=== PATIENT | female | born 1975 | race Caucasian/White ===

== ENCOUNTER 2020-06-10 11:32 | Emergency (ER) | payer SELFPAY ==
[2020-06-10 11:39] VITALS: BP 145/93; PULSE 93; RESP 16; TEMP 36.8; O2SAT 98
[2020-06-10] MEDS: Acetaminophen 325 MG TABLET 650 MG PO (12:49)
[2020-06-10] MEDS: carBAMazepine 100 MG TAB.CHEW PO (12:49)
[2020-06-10] MEDS: Metoclopramide HCl 10 MG TABLET PO (12:49)
--- NOTE | 2020-06-10 13:43 | ED.HA ---
HPI - Headache General Chief Complaint: Headache Stated Complaint: ear pain Time Seen by Provider: 06/10/20 12:21 Source: patient Mode of arrival: ambulatory History of Present Illness HPI Narrative: 44-year-old female with past medical history of trigeminal neuralgia presenting to the ED complaining of trigeminal neuralgia flare since this morning. Reports pain to left side of face and left ear. Admits to taking 800mg of Motrin [employer] with improvement in symptoms. Admits symptoms typical of prior [place] attacks. Denies visual change/loss, lightheadedness/dizziness, nausea/vomiting. Reports this is a postop follow-up with neurology however due to pandemic has been unable to see MD elicited complaint: other ([place]) Related Data Previous Rx's Medication Instructions Recorded carbamazepine 100 mg PO BID 10 Days #10 tab 06/10/20 Allergies Allergy/AdvReac Type Severity Reaction Status Date / Time No Known Allergies Allergy Unverified 12/12/19 17:23 [No Known Allergies*] Review of Systems Review of Systems: Constitutional: No Fever, No Chills, No Fatigue, No Malaise ENT/Mouth: No Hearing loss, + Ear Pain, No Nasal Congestion, No sore throat, No Swallowing Difficulty Eyes: No Eye Pain, No Swelling, No Discharge, No Vision Changes Cardiovascular: No Chest Pain, No SOB Respiratory: No Cough Gastrointestinal: No Nausea, No Vomiting Skin: No rash Neuro: No Weakness, No Numbness, No Dizziness, +Headache Yes all other systems are reviewed and are negative [facility] Past Medical History Attestation statement: The following information was validated with the patient. Medical History (Updated 06/10/20 @ 13:48 by GEE Soto) Neuralgia Social History Social History Advance Directives: No Advance Directives Information Provided: No Physical Exam Vital Signs: Vital Signs: Last Vital Signs Temp 98.2 F 06/10/20 11:39 Pulse 93 06/10/20 11:39 Resp 16 06/10/20 11:39 BP 145/93 H 06/10/20 11:39 Pulse Ox 98 06/10/20 11:39 Body Mass Index 0.2 Const: General: cooperative, healthy appearing, comfortable, no acute distress, well developed, alert and awake Orientation/consciousness: patient oriented x3 Limitations: no limitations HENMT: Other: + tenderness to soft palpation of left side of face/behind ear Head: Yes normal to inspection, Yes normocephalic and Yes atraumatic Ears: hearing grossly normal bilaterally, external ears normal, TM's normal bilaterally, mastoids normal and no periauricular adenopathy General nose exam: Normal external nose present Face and sinus: Yes normal facial exam Mouth: Normal oral and palatal mucosa present Throat: Yes posterior oropharynx normal, Yes tonsils normal, Yes uvula midline and No peritonsillar mass Eyes: General: appearance normal, both eyes and all related structures Pupils: Equal, round and reactive pupils present EOM: EOMs intact bilaterally Neck: Neck: Yes normal visual inspection, Yes full ROM, Yes no lymphadenopathy, Yes no meningeal signs and Yes supple Resp: Effort & Inspection: normal respiratory effort Cardio: Rate: regular rate Skin: Rashes: no rashes Wounds: no wounds Neuro: General: patient oriented x3, gait normal, tone normal, moves all extremities, no meningeal signs and no focal motor deficits Cranial nerves: Yes Equal, round and reactive pupils present Gait exam (Neuro): Normal gait present Extrem: General: Yes normal to inspection Course Course Course Narrative: -patient reports symptomatic improvement after p.o. medications given in the ED. Would like to be discharged. Will discharge home with carbamazepine prescription and close Neurology follow-up. She verbalized understanding feel safe discharge home MDM - Headache MDM Narrative Medical decision making narrative: 44-year-old female with past medical history of trigeminal neuralgia presenting to the ED complaining of trigeminal neuralgia flare since this morning. On exam VSS, NAD/well-appearing, physical exam as above. History/exam consistent with trigeminal neuralgia. Low concern for meningitis/encephalitis or CBT/SAH Plan: Carbamazepine/symptomatic treatment, reassess Medical Records Attestation: I reviewed the patient's medical records. Discharge Plan Discharge Clinical Impression: Trigeminal neuralgia Patient Disposition: Home, Self-Care Instructions: Trigeminal Neuralgia (ED) Additional Instructions: Carbamazepine will help treat your trigeminal neuralgia pain, take as prescribed, twice daily It is important that you have close follow-up with neurology Adverse potential side effects of this medication include nausea, vomiting, diarrhea, rash, itching, drowsiness, dizziness, blurred/double vision, lethargy, and headache, these usually occur at higher doses of the medication, and you are being started at the lowest does, thus these side effects are unlikely to occur If he develops any atypical symptoms of her trigeminal neuralgia including visual change/loss, persistent/unremitting nausea/vomiting, worsening headache, weakness, numbness return to the ED Prescriptions: New carbamazepine 200 mg tablet 100 mg PO BID 10 Days Qty: 10 RF: 0 Referrals: Lynette Nichole MD [Physician] - 5 days Interventions: ED Discharge Assessment Last Done: 06/10/20 14:28 Discharge Date/Time: 06/10/20 14:58
== END 2020-06-10 14:58 | disposition home or self-care (01) ==
PROVIDERS: Emergency Provider Internal Medicine
DX: G50.0 Trigeminal neuralgia (principal); R51.9 Headache, unspecified; Z79.899 Other long term (current) drug therapy
CPT/HCPCS: 99283

== ENCOUNTER 2021-05-30 12:26 | Emergency (ER) | payer OTHER, SELFPAY ==
--- NOTE | ~2021-05-30 | CT_ITS ---
EXAMINATION: CT ABDOMEN AND PELVIS WITHOUT CONTRAST CLINICAL INFORMATION: Upper abdominal pain COMPARISON: None TECHNIQUE: Multidetector volumetric imaging was performed from the superior aspect of the liver through the pubic symphysis. Sagittal and coronal reformatted images were obtained on the technologist's workstation. This CT examination was performed using dose optimization techniques as appropriate, variously including the following: *Automated exposure control *Adjustment of mA and/or kV according to patient size (this includes techniques or standardized protocols for targeted exams where dose is matched to indication/reason for exam; i.e. extremities or head) *Use of iterative reconstruction technique DLP: 395 mGy-cm FINDINGS: LUNG BASES: The visualized lung bases are unremarkable. LIVER, GALLBLADDER, AND BILIARY TREE: The liver is normal in size, shape, and attenuation. No focal hepatic lesion or biliary ductal dilatation is present. The gallbladder is unremarkable with no evidence of radiopaque gallstones, gallbladder wall thickening, or obvious pericholecystic inflammatory changes. PANCREAS: Unremarkable. SPLEEN: Unremarkable. ADRENAL GLANDS: Chronic calcifications in right adrenal gland again noted. KIDNEYS AND URETERS: The kidneys are normal in size, shape, and attenuation. There is a nonobstructing 2 mm calculus in the left lower pole. No hydronephrosis, hydroureter, or other calculi seen. No renal masses. No perinephric stranding. BLADDER: Unremarkable. GASTROINTESTINAL TRACT: Extensive sigmoid diverticula are present, increased when compared to the prior study. There is narrowing of a approximately 10 cm portion of ascending colon with normal-appearing cecum and appendix. Terminal ileum appears mildly thickened, which in retrospect was also the case in 2008. The small and large bowel are otherwise unremarkable. ABDOMINAL WALL: No significant hernia is appreciated. LYMPH NODES: No retroperitoneal lymphadenopathy. VASCULAR: Unremarkable. PELVIC VISCERA: An anteverted uterus is present. An abnormal adnexal mass is not seen. No free intraperitoneal fluid OSSEOUS STRUCTURES: Unremarkable. CT/CT abdomen pelvis wo con IMPRESSION: There is an area of narrowing in the ascending colon just above this cecum. At the time of the 2008 study, some thickening of the terminal ileum may have been present which may also be present on the current study but this is difficult to appreciate because of lack of oral contrast media. Could this patient have inflammatory bowel disease? Colonoscopy could be performed for further evaluation of the ascending colon or alternatively CT colonography or barium enema . Incidental note made of chronic right adrenal gland calcifications, extensive sigmoid diverticular disease and nonobstructing left renal calculus. Fleischner guidelines were followed.
[2021-05-30 13:27] VITALS: BP 142/102; PULSE 80; RESP 18; TEMP 36.9; O2SAT 99; BMI 23.2
--- NOTE | 2021-05-30 16:40 | ED.ABDPAIN ---
HPI - Abdominal Pain General Chief Complaint: Abdominal Pain Stated Complaint: abd pain Time Seen by Provider: 05/30/21 16:40 Source: patient Mode of arrival: ambulatory Limitations: no limitations History of Present Illness HPI narrative: Patient has history of chronic constipation no other significant abdominal problems been constipated for last 2 weeks complaining of upper abdominal pain radiating to the back with slight nausea vomited twice not eating much feel full no fever no chills no urinary complaints. Seen at urgent care center today earlier x-ray showed dilated bowels. Related Data Previous Rx's Medication Instructions Recorded carbamazepine 200 mg tablet 100 mg PO BID 10 Days #10 tab 06/10/20 Allergies Allergy/AdvReac Type Severity Reaction Status Date / Time No Known Allergies Allergy Unverified 12/12/19 17:23 [No Known Allergies*] Review of Systems Review of Systems Yes all other systems are reviewed and are negative [facility] Past Medical History Medical History Neuralgia Social History Social History Advance Directives: No Advance Directives Information Provided: No Patient : No Physical Exam ED Vital Signs: Vital Signs - 24 hr 05/30/21 13:27 Temperature 98.5 F Pulse Rate 80 Respiratory Rate 18 Blood Pressure 142/102 H Pulse Oximetry 99 BMI result Body Mass Index 23.2 Appearance: Alert. Oriented X3. No acute distress. Eyes: No pallor or icterus ENT: Pharynx normal. Oral Mucosa moist Neck: Normal inspection. Neck supple. CVS: Normal heart rate and rhythm. Pulses normal. Respiratory: No respiratory distress. Equal air entry bilateral, no wheezing/rales/rhonchi Abdomen: Soft , tenderness in epigastric area no rebound tenderness or guarding Bowel sounds are present, no mass palpable, no CVA tenderness Skin: Skin warm and dry. Normal skin color. Normal skin turgor. Extremities: No lower extremity edema. No calf tenderness Neuro: Oriented X 3. MDM - Abdominal Pain MDM Narrative Medical decision making narrative: Patient with history of chronic constipation with upper abdominal pain usually she does not get pain with constipation usual for her to have constipation for so long. No history of gallstones the past. Patient does not have history of gastritis ulcers. No blood in the stool. Will do basic labs including lipase to check pancreatitis CT scan to rule out any gallstones pancreas inflammation Lab Data Result diagrams: 05/30/21 16:58 05/30/21 16:58 Labs: Lab Results 05/30/21 05/30/21 05/30/21 Range/Units 16:58 16:58 18:35 WBC 8.1 (4.8-10.8) X10*3/uL RBC 4.21 (4.20-5.50) X10*6/uL Hgb 13.7 (12.0-16.0) g/dl Hct 39.8 (37.0-47.0) % MCV 94.5 (80.0-98.0) fL MCH 32.5 (27.0-33.0) pg MCHC 34.4 (31.0-35.0) g/dl RDW 12.1 (11.0-16.0) % Plt Count 305 (160-400) X10*3/uL MPV 8.9 L (9.4-12.3) fL Immature Gran % (Auto) 0.4 (0.0-0.4) % Neut % (Auto) 59.4 (45-73) % Lymph % (Auto) 31.1 (20-40) % [place] % (Auto) 6.9 (2-11) % Eos % (Auto) 1.6 (0-4) % Baso % (Auto) 0.6 (0-2) % Lymph # (Auto) 2.5 (1.2-4.9) X10*3/uL [place] # (Auto) 0.6 (0.1-1.2) X10*3/uL Eos # (Auto) 0.1 (0.0-0.4) X10*3/uL Baso # (Auto) 0.1 (0.0-0.2) X10*3/uL Abs Immat Gran (auto) 0.03 (0.00-0.03) X10*3/uL Absolute Neuts (auto) 4.8 (2.0-8.3) x10*3/uL Absolute Nucleated RBC 0.000 (0.0-0.012) X10*3/uL Nucleated RBC % (auto) 0.0 (0.0-0.2) /100WBC Sodium 137 (135-145) mmol/L Potassium 4.3 (3.3-5.1) mmol/L Chloride 104 (96-108) mmol/L Carbon Dioxide 25 (22-29) mmol/L Anion Gap 12 (12-20) BUN 12 (9-16) mg/dL Creatinine 0.74 (0.5-1.4) mg/dL Estim Creat Clear Calc 78.5 Estimated GFR > 60 Random Glucose 96 (60-115) mg/dL Calcium 9.5 (8.4-10.2) mg/dL Total Bilirubin 0.3 (0.0-1.0) mg/dL AST 14 (5-31) U/L ALT 16 (0-31) U/L Alkaline Phosphatase 92 (39-117) U/L Total Protein 7.0 (6.5-8.0) g/dL Albumin 4.1 (3.5-5.0) g/dL Lipase 48 (8-78) U/L Urine Color YELLOW Urine Appearance CLEAR Urine pH 6.0 (5.0-8.0) Ur Specific [place] 1.020 (1.005-1.025) Urine Protein NEG (NEG-TRACE) MG/DL Urine Glucose (UA) NEG (NEG) MG/DL Urine Ketones 5 (NEG) MG/DL Urine Blood NEG (NEG) Urine Nitrite NEG (NEG) Ur Leukocyte Esterase NEG (NEG) Urine RBC 0-2 (0) /HPF Urine WBC 0 (0-4) /HPF Ur Squamous Epith Cells TRACE /LPF Urine Bacteria 1+ /LPF Urine Mucus TRACE /LPF Urine Test (NEGATIVE) 05/30/21 Range/Units 18:35 WBC (4.8-10.8) X10*3/uL RBC (4.20-5.50) X10*6/uL Hgb (12.0-16.0) g/dl Hct (37.0-47.0) % MCV (80.0-98.0) fL MCH (27.0-33.0) pg MCHC (31.0-35.0) g/dl RDW (11.0-16.0) % Plt Count (160-400) X10*3/uL MPV (9.4-12.3) fL Immature Gran % (Auto) (0.0-0.4) % Neut % (Auto) (45-73) % Lymph % (Auto) (20-40) % [place] % (Auto) (2-11) % Eos % (Auto) (0-4) % Baso % (Auto) (0-2) % Lymph # (Auto) (1.2-4.9) X10*3/uL [place] # (Auto) (0.1-1.2) X10*3/uL Eos # (Auto) (0.0-0.4) X10*3/uL Baso # (Auto) (0.0-0.2) X10*3/uL Abs Immat Gran (auto) (0.00-0.03) X10*3/uL Absolute Neuts (auto) (2.0-8.3) x10*3/uL Absolute Nucleated RBC (0.0-0.012) X10*3/uL Nucleated RBC % (auto) (0.0-0.2) /100WBC Sodium (135-145) mmol/L Potassium (3.3-5.1) mmol/L Chloride (96-108) mmol/L Carbon Dioxide (22-29) mmol/L Anion Gap (12-20) BUN (9-16) mg/dL Creatinine (0.5-1.4) mg/dL Estim Creat Clear Calc Estimated GFR Random Glucose (60-115) mg/dL Calcium (8.4-10.2) mg/dL Total Bilirubin (0.0-1.0) mg/dL AST (5-31) U/L ALT (0-31) U/L Alkaline Phosphatase (39-117) U/L Total Protein (6.5-8.0) g/dL Albumin (3.5-5.0) g/dL Lipase (8-78) U/L Urine Color Urine Appearance Urine pH (5.0-8.0) Ur Specific [place] (1.005-1.025) Urine Protein (NEG-TRACE) MG/DL Urine Glucose (UA) (NEG) MG/DL Urine Ketones (NEG) MG/DL Urine Blood (NEG) Urine Nitrite (NEG) Ur Leukocyte Esterase (NEG) Urine RBC (0) /HPF Urine WBC (0-4) /HPF Ur Squamous Epith Cells /LPF Urine Bacteria /LPF Urine Mucus /LPF Urine Test NEGATIVE (NEGATIVE) Discharge Plan Discharge Clinical Impression: Abdominal pain, Constipation Patient Disposition: Home, Self-Care Instructions: Constipation (DC), Abdominal Pain (ED) Additional Instructions: Drink plenty of fluids Stool softener as advised Take MiraLax 2 times a day as needed Follow-up with gastroenterology for colonoscopy Prescriptions: No Action carbamazepine 200 mg tablet 100 mg PO BID 10 Days Qty: 10 0RF Referrals: Dawn Malave MD [Physician] - 1 week
[2021-05-30 17:03] LABS: MANUAL DIFF FLAG NO
[2021-05-30] MEDS: Famotidine/PF 20 MG/2 ML VIAL IVPUSH (17:05)
[2021-05-30 17:06] LABS: Basophils Absolute Auto 0.1 X10*3/uL (0.0-0.2); Basophils Percent Auto 0.6 % (0-2); Eosinophils Absolute Auto 0.1 X10*3/uL (0.0-0.4); Eosinophils Percent Auto 1.6 % (0-4); Hematocrit 39.8 % (37.0-47.0); Hemoglobin 13.7 g/dl (12.0-16.0); Imm Gran Abs Auto 0.03 X10*3/uL (0.00-0.03); Imm Gran Pct Auto 0.4 % (0.0-0.4); Lymphocytes Absolute Auto 2.5 X10*3/uL (1.2-4.9); Lymphocytes Percent Auto 31.1 % (20-40); Mean Corpuscular HGB Conc 34.4 g/dl (31.0-35.0); Mean Corpuscular Hemoglobin 32.5 pg (27.0-33.0); Mean Corpuscular Volume 94.5 fL (80.0-98.0); Mean Platelet Volume 8.9 fL (9.4-12.3); Monocytes Absolute Auto 0.6 X10*3/uL (0.1-1.2); Monocytes Percent Auto 6.9 % (2-11); Neutrophils Absolute Auto 4.8 x10*3/uL (2.0-8.3); Neutrophils Percent Auto 59.4 % (45-73); Platelet Count 305 X10*3/uL (160-400); Red Blood Count 4.21 X10*6/uL (4.20-5.50); Red Cell Distribution Width 12.1 % (11.0-16.0); White Blood Count 8.1 X10*3/uL (4.8-10.8)
[2021-05-30] MEDS: 0.9 % Sodium Chloride 1,000 ML 999 ML IV (17:07)
[2021-05-30 17:32] LABS: Alanine Aminotransferase 16 U/L (0-31); Albumin Level 4.1 g/dL (3.5-5.0); Alkaline Phosphatase 92 U/L (39-117); Anion Gap 12 (12-20); Aspartate Amino Transferase 14 U/L (5-31); Bilirubin Total 0.3 mg/dL (0.0-1.0); Blood Urea Nitrogen 12 mg/dL (9-16); Calcium 9.5 mg/dL (8.4-10.2); Carbon Dioxide 25 mmol/L (22-29); Chloride 104 mmol/L (96-108); Creatinine Clr Calc Pharmacy 78.5; Estimated Glomerular Filt Rate > 60; Glucose Random 96 mg/dL (60-115); Lipase 48 U/L (8-78); Potassium 4.3 mmol/L (3.3-5.1); Sodium 137 mmol/L (135-145)
[2021-05-30 18:44] LABS: Appearance Urine CLEAR; Color Urine YELLOW; Glucose Urine UA NEG (NEG); Leukocyte Esterase Urine NEG (NEG); Nitrite Urine NEG (NEG); Urine Blood NEG (NEG); Urine Ketones 5 MG/DL (NEG); Urine Protein NEG (NEG-TRACE)
[2021-05-30 18:45] LABS: UPreg QC Valid YES; Urine Pregnancy NEGATIVE (NEGATIVE)
[2021-05-30 18:57] LABS: Bacteria Urine 1+ /LPF; Mucus Urine TRACE /LPF; RBC Urine 0-2 /HPF (0); Squamous Epithelial Cell Urine TRACE /LPF; WBC Urine 0 /HPF (0-4)
[2021-05-30] MEDS: Magnesium Citrate 300 ML SOLUTION PO (19:08)
[2021-05-30] MEDS: bisacodyL 5 MG TABLET.DR 10 MG PO (19:08)
== END 2021-05-30 19:10 | disposition home or self-care (01) ==
PROVIDERS: Emergency Provider Internal Medicine
DX: K59.00 Constipation, unspecified (principal); R10.10 Upper abdominal pain, unspecified; Z79.899 Other long term (current) drug therapy
CPT/HCPCS: 36415; 74176; 80053; 81001; 81025; 83690; 85025; 96361; 96374; 99283; 99284

== ENCOUNTER → 2021-06-08 08:55 | Outpatient (BNVA) | payer OTHER, SELFPAY | PROVIDERS: Visit Provider Physician Assistant | DX: K21.9 Gastro-esophageal reflux disease without esophagitis (principal); K59.09 Other constipation; R93.5 Abnormal findings on diagnostic imaging of other abdominal regions, including retroperitoneum; R10.9 Unspecified abdominal pain; R68.81 Early satiety; Z12.11 Encounter for screening for malignant neoplasm of colon | CPT/HCPCS: 99202 ==

== ENCOUNTER 2021-06-08 10:06 | Outpatient (REF) | payer OTHER, SELFPAY ==
[2021-06-08 11:27] LABS: MANUAL DIFF FLAG NO
[2021-06-08 11:53] LABS: Basophils Absolute Auto 0.1 X10*3/uL (0.0-0.2); Eosinophils Absolute Auto 0.1 X10*3/uL (0.0-0.4); Eosinophils Percent Auto 1.8 % (0-4); Hematocrit 39.5 % (37.0-47.0); Hemoglobin 13.1 g/dl (12.0-16.0); Imm Gran Abs Auto 0.04 X10*3/uL (0.00-0.03); Imm Gran Pct Auto 0.6 % (0.0-0.4); Lymphocytes Absolute Auto 1.6 X10*3/uL (1.2-4.9); Lymphocytes Percent Auto 22.7 % (20-40); Mean Corpuscular HGB Conc 33.2 g/dl (31.0-35.0); Mean Corpuscular Hemoglobin 31.6 pg (27.0-33.0); Mean Corpuscular Volume 95.4 fL (80.0-98.0); Mean Platelet Volume 9.2 fL (9.4-12.3); Monocytes Absolute Auto 0.6 X10*3/uL (0.1-1.2); Monocytes Percent Auto 8.2 % (2-11); Neutrophils Absolute Auto 4.7 x10*3/uL (2.0-8.3); Neutrophils Percent Auto 65.7 % (45-73); Platelet Count 341 X10*3/uL (160-400); Red Blood Count 4.14 X10*6/uL (4.20-5.50); Red Cell Distribution Width 12.1 % (11.0-16.0); White Blood Count 7.2 X10*3/uL (4.8-10.8)
[2021-06-08 12:37] LABS: Alanine Aminotransferase 13 U/L (0-31); Alkaline Phosphatase 90 U/L (39-117); Anion Gap 13 (12-20); Aspartate Amino Transferase 12 U/L (5-31); Bilirubin Total 0.2 mg/dL (0.0-1.0); Blood Urea Nitrogen 16 mg/dL (9-16); Calcium 9.1 mg/dL (8.4-10.2); Carbon Dioxide 24 mmol/L (22-29); Chloride 105 mmol/L (96-108); Estimated Glomerular Filt Rate > 60; Glucose Random 71 mg/dL (60-115); Potassium 4.3 mmol/L (3.3-5.1); Sodium 138 mmol/L (135-145); Total Protein 7.1 g/dL (6.5-8.0)
[2021-06-08 12:40] LABS: Thyroid Stimulating Hormone 0.63 uIU/mL (0.32-4.0)
== END 2021-06-08 10:07 | disposition home or self-care (01) ==
LOC: HO.WFDLDS 10:06
PROVIDERS: Visit Provider Physician Assistant
DX: R10.9 Unspecified abdominal pain (principal); K59.09 Other constipation; R93.5 Abnormal findings on diagnostic imaging of other abdominal regions, including retroperitoneum
CPT/HCPCS: 36415; 80053; 84443; 85025

== ENCOUNTER 2021-11-10 09:29 | Emergency (ER) | payer OTHER, SELFPAY ==
[2021-11-10 09:38] VITALS: BP 155/107; PULSE 100; RESP 16; TEMP 36.6; O2SAT 100; BMI 22.8
--- NOTE | 2021-11-10 10:33 | ED.GENADULT ---
HPI - General Adult General Chief complaint: Ear Problems Stated complaint: extreme L ear pain, blurry vision Time Seen by Provider: 11/10/21 10:32 Source: patient Mode of arrival: ambulatory Limitations: no limitations History of Present Illness HPI narrative: 46-year-old female with a past medial history of trigeminal neuroalgia, presents to the emergency department c/o left sided trigeminal flare since this morning. She reports pain traveling from her left ear down to her jaw, with left-sided eye pressure and blurriness. She states she took Excedrin early on to curb her symptoms, with no relief. She denies fever, chills, headache, lightheadedness, dizziness, chest pain, shortness of breath, cough, wheezing, nausea, vomiting, diarrhea, or abdominal pain. Patient states that when she was seen here previously, she was given carbamazepine which helped. Onset (ago): hour(s) Location: face Severity: mild Severity scale (1-10): 3 Quality: stabbing Pain Consistency: constant Relieving factors: none Exacerbating factors: none Associated symptoms: denies other symptoms Treatments prior to arrival: none Related Data Previous Rx's Medication Instructions Recorded carbamazepine 200 mg tablet 100 mg PO BID 10 days #10 tabs 06/10/20 bisacodyl 10 mg rectal suppository 10 mg [place] DAILY PRN constipation 06/08/21 (Dulcolax (bisacodyl)) #20 ea bisacodyl 5 mg tablet,delayed 10 mg PO ONCE colonoscopy prep 1 06/08/21 release (Dulcolax (bisacodyl)) day #2 tabs docusate sodium 100 mg capsule 200 mg PO BEDTIME #60 caps 06/08/21 (Colace) pantoprazole 20 mg tablet,delayed 20 mg PO QAM #30 tabs 06/08/21 release polyethylene glycol 3350 17 238 g PO ONCE 1 day #238 grams 06/08/21 gram/dose oral powder (Miralax) carbamazepine 100 mg 100 mg PO BID 7 days #14 caps 11/10/21 capsule,extended release [id number] (Carbatrol) Allergies Allergy/AdvReac Type Severity Reaction Status Date / Time No Known Allergies Allergy Verified 06/08/21 09:05 [No Known Allergies*] Review of Systems Constitutional: Constitutional: Reports no additional constitutional complaints, Denies chills, Denies fever(s), Denies headache(s) and Denies night sweats Eyes: Eyes: Reports no additional eye complaints, Reports blurry vision (Left eye), Denies change in vision, Denies diplopia, Denies eye discharge, Denies loss of vision and Reports eye pain (Pain behind left eye) ENT: Denies dizziness and Denies headache(s) Comments: left sided face pain Cardiovascular: Cardiovascular: Reports no additional cardiovascular complaints, Denies chest pain, Denies lightheadedness, Denies Loss of Consciousness and Denies dyspnea Respiratory: Respiratory: Reports no additional respiratory complaints and Denies dyspnea Gastrointestinal: Gastrointestinal: Reports no additional gastrointestinal complaints, Denies abdominal pain, Denies melena, Denies hematochezia, Denies change in bowel habits, Denies change in stool character, Denies diarrhea, Denies nausea and Denies vomiting Genitourinary: Genitourinary: Denies hematuria, Denies urinary frequency, Denies dysuria, Denies urinary incontinence, Denies urinary hesitancy and Denies urinary urgency Musculoskeletal: Musculoskeletal: Reports no additional musculoskeletal complaints, Denies numbness and Denies tingling Neurologic: Denies dizziness, Denies headache(s), Denies loss of vision, Denies numbness and Denies tingling Psychiatric: Psychiatric: Reports no additional psychiatric complaints Endocrine: Endocrine: Reports no additional endocrine complaints Hematologic/Lymphatic: Hematologic/Lymphatic: Reports no additional hematologic/lymphatic complaints Allergic/Immunologic: Allergic/Immunologic: Reports no additional allergic/immunologic complaints [facility] Past Medical History Attestation statement: The following information was validated with the patient. 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 Physical Exam ED Vital Signs: Vital Signs - 24 hr 11/10/21 09:38 11/10/21 10:37 Temperature 97.8 F 98.1 F Pulse Rate 100 94 Respiratory Rate 16 16 Blood Pressure 155/107 H 141/99 H Pulse Oximetry 100 100 Oxygen Delivery Method Room Air Room Air BMI result Body Mass Index 22.8 Const General: cooperative, no acute distress, alert and awake Nutritional Appearance: well nourished Orientation/consciousness: patient oriented x3 Limitations: no limitations HENMT Head: Yes normal to inspection and Yes atraumatic Ears: hearing grossly normal bilaterally and external ears normal General nose exam: Normal external nose present, no nasal discharge noted and no epistaxis Face and sinus: Yes normal facial exam, No abrasion and No laceration Mouth: Normal oral and palatal mucosa present, no drooling and no muffled voice Eyes General: appearance normal, both eyes and all related structures Periorbital: periorbital findings normal Eyelids: Yes eyelids normal Conjunctivae: conjunctivae normal Pupils: Equal, round and reactive pupils present EOM: EOMs intact bilaterally Neck Neck: Yes normal visual inspection, Yes full ROM and Yes no lymphadenopathy Chest Chest palpation & inspection: normal inspection of the chest Resp Effort & Inspection: normal respiratory effort and able to speak in complete sentences Auscultation: clear to auscultation bilaterally, no crackles, no rales, no rhonchi and no wheezes Cardio Rate: regular rate Rhythm: regular rhythm GI Inspection: Yes normal to inspection Neuro General: patient oriented x3 and moves all extremities Cranial nerves: Yes Equal, round and reactive pupils present Cognition (Neuro): normal cognition Motor exam (neuro): 5/5 motor strength present throughout Sensory Exam: Normal double simultaneous stimulation for sensation Extrem General: Yes normal to inspection, Yes full ROM and Yes capillary refill normal Psych Appearance: grossly normal Mental Status: mental status grossly normal Affect: normal affect Attitude: cooperative Thought process: Normal thought process present Thought content: Normal thought content present Insight: Good insight present (Psych) NIH Stroke Scale Internal: Initial- Upon Arrival Time: 10:32 Level of Consciousness: Alert Level of Consciousness Questions: Answers both questions correctly Level of Consciousness Commands: Performs both tasks correctly Best Gaze: Normal Visual: No visual loss Facial Palsy: Normal Motor Arm (Right): No drift Motor Arm (Left): No drift Motor Leg (Right): No drift Motor Leg (Left): No drift Limb Ataxia: Absent Sensory: Normal Best Language: No aphasia Dysarthia: Normal Extinction and Inattention: No abnormality Score: 0 Medical Decision Making MDM Narrative Medical decision making narrative: Patient is a 46 year old female presenting to the emergency department today with left sided trigemenial neuralgia. Patient's physical exam was unremarkable. Patient's blood work was unremarkable. I explained my physical exam findings as well as all test results to the patient. I answered all questions asked by the patient. Patient received PO carbamazepine which she stated helped her symptoms significantly. I stressed the importance of the patient taking her medication as prescribed. I stressed the importance of the patient following up with her primary care provider and a neurologist. I stressed the importance of the patient returning to the emergency department immediately if her symptoms were to worsen or if she were to develop any dizziness, shortness of breath, difficulty breathing, chest pain, blurry vision, loss of vision, nausea, vomiting, abdominal pain, fever, chills, back pain, or any other complaints. Patient verbalized agreement and understanding with this treatment plan and discharge. Differential Diagnosis Differential Diagnosis: trigeminal neuralgia Medical Records Medical records reviewed: Yes I reviewed the patient's medical records. Lab Data Lab results reviewed: Yes I reviewed the patient's lab results. Result diagrams: 11/10/21 11:47 11/10/21 11:47 Labs: Lab Results 11/10/21 11/10/21 Range/Units 11:47 11:47 WBC 8.7 (4.8-10.8) X10*3/uL RBC 4.45 (4.20-5.50) X10*6/uL Hgb 14.1 (12.0-16.0) g/dl Hct 41.2 (37.0-47.0) % MCV 92.6 (80.0-98.0) fL MCH 31.7 (27.0-33.0) pg MCHC 34.2 (31.0-35.0) g/dl RDW 12.0 (11.0-16.0) % Plt Count 334 (160-400) X10*3/uL MPV 8.8 L (9.4-12.3) fL Immature Gran % (Auto) 0.6 H (0.0-0.4) % Neut % (Auto) 71.8 (45-73) % Lymph % (Auto) 20.3 (20-40) % Davis % (Auto) 6.4 (2-11) % Eos % (Auto) 0.3 (0-4) % Baso % (Auto) 0.6 (0-2) % Lymph # (Auto) 1.8 (1.2-4.9) X10*3/uL Davis # (Auto) 0.6 (0.1-1.2) X10*3/uL Eos # (Auto) 0.0 (0.0-0.4) X10*3/uL Baso # (Auto) 0.1 (0.0-0.2) X10*3/uL Abs Immat Gran (auto) 0.05 H (0.00-0.03) X10*3/uL Absolute Neuts (auto) 6.2 (2.0-8.3) x10*3/uL Absolute Nucleated RBC 0.000 (0.0-0.012) X10*3/uL Nucleated RBC % (auto) 0.0 (0.0-0.2) /100WBC Sodium 140 (135-145) mmol/L Potassium 4.3 (3.3-5.1) mmol/L Chloride 106 (96-108) mmol/L Carbon Dioxide 24 (22-29) mmol/L Anion Gap 14 (12-20) BUN 8 L (9-16) mg/dL Creatinine 0.71 (0.5-1.4) mg/dL Estim Creat Clear Calc 81.0 Estimated GFR > 60 Random Glucose 93 (60-115) mg/dL Calcium 8.8 (8.4-10.2) mg/dL Magnesium 1.8 (1.6-2.6) mg/dL Total Bilirubin 0.3 (0.0-1.0) mg/dL AST 13 (5-31) U/L ALT 12 (0-31) U/L Alkaline Phosphatase 83 (39-117) U/L Total Protein 7.3 (6.5-8.0) g/dL Albumin 4.3 (3.5-5.0) g/dL Discharge Plan Discharge Clinical Impression: Trigeminal neuralgia Patient Disposition: Home, Self-Care Instructions: Trigeminal Neuralgia (ED) Additional Instructions: Follow up with your primary care provider and a neurologist. Return to the emergency department immediately if your symptoms worsen or if you develop any dizziness, shortness of breath, difficulty breathing, chest pain, blurry vision, loss of vision, nausea, vomiting, abdominal pain, fever, chills, back pain, or any other complaints. Prescriptions: New carbamazepine [Carbatrol] 100 mg capsule, ER multiphase 12 hr 100 mg PO BID 7 Days Qty: 14 0RF No Action carbamazepine 200 mg tablet 100 mg PO BID 10 Days Qty: 10 0RF docusate sodium [Colace] 100 mg capsule 200 mg PO BEDTIME Qty: 60 5RF bisacodyl [Dulcolax (bisacodyl)] 10 mg suppository 10 mg [place] DAILY PRN (Reason: constipation) Qty: 20 0RF bisacodyl [Dulcolax (bisacodyl)] 5 mg tablet,delayed release (DR/EC) 10 mg PO ONCE 1 Days Qty: 2 0RF Rx Instructions: Take 2 tablets by mouth at 12:00pm the day before your procedure. polyethylene glycol 3350 [Miralax] 17 gram/dose powder 238 g PO ONCE 1 Days Qty: 238 0RF Rx Instructions: Take as directed by mouth the day before your procedure. pantoprazole 20 mg tablet,delayed release (DR/EC) 20 mg PO QAM Qty: 30 6RF Referrals: [facility] [place] [facility] [place]] (Call to establish and follow up with a primary care provider. If you already have a primary care provider, please follow up with them. ) [facility] [place] [facility] [[facility]] (Call to establish and follow up with a primary care provider. If you already have a primary care provider, please follow up with them. ) [facility] [place] [Provider Group] (Call to establish and follow up with a primary care provider. If you already have a primary care provider, please follow up with them. ) [facility] [place] Neuro/[facility] [Provider Group] (Call to establish and follow up with a neurologist ) Stand Alone Forms: Work/School Release Interventions: ED Discharge Assessment Last Done: 11/10/21 12:43 Print Language: Estonian
[2021-11-10 10:37] VITALS: BP 141/99; PULSE 94; RESP 16; TEMP 36.7; O2SAT 100
[2021-11-10] MEDS: carBAMazepine ER 100 MG TAB.ER.12H PO (11:46)
[2021-11-10 11:52] LABS: MANUAL DIFF FLAG NO
[2021-11-10 11:53] LABS: Basophils Absolute Auto 0.1 X10*3/uL (0.0-0.2); Basophils Percent Auto 0.6 % (0-2); Eosinophils Percent Auto 0.3 % (0-4); Hematocrit 41.2 % (37.0-47.0); Hemoglobin 14.1 g/dl (12.0-16.0); Imm Gran Abs Auto 0.05 X10*3/uL (0.00-0.03); Imm Gran Pct Auto 0.6 % (0.0-0.4); Lymphocytes Absolute Auto 1.8 X10*3/uL (1.2-4.9); Lymphocytes Percent Auto 20.3 % (20-40); Mean Corpuscular HGB Conc 34.2 g/dl (31.0-35.0); Mean Corpuscular Hemoglobin 31.7 pg (27.0-33.0); Mean Corpuscular Volume 92.6 fL (80.0-98.0); Mean Platelet Volume 8.8 fL (9.4-12.3); Monocytes Absolute Auto 0.6 X10*3/uL (0.1-1.2); Monocytes Percent Auto 6.4 % (2-11); Neutrophils Absolute Auto 6.2 x10*3/uL (2.0-8.3); Neutrophils Percent Auto 71.8 % (45-73); Platelet Count 334 X10*3/uL (160-400); Red Blood Count 4.45 X10*6/uL (4.20-5.50); White Blood Count 8.7 X10*3/uL (4.8-10.8)
[2021-11-10 12:17] LABS: Alanine Aminotransferase 12 U/L (0-31); Albumin Level 4.3 g/dL (3.5-5.0); Alkaline Phosphatase 83 U/L (39-117); Anion Gap 14 (12-20); Aspartate Amino Transferase 13 U/L (5-31); Bilirubin Total 0.3 mg/dL (0.0-1.0); Blood Urea Nitrogen 8 mg/dL (9-16); Calcium 8.8 mg/dL (8.4-10.2); Carbon Dioxide 24 mmol/L (22-29); Chloride 106 mmol/L (96-108); Estimated Glomerular Filt Rate > 60; Glucose Random 93 mg/dL (60-115); Magnesium 1.8 mg/dL (1.6-2.6); Potassium 4.3 mmol/L (3.3-5.1); Sodium 140 mmol/L (135-145); Total Protein 7.3 g/dL (6.5-8.0)
== END 2021-11-10 12:45 | disposition home or self-care (01) ==
PROVIDERS: Physician Assistant Medical; Emergency Provider Emergency Medicine
DX: G50.0 Trigeminal neuralgia (principal)
CPT/HCPCS: 36415; 80053; 83735; 85025; 99283

== ENCOUNTER 2022-02-15 10:44 | Day surgery (SDC) | payer OTHER, SELFPAY ==
--- NOTE | 2022-02-14 11:00 | HO.ANESPROP2 ---
Documented by User: Hortencia Workman NP 02/14/22 11:01 HPI - Anesthesia Eval Consult details Narrative: 46yo F for Upper Endoscopy and Colonoscopy PMF Active Problems Active Problems: All Active Problems (Updated 11/11/21 @ 00:03 by Chintan Maki) Early satiety (Acute) Abdominal pain (Acute) Abnormal CT of the abdomen (Acute) Chronic constipation (Acute) Past Medical History Medical History Abnormal CT of the abdomen Chronic constipation Neuralgia Social History Social History Household Members Other:: 2 sons Alcohol intake: current Alcohol intake frequency: holidays/special occasions only Patient Tobacco Use Status: Never used Tobacco Are you DNR?: No Advance Directives: No Advance Directives Information Provided: Yes 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 Allergy/AdvReac Type Severity Reaction Status Date / Time No Known Allergies Allergy Verified 06/08/21 09:05 [No Known Allergies*] Home Medications Medication Instructions Recorded Confirmed Last Taken Type bupropion HCl 150 mg 24 hr tablet, 1 tab PO TID 02/15/22 02/15/22 02/15/22 History extended release dextroamphetamine-amphetamine ER 1 cap PO DAILY 02/15/22 02/15/22 02/14/22 History 30 mg 24hr capsule,extend release fluoxetine 20 mg capsule 1 cap PO DAILY 02/15/22 02/15/22 02/15/22 History hydroxyzine HCl 50 mg tablet 1 tab PO BEDTIME 02/15/22 02/15/22 02/15/22 History ropinirole 0.5 mg tablet 1 tab PO BEDTIME 02/15/22 02/15/22 02/14/22 History Exam Exam Date and Time: February 14, 2022 1100 Pertinent Lab Results Pertinent Lab Results: Laboratory Tests 11/10/21 11/10/21 11:47 11:47 WBC 8.7 Hgb 14.1 Hct 41.2 Plt Count 334 Sodium 140 Potassium 4.3 Chloride 106 Carbon Dioxide 24 BUN 8 L Creatinine 0.71 Assessment and Plan Assessment Anesthesia Assessment: Chart Reviewed Documented by User: Ousmane De Anda MD 02/15/22 11:37 [facility] Past Medical History Medical History Abnormal CT of the abdomen Chronic constipation Neuralgia Family History Family history of problems with anesthesia: No Surgical History History of Problems with Anesthesia: No Social History Social History Household Members Other:: 2 sons Alcohol intake: current Alcohol intake frequency: holidays/special occasions only Patient Tobacco Use Status: Never used Tobacco Are you DNR?: No Advance Directives: No Advance Directives Information Provided: Yes 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 Allergy/AdvReac Type Severity Reaction Status Date / Time No Known Allergies Allergy Verified 06/08/21 09:05 [No Known Allergies*] Home Medications Medication Instructions Recorded Confirmed Last Taken Type bupropion HCl 150 mg 24 hr tablet, 1 tab PO TID 02/15/22 02/15/22 02/15/22 History extended release dextroamphetamine-amphetamine ER 1 cap PO DAILY 02/15/22 02/15/22 02/14/22 History 30 mg 24hr capsule,extend release fluoxetine 20 mg capsule 1 cap PO DAILY 02/15/22 02/15/22 02/15/22 History hydroxyzine HCl 50 mg tablet 1 tab PO BEDTIME 02/15/22 02/15/22 02/15/22 History ropinirole 0.5 mg tablet 1 tab PO BEDTIME 02/15/22 02/15/22 02/14/22 History Exam Airway Mallampati Class: II TM Dist: >3cm Neck ROM: Full Loose/Missing/Broken Teeth: Yes Heart: [id number] Lungs: cta b/l Assessment and Plan Assessment Anesthesia Assessment: Anesthesia Plan Discussed Final Anesthetic Review Family History of Problems with Anesthesia: No History of Problems with Anesthesia: No NPO: Yes ASA Class: II Final Preanesthetic Review: No Changes in Pt Med Stat, Meds/Allgs Chart Reviewed, Consent Obtained/Reviewed and Anes Risks/Benef Reviewed Patient Risk: Intermediate Procedure Risk: Intermediate Assessment/Block/Sedation in SS: Assess/Block/Sedation-SS Anesthetic Plan Anesthetic Plan: MAC: and Agree w/ Assess. and Plan Disposition: Standard PACU
[2022-02-15 10:35] VITALS: BMI 23.6
[2022-02-15 10:49] VITALS: RESP 16
--- NOTE | 2022-02-15 10:53 | MHC.SHP ---
Pre-Procedural Eval Section A Date of Service: 02/15/22 Section B Chief Complaint: Early satiety,abdominal pain,constipation,abd imag Relevant Family History (Specify if Yes): No Relevant Social History: None Present Medications: see Short Stay Collaborative assessment Medical History: Significant History (Abnormal CT of the abdomen Chronic constipation Neuralgia) History of Previous Operations: No relevant previous surgery Allergies: Allergies Allergy/AdvReac Type Severity Reaction Status Date / Time No Known Allergies Allergy Verified 06/08/21 09:05 [No Known Allergies*] Review of Systems Sugical H&P ROS: Negative: Constitution, Cardiovascular, Respiratory, Neurological, Psychiatric, Hem-Onc, Allergic/Immunologic, Gastrointestinal, Genitourinary, Musculoskeletal, Integumentary, Endocrine and Eyes/Ears/Nose/Throat Exam Surgical H&P Exam: Normal: HEENT, Normal: Heart, Normal: Lungs, Normal: Extremities, Normal: Abdomen, Normal: Skin and Normal: Neurological Plan Diagnosis/Plan: Unchanged I have reviewed the history and physical and performed a pertinent physical examination on my patient. No changes have occurred unless specified.
[2022-02-15 11:08] LABS: UPreg QC Valid YES
[2022-02-15 11:09] LABS: Urine Pregnancy NEGATIVE (NEGATIVE)
[2022-02-15] MEDS: Lactated Ringers 1,000 ML 100 ML IVCONT (11:17)
--- NOTE | 2022-02-15 11:46 | W.PM.OPN ---
Operative Note Operative Note Date of Service: 02/15/22 Narrative: Operative Information Procedure Description: EGD, Colonoscopy Indication: early satiety, abn imaging of colon Anesthesia: MAC FLEXIBLE TRANSORAL UPPER GASTROINTESTINAL ENDOSCOPY AND COLONOSCOPY PROCEDURE NOTE UPPER ENDOSCOPY Consent: Indications for the procedure and potential complications of bleeding, perforation, reaction to medications and missed diagnosis were discussed with the patient and informed consent was obtained. Instrument: Olympus GIF H 190 J mid size upper endoscope Monitoring: Vital signs and clinical assessment, continuous EKG monitoring, Pulse oximetry, Carbon Dioxide monitoring and blood pressure monitoring were done throughout the procedure. Procedure: The patient was placed in the left lateral decubitis position and pre-procedure medications were administered and a bite block was placed. The endoscope was inserted into the mouth and advanced under direct vision to the third part of duodenum. A careful inspection was made as the upper endoscope was withdrawn including a retroflexed examination of the proximal stomach; Findings and interventions are described below. Findings: Larynx:normal Esophagus: GE junction at 40 cm, diaphragm hiatus at 40 cm, bogginess and erythema at GEJ, bx taken. Imprinted plastic appearing material on mucosa in distal esophagus. Stomach: Patchy erythema. Biopsies were obtained. Grade 2 flap valve on retroflexed examination of the cardia. Duodenum: Normal bulb and descending duodenum, Intervention: Biopsies as noted above COLONOSCOPY Instrument: Olympus variable stiffness pediatric scope 190L Colonoscopy Monitoring: Vital signs and clinical assessment, continuous EKG monitoring, Pulse oximetry, Carbon Dioxide monitoring and blood pressure monitoring were done throughout the procedure. Colon withdrawal time was 10 minutes. Procedure: The patient was placed in the left lateral decubitis position and pre-procedure medications were administered. After a digital rectal examination of the ano-rectum, the video colonoscope was inserted into the rectum and advanced through the colon to the cecum/TI. The colonoscope was slowly withdrawn in a retrograde panoramic fashion and the colon mucosa was carefully examined including a retroflexed view of the rectum. Findings and interventions are described below. Procedure Difficulty: easy Findings: Terminal Ileum-normal, bx taken bx taken from right and left/transverse, rectum areas in separate jars Cecum:normal Ascending Colon: midl diverticulosis Transverse Colon -normal Descending Colon:normal Sigmoid Colon: severe diverticulosis with luminal hypertrophy and narrowing, with wide mouthed tics Rectum: Retroflexion with small internal hemorrhoids, grade I with skin tags Anorectum - normal Colon preparation: [place] Bowel Preparation Scale Right colon; 2 Transverse colon: 3 Left colon; 2 (0 = Unprepared colon segment with mucosa not seen due to solid stool that cannot be cleared. 1 = Portion of mucosa of the colon segment seen, but other areas of the colon segment not well seen due to staining, residual stool and/or opaque liquid. 2 = Minor amount of residual staining, small fragments of stool and/or opaque liquid, but mucosa of colon segment seen well. 3 = Entire mucosa of colon segment seen well with no residual staining, small fragments of stool or opaque liquid) Impression and Post Procedure Diagnosis: Endoscopy Findings: esophagitis gastritis Colonoscopy Findings: internal hemorrhoids diverticular disease Plan: Await Pathology results Repeat Colonoscopy in 10 years or earlier if clinically indicated High fiber diet leaflet avoid straining at stool, epsom salts and sitz bath, anusol supps or cream if ongoing sx can consider capsule endoscopy will ask her if any sx to suggest gilberto danlos Above findings were reviewed with the patient and relevant handouts were provided if indicated.
--- NOTE | 2022-02-15 11:56 | HO.ANESPROP2 ---
[facility] Active Problems Active Problems: All Active Problems (Updated 11/11/21 @ 00:03 by Chintan Maki) Early satiety (Acute) Abdominal pain (Acute) Abnormal CT of the abdomen (Acute) Chronic constipation (Acute) Past Medical History Medical History Abnormal CT of the abdomen Chronic constipation Neuralgia Family History Family history of problems with anesthesia: No Surgical History History of Problems with Anesthesia: No Social History Social History Household Members Other:: 2 sons Alcohol intake: current Alcohol intake frequency: holidays/special occasions only Patient Tobacco Use Status: Never used Tobacco Are you DNR?: No Advance Directives: No Advance Directives Information Provided: Yes 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 Allergy/AdvReac Type Severity Reaction Status Date / Time No Known Allergies Allergy Verified 06/08/21 09:05 [No Known Allergies*] Active Medications: Current Medications Acetaminophen (Acetaminophen 325 Mg Tablet) 650 mg PO ONCE PRN PRN Reason: Pain, Mild (Pain Scale 1-3) Lactated Ringer's (Lr) 1,000 mls @ 100 mls/hr IVCONT .Q10H KORIN Last Admin: 02/15/22 11:17 Dose: 100 mls/hr Ondansetron HCl (Ondansetron Hcl 4 Mg/2 Ml Vial) 4 mg IVPUSH ONCE PRN PRN Reason: Nausea and Vomiting Ondansetron HCl (Ondansetron Hcl 4 Mg/2 Ml Vial) 4 mg IVPUSH ONCE PRN PRN Reason: Nausea and Vomiting Home Medications Medication Instructions Recorded Confirmed Last Taken Type bupropion HCl 150 mg 24 hr tablet, 1 tab PO TID 02/15/22 02/15/22 02/15/22 History extended release dextroamphetamine-amphetamine ER 1 cap PO DAILY 02/15/22 02/15/22 02/14/22 History 30 mg 24hr capsule,extend release fluoxetine 20 mg capsule 1 cap PO DAILY 02/15/22 02/15/22 02/15/22 History hydroxyzine HCl 50 mg tablet 1 tab PO BEDTIME 02/15/22 02/15/22 02/15/22 History ropinirole 0.5 mg tablet 1 tab PO BEDTIME 02/15/22 02/15/22 02/14/22 History Exam Exam Date and Time: February 15, 2022 1156 Height,Weight and Vital Signs: Height 5 ft 3 in Weight 60.328 kg Last Vital Signs Resp 16 02/15/22 10:49 Pertinent Lab Results Pertinent Lab Results: Laboratory Tests 02/15/22 10:50 Urine Test NEGATIVE Airway Mallampati Class: II TM Dist: >3cm Neck ROM: Full Heart: rrr Lungs: clear Assessment and Plan Final Anesthetic Review Family History of Problems with Anesthesia: No History of Problems with Anesthesia: No NPO: Yes ASA Class: II Final Preanesthetic Review: No Changes in Pt Med Stat, Meds/Allgs Chart Reviewed, Consent Obtained/Reviewed and Anes Risks/Benef Reviewed Patient Risk: Low Procedure Risk: Low Anesthetic Plan Anesthetic Plan: MAC: Disposition: Standard PACU
[2022-02-15 12:52] VITALS: BP 119/79; PULSE 90; RESP 20; TEMP 36.7; O2SAT 100
[2022-02-15 13:07] VITALS: BP 120/88; PULSE 87; RESP 20; TEMP 36.7; O2SAT 100
== END 2022-02-15 14:14 | disposition home or self-care (01) ==
PROVIDERS: Nurse Practitioner; Visit Provider Internal Medicine Gastroenterology
PROC: (CPT 45380; principal; 2022-02-15 12:10)
DX: R93.5 Abnormal findings on diagnostic imaging of other abdominal regions, including retroperitoneum (principal); R10.9 Unspecified abdominal pain; K59.09 Other constipation; R68.81 Early satiety; K57.30 Diverticulosis of large intestine without perforation or abscess without bleeding; K64.0 First degree hemorrhoids; K64.4 Residual hemorrhoidal skin tags; K20.90 Esophagitis, unspecified without bleeding; K29.70 Gastritis, unspecified, without bleeding; Z79.899 Other long term (current) drug therapy
CPT/HCPCS: 45380; 43239; 81025; 88305; 88312; 88342

== ENCOUNTER 2022-03-03 10:57 | Outpatient (REF) | payer OTHER, SELFPAY ==
--- NOTE | ~2022-03-03 | XR_ITS ---
EXAMINATION: XR SOFT TISSUE NECK CLINICAL INDICATION: Left-sided neck pain. Status post endoscopy. COMPARISON: None TECHNIQUE: 2 views of the soft tissue neck were obtained. FINDINGS: There is mild straightening of the cervical lordosis. The vertebral height and alignment is normal. There is loss of C5-C6 disc height with ventral spondylosis and minimal posterior spondylosis. Rest of the disc heights are normal. No visible acute fracture, dislocation or lytic process seen. The prevertebral soft tissues are normal. XR/XR soft tissue neck IMPRESSION: Mild degenerative disc changes C5-C6 disc level with ventral spondylosis. No visible acute fracture or dislocation seen.
== END 2022-03-03 10:58 | disposition home or self-care (01) ==
LOC: HO.XRAY 10:57
PROVIDERS: Visit Provider Physician Assistant
DX: R68.89 Other general symptoms and signs (principal)
CPT/HCPCS: 70360

== ENCOUNTER 2022-12-15 17:17 | Emergency (ER) | payer OTHER, SELFPAY ==
--- NOTE | ~2022-12-15 | CT_ITS ---
EXAMINATION: CT HEAD WITHOUT CONTRAST CLINICAL INFORMATION: Sudden onset headache. COMPARISON: CT head 07/26/2011. TECHNIQUE: Contiguous axial imaging was performed from the skull base to vertex without intravenous administration of contrast. This CT examination was performed using dose optimization techniques as appropriate, variously including the following: *Automated exposure control *Adjustment of mA and/or kV according to patient size (this includes techniques or standardized protocols for targeted exams where dose is matched to indication/reason for exam; i.e. extremities or head) *Use of iterative reconstruction technique DLP: 540 mGy-cm FINDINGS: There is no evidence of acute intracranial hemorrhage or edematous territorial infarction. There is no abnormal attenuation within the brain parenchyma. [place]-white matter differentiation is preserved. The ventricles are normal in size and configuration. No evidence for obstructive hydrocephalus. No abnormal mass effect or midline shift. No extra-axial fluid collections. No acute soft tissue or osseous abnormalities. Multiple radiodensities in the premaxillary regions, likely from prior cosmetic procedure. The mastoid air cells and paranasal sinuses are clear. CT/CT head/brain wo IV con IMPRESSION: No evidence of acute intracranial hemorrhage or edematous territorial infarction.
[2022-12-15 17:21] VITALS: BP 177/100; PULSE 81; RESP 18; TEMP 36.1; O2SAT 99; BMI 24.1
--- NOTE | 2022-12-15 17:21 | ED.GENADULT ---
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 Headache has been constant described as 9/10 localized to the occipital area with no radiation, no nausea, vomiting was associated with blurry vision. Patient usually get tension headache and is usually before her menstruation. 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 No family history of intracranial bleed, or cerebral aneurysms. Related Data Home Medications Medication Instructions Recorded Confirmed bupropion HCl 150 mg 24 hr tablet, 1 tab PO TID 02/15/22 03/03/22 extended release fluoxetine 20 mg capsule 1 cap PO DAILY 02/15/22 03/03/22 hydroxyzine HCl 50 mg tablet 1 tab PO BEDTIME 02/15/22 03/03/22 ropinirole 0.5 mg tablet 1 tab PO BEDTIME 02/15/22 03/03/22 gabapentin 100 mg capsule 200 mg PO TID 03/03/22 03/03/22 Previous Rx's Medication Instructions Recorded pantoprazole 20 mg tablet,delayed 20 mg PO DAILY #30 tabs 05/26/22 release Allergies Allergy/AdvReac Type Severity Reaction Status Date / Time No Known Allergies Allergy Verified 03/03/22 10:04 [No Known Allergies*] Review of Systems Review of Systems: All other systems are reviewed and are negative Constitutional: Reports as per HPI and Reports no additional constitutional complaints Eyes: Reports as per HPI and Reports no additional eye complaints Reports system reviewed and no additional complaints, except as documented Cardiovascular: Reports as per HPI and Reports no additional cardiovascular complaints Respiratory: Reports as per HPI and Reports no additional respiratory complaints Gastrointestinal: Reports as per HPI and Reports no additional gastrointestinal complaints Genitourinary: Reports no additional female genitourinary complaints Musculoskeletal: Reports no additional musculoskeletal complaints Skin/Breast: Reports system reviewed and no additional complaints, except as docu Psychiatric: Reports no additional psychiatric complaints Endocrine: Reports no additional endocrine complaints Hematologic/Lymphatic: Reports no additional hematologic/lymphatic complaints Allergic/Immunologic: Reports no additional allergic/immunologic complaints Reports system reviewed and no additional complaints, except as documented and Reports Abnormal speech present [facility] Past Medical History Medical History Abnormal CT of the abdomen Chronic constipation Neuralgia Surgical History History of esophagogastroduodenoscopy (EGD) Hx of colonoscopy Social History Social History Household Members Other:: 2 sons Alcohol intake: current Alcohol intake frequency: holidays/special occasions only Patient Tobacco Use Status: Never used Tobacco Advance Directives: No Advance Directives Information Provided: No Current occupational status: employed 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 Blood pressure elevated. Heart rate normal. Respiratory rate normal. Temperature normal. Oxygen saturation normal. Appearance: Alert. Oriented X3. No acute distress. Head: Normal external exam. Normocephalic. Atraumatic. No [place] signs noted. No raccoon eyes noted Eyes: PERRLA. EOMI. Conjunctiva and sclera normal. Eyelids normal. ENT: TM's Normal. Pharynx normal. Uvula midline. Moist mucous membranes. No trismus noted. No drooling noted. No muffled voice noted. Neck: Normal inspection. Neck supple. FROM. No adenopathy. Thyroid Normal. No meningeal signs. No neck mass noted. CVS: Normal heart rate and rhythm. Heart sound normal. No murmurs noted. Pulses normal throughout. Respiratory: No respiratory distress. Painless inspiration. Breath sounds normal. No wheezes/rales/rhonchi noted. Chest nontender. No accessory muscle usage noted or decreased air movement noted. Abdomen: Soft and nontender. Bowel sounds normal in all 4 quadrants. No distention noted. No organomegaly noted. No visible injury noted. Back: No CVA tenderness. Full range of motion noted. Skin: Skin warm and dry. Normal skin color. Normal skin turgor. No rashes/lesions/lacerations noted. Extremities: No lower extremity edema. Extremities exhibit normal range of motion. Extremities nontender. Neuro: Oriented X 3. Cranial nerve exam: II-XII are grossly intact No motor deficit. No sensory deficit. Reflexes normal. NIH Stroke Scale Internal: Initial- Upon Arrival Time: 17:28 Level of Consciousness: Alert Level of Consciousness Questions: Answers both questions correctly Level of Consciousness Commands: Performs both tasks correctly Best Gaze: Normal Visual: No visual loss Facial Palsy: Normal Motor Arm (Right): No drift Motor Arm (Left): No drift Motor Leg (Right): No drift Motor Leg (Left): No drift Limb Ataxia: Absent Sensory: Normal Best Language: No aphasia Dysarthia: Normal Extinction and Inattention: No abnormality Score: 0 Course Course Course Narrative: This is a rapid medical exam: Additional HPI, ROS, PE not included below will be deferred to primary provider. Patient is a 47-year-old female presenting to the emergency department with complaint of sudden onset posterior headache, describes as one of the worst headaches of her life. Also reports lightheadedness waxing and waning since around 13:00. Reports abdominal cramping/indigestion after eating. States I don't know how to explain it I just feel weird. Reports she checked her BP at work and it was elevated for her, 140 systolic. No focal deficits noted in triage. NIHSS 0. Plan: EKG, labs, CT head, UA, relief charge nurse aware Reevaluation(s) Reevaluation #1: Patient's headache is improved, now it is 2/10, negative head CT was done within the 1st 6 hours of the headache onset, patient has no family risk for aneurysm or intracranial bleed. Improvement of high blood pressure in the ED after was given pain medication patient was instructed to follow-up with PCP and monitor her blood pressure at home. Time: 21:03 Medications Administered Discontinued Medications Generic Name Dose Route Start Last Admin Trade Name Freq PRN Reason Stop Dose Admin Acetaminophen 650 mg 12/15/22 19:59 12/15/22 20:16 Acetaminophen 325 Mg Tablet PO 12/15/22 20:00 650 mg ONCE ONE Administration Medical Decision Making Differential Diagnosis Differential Diagnoses: The differential diagnosis associated with the presentation includes ( intracranial bleed, severe anemia, electrolyte abnormality, UTI, , tension headache , viral syndrome.) Admission/Observation Consideration of admission/observation: Escalation of care including admission/observation considered Lab Data MDM Lab Attestation statement: I reviewed the patient's lab results. 12/15/22 17:40 12/15/22 17:40 Labs: Lab Results 12/15/22 12/15/22 Range/Units 17:33 17:40 WBC 9.3 (4.8-10.8) X10*3/uL RBC 4.43 (4.20-5.50) X10*6/uL Hgb 13.7 (12.0-16.0) g/dl Hct 40.9 (37.0-47.0) % MCV 92.3 (80.0-98.0) fL MCH 30.9 (27.0-33.0) pg MCHC 33.5 (31.0-35.0) g/dl RDW 12.8 (11.0-16.0) % Plt Count 295 (160-400) X10*3/uL MPV 8.8 L (9.4-12.3) fL Immature Gran % (Auto) 0.3 (0.0-0.4) % Neut % (Auto) 62.9 (45-73) % Lymph % (Auto) 27.1 (20-40) % [place] % (Auto) 7.5 (2-11) % Eos % (Auto) 1.5 (0-4) % Baso % (Auto) 0.7 (0-2) % Lymph # (Auto) 2.5 (1.2-4.9) X10*3/uL [place] # (Auto) 0.7 (0.1-1.2) X10*3/uL Eos # (Auto) 0.1 (0.0-0.4) X10*3/uL Baso # (Auto) 0.1 (0.0-0.2) X10*3/uL Abs Immat Gran (auto) 0.03 (0.00-0.03) X10*3/uL Absolute Neuts (auto) 5.9 (2.0-8.3) x10*3/uL Absolute Nucleated RBC 0.000 (0.0-0.012) X10*3/uL Nucleated RBC % (auto) 0.0 (0.0-0.2) /100WBC PT 10.3 L (11.1-13.3) SEC INR 0.8 L (0.9-1.1) Sodium 140 (135-145) mmol/L Potassium 4.0 (3.3-5.1) mmol/L Chloride 106 (96-108) mmol/L Carbon Dioxide 25 (22-29) mmol/L Anion Gap 13 (12-20) BUN 14 (9-16) mg/dL Creatinine 0.88 (0.5-1.4) mg/dL Estim Creat Clear Calc 64.6 Estimated GFR > 60 Random Glucose 96 (60-115) mg/dL Calcium 9.7 D (8.4-10.2) mg/dL Total Bilirubin 0.3 (0.0-1.0) mg/dL AST 13 (5-31) U/L ALT 12 (0-31) U/L Alkaline Phosphatase 76 (39-117) U/L Troponin I High Sens < 2.7 (<3.5-17.0) ng/L Total Protein 7.6 (6.5-8.0) g/dL Albumin 4.3 (3.5-5.0) g/dL Beta HCG, Quant < 2 mIU/mL Urine Color Yellow Urine Appearance Clear Urine pH 7.0 (5.0-9.0) Ur Specific [place] 1.020 (1.005-1.025) Urine Protein Negative (Neg-Trace) mg/dL Urine Glucose (UA) Negative (Negative) mg/dL Urine Ketones Negative (Negative) mg/dL Urine Blood Negative (Negative) Urine Nitrite Negative (Negative) Ur Leukocyte Esterase Trace H (Negative) Urine RBC 3-5 H (0-2) /HPF Urine WBC 0-5 (0-5) /HPF Ur Squamous Epith Cells 3-5 (0-2) /HPF Urine Bacteria Trace (None Seen) Hyaline Casts 0-2 (0-2) /LPF Urine Test NEGATIVE (NEGATIVE) Independent Interpretation I performed an independent interpretation of an: CT Scan ( Head:No evidence of acute intracranial hemorrhage or edematous territorial infarction. ) Radiology Impression Discussion of test interpretation with radiology: I have reviewed the radiologist's reading. Discharge Plan Discharge Clinical Impression: Headache Patient Disposition: Home, Self-Care Instructions: Acute Headache (ED) Prescriptions: No Action pantoprazole 20 mg tablet,delayed release (DR/EC) 20 mg PO DAILY Qty: 30 2RF hydroxyzine HCl 50 mg tablet 1 tab PO BEDTIME ropinirole 0.5 mg tablet 1 tab PO BEDTIME fluoxetine 20 mg capsule 1 cap PO DAILY bupropion HCl 150 mg tablet extended release 24 hr 1 tab PO TID gabapentin 100 mg capsule 200 mg PO TID Referrals: Matthew Ely MD [Primary Care Provider] -
--- NOTE | 2022-12-15 17:29 | ECG_ITS ---
Test Reason : DIZZINESS Blood Pressure : / mmHG Vent. Rate : 074 BPM Atrial Rate : 074 BPM P-R Int : 146 ms QRS Dur : 078 ms QT Int : 380 ms P-R-T Axes : 052 -06 036 degrees QTc Int : 421 ms Normal sinus rhythm Normal ECG When compared with ECG of 26-JUL-2011 20:12, Questionable change in QRS axis Referred By: Nena Carter Electronically Signed By:STEPHANIE ALAS
[2022-12-15 17:46] LABS: Basophils Absolute Auto 0.1 X10*3/uL (0.0-0.2); Basophils Percent Auto 0.7 % (0-2); Eosinophils Absolute Auto 0.1 X10*3/uL (0.0-0.4); Eosinophils Percent Auto 1.5 % (0-4); Hematocrit 40.9 % (37.0-47.0); Hemoglobin 13.7 g/dl (12.0-16.0); Imm Gran Abs Auto 0.03 X10*3/uL (0.00-0.03); Imm Gran Pct Auto 0.3 % (0.0-0.4); Lymphocytes Absolute Auto 2.5 X10*3/uL (1.2-4.9); Lymphocytes Percent Auto 27.1 % (20-40); MANUAL DIFF FLAG NO; Mean Corpuscular HGB Conc 33.5 g/dl (31.0-35.0); Mean Corpuscular Hemoglobin 30.9 pg (27.0-33.0); Mean Corpuscular Volume 92.3 fL (80.0-98.0); Mean Platelet Volume 8.8 fL (9.4-12.3); Monocytes Absolute Auto 0.7 X10*3/uL (0.1-1.2); Monocytes Percent Auto 7.5 % (2-11); Neutrophils Absolute Auto 5.9 x10*3/uL (2.0-8.3); Neutrophils Percent Auto 62.9 % (45-73); Platelet Count 295 X10*3/uL (160-400); Red Blood Count 4.43 X10*6/uL (4.20-5.50); Red Cell Distribution Width 12.8 % (11.0-16.0); White Blood Count 9.3 X10*3/uL (4.8-10.8)
[2022-12-15 17:47] LABS: Appearance Urine Clear; Color Urine Yellow; Glucose Urine UA Negative (Negative); Leukocyte Esterase Urine Trace (Negative); Nitrite Urine Negative (Negative); UMIC TRIGGER UACC YES; Urine Blood Negative (Negative); Urine Ketones Negative (Negative); Urine Protein Negative (Neg-Trace)
[2022-12-15 17:52] LABS: INTERNATIONAL NORM RATIO 0.8 (0.9-1.1); Prothrombin Time 10.3 SEC (11.1-13.3)
[2022-12-15 18:03] LABS: Bacteria Urine Trace (None Seen); Hyaline Casts Urine 0-2 /LPF (0-2); WBC Urine 0-5 /HPF (0-5)
[2022-12-15 18:14] LABS: Alanine Aminotransferase 12 U/L (0-31); Albumin Level 4.3 g/dL (3.5-5.0); Alkaline Phosphatase 76 U/L (39-117); Anion Gap 13 (12-20); Aspartate Amino Transferase 13 U/L (5-31); Bilirubin Total 0.3 mg/dL (0.0-1.0); Blood Urea Nitrogen 14 mg/dL (9-16); Calcium 9.7 mg/dL (8.4-10.2); Carbon Dioxide 25 mmol/L (22-29); Chloride 106 mmol/L (96-108); Creatinine Clr Calc Pharmacy 64.6; Estimated Glomerular Filt Rate > 60; Glucose Random 96 mg/dL (60-115); Sodium 140 mmol/L (135-145); Total Protein 7.6 g/dL (6.5-8.0)
[2022-12-15 18:15] LABS: HCG Quantitative < 2 mIU/mL; Troponin-I High Sensitivity < 2.7 ng/L (<3.5-17.0)
[2022-12-15 20:00] LABS: UPreg QC Valid YES; Urine Pregnancy NEGATIVE (NEGATIVE)
[2022-12-15] MEDS: Acetaminophen 325 MG TABLET 650 MG PO (20:16)
[2022-12-15 20:43] VITALS: BP 151/99; PULSE 73; RESP 18; O2SAT 99
[2022-12-15 21:14] LABS: COVID-19 Test Negative (Negative); IDNOW Serial# BCCEAD1C
[2022-12-15] MEDS: Ketorolac Tromethamine 60 MG/2 ML VIAL IM (21:40)
[2022-12-15 21:42] VITALS: BP 140/99
== END 2022-12-15 21:47 | disposition home or self-care (01) ==
PROVIDERS: Registered Nurse Emergency; Emergency Provider Emergency Medicine; PCP Internal Medicine
DX: R51.9 Headache, unspecified (principal); R29.700 NIHSS score 0; Z79.899 Other long term (current) drug therapy; Z20.822 Contact with and (suspected) exposure to COVID-19
CPT/HCPCS: 36415; 70450; 80053; 81001; 81025; 84484; 84702; 85025; 85610; 87635; 93005; 96372; 99284; J1885

== ENCOUNTER 2023-03-06 09:08 | Emergency (ER) | payer BC, SELFPAY ==
[2023-03-06] VITALS (7 sets, daily range): BP systolic 117–144; BP diastolic 71–99; PULSE 78–89; RESP 16–20; TEMP 36.4–36.9; O2SAT 97–98; BMI 24.8
--- NOTE | ~2023-03-06 | MR_ITS ---
EXAMINATION: MR BRAIN WITHOUT CONTRAST CLINICAL INFORMATION: 47-year-old with headaches, imbalance, blurry vision and nausea vomiting. Evaluate for MS, subarachnoid hemorrhage or migraine. COMPARISON: None TECHNIQUE: Multiplanar multisequence MR imaging of the brain was done without IV contrast. FINDINGS: Brain Volume: Within normal limits within the limitations of qualitative assessment. Structural: No malformations. Brain and Meninges: DWI sequence demonstrates no restricted diffusion to suggest acute or subacute cerebral ischemia. Gradient refocused imaging demonstrates no abnormal susceptibility-weighted signal loss to suggest hemorrhage, hemosiderin staining or abnormal mineralization. Scattered small foci of FLAIR/T2 signal hyperintensity are noted in the white matter of both cerebral hemispheres, which are nonspecific findings but do have a relatively frontal lobe predominance and therefore could represent migraine associated vasculopathy. The remainder of the brain is normal in morphology and signal intensity. No extra-axial fluid collections, space-occupying process or mass effect are identified. Ventricles and Subarachnoid Spaces: The ventricular system and subarachnoid spaces are within normal range; there is no hydrocephalus. Orbital Structures: The visualized orbital structures are grossly unremarkable within the limitations of the study. Vascular: Signal voids are noted in the visualized major intracranial vessels. Osseous Structures, Sinuses/Mastoids, Extracranial Soft Tissues: Osseous marrow signal intensity appears grossly within normal limits. There is mild anterolisthesis at C4-C5 and there is disc degenerative change and spondylosis at C4-C5 and C5-C6. There are foci of patchy T2 hyperintensity in the soft tissues of the cheeks bilaterally suggesting cosmetic injections. Correlate with clinical history. There is minor mucosal thickening in the ethmoid complex. MR/MR head/brain wo con IMPRESSION: 1. Scattered nonspecific white matter T2 hyperintensities in the cerebral hemispheres are noted with a relatively frontal lobe predominance. 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 Other etiologies such as MS or chronic ischemic microangiopathy are less likely given the appearance. 2. No evidence for hemorrhage, extra-axial fluid collection, space-occupying process, mass effect or hydrocephalus. 3. Cervical degenerative changes as discussed above. 4. Probable cosmetic injections in the soft tissues of the cheeks bilaterally. Correlate with clinical history.
--- NOTE | ~2023-03-06 | CT_ITS ---
EXAMINATION: CT ANGIOGRAM HEAD AND NECK CLINICAL INFORMATION: 47-year-old with headaches, neck pain and imbalance. COMPARISON: None available. TECHNIQUE: Volumetric CT angiography of the head and neck was performed from the upper thorax to the skull vertex utilizing the bolus intravenous administration of 70 mL of Omnipaque 350 contrast material. 2D multiplanar reconstructions and 3D MIP renderings were performed either on an independent workstation or at the CT console workstation. Precontrast and delayed postcontrast CT imaging of the brain was also performed. The degree of stenosis determined by NASCET criteria. This CT examination was performed using dose optimization techniques as appropriate, variously including the following: *Automated exposure control *Adjustment of mA and/or kV according to patient size (this includes techniques or standardized protocols for targeted exams where dose is matched to indication/reason for exam; i.e. extremities or head) *Use of iterative reconstruction technique DLP: 1857 mGy-cm FINDINGS: NECK/UPPER CHEST: Thoracic aortic arch is normal in morphology and caliber, with a three-vessel arch configuration noted and patent brachiocephalic vessels without significant stenosis. The vertebral arteries are relatively co-dominant with widely patent origins bilaterally off the subclavian arteries. The right subclavian artery is patent and normal in caliber. The left subclavian artery is patent and appears normal in caliber proximally. The proximal common carotid arteries are smoothly contoured, patent and normal in caliber. The vertebral arteries are smoothly contoured, patent and normal in caliber throughout the neck and appear co-dominant. Right Carotid: Common carotid artery, carotid bifurcation, external carotid and internal carotid arteries are smoothly contoured, patent and normal in caliber with no evidence for stenosis or dissection. Left Carotid: Left common carotid artery is patent, smoothly contoured and normal in caliber with a normal caliber, smoothly contoured carotid bifurcation. The external carotid artery and left ICA are also smoothly contoured, patent and normal in caliber without stenosis or dissection. HEAD: The intracranial ICAs are patent, smoothly contoured and normal in caliber. The A1 and A2 segments are patent and normal in caliber. The anterior communicating artery is within normal limits. The M1 segments are patent and normal in caliber with a normal appearance to the MCA bifurcations and M2 branches, which appear to arborize normally. There is no regional oligemia in the anterior circulation. The intradural vertebral arteries are smoothly contoured, patent and normal in caliber. The basilar artery is also smoothly contoured, patent and normal in caliber. The superior cerebellar and posterior cerebral arteries are patent and normal in caliber. Both posterior communicating arteries are visualized. No intracranial aneurysms or high flow vascular malformations are identified. There is normal enhancement/opacification of the major dural venous sinuses. CT BRAIN: The brain parenchyma appears normal in morphology. A few small nonenhancing hypodensities are seen in the subcortical white matter of the left frontal lobe which are nonspecific findings. Otherwise the brain parenchyma is normal in attenuation. [place]-white matter interface is preserved. There is no acute territorial/edematous infarction and there is no extra-axial fluid collection, hemorrhage, space-occupying process, mass effect, mass lesion or pathologic intracranial enhancement. Ganglionic structures, brainstem and midbrain appear grossly within normal limits. The calvarium is intact and the visualized airspaces are unopacified. The visualized orbital soft tissues appear symmetric and within normal limits. The visualized extracranial soft tissue structures are unremarkable. CT NECK/UPPER CHEST NONVASCULAR IMAGES: Note is made of a 1.9 x 1.3 cm focus of asymmetric ring-shaped calcification or enhancement in the right pharyngeal tonsil. Small calcified phleboliths in the left pharyngeal tonsil. Thyroid gland appears grossly unremarkable. There is a single 1.0 x 0.6 cm prominent lymph node at level II-B on the right in addition to another slightly prominent lymph node at the same level measuring 1.5 x 0.5 cm. The visualized lung parenchyma demonstrates no acute process. Visualized mediastinum is grossly unremarkable. Skeletal: Bony structures appear grossly intact. There is mild cervicothoracic levocurvature, centered at T2-T3. Marked disc space height loss, with spondylosis noted at C5-C6 and trace anterolisthesis at C4-C5, with posterior disc osteophyte complex at C5-C6 and suspicion for mild right-sided ventral cord impingement and moderate spinal canal stenosis, with a small pocket of air/gas noted in the left ventral epidural space which could reflect desiccated disc fragment. MRI of the cervical spine may be of additional value in this regard. CT/CT angio head neck IMPRESSION: 1. CTA of the head and neck negative for large vessel occlusion, aneurysm or dissection. 2. No acute intracranial process identified. A few nonspecific nonenhancing hypodensities in the subcortical white matter of the left frontal lobe. If clinically warranted, MRI of the brain with and without contrast can be done for further assessment of these findings. 3. A 2 cm asymmetric ring-shaped calcification or enhancement in the right pharyngeal tonsil with mild right-sided cervical lymphadenopathy at level II-B. These findings may be postinflammatory/inflammatory in nature. Suggest clinical correlation and also recommend follow-up CT of the soft tissue neck without and with contrast for additional assessment. 4. Cervical degenerative changes, as described above, with a posterior disc osteophyte complex at C5-C6 with suspicion for spinal stenosis with ventral cord impingement on the right and possible desiccated disc fragment in the left ventral epidural space at this level. Suggest correlation with MRI of the cervical spine for further assess. The [facility] staff will call to confirm receipt of this report with acknowledgement of the findings and any recommendations.
--- NOTE | 2023-03-06 09:54 | ED.HA ---
HPI - Headache General Chief Complaint: Headache Stated Complaint: Head pressure/Numb lips and fingers/Dizzy Time Seen by Provider: 03/06/23 09:54 Source: patient, RN notes reviewed and old records reviewed Mode of arrival: ambulatory History of Present Illness HPI Narrative: 47-year-old female with past medical history of migraines, trigeminal neuralgia, presenting to the ED complaining of severe posterior headache since 07:30AM with associated emesis x1, left sided blurry vision, neck pain, and feeling off balance/unsteady gait. Denies taking anticoagulation. States this is not typical migraine headache for her. Recently finished Paxlovid for COVID-19 last week. Denies fever, chills, CP/SOB, focal weakness MD elicited complaint: headache Related Data Home Medications Medication Instructions Recorded Confirmed bupropion HCl 150 mg 24 hr tablet, 1 tab PO TID 02/15/22 03/03/22 extended release fluoxetine 20 mg capsule 1 cap PO DAILY 02/15/22 03/03/22 hydroxyzine HCl 50 mg tablet 1 tab PO BEDTIME 02/15/22 03/03/22 ropinirole 0.5 mg tablet 1 tab PO BEDTIME 02/15/22 03/03/22 gabapentin 100 mg capsule 200 mg PO TID 03/03/22 03/03/22 Previous Rx's Medication Instructions Recorded pantoprazole 20 mg tablet,delayed 20 mg PO DAILY #30 tabs 05/26/22 release Allergies Allergy/AdvReac Type Severity Reaction Status Date / Time No Known Allergies Allergy Verified 03/06/23 09:25 [No Known Allergies*] Review of Systems Review of Systems: Constitutional: No Fever, No Chills, No Fatigue, No Malaise ENT/Mouth: No Ear Pain, No Nasal Congestion, No sore throat, No Rhinorrhea, No Swallowing Difficulty Eyes: No Eye Pain, No Swelling, No Redness, +Vision Changes Cardiovascular: No Chest Pain, No SOB, No Palpitations Respiratory: No Cough, No Sputum, No Dyspnea Gastrointestinal: + Nausea, + Vomiting, No Diarrhea, No Constipation, No Abdominal pain Genitourinary: No Dysuria, No Urinary Frequency, No Hematuria, No Urinary Incontinence/retention, No Flank Pain Musculoskeletal: No joint pain, No Myalgias, No Joint Swelling Skin: No Skin Lesions, No rash Neuro: No Weakness, No Numbness, No Paresthesias, No Loss of Consciousness, + Dizziness, +Headache Yes all other systems are reviewed and are negative Constitutional: Constitutional: Reports as per HPI Neurologic: Denies Abnormal speech present [facility] Past Medical History Attestation statement: The following information was validated with the patient. 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 Physical Exam Vital Signs: Vital Signs: Last Vital Signs Temp 98.5 F 03/06/23 17:43 Pulse 89 03/06/23 17:43 Resp 16 03/06/23 17:43 BP 117/75 03/06/23 17:43 Pulse Ox 97 03/06/23 17:43 O2 Del Method Room Air 03/06/23 17:43 BMI result Body Mass Index 24.8 Const: General: cooperative, healthy appearing, no acute distress, alert and awake Orientation/consciousness: patient oriented x3 Limitations: no limitations HEENT: Head: Yes normal to inspection and Yes atraumatic Ears: hearing grossly normal bilaterally General nose exam: Normal external nose present Face and sinus: Yes normal facial exam Throat: Yes posterior oropharynx normal Eyes: General: appearance normal, both eyes and all related structures Pupils: Equal, round and reactive pupils present EOM: EOMs intact bilaterally Neck: Neck: Yes normal visual inspection and Yes no meningeal signs Resp: Effort & Inspection: normal respiratory effort and no respiratory distress Auscultation: clear to auscultation bilaterally Cardio: Rate: regular rate Heart sounds: S1 normal heart sound present and S2 normal heart sound present GI: Inspection: Yes normal to inspection Palpation (GI): Soft to palpation, nontender, no guarding and not rigid : General: Yes no CVA tenderness Back/Spine/Pelvis: Back: no CVA tenderness Skin: Rashes: no rashes Wounds: no wounds Neuro: General: patient oriented x3, tone normal, moves all extremities, no meningeal signs, no focal motor deficits and CN's II-XI intact bilaterally Cranial nerves: Yes CN's II-XII intact bilaterally and Yes Equal, round and reactive pupils present Cognition (Neuro): normal cognition Speech: No Abnormal speech present Gait exam (Neuro): not ataxic and Other gait observations present (+unsteady guarded gait) Motor exam (neuro): 5/5 motor strength present throughout Extrem: General: Yes normal to inspection NIH Stroke Scale Internal: Initial- Upon Arrival Level of Consciousness: Alert Level of Consciousness Questions: Answers both questions correctly Level of Consciousness Commands: Performs both tasks correctly Best Gaze: Normal Visual: No visual loss Facial Palsy: Normal Motor Arm (Right): No drift Motor Arm (Left): No drift Motor Leg (Right): No drift Motor Leg (Left): No drift Limb Ataxia: Absent Sensory: Normal Best Language: No aphasia Dysarthia: Normal Extinction and Inattention: No abnormality Score: 0 Course Course Course Narrative: -1155--mild leukocytosis of 12.6. H&H stable. Labs otherwise reassuring CT angio head neck IMPRESSION: 1. CTA of the head and neck negative for large vessel occlusion, aneurysm or dissection. 2. No acute intracranial process identified. A few nonspecific nonenhancing hypodensities in the subcortical white matter of the left frontal lobe. If clinically warranted, MRI of the brain with and without contrast can be done for further assessment of these findings. 3. A 2 cm asymmetric ring-shaped calcification or enhancement in the right pharyngeal tonsil with mild right-sided cervical lymphadenopathy at level II-B. These findings may be postinflammatory/inflammatory in nature. Suggest clinical correlation and also recommend follow-up CT of the soft tissue neck without and with contrast for additional assessment. 4. Cervical degenerative changes, as described above, with a posterior disc osteophyte complex at C5-C6 with suspicion for spinal stenosis with ventral cord impingement on the right and possible desiccated disc fragment in the left ventral epidural space at this level. Suggest correlation with MRI of the cervical spine for further assess. The [facility] staff will call to confirm receipt of this report with acknowledgement of the findings and any recommendations. > no appreciable intraoral asymmetry. Uvula midline. No appreciable lymphadenopathy. Likely post inflammatory as patient is post COVID. Dr. Garsia also evaluated patient is in agreement > will refer patient to ENT discussed needed close PCP follow-up. Also discussed cervical spine findings and recommended neuro spine follow-up. -COVID-19 positive today > patient with COVID a few weeks ago, unclear if subacute or rebound COVID from Paxlovid >> will obtain brain MR for further eval/rule out posterior CVA. -patient vomited Meclizine and 2 pills of Fioricet up immediately after administration, witnessed by nurse. Will give IV Zofran and and re-trial -1614-on re-evaluation patient reports symptomatic improvement. Admits headache feels more typical of her trigeminal neuralgia at this time. MRI is pending -1630--ED care transferred to GEE Ramirez pending MRI results and anticipated despite Reevaluation(s) Reevaluation #1: Patient received in sign-out at change of shift pending imaging. 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 I discussed the patient. Her headache is slightly returning. Will given a dose of Fioricet and she will be discharged to follow-up with PCP. Time: 18:55 Medications Administered Discontinued Medications Generic Name Dose Route Start Last Admin Trade Name Freq PRN Reason Stop Dose Admin Acetaminophen/Butalbital/Caffeine 2 tab 03/06/23 12:19 03/06/23 12:40 Butalb/Acetamin/Caff 50/325/40 Tablet PO 03/06/23 12:20 2 tab ONCE ONE Administration Acetaminophen/Butalbital/Caffeine 1 tab 03/06/23 13:30 03/06/23 13:52 Butalb/Acetamin/Caff 50/325/40 Tablet PO 03/06/23 13:31 1 tab ONCE ONE Administration Sodium Chloride 1,000 mls @ 999 mls/hr 03/06/23 10:30 03/06/23 12:27 Ns IV 03/06/23 11:30 Infused .Q1H1M KORIN Infusion Iohexol 70 ml 03/06/23 10:33 03/06/23 10:33 Iohexol 350 Mg/Ml 100 Ml Infus..Btl IV 03/06/23 10:34 70 ml ONCE ONE Administration Meclizine HCl 25 mg 03/06/23 11:45 03/06/23 12:41 Meclizine Hcl 25 Mg Tablet PO 03/06/23 11:46 25 mg ONCE ONE Administration Ondansetron HCl 4 mg 03/06/23 12:54 03/06/23 13:04 Ondansetron Hcl 4 Mg/2 Ml Vial IVPUSH 03/06/23 12:55 4 mg ONCE ONE Administration Medical Decision Making Medical Decision Making [facility] Narrative: 47-year-old female with past medical history of migraines, trigeminal neuralgia, presenting to the ED complaining of severe posterior headache since 07:30AM with associated emesis x1, left sided blurry vision, neck pain, and feeling off balance/unsteady gait. On exam vital signs stable, NAD, nontoxic appearing, ambulating with unsteady gait, no ataxia, NIHSS =0. Concern for acute CVA/posterior vs SAH vs ?MS vs complicated migraine/trigeminal neuralgia. recreation activities coordinator aware. Patient will be sent directly to STAT CT prior to labs. R/o metabolic/infectious etiology. Lower suspicion for ACS/PE Plan: EKG, head CT, CTA head and neck, labs, UA, orthostatics, viral testing, re-evaluate Please refer to course for remaining clinical decision making, interpretation of labs/imaging results, and discussions with consultants and/or family members. Differential Diagnosis Differential Diagnoses: The differential diagnosis associated with the presentation includes As above Admission/Observation Consideration of admission/observation: Escalation of care including admission/observation considered Lab Data [facility] Lab Attestation statement: I reviewed the patient's lab results. 03/06/23 11:30 03/06/23 11:30 Labs: Lab Results 03/06/23 03/06/23 03/06/23 Range/Units 11:24 11:25 11:30 WBC 12.6 H (4.8-10.8) X10*3/uL RBC 4.14 L (4.20-5.50) X10*6/uL Hgb 12.9 (12.0-16.0) g/dl Hct 38.7 (37.0-47.0) % MCV 93.5 (80.0-98.0) fL MCH 31.2 (27.0-33.0) pg MCHC 33.3 (31.0-35.0) g/dl RDW 12.2 (11.0-16.0) % Plt Count 259 (160-400) X10*3/uL MPV 9.1 L (9.4-12.3) fL Immature Gran % (Auto) 0.3 (0.0-0.4) % Neut % (Auto) 88.1 H (45-73) % Lymph % (Auto) 7.2 L (20-40) % [place] % (Auto) 4.0 (2-11) % Eos % (Auto) 0.0 (0-4) % Baso % (Auto) 0.4 (0-2) % Lymph # (Auto) 0.9 L (1.2-4.9) X10*3/uL [place] # (Auto) 0.5 (0.1-1.2) X10*3/uL Eos # (Auto) 0.0 (0.0-0.4) X10*3/uL Baso # (Auto) 0.1 (0.0-0.2) X10*3/uL Abs Immat Gran (auto) 0.04 H (0.00-0.03) X10*3/uL Absolute Neuts (auto) 11.1 H (2.0-8.3) x10*3/uL Absolute Nucleated RBC 0.000 (0.0-0.012) X10*3/uL Nucleated RBC % (auto) 0.0 (0.0-0.2) /100WBC PT 12.1 (11.1-13.3) SEC INR 1.0 (0.9-1.1) Sodium 139 (135-145) mmol/L Potassium 4.2 (3.3-5.1) mmol/L Chloride 108 (96-108) mmol/L Carbon Dioxide 23 (22-29) mmol/L Anion Gap 12 (12-20) BUN 11 (9-16) mg/dL Creatinine 0.65 (0.5-1.4) mg/dL Estim Creat Clear Calc 94.9 Estimated GFR > 60 Random Glucose 96 (60-115) mg/dL Calcium 8.4 D (8.4-10.2) mg/dL Magnesium 2.1 (1.6-2.6) mg/dL Total Bilirubin 0.3 (0.0-1.0) mg/dL Direct Bilirubin 0.1 (0.0-0.5) mg/dL AST 14 (5-31) U/L ALT 17 (0-31) U/L Alkaline Phosphatase 63 (39-117) U/L Troponin I High Sens < 2.7 (<3.5-17.0) ng/L Total Protein 6.8 (6.5-8.0) g/dL Albumin 3.9 (3.5-5.0) g/dL Beta HCG, Quant < 2 mIU/mL Urine Color Yellow Urine Appearance Clear Urine pH 8.0 (5.0-9.0) Ur Specific [place] >= 1.030 H (1.005-1.025) Urine Protein Negative (Neg-Trace) mg/dL Urine Glucose (UA) Negative (Negative) mg/dL Urine Ketones Negative (Negative) mg/dL Urine Blood Trace H (Negative) Urine Nitrite Negative (Negative) Ur Leukocyte Esterase Negative (Negative) Urine RBC 0-2 (0-2) /HPF Urine WBC 0-5 (0-5) /HPF Ur Squamous Epith Cells 3-5 (0-2) /HPF Urine Bacteria None Seen (None Seen) Hyaline Casts 0-2 (0-2) /LPF COVID-19 (FREIDA) Positive A (Negative) COVID-19 Clin Com See Note Influenza Type A (SIMA) Negative (Negative) Influenza Type B (SIMA) Negative (Negative) Influenza A & B Note See Note Independent Interpretation I performed an independent interpretation of an: EKG and CT Scan Radiology Impression Discussion of test interpretation with radiology: I have reviewed the radiologist's reading. External Record Review External record reviewed: Inpatient record, Office record, Outpatient record, Prior outpatient labs, Prior outpatient radiology, Primary care record and Outside ED record Tests considered The following testing was considered but not selected: As above Critical Care Time Critical Care Time Critical Care Time: Yes Total Critical Care Time: 45 Attestation: I have personally provided critical care time exclusive of time spent on separately billable procedures. Time includes review of lab data, radiology results, discussion with consultants, and monitoring for potential decompensation. Intervention performed as documented. Discharge Plan Discharge Clinical Impression: Headache, Unsteady gait, COVID-19 Patient Disposition: Home, Self-Care Instructions: Acute Headache (DC) Additional Instructions: Your blood work is reassuring. Your CT scan shows a small calcification in your right tonsil, nothing was apprecated on physical exam but this should be evaluated further with your PCP & ENT specialist It also shows some cervical degenerative changes > you likely need and MRI / follow up with your PCP and neuro spine for further eval of this as well you are testing positive for COVID. it is unclear if this is new COVID or youre still testing positive for COVID from known previous infection If her symptoms persist or worsen, headache becomes unbearable, youre unable to walk on persistent nausea/vomiting return to the Prescriptions: No Action pantoprazole 20 mg tablet,delayed release (DR/EC) 20 mg PO DAILY Qty: 30 2RF hydroxyzine HCl 50 mg tablet 1 tab PO BEDTIME ropinirole 0.5 mg tablet 1 tab PO BEDTIME fluoxetine 20 mg capsule 1 cap PO DAILY bupropion HCl 150 mg tablet extended release 24 hr 1 tab PO TID gabapentin 100 mg capsule 200 mg PO TID Referrals: [facility] Neuro/Sleep [Provider Group] Matthew Ely MD [Primary Care Provider] - 3 days [facility] P[facility] [Physician] - Ang Cueva MD, PhD [Physician] -
--- NOTE | 2023-03-06 10:04 | ECG_ITS ---
Test Reason : off balance Blood Pressure : / mmHG Vent. Rate : 079 BPM Atrial Rate : 079 BPM P-R Int : 154 ms QRS Dur : 080 ms QT Int : 414 ms P-R-T Axes : 058 003 027 degrees QTc Int : 474 ms Normal sinus rhythm Normal ECG When compared with ECG of 15-DEC-2022 17:35, No significant change was found Referred By: Audrey Yeboah Electronically Signed By:Alec Michel
[2023-03-06] MEDS: iohexoL 350 MG/ML 100 ML INFUS..BTL 70 ML IV (10:33)
[2023-03-06] MEDS: 0.9 % Sodium Chloride 1,000 ML 999 ML IV (10:50)
--- NOTE | 2023-03-06 11:03 | PC.NURSE ---
20G INSERTED L AC. FLUIDS STARTED. PT RETURNED FROM CT SCAN.
[2023-03-06 11:35] LABS: MANUAL DIFF FLAG NO
[2023-03-06 11:40] LABS: Appearance Urine Clear; Color Urine Yellow; Glucose Urine UA Negative (Negative); Leukocyte Esterase Urine Negative (Negative); Nitrite Urine Negative (Negative); Specific Gravity - Urine >= 1.030 (1.005-1.025); UMIC TRIGGER UACC YES; Urine Blood Trace (Negative); Urine Ketones Negative (Negative); Urine Protein Negative (Neg-Trace)
[2023-03-06 11:43] LABS: Basophils Absolute Auto 0.1 X10*3/uL (0.0-0.2); Basophils Percent Auto 0.4 % (0-2); Hematocrit 38.7 % (37.0-47.0); Hemoglobin 12.9 g/dl (12.0-16.0); Imm Gran Abs Auto 0.04 X10*3/uL (0.00-0.03); Imm Gran Pct Auto 0.3 % (0.0-0.4); Lymphocytes Absolute Auto 0.9 X10*3/uL (1.2-4.9); Lymphocytes Percent Auto 7.2 % (20-40); Mean Corpuscular HGB Conc 33.3 g/dl (31.0-35.0); Mean Corpuscular Hemoglobin 31.2 pg (27.0-33.0); Mean Corpuscular Volume 93.5 fL (80.0-98.0); Mean Platelet Volume 9.1 fL (9.4-12.3); Monocytes Absolute Auto 0.5 X10*3/uL (0.1-1.2); Neutrophils Absolute Auto 11.1 x10*3/uL (2.0-8.3); Neutrophils Percent Auto 88.1 % (45-73); Platelet Count 259 X10*3/uL (160-400); Red Blood Count 4.14 X10*6/uL (4.20-5.50); Red Cell Distribution Width 12.2 % (11.0-16.0); White Blood Count 12.6 X10*3/uL (4.8-10.8)
[2023-03-06 11:45] LABS: Prothrombin Time 12.1 SEC (11.1-13.3)
[2023-03-06 11:47] LABS: Bacteria Urine None Seen (None Seen); Hyaline Casts Urine 0-2 /LPF (0-2); RBC Urine 0-2 /HPF (0-2); WBC Urine 0-5 /HPF (0-5)
[2023-03-06 12:07] LABS: Alanine Aminotransferase 17 U/L (0-31); Albumin Level 3.9 g/dL (3.5-5.0); Alkaline Phosphatase 63 U/L (39-117); Anion Gap 12 (12-20); Aspartate Amino Transferase 14 U/L (5-31); Bilirubin Direct 0.1 mg/dL (0.0-0.5); Bilirubin Total 0.3 mg/dL (0.0-1.0); Blood Urea Nitrogen 11 mg/dL (9-16); Calcium 8.4 mg/dL (8.4-10.2); Carbon Dioxide 23 mmol/L (22-29); Chloride 108 mmol/L (96-108); Creatinine Clr Calc Pharmacy 94.9; Estimated Glomerular Filt Rate > 60; Glucose Random 96 mg/dL (60-115); Magnesium 2.1 mg/dL (1.6-2.6); Potassium 4.2 mmol/L (3.3-5.1); Sodium 139 mmol/L (135-145); Total Protein 6.8 g/dL (6.5-8.0)
[2023-03-06 12:10] LABS: COVID-19 Test Positive (Negative); IDNOW Serial# 08D9AD1C
[2023-03-06 12:11] LABS: HCG Quantitative < 2 mIU/mL; Troponin-I High Sensitivity < 2.7 ng/L (<3.5-17.0)
[2023-03-06 12:17] LABS: IDNOW Serial# BCCEAD1C; Influenza A Negative (Negative); Influenza B2 Negative (Negative)
[2023-03-06] MEDS: Butalb/Acetamin/Caff 50/325/40 TABLET 2 TAB PO (12:40)
[2023-03-06] MEDS: Meclizine HCl 25 MG TABLET PO (12:41)
--- NOTE | 2023-03-06 12:45 | PC.NURSE ---
PT THREW UP PO FIORICET AND ANTIVERT IMMEDIATELY AFTER SWALLOWING PILLS. GEE MACHADO AWARE. NEW ORDER GIVEN. MRI SCREENING FORM COMPLETED AND FAXED TO [facility].
[2023-03-06] MEDS: ondansetron HCL 4 MG/2 ML VIAL IVPUSH (13:04)
[2023-03-06] MEDS: Butalb/Acetamin/Caff 50/325/40 TABLET 1 TAB PO ×2 (13:52→19:11)
== END 2023-03-06 19:23 | disposition home or self-care (01) ==
PROVIDERS: Physician Assistant; Emergency Provider Emergency Medicine; PCP Internal Medicine
DX: U07.1 COVID-19 (principal); R51.9 Headache, unspecified; R26.81 Unsteadiness on feet; D72.829 Elevated white blood cell count, unspecified; R29.700 NIHSS score 0; Z79.899 Other long term (current) drug therapy; R68.81 Early satiety; R11.2 Nausea with vomiting, unspecified; M79.2 Neuralgia and neuritis, unspecified
CPT/HCPCS: 70496; 70498; 70551; 80048; 80076; 81001; 83735; 84484; 84702; 85025; 85610; 87502; 87635; 93005; 96361; 96374; 99285; J2405; Q9967

== ENCOUNTER → 2023-03-06 10:04 | Outpatient (BNV) | payer BC, SELFPAY | PROVIDERS: Emergency Provider Emergency Medicine; PCP Internal Medicine; Visit Provider Internal Medicine Cardiovascular Disease | DX: R26.81 Unsteadiness on feet (principal); R51.9 Headache, unspecified | CPT/HCPCS: 93010 ==

== ENCOUNTER 2023-05-25 12:47 | Outpatient (AMB) | payer BC, SELFPAY ==
--- NOTE | 2023-05-25 12:53 | A.SPINEOV_ITS ---
Intake Intake Visit Reasons: Cervical Spine cord impingement Intake Note: Ms. Light is here today for neck pain/weakness that radiates to left arm and leg. 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 She sustained an injury to her neck and her low back at that time. That was in July of last year. She subsequently underwent intensive physical therapy for few months. That only seemed to make things worse. In fact after she finished the physical therapy she noticed that she was starting to develop weakness on the left side of her body including her arm and her leg. She would also develop numbness as well on the left side of her body She has intermittent neck pain as well. She ultimately found a new job and went back to work but has been troubled by this persistent feeling that something is not right with the left side of her body. She continues to have the numbness and weakness, however it has not gotten worse. She underwent an MRI at the emergency room including a brain MRI and a cervical spine MRI. This did not show any significant pathology in the brain explaining her symptoms but did show degenerative disc disease on a CTA of her neck with possible concern for spinal cord compression. She was sent to see us. At this time she has no pain down her arm or her leg, it is generally a feeling of diffuse weakness and numbness on the left side. She does however still continue to complain of back pain with any prolonged standing or activity. She has not had any dedicated imaging to either of these areas of her spine. She takes gabapentin, low-dose naltrexone to help with some of her issues. The gabapentin seems to help with the numbness. She also has taken [id number] pain medications like anti-inflammatories and Tylenol but these things have never really helped. PMH: Tubal ligation, fibroid removal, trigeminal neuralgia Social hx: She does not smoke, drink or use any recreational drugs Medications: Adderall, low-dose naltrexone, gabapentin, probiotic Allergies: None Physical exam: Awake alert oriented no acute distress, she has mild weakness of her left hand and her left biceps but her deltoid and triceps strength is normal. She has a mild left iliopsoas weakness but otherwise distal lower extremity strength is full. Gait is normal. Reflexes are normal. No Tadeo's sign, no clonus Imaging review: She has a cervical CTA done at [place] showing degenerative disc disease at C5-6. There is also incidental finding of some tonsillar adenopathy. 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 I do detect some weakness in her left arm in 2 different myotomes. She has no hyperreflexia. There is enough stenosis on the CTA I think to warrant a cervical MRI. The disc is severely collapsed at that level and there is narrowing of the spinal canal. I think we need to exclude myelopathy. She has done conservative treatment as outlined above so this should be an issue. Similarly with her lower back, she has been dealing with this for almost a year now with severe pain with standing and walking with an occasional footdrop. She tried therapy and medications as outlined above. I will order lumbar MRI as well. I would like to see her back after they are completed. Thank you for allowing us to care for your patient. The total time spent with this visit with this patient was 45 minutes reviewing history, physical exam, cervical CTA imaging review, and implementation of treatment plan or further diagnostic testing Matthew Cueva MD,PhD [facility] Orders: Orders MR lumbar spine wo con Today M54.9 - Dorsalgia, unspecified MR cervical spine wo con Today M50.90 - Cervical disc disorder, unspecified, unspecified cervical region Coding Level of Care Code New Pt Level 4 (86053) Diagnoses Cervical disc disorder M50.90 Back pain M54.9
== END 2023-05-25 13:25 | disposition home or self-care (01) ==
PROVIDERS: PCP Internal Medicine; Visit Provider Physician Assistant
DX: M50.90 Cervical disc disorder, unspecified, unspecified cervical region (principal); M54.9 Dorsalgia, unspecified
CPT/HCPCS: 99204

== ENCOUNTER → 2023-05-25 12:47 | Outpatient (BNVA) | payer BC, SELFPAY | PROVIDERS: PCP Internal Medicine; Visit Provider Physician Assistant ==

== ENCOUNTER 2023-06-12 18:29 | Outpatient (REF) | payer BC, SELFPAY ==
--- NOTE | ~2023-06-12 | MR_ITS ---
EXAMINATION: MR LUMBAR SPINE WITHOUT CONTRAST CLINICAL INFORMATION: Back pain, lumbar radiculopathy, foot drop COMPARISON: None available. TECHNIQUE: MRI of the lumbar spine was obtained using routine sequences without contrast. FINDINGS: The visualized lumbar vertebrae are intact with normal alignment. No focal bone lesion with abnormal signal can be seen. Evaluation of the intervertebral discs show: T12/L1: Intervertebral disc height is normal, with normal T2 signal. No focal disc herniation is seen. Bilateral T12/L1 neuroforamina are patent. Bilateral apophyseal joints are intact with normal alignment. L-1/L-2: Intervertebral disc height is normal, with normal T2 signal. No focal disc herniation is seen. Bilateral L1-L2 neuroforamina are patent. Bilateral apophyseal joints are intact with normal alignment. L2/L3: Intervertebral disc height is normal, with normal T2 signal. Mild posterior disc protrusion is seen. Bilateral L2-L3 neuroforamina are patent. Bilateral apophyseal joints are intact with normal alignment. L3/L4: Intervertebral disc height is normal, with mild loss of T2 signal. Midline posterior annulus tear with mild protrusion of T2 hyperintense nucleus pulposus is seen. Bilateral L3-L4 neuroforamina are patent. Bilateral apophyseal joints are intact with normal alignment. L4/L5: Intervertebral disc height is normal, with mild loss of T2 signal. Midline posterior annulus tear with mild protrusion of T2 hyperintense nucleus pulposus is seen. Bilateral L4-L5 neuroforamina are patent. Bilateral apophyseal joints are intact with normal alignment. L5/S1: Intervertebral disc height is normal, with normal T2 signal. No focal disc herniation is seen. Bilateral L5-S1 neuroforamina are patent. Bilateral apophyseal joints are intact with normal alignment. Conus medullaris is seen normally at L1 level. MR/MR lumbar spine wo con IMPRESSION: 1. Mild degenerative disc disease at L3-L4 and L4-L5 with midline posterior annulus tears and mild protrusion of nucleus pulposus. 2. Mild posterior disc protrusion at L2-L3. 3. No evidence of spinal canal or neural foraminal stenosis.
--- NOTE | ~2023-06-12 | MR_ITS ---
EXAMINATION: MR CERVICAL SPINE WITHOUT CONTRAST CLINICAL INFORMATION: Left-sided cervical radiculopathy, left-sided weakness COMPARISON: None available. TECHNIQUE: MRI of the cervical spine was obtained using routine sequences without contrast. FINDINGS: The visualized cervical vertebrae are intact with normal alignment. No focal bone lesion with abnormal signal can be seen. Evaluation of the intervertebral discs show: C2/C3: Intervertebral disc height is normal, with normal T2 signal. No focal disc herniation is seen. Bilateral C2-C3 neural foramina are patent. Bilateral apophyseal joints are intact with normal alignment. C3/C4: Intervertebral disc height is normal, with normal T2 signal. Mild midline and asymmetric right posterior disc protrusion causing mild effacement of right lateral recess is seen. Bilateral C3-C4 neural foramina are mildly stenosed, more prominent on the left side. Bilateral apophyseal joints are intact with normal alignment. C4/C5: Intervertebral disc height is normal, with normal T2 signal. Mild posterior disc protrusion is seen. Bilateral C4-C5 neural foramina are mildly stenosed. Bilateral apophyseal joints are intact with normal alignment. C5/C6: Intervertebral disc height is markedly decreased, with marked loss of T2 signal. Moderate posterior disc protrusion effacing the anterior thecal sac is seen. There is moderate spinal stenosis with AP diameter of the spinal canal reduced to 8.8 mm. Bilateral C5-C6 neural foramina are mildly stenosed. Bilateral apophyseal joints are intact with normal alignment. C6/C7: Intervertebral disc height is normal, with normal T2 signal. Mild asymmetric right posterior disc protrusion causing mild effacement of right lateral recess is seen. Bilateral C6-C7 neural foramina are patent. Bilateral apophyseal joints are intact with normal alignment. C7/T1: Intervertebral disc height is normal, with normal T2 signal. No focal disc herniation is seen. Bilateral C7-T1 neural foramina are patent. Bilateral apophyseal joints are intact with normal alignment. Cervical spinal cord is normal in position and signal. MR/MR cervical spine wo con IMPRESSION: 1. Moderate C5-C6 spinal stenosis is seen secondary to moderate posterior disc protrusion. 2. Mild bilateral C3-C4, bilateral C4-C5, bilateral C5-C6 neural foraminal stenosis is seen. 3. Mild asymmetric right posterior disc protrusion at C3-C4 and C6-C7 causing mild effacement of right lateral recess is seen.
== END 2023-06-12 18:30 | disposition home or self-care (01) ==
LOC: HO.MRI 18:29
PROVIDERS: Visit Provider Physician Assistant
DX: M50.90 Cervical disc disorder, unspecified, unspecified cervical region (principal); M54.9 Dorsalgia, unspecified
CPT/HCPCS: 72141; 72148

== ENCOUNTER 2023-06-16 13:42 | Outpatient (AMB) | payer BC, SELFPAY ==
--- NOTE | 2023-06-16 13:46 | HO.SPINEOV ---
Intake Intake Visit Reasons: MRI f/u Intake Note: Ms. 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 Please see my notes for the specifics of the problem, but she had a left cervical radiculopathy going down her arm, as well as a left lumbar radiculopathy going down into her left leg and outer calf. At that time she had no imaging so I ordered MRIs. They were done at [facility] in the show as we suspected a severely collapsed disc at C5-6 with foraminal narrowing on the left. I think this is the source of her symptoms in the left arm. There is a spondylolisthesis at C4-5, so we would need to get flexion-extension x-rays on that if we were to consider any kind of surgery just to be sure that there is no instability that segment. With regard to her lumbar spine, there is lateral recess stenosis, primarily at the L4-5 area. It is not severe but there is some crowding of the nerve roots. It seems to fit best with her symptom presentation which seems to be an L5 dermatomal distribution. Currently, the symptoms are not bad enough that she wants to consider surgery, but if things escalate I can review her images with Dr. Cueva and we can formalize a surgical plan. For now she would like to try a cortisone injection, and I think this is reasonable so I will refer her to and he can evaluate and determine which injection he thinks is the best for her. Total amount of time spent in this visit was 20 minutes in discussion of symptoms, cervical and lumbar imaging results and subsequent plan of care Matthew Cueva MD,PhD [facility] (2) Cervical radiculopathy: Code(s): M54.12 - Radiculopathy, cervical region Plan: See above Plan See above Orders: Referrals Physiatry Referral M54.12 - Radiculopathy, cervical region, M54.16 - Radiculopathy, lumbar region Coding Level of Care Code Est Pt Level 3 (96728) Diagnoses Lumbar radiculopathy M54.16 Cervical radiculopathy M54.12
== END 2023-06-16 14:03 | disposition home or self-care (01) ==
PROVIDERS: PCP Internal Medicine; Visit Provider Physician Assistant
DX: M54.16 Radiculopathy, lumbar region (principal); M54.12 Radiculopathy, cervical region
CPT/HCPCS: 99213

== ENCOUNTER → 2023-06-16 13:42 | Outpatient (BNVA) | payer BC, SELFPAY | PROVIDERS: PCP Internal Medicine; Visit Provider Physician Assistant ==

== ENCOUNTER 2023-07-17 08:02 | Outpatient (AMB) | payer BC, SELFPAY ==
[2023-07-17 08:08] VITALS: BP 145/90; PULSE 87; RESP 14; O2SAT 96; BMI 24.4
--- NOTE | 2023-07-17 08:08 | A.OFFVIS_ITS ---
Vital Signs 07/17/23 08:08 Height 5 ft 3 in Weight 138 lb BMI 24.4 BP 145/90 H Blood Pressure Location Lt brachial Position Sitting Respiration 14 Pulse 87 Pulse Source Pulse Oximeter Pulse Oximetry (%) 96 Oxygen Delivery Method Room Air Intake Visit Reasons: cervical/lumbar radiculopathy Allergies No Known Allergies [No Known Allergies*] Allergy (Verified 07/17/23 08:10) Medication List - Last Reconciled 07/17/23 by Monie Dutta LPN gabapentin 200 mg PO TID HPI HPI cervical/lumbar radiculopathy: Details: 47-year-old female who presents today to the office for an evaluation of cervical and lumbar radiculopathy. The patient had a work-related injury 07/2022 when a 400-pound patient rolled off her [employer] lift and she tried to push him back up onto it. She sustained an injury to her neck and her low back at that time. She complains of back pain with any prolonged standing or activity. Her pain level is rated as 6?10/10 in intensity on average at night during the day. The pain is slightly better when it is between 3-6/10. The pain is described as an aching, stabbing sensation to the left side of her neck and radiates as a pins and needles sensation in her left arm. There is also a stabbing sensation in her lower back that radiates down her left leg, and she has a bvbi-peu-vqxpnhh sensation. She subsequently underwent intensive physical therapy for a few months, which only made things worse. After completing the physical therapy, she started to develop weakness on the left side of her body, including her arm and leg. She also developed numbness on the left side of her body. She has intermittent neck pain as well. She sleeps on her sides or back. She also uses pillows for support. She underwent an MRI in the emergency room, including a brain MRI and a cervical spine MRI. She takes gabapentin and low-dose naltrexone to help with some of her issues. Gabapentin seems to help with the numbness. She has also taken [id number] pain medications like anti-inflammatory drugs and Tylenol, but these things have never really helped. She has not tried acupuncture in the past. She usually takes two drinks of vodka on weekends. She works for [employer] [place]. 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 Alert and oriented. Mood and affect appropriate. Follows and participates in conversation appropriately. Respiratory effort is unlabored. Able to transition from sit to stand unassisted. Ambulates with bilaterally normal heel strike and toe off. Straight leg raise is positive on the left side. Results Reviewed Results Reviewed: 06/12/23: MR LUMBAR SPINE WITHOUT CONTRAST FINDINGS: The visualized lumbar vertebrae are intact with normal alignment. No focal bone lesion with abnormal signal can be seen. Evaluation of the intervertebral discs show: T12/L1: Intervertebral disc height is normal, with normal T2 signal. No focal disc herniation is seen. Bilateral T12/L1 neuroforamina are patent. Bilateral apophyseal joints are intact with normal alignment. L-1/L-2: Intervertebral disc height is normal, with normal T2 signal. No focal disc herniation is seen. Bilateral L1-L2 neuroforamina are patent. Bilateral apophyseal joints are intact with normal alignment. L2/L3: Intervertebral disc height is normal, with normal T2 signal. Mild posterior disc protrusion is seen. Bilateral L2-L3 neuroforamina are patent. Bilateral apophyseal joints are intact with normal alignment. L3/L4: Intervertebral disc height is normal, with mild loss of T2 signal. Midline posterior annulus tear with mild protrusion of T2 hyperintense nucleus pulposus is seen. Bilateral L3-L4 neuroforamina are patent. Bilateral apophyseal joints are intact with normal alignment. L4/L5: Intervertebral disc height is normal, with mild loss of T2 signal. Midline posterior annulus tear with mild protrusion of T2 hyperintense nucleus pulposus is seen. Bilateral L4-L5 neuroforamina are patent. Bilateral apophyseal joints are intact with normal alignment. L5/S1: Intervertebral disc height is normal, with normal T2 signal. No focal disc herniation is seen. Bilateral L5-S1 neuroforamina are patent. Bilateral apophyseal joints are intact with normal alignment. Conus medullaris is seen normally at L1 level. IMPRESSION: 1. Mild degenerative disc disease at L3-L4 and L4-L5 with midline posterior annulus tears and mild protrusion of nucleus pulposus. 2. Mild posterior disc protrusion at L2-L3. 3. No evidence of spinal canal or neural foraminal stenosis. 06/12/23: MR CERVICAL SPINE WITHOUT CONTRAST FINDINGS: The visualized cervical vertebrae are intact with normal alignment. No focal bone lesion with abnormal signal can be seen. Evaluation of the intervertebral discs show: C2/C3: Intervertebral disc height is normal, with normal T2 signal. No focal disc herniation is seen. Bilateral C2-C3 neural foramina are patent. Bilateral apophyseal joints are intact with normal alignment. C3/C4: Intervertebral disc height is normal, with normal T2 signal. Mild midline and asymmetric right posterior disc protrusion causing mild effacement of right lateral recess is seen. Bilateral C3-C4 neural foramina are mildly stenosed, more prominent on the left side. Bilateral apophyseal joints are intact with normal alignment. C4/C5: Intervertebral disc height is normal, with normal T2 signal. Mild posterior disc protrusion is seen. Bilateral C4-C5 neural foramina are mildly stenosed. Bilateral apophyseal joints are intact with normal alignment. C5/C6: Intervertebral disc height is markedly decreased, with marked loss of T2 signal. Moderate posterior disc protrusion effacing the anterior thecal sac is seen. There is moderate spinal stenosis with AP diameter of the spinal canal reduced to 8.8 mm. Bilateral C5-C6 neural foramina are mildly stenosed. Bilateral apophyseal joints are intact with normal alignment. C6/C7: Intervertebral disc height is normal, with normal T2 signal. Mild asymmetric right posterior disc protrusion causing mild effacement of right lateral recess is seen. Bilateral C6-C7 neural foramina are patent. Bilateral apophyseal joints are intact with normal alignment. C7/T1: Intervertebral disc height is normal, with normal T2 signal. No focal disc herniation is seen. Bilateral C7-T1 neural foramina are patent. Bilateral apophyseal joints are intact with normal alignment. Cervical spinal cord is normal in position and signal. IMPRESSION: 1. Moderate C5-C6 spinal stenosis is seen secondary to moderate posterior disc protrusion. 2. Mild bilateral C3-C4, bilateral C4-C5, bilateral C5-C6 neural foraminal stenosis is seen. 3. Mild asymmetric right posterior disc protrusion at C3-C4 and C6-C7 causing mild effacement of right lateral recess is seen. Assessment & Plan Assessment & Plan (1) Cervical radiculopathy: Code(s): M54.12 - Radiculopathy, cervical region Category: Medical (2) Lumbar radiculopathy: Code(s): M54.16 - Radiculopathy, lumbar region Category: Medical Plan For her back and leg pain, we will schedule her for a left L4-5 TFESI. Discussed the risks and benefits of the procedure with the patient in detail. All questions were answered. The patient is on board with the plan. Justification for interventional therapy: ? Patient with average pain > 6/10 ? Patient has exhausted conservative therapy ? Patient continuing home exercise program . Patient has a good understanding of their pain condition and has appropriate mental and social support I recommended lifestyle modifications, including physical therapy and home exercises for core strengthening. I also recommended trying inversion table, acupuncture, swimming. If these recommendations do not provide relief, we can schedule an injection for the neck pain.? Scribed for Dr. Marmolejo by Erlin Bowling, product manager medical device, on 07/17/2023. I, Dr. Marmolejo, have personally reviewed and agree with the information entered by the scribe. Coding Level of Care Code New Pt Level 4 (34044) Diagnoses Cervical radiculopathy M54.12 Lumbar radiculopathy M54.16
== END 2023-07-17 08:38 | disposition home or self-care (01) ==
PROVIDERS: PCP Internal Medicine; Visit Provider Internal Medicine
DX: M54.12 Radiculopathy, cervical region (principal); M54.16 Radiculopathy, lumbar region
CPT/HCPCS: 99204

== ENCOUNTER → 2023-07-17 08:02 | Outpatient (BNVA) | payer BC, SELFPAY | PROVIDERS: PCP Internal Medicine; Visit Provider Internal Medicine ==

== ENCOUNTER 2023-08-10 06:53 | Outpatient (REF) | payer BC, SELFPAY ==
--- NOTE | ~2023-08-10 | FL_ITS ---
EXAMINATION: XR FLUOROSCOPY WITH IMAGES CLINICAL INFORMATION: Radiculopathy lumbar region. COMPARISON: None available. TECHNIQUE: Fluoroscopy Supervised By: Dr. Thiago Marmolejo. Fluoroscopy Time: 0.2 minutes. Cumulative Dose: 1.76 mGy. DAP: 0.0123 Gycm2. Images: 3. FINDINGS: Intraoperative fluoroscopy and spot films were performed during a procedure in the OR. Images demonstrate a needle overlying the left spine during a transforaminal epidural. Please see Dr. Thiago Marmolejo's report for complete details. FL/FL guidance in treatment room IMPRESSION: Intraoperative fluoroscopy and spot films were obtained. Please see Dr. Thigao Marmolejo's report for complete details.
== END 2023-08-10 06:54 | disposition home or self-care (01) ==
LOC: CF 06:53
PROVIDERS: PCP Internal Medicine; Visit Provider Internal Medicine
DX: M54.16 Radiculopathy, lumbar region (principal)
CPT/HCPCS: 64483; J1100; Q9967

== ENCOUNTER 2023-08-10 07:26 | Outpatient (AMB) | payer BC, SELFPAY ==
--- NOTE | 2023-08-10 08:06 | MHC.OFFVIS ---
Vital Signs 08/10/23 08:30 08/10/23 08:31 Height 5 ft 3 in Weight 138 lb BMI 24.4 BP 120/76 118/70 Blood Pressure Location Lt brachial Lt brachial Position Sitting Sitting Respiration 18 Pulse 88 Pulse Source Pulse Oximeter Pulse Oximetry (%) 96 Oxygen Delivery Method Room Air Intake Visit Reasons: Left L4 TFESI Allergies No Known Allergies [No Known Allergies*] Allergy (Verified 07/17/23 08:10) HPI HPI Left L4 TFESI: Details: Patient presents for scheduled procedure. Denies any recent cough, cold, infection, fever or other significant changes in medical history since last office visit. 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 The patient was placed in the prone position on the fluoroscopy table. The lumbosacral area was prepped with chloraprep, allowed to dry and draped in sterile fashion. Using fluoroscopy, the skin overlying our target was anesthetized with 0.5% lidocaine. A 22 gauge 3.5 inch spinal needle was advanced to the safe triangle in the upper pole of the left L4/5 foramen. A mild left leg paresthesia was felt with the initial needle placement so the needle was readjusted. There was no subsequent paresthesia and aspiration was negative for blood and CSF. Correct needle position was confirmed with approximately 1 ml contrast dye (Omnipaque 180 mg/ml) injected under real-time fluoroscopy. No evidence of vascular or intrathecal uptake was seen and there was both epidural and peripheral spread of the contrast agent. 10 mg dexamethasone plus 1 ml containing 0.5% lidocaine was slowly injected. The needle was flushed and removed. The skin was cleansed and a sterile bandages were applied. The patient tolerated the procedure well and no complications were encountered. Following the procedure the patient's vital signs were stable. The patient was discharged home in good condition with post-procedural instructions. Time Out: Immediately prior to the procedure, the following was verbally confirmed that there is a signed consent form and that the correct patient, planned procedure, site and side are consistent with documentation and that necessary equipment and/or blood products are available prior to the start of the case. Complications: none EBL: <5 cc 69542 - Lumbar/Sacral Procedure code (CPT) selection complete Assessment & Plan Assessment & Plan (1) Lumbar radiculopathy: Code(s): M54.16 - Radiculopathy, lumbar region Category: Medical Plan Patient is status post left L4-5 TFESI. Patient tolerated procedure well and was discharged home in stable condition with discharge instructions. All questions were answered. We will follow-up via telephone or in clinic to assess response to therapy. A follow-up appointment was made during today's visit. Orders: Orders FL guidance in treatment room Today M54.16 - Radiculopathy, lumbar region Coding Level of Care Code Procedure Only Diagnoses Lumbar radiculopathy M54.16 CPT Codes Transforaminal Epidural Steroid Inj - TESI 3: 07295 - Lumbar/Sacral ([id number])
[2023-08-10 08:30] VITALS: BP 120/76; PULSE 88; RESP 18; O2SAT 96; BMI 24.4
[2023-08-10 08:31] VITALS: BP 118/70
== END 2023-08-10 08:29 | disposition home or self-care (01) ==
LOC: HO.PMCPRC 07:26
PROVIDERS: PCP Internal Medicine; Visit Provider Internal Medicine
DX: M54.16 Radiculopathy, lumbar region (principal)
CPT/HCPCS: 64483

== ENCOUNTER 2023-09-08 07:53 | Outpatient (AMB) | payer BC, SELFPAY ==
--- NOTE | 2023-09-08 07:56 | A.OFFVIS_ITS ---
Vital Signs 09/08/23 08:00 Height 5 ft 3 in Weight 138 lb 4 oz BMI 24.5 BP 138/94 H Blood Pressure Location Lt brachial Position Sitting Respiration 18 Pulse 99 Pulse Source Pulse Oximeter Pulse Oximetry (%) 96 Oxygen Delivery Method Room Air Intake Visit Reasons: s/p Left L4 TFESI Intake Note: Patient states 50% relief. Pain level 7/10 Allergies No Known Allergies [No Known Allergies*] Allergy (Verified 07/17/23 08:10) HPI HPI s/p Left L4 TFESI: Details: The patient is a 48-year-old female who presents today for status post left L4 TFESI. (transforaminal epidural steroid injection). The patient reports 50% relief following the procedure. She states he pain level is 7/10 in intensity. She states that she feels fine initially during first week after the injection but currently She still experiencing severe and shooting neck and arm pain. She underwent PT for her neck pain without benefits. She states yesterday she had neurology appointment with Dr. Nichole and was told that she may need C- spine surgery. She had an MRI done which revealed cervical abnormality. She is exercising regularly. She has not tried acupuncture treatment in the past. She reports 50% ongoing relief in her leg and back pain. She had sessions with chiropractor in the past (years ago). 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 Alert and oriented. Mood and affect appropriate. Follows and participates in conversation appropriately. Respiratory effort is unlabored. Able to transition from sit to stand unassisted. Results Reviewed Results Reviewed: 06/12/23: MR LUMBAR SPINE WITHOUT CONTRAST FINDINGS: The visualized lumbar vertebrae are intact with normal alignment. No focal bone lesion with abnormal signal can be seen. Evaluation of the intervertebral discs show: T12/L1: Intervertebral disc height is normal, with normal T2 signal. No focal disc herniation is seen. Bilateral T12/L1 neuroforamina are patent. Bilateral apophyseal joints are intact with normal alignment. L-1/L-2: Intervertebral disc height is normal, with normal T2 signal. No focal disc herniation is seen. Bilateral L1-L2 neuroforamina are patent. Bilateral apophyseal joints are intact with normal alignment. L2/L3: Intervertebral disc height is normal, with normal T2 signal. Mild posterior disc protrusion is seen. Bilateral L2-L3 neuroforamina are patent. Bilateral apophyseal joints are intact with normal alignment. L3/L4: Intervertebral disc height is normal, with mild loss of T2 signal. Midline posterior annulus tear with mild protrusion of T2 hyperintense nucleus pulposus is seen. Bilateral L3-L4 neuroforamina are patent. Bilateral apophyseal joints are intact with normal alignment. L4/L5: Intervertebral disc height is normal, with mild loss of T2 signal. Midline posterior annulus tear with mild protrusion of T2 hyperintense nucleus pulposus is seen. Bilateral L4-L5 neuroforamina are patent. Bilateral apophyseal joints are intact with normal alignment. L5/S1: Intervertebral disc height is normal, with normal T2 signal. No focal disc herniation is seen. Bilateral L5-S1 neuroforamina are patent. Bilateral apophyseal joints are intact with normal alignment. Conus medullaris is seen normally at L1 level. IMPRESSION: 1. Mild degenerative disc disease at L3-L4 and L4-L5 with midline posterior annulus tears and mild protrusion of nucleus pulposus. 2. Mild posterior disc protrusion at L2-L3. 3. No evidence of spinal canal or neural foraminal stenosis. 06/12/23: MR CERVICAL SPINE WITHOUT CONTRAST FINDINGS: The visualized cervical vertebrae are intact with normal alignment. No focal bone lesion with abnormal signal can be seen. Evaluation of the intervertebral discs show: C2/C3: Intervertebral disc height is normal, with normal T2 signal. No focal disc herniation is seen. Bilateral C2-C3 neural foramina are patent. Bilateral apophyseal joints are intact with normal alignment. C3/C4: Intervertebral disc height is normal, with normal T2 signal. Mild midline and asymmetric right posterior disc protrusion causing mild effacement of right lateral recess is seen. Bilateral C3-C4 neural foramina are mildly stenosed, more prominent on the left side. Bilateral apophyseal joints are intact with normal alignment. C4/C5: Intervertebral disc height is normal, with normal T2 signal. Mild posterior disc protrusion is seen. Bilateral C4-C5 neural foramina are mildly stenosed. Bilateral apophyseal joints are intact with normal alignment. C5/C6: Intervertebral disc height is markedly decreased, with marked loss of T2 signal. Moderate posterior disc protrusion effacing the anterior thecal sac is seen. There is moderate spinal stenosis with AP diameter of the spinal canal reduced to 8.8 mm. Bilateral C5-C6 neural foramina are mildly stenosed. Bilateral apophyseal joints are intact with normal alignment. C6/C7: Intervertebral disc height is normal, with normal T2 signal. Mild asymmetric right posterior disc protrusion causing mild effacement of right lateral recess is seen. Bilateral C6-C7 neural foramina are patent. Bilateral apophyseal joints are intact with normal alignment. C7/T1: Intervertebral disc height is normal, with normal T2 signal. No focal disc herniation is seen. Bilateral C7-T1 neural foramina are patent. Bilateral apophyseal joints are intact with normal alignment. Cervical spinal cord is normal in position and signal. IMPRESSION: 1. Moderate C5-C6 spinal stenosis is seen secondary to moderate posterior disc protrusion. 2. Mild bilateral C3-C4, bilateral C4-C5, bilateral C5-C6 neural foraminal stenosis is seen. 3. Mild asymmetric right posterior disc protrusion at C3-C4 and C6-C7 causing mild effacement of right lateral recess is seen. Assessment & Plan Assessment & Plan (1) Cervical radiculopathy: Code(s): M54.12 - Radiculopathy, cervical region Category: Medical (2) Lumbar radiculopathy: Code(s): M54.16 - Radiculopathy, lumbar region Category: Medical Plan Adequate response to transforaminal epidural steroid injection for lumbar and leg symptoms. For cervical radicular symptoms, I offered her a a left interlaminar C7/T1 DEVIN. Also recommended starting with acupuncture for her cervical radicular pain and continuing home exercise program. She has previously failed formal physical therapy. Advised her to use side pillow for her neck for adequate support while sleeping. Counseled her regarding continuing with a combination of physical therapy, home exercise, conservative measures such as acupuncture and neck traction, as well as corticosteroid injections to help delay surgical intervention as far out as possible given her relatively young age. Patient is in agreement with that plan. We will schedule for neck injection in about a month to allow an adequate interval. Scribed for Dr. Marmolejo by Veronica Diaz, medical claims representative, on 09/08/2023. I, Dr. Marmolejo, have personally reviewed and agree with the information entered by the scribe Coding Level of Care Code Est Pt Level 4 (52875) Diagnoses Cervical radiculopathy M54.12 Lumbar radiculopathy M54.16
[2023-09-08 08:00] VITALS: BP 138/94; PULSE 99; RESP 18; O2SAT 96; BMI 24.5
== END 2023-09-08 08:35 | disposition home or self-care (01) ==
PROVIDERS: PCP Internal Medicine; Visit Provider Internal Medicine
DX: M54.12 Radiculopathy, cervical region (principal); M54.16 Radiculopathy, lumbar region
CPT/HCPCS: 99214

== ENCOUNTER → 2023-09-08 07:53 | Outpatient (BNVA) | payer BC, SELFPAY | PROVIDERS: PCP Internal Medicine; Visit Provider Internal Medicine ==

== ENCOUNTER 2023-09-11 13:22 | Outpatient (REF) | payer BC, SELFPAY ==
--- NOTE | ~2023-09-11 | XR_ITS ---
EXAMINATION: XR CERVICAL SPINE CLINICAL INFORMATION: Cervicalgia COMPARISON: MRI from June 12 2023 TECHNIQUE: AP, lateral flexion extension and neutral views FINDINGS: There is straightening of cervical lordosis with significant narrowing cough C5-C6 intervertebral disc space, marginal spurring, retrolisthesis of C5 over C6, but no significant instability on flexion and extension views. Soft tissues unremarkable XR/XR cervical spine 4V IMPRESSION: Degenerative changes at the level of C5-C6 with retrolisthesis of C5 over C6.
== END 2023-09-11 13:23 | disposition home or self-care (01) ==
LOC: HO.HOSX 13:22
PROVIDERS: PCP Internal Medicine; Visit Provider Physician Assistant
DX: M50.022 Cervical disc disorder at C5-C6 level with myelopathy (principal)
CPT/HCPCS: 72050

== ENCOUNTER 2023-09-11 13:22 | Outpatient (AMB) | payer BC, SELFPAY ==
--- NOTE | 2023-09-11 13:37 | A.SPINEOV_ITS ---
Intake Visit Reasons: f/up after pain management Intake Note: Ms. Light is here today to F/u after pain management. 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 We had been managing her cervical disc d egeneration and neck pain conservatively. She also had a lumbar issue that she was undergoing injections for. She did have some transient relief from the L4 transforaminal epidural. Unfortunately the neck pain has just become the main pain generator in her life. She is taking multiple ibuprofen a day and she is worried that there just is no endpoint to the conservative treatment. She is now interested in doing something more definitive with her neck. I reviewed her imaging done here at [facility] again and there is also a CT scan done of the neck and this shows severe disc degeneration at C5-6 with [id number] endplate contact. There is also slight spondylolisthesis at C4-5. I think the main pain generator is going to be C5-6 but I would like flexion-extension x-rays to rule out an occult instability at C4-5. Typically this kind of degeneration is something Dr. Cueva would do anterior cervical fusion if the patient failed conservative treatment. I will review the imaging with Dr. Cueva and get back to the patient with a final plan. We did briefly discuss risks benefits and recovery of anterior cervical fusion. Total amount of time spent in this visit was 20 minutes in discussion of symptoms, cervical MRI, cervical CT imaging results and subsequent plan of care Matthew Cueva MD,PhD [facility] [facility] Orders: Orders XR cervical spine 4V Today M50.90 - Cervical disc disorder, unspecified, unspecified cervical region Coding Level of Care Code Est Pt Level 3 (02877) Diagnoses Cervical disc disorder M50.90
== END 2023-09-11 14:03 | disposition home or self-care (01) ==
PROVIDERS: PCP Internal Medicine; Visit Provider Physician Assistant
DX: M50.90 Cervical disc disorder, unspecified, unspecified cervical region (principal)
CPT/HCPCS: 99213

== ENCOUNTER 2023-09-21 06:11 | Outpatient (REF) | payer BC, SELFPAY ==
--- NOTE | ~2023-09-21 | FL_ITS ---
EXAMINATION: XR FLUOROSCOPY WITH IMAGES CLINICAL INFORMATION: Left C7 to T1 injection. COMPARISON: None available. TECHNIQUE: Fluoroscopy Supervised By: Dr. Thiago Marmolejo. Fluoroscopy Time: 0.1 minutes. Cumulative Dose: 0.951 mGy. DAP: 0.0674 Gy-cm2. Images: 3. FINDINGS: Intraoperative fluoroscopy and spot films were performed during a procedure in the OR. A needle is seen slightly to the left of midline at the C6-C7 needle. Epidural contrast media is present. Please correlate with Dr. Thiago Marmolejo' report for complete details. FL/FL guidance in treatment room IMPRESSION: Intraoperative fluoroscopy and spot films were obtained. Please see Dr. Thiago Marmolejo' report for complete details.
== END 2023-09-21 06:12 | disposition home or self-care (01) ==
LOC: CF 06:11
PROVIDERS: Visit Provider Internal Medicine
DX: M54.12 Radiculopathy, cervical region (principal)
CPT/HCPCS: 62321; J1100; J2795; Q9967

== ENCOUNTER 2023-09-21 10:21 | Outpatient (AMB) | payer BC, SELFPAY ==
--- NOTE | 2023-09-21 10:45 | A.OFFVIS_ITS ---
Vital Signs 09/21/23 11:18 09/21/23 11:18 BP 137/90 H 143/100 H Blood Pressure Location Lt brachial Lt brachial Position Sitting Sitting Respiration 12 16 Pulse 90 83 Pulse Source Pulse Oximeter Pulse Oximeter Pulse Oximetry (%) 98 99 Oxygen Delivery Method Room Air Room Air Intake Visit Reasons: Left C7-T1 parasagittal interlaminar DEVIN Allergies No Known Allergies [No Known Allergies*] Allergy (Verified 07/17/23 08:10) HPI HPI Left C7-T1 parasagittal interlaminar DEVIN: Details: Patient presents for scheduled procedure. Denies any recent cough, cold, infection, fever or other significant changes in medical history since last office visit. 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 The patient was placed in the prone position. The [anatomic] area was widely prepped with chloraprep and draped in sterile fashion. Fluoroscopic guidance was used to identify the desired interlaminar space and for needle placement. Subcutaneous 0.5% lidocaine was used to anesthetize the skin overlying the target. A 20-gauge Mane needle was advanced to the epidural space using loss of resistance to contrast technique under fluoroscopic AP and contralateral oblique views. There was no evidence of heme or CSF and no paresthesias were elicited with needle placement. Confirmation of epidural needle placement was performed with 1cc of omnipaque 180. Next 3 ml 0.5% lidocaine mixed with 10mg Dexamethasone was administered epidurally with no pain elicited on injection. The needle tract tubing was then cleared with 1 ml of 0.5% lidocaine. The needle was removed, skin cleansed and a sterile bandage was applied. The patient tolerated the procedure well and no complications were encountered. Following the procedure the patient's vital signs were stable. The patient was discharged home in good condition with post-procedural instructions. Time Out: Immediately prior to the procedure, the following was verbally confirmed that there is a signed consent form and that the correct patient, planned procedure, site and side are consistent with documentation and that necessary equipment and/or blood products are available prior to the start of the case. Complications: none EBL: <2 cc Coding 82074 - Cervical Epidural/Interlaminar with fluoroscopy Procedure code (CPT) selection complete Assessment & Plan Assessment & Plan (1) Cervical radiculopathy: Code(s): M54.12 - Radiculopathy, cervical region Category: Medical Plan Patient is status post left parasagittal interlaminar C7-T1 DEVIN. Patient tolerated procedure well and was discharged home in stable condition with discharge instructions. All questions were answered. We will follow-up via telephone or in clinic to assess response to therapy. A follow-up appointment was made during today's visit. Orders: Orders FL guidance in treatment room Today M54.12 - Radiculopathy, cervical region Coding Level of Care Code Procedure Only Diagnoses Cervical radiculopathy M54.12 CPT Codes Coding - Joint 10: 51624 - Cervical Epidural/Interlaminar with fluoroscopy ([id number])
[2023-09-21 11:18] VITALS: BP 137/90; BP 143/100; PULSE 83; PULSE 90; RESP 12; RESP 16; O2SAT 98; O2SAT 99
== END 2023-09-21 11:15 | disposition home or self-care (01) ==
LOC: HO.PMCPRC 10:21
PROVIDERS: PCP Internal Medicine; Visit Provider Internal Medicine
DX: M54.12 Radiculopathy, cervical region (principal)
CPT/HCPCS: 62321

== ENCOUNTER 2023-10-20 11:29 | Outpatient (AMB) | payer SELFPAY ==
--- NOTE | 2023-10-20 11:16 | MHC.OFFVIS ---
Vital Signs 10/20/23 11:30 Height 5 ft 3 in Weight 138 lb BMI 24.4 Intake Visit Reasons: s/p C7-T1 DEVIN Allergies No Known Allergies [No Known Allergies*] Allergy (Verified 10/20/23 11:31) HPI HPI s/p C7-T1 DEVIN: Details: 48-year-old female who presents today to the office for a status post C7/T1 epidural steroid injection. She states that her pain is the same as it was prior to the procedure. She reports that her neck pain is radiating down to her arm and down to her wrist. She states that her pain has been worsening since the procedure. She has difficulty lifting a gallon of milk. She will undergo cervical fusion surgery at C4-C5-C6 level on 11/16/2023. She reports worsening of the left lower back region that radiates down to her left leg. She states that she had mild relief following the last back injections. She reports constant pain in the single spot in her lower back region just above the buttock region with movements and lying down. 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 Past procedures 09/21/23: Interlaminar epidural steroid injection, C7-T1, left parasaggital: No significant relief. 08/10/23: Transforaminal epidural steroid injection, Left L-4/5: 50% relief. 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 Alert and oriented. Mood and affect appropriate. Follows and participates in conversation appropriately. Respiratory effort is unlabored. Able to transition from sit to stand unassisted. Ambulates with bilaterally normal heel strike and toe off. Telehealth Telehealth Telehealth Platform: [facility] Location of provider rendering services: practice address Location of patient: address on file Patient Identification confirmed using: Name, : Yes Telehealth method: video Patient verbally consented to treatment: Yes Patient verbally consented to billing insurance company: Yes Patient informed of any privacy concerns related to visit: Yes Minutes spent on Phone/Video with Pt.: 11 Results Reviewed Results Reviewed: 06/12/2023: MR LUMBAR SPINE WITHOUT CONTRAST FINDINGS: The visualized lumbar vertebrae are intact with normal alignment. No focal bone lesion with abnormal signal can be seen. Evaluation of the intervertebral discs show: T12/L1: Intervertebral disc height is normal, with normal T2 signal. No focal disc herniation is seen. Bilateral T12/L1 neuroforamina are patent. Bilateral apophyseal joints are intact with normal alignment. L-1/L-2: Intervertebral disc height is normal, with normal T2 signal. No focal disc herniation is seen. Bilateral L1-L2 neuroforamina are patent. Bilateral apophyseal joints are intact with normal alignment. L2/L3: Intervertebral disc height is normal, with normal T2 signal. Mild posterior disc protrusion is seen. Bilateral L2-L3 neuroforamina are patent. Bilateral apophyseal joints are intact with normal alignment. L3/L4: Intervertebral disc height is normal, with mild loss of T2 signal. Midline posterior annulus tear with mild protrusion of T2 hyperintense nucleus pulposus is seen. Bilateral L3-L4 neuroforamina are patent. Bilateral apophyseal joints are intact with normal alignment. L4/L5: Intervertebral disc height is normal, with mild loss of T2 signal. Midline posterior annulus tear with mild protrusion of T2 hyperintense nucleus pulposus is seen. Bilateral L4-L5 neuroforamina are patent. Bilateral apophyseal joints are intact with normal alignment. L5/S1: Intervertebral disc height is normal, with normal T2 signal. No focal disc herniation is seen. Bilateral L5-S1 neuroforamina are patent. Bilateral apophyseal joints are intact with normal alignment. Conus medullaris is seen normally at L1 level. IMPRESSION: 1. Mild degenerative disc disease at L3-L4 and L4-L5 with midline posterior annulus tears and mild protrusion of nucleus pulposus. 2. Mild posterior disc protrusion at L2-L3. 3. No evidence of spinal canal or neural foraminal stenosis. 06/12/23: MR CERVICAL SPINE WITHOUT CONTRAST FINDINGS: The visualized cervical vertebrae are intact with normal alignment. No focal bone lesion with abnormal signal can be seen. Evaluation of the intervertebral discs show: C2/C3: Intervertebral disc height is normal, with normal T2 signal. No focal disc herniation is seen. Bilateral C2-C3 neural foramina are patent. Bilateral apophyseal joints are intact with normal alignment. C3/C4: Intervertebral disc height is normal, with normal T2 signal. Mild midline and asymmetric right posterior disc protrusion causing mild effacement of right lateral recess is seen. Bilateral C3-C4 neural foramina are mildly stenosed, more prominent on the left side. Bilateral apophyseal joints are intact with normal alignment. C4/C5: Intervertebral disc height is normal, with normal T2 signal. Mild posterior disc protrusion is seen. Bilateral C4-C5 neural foramina are mildly stenosed. Bilateral apophyseal joints are intact with normal alignment. C5/C6: Intervertebral disc height is markedly decreased, with marked loss of T2 signal. Moderate posterior disc protrusion effacing the anterior thecal sac is seen. There is moderate spinal stenosis with AP diameter of the spinal canal reduced to 8.8 mm. Bilateral C5-C6 neural foramina are mildly stenosed. Bilateral apophyseal joints are intact with normal alignment. C6/C7: Intervertebral disc height is normal, with normal T2 signal. Mild asymmetric right posterior disc protrusion causing mild effacement of right lateral recess is seen. Bilateral C6-C7 neural foramina are patent. Bilateral apophyseal joints are intact with normal alignment. C7/T1: Intervertebral disc height is normal, with normal T2 signal. No focal disc herniation is seen. Bilateral C7-T1 neural foramina are patent. Bilateral apophyseal joints are intact with normal alignment. Cervical spinal cord is normal in position and signal. IMPRESSION: 1. Moderate C5-C6 spinal stenosis is seen secondary to moderate posterior disc protrusion. 2. Mild bilateral C3-C4, bilateral C4-C5, bilateral C5-C6 neural foraminal stenosis is seen. 3. Mild asymmetric right posterior disc protrusion at C3-C4 and C6-C7 causing mild effacement of right lateral recess is seen. Assessment & Plan Assessment & Plan (1) Cervical radiculopathy: Code(s): M54.12 - Radiculopathy, cervical region Category: Medical (2) Lumbar radiculopathy: Code(s): M54.16 - Radiculopathy, lumbar region Category: Medical (3) Lumbar spondylosis: Code(s): M47.816 - Spondylosis without myelopathy or radiculopathy, lumbar region Category: Medical Plan The patient is scheduled for cervical spine surgery in October 2023 for the neck pain. We will schedule her for a diagnostic left L3 and L4 medial branch nerve block injection for her axial low back pain. If it is positive, we will follow it up with the trial of temporary nerve stimulation after her neck surgery. Discussed the risks and benefits of the procedure with the patient in detail. All questions were answered. The patient is on board with the plan. Justification for interventional therapy: ? Patient with average pain > 6/10 ? Patient has exhausted conservative therapy ? Patient unable to tolerate physical therapy due to pain . Patient has a good understanding of their pain condition and has appropriate mental and social support Scribed for Dr. Marmolejo by Erlin Bowling, medical radiation dosimetrist, on 10/20/2023. I, Dr. Marmolejo, have personally reviewed and agree with the information entered by the scribe. Coding Level of Care Code Tele Est Pt Level 3 (47465) Diagnoses Cervical radiculopathy M54.12 Lumbar radiculopathy M54.16 Lumbar spondylosis M47.816
[2023-10-20 11:30] VITALS: BMI 24.4
== END 2023-10-20 11:31 | disposition home or self-care (01) ==
LOC: HO.PMC 11:29
PROVIDERS: PCP Internal Medicine; Visit Provider Internal Medicine
DX: M54.12 Radiculopathy, cervical region (principal); M54.16 Radiculopathy, lumbar region; M47.816 Spondylosis without myelopathy or radiculopathy, lumbar region
CPT/HCPCS: 99213

== ENCOUNTER → 2023-10-20 11:29 | Outpatient (BNVA) | payer BC, SELFPAY | PROVIDERS: PCP Internal Medicine; Visit Provider Internal Medicine ==

== ENCOUNTER 2023-11-02 06:16 | Outpatient (REF) | payer BC, SELFPAY ==
--- NOTE | ~2023-11-02 | FL_ITS ---
EXAMINATION: XR FLUOROSCOPY WITH IMAGES CLINICAL INFORMATION: Dorsalgia, low back pain, unspecified. COMPARISON: MR lumbar 06/12/2023. TECHNIQUE: Fluoroscopy provided to: Dr. Marmolejo Fluoroscopy time: 0.1 minutes DAP: 0.0107 mGycm2 Images: 2 FINDINGS: 2 coned-down Spot images lower lumbar spine on the left show sequential injection of L3, L4, and L5 left nerve root sheaths. FL/FL guidance in treatment room IMPRESSION: Fluoroscopic guidance. Please refer to the full operative report for details. Electronically signed by: Shady Reyes MD 12/29/2023 04:02 PM EDT
== END 2023-11-02 06:17 | disposition home or self-care (01) ==
LOC: CF 06:16
PROVIDERS: Visit Provider Internal Medicine
DX: M47.816 Spondylosis without myelopathy or radiculopathy, lumbar region (principal); M54.9 Dorsalgia, unspecified
CPT/HCPCS: 64493; 64494; J2795; Q9967

== ENCOUNTER 2023-11-02 13:07 | Outpatient (AMB) | payer BC, SELFPAY ==
[2023-11-02 13:26] VITALS: BP 131/92; PULSE 102; RESP 18; O2SAT 98
--- NOTE | 2023-11-02 13:41 | A.OFFVIS_ITS ---
Vital Signs 11/02/23 13:26 11/02/23 13:42 BP 131/92 H 156/94 H Blood Pressure Location Lt brachial Lt brachial Position Sitting Sitting Respiration 18 19 Pulse 102 H 97 Pulse Source Pulse Oximeter Pulse Oximeter Pulse Oximetry (%) 98 100 Oxygen Delivery Method Room Air Room Air Comment Pre-op Post-op Intake Visit Reasons: Left L3-L4 Dx MBB Allergies No Known Allergies [No Known Allergies*] Allergy (Verified 10/20/23 11:31) HPI HPI Left L3-L4 Dx MBB: Details: Patient presents for scheduled procedure. Denies any recent cough, cold, infection, fever or other significant changes in medical history since last office visit. 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 The patient was placed in a prone position. The respective lumbosacral area was prepped with chloraprep and draped in sterile fashion. The skin over the target medial branch nerves was anesthetized with 0.5% lidocaine. A 22 gauge 3.5 inch needle was inserted into the target medial branch nerve under fluoroscopic guidance. No paresthesias were elicited with needle placement and aspiration was negative for blood and CSF. Next, 0.2cc of omnipaque 180 was injected to verify positioning. Next 0.5 ml 0.5% bupivicaine was injected (0.5cc total per level). The identical procedure was performed at the remaining levels. The skin was cleansed and a sterile bandage was applied. Following the procedure the patient's vital signs were stable. The patient tolerated the procedure well and no complications were encountered. Following the procedure the patient's vital signs were stable. The patient was discharged home in good condition with post-procedural instructions. Time Out: Immediately prior to the procedure, the following was verbally confirmed that there is a signed consent form and that the correct patient, planned procedure, site and side are consistent with documentation and that necessary equipment and/or blood products are available prior to the start of the case. Complications: none EBL: <5 cc 13265 - with Fluoroscopy 46085 - second level, with Fluoroscopy Procedure code (CPT) selection complete Assessment & Plan Assessment & Plan (1) Lumbar spondylosis: Code(s): M47.816 - Spondylosis without myelopathy or radiculopathy, lumbar region Category: Medical Plan Patient is status post left L3, L4 medial branches and L5 dorsal ramus diagnostic nerve blocks. Patient tolerated procedure well and was discharged home in stable condition with discharge instructions. All questions were answered. We will follow-up via telephone or in clinic to assess response to therapy. A follow-up appointment was made during today's visit. Orders: Orders FL guidance in treatment room Today M54.9 - Dorsalgia, unspecified Coding Level of Care Code Procedure Only Diagnoses Lumbar spondylosis M47.816 CPT Codes Facet Injection-Lumbar/Sacral - CPT: 83682 - second level, with Fluoroscopy ([id number]) Facet Injection-Lumbar/Sacral - CPT: 62368 - with Fluoroscopy ([id number])
[2023-11-02 13:42] VITALS: BP 156/94; PULSE 97; RESP 19; O2SAT 100
== END 2023-11-02 13:40 | disposition home or self-care (01) ==
LOC: HO.PMCPRC 13:07
PROVIDERS: PCP Internal Medicine; Visit Provider Internal Medicine
DX: M47.816 Spondylosis without myelopathy or radiculopathy, lumbar region (principal)
CPT/HCPCS: 64493; 64494

== ENCOUNTER → 2023-11-03 13:03 | Outpatient (BNV) | payer BC, SELFPAY | PROVIDERS: PCP Internal Medicine; Visit Provider Internal Medicine Cardiovascular Disease | DX: Z01.818 Encounter for other preprocedural examination (principal) | CPT/HCPCS: 93010 ==

== ENCOUNTER 2023-11-06 08:19 | Outpatient (AMB) | payer MEDICAID, SELFPAY ==
--- NOTE | 2023-11-06 08:20 | A.OFFVIS_ITS ---
Intake Visit Reasons: s/p Left L3-L4 Dx MBB Allergies No Known Allergies [No Known Allergies*] Allergy (Verified 10/20/23 11:31) HPI HPI s/p Left L3-L4 Dx MBB: Details: 48-year-old female who presents today via tele-visit for status post left L3-L4 diagnostic MBB. The patient reports no significant relief following the procedure. She had soreness on the injection site that never really went away. So, she was unable to tell if the facet block was helpful or not.?She reports pain in her left side, which is bothersome. She states that her right side is not bothersome. The patient is scheduled for cervical spine surgery in October 2023 for the neck pain. Past procedures 11/02/23: Lumbar Medial Branch Block, left L3, L4 medial branches and L5 Dorsal Ramus (2 levels, 3 nerves): no significant relief. 09/21/23: Interlaminar epidural steroid injection, C7-T1, left parasaggital: No significant relief. 08/10/23: Transforaminal epidural steroid injection, Left L-4/5: 50% relief. [facility] Medical History (Updated 11/14/23 @ 12:46 by Thiago Marmolejo MD) Arthritis GERD (gastroesophageal reflux disease) Weakness History of trigeminal neuralgia Complicated migraine Pneumonia Bronchitis Scarlet fever Blood pressure elevated without history of HTN Osteoarthritis ADHD Abnormal CT of the abdomen Chronic constipation Neuralgia Surgical History (Updated 11/03/23 @ 12:24 by Ai Christian RN) Hx of laparoscopy History of fine needle aspiration with imaging guidance Hx of tubal ligation History of esophagogastroduodenoscopy (EGD) Hx of colonoscopy Social History Household Members Other:: 2 sons Are you a primary day care aide to a significant other at home: No Do you presently have visiting nurse or other home services: No Alcohol intake: current Alcohol intake frequency: holidays/special occasions only Patient Tobacco Use Status: Never used Tobacco Use of substances other than those prescribed or required for medical reasons: No Have you been hit, kicked, punched, or otherwise hurt by someone within the past year? 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 Location of provider rendering services: practice address Location of patient: address on file Patient Identification confirmed using: Name, : Yes Telehealth method: video Patient verbally consented to treatment: Yes Patient verbally consented to billing insurance company: Yes Patient informed of any privacy concerns related to visit: Yes Minutes spent on Phone/Video with Pt.: 10 Results Reviewed Results Reviewed: 06/12/2023: MR LUMBAR SPINE WITHOUT CONTRAST FINDINGS: The visualized lumbar vertebrae are intact with normal alignment. No focal bone lesion with abnormal signal can be seen. Evaluation of the intervertebral discs show: T12/L1: Intervertebral disc height is normal, with normal T2 signal. No focal disc herniation is seen. Bilateral T12/L1 neuroforamina are patent. Bilateral apophyseal joints are intact with normal alignment. L-1/L-2: Intervertebral disc height is normal, with normal T2 signal. No focal disc herniation is seen. Bilateral L1-L2 neuroforamina are patent. Bilateral apophyseal joints are intact with normal alignment. L2/L3: Intervertebral disc height is normal, with normal T2 signal. Mild posterior disc protrusion is seen. Bilateral L2-L3 neuroforamina are patent. Bilateral apophyseal joints are intact with normal alignment. L3/L4: Intervertebral disc height is normal, with mild loss of T2 signal. Midline posterior annulus tear with mild protrusion of T2 hyperintense nucleus pulposus is seen. Bilateral L3-L4 neuroforamina are patent. Bilateral apophyseal joints are intact with normal alignment. L4/L5: Intervertebral disc height is normal, with mild loss of T2 signal. Midline posterior annulus tear with mild protrusion of T2 hyperintense nucleus pulposus is seen. Bilateral L4-L5 neuroforamina are patent. Bilateral apophyseal joints are intact with normal alignment. L5/S1: Intervertebral disc height is normal, with normal T2 signal. No focal disc herniation is seen. Bilateral L5-S1 neuroforamina are patent. Bilateral apophyseal joints are intact with normal alignment. Conus medullaris is seen normally at L1 level. IMPRESSION: 1. Mild degenerative disc disease at L3-L4 and L4-L5 with midline posterior annulus tears and mild protrusion of nucleus pulposus. 2. Mild posterior disc protrusion at L2-L3. 3. No evidence of spinal canal or neural foraminal stenosis. Assessment & Plan Assessment & Plan (1) Lumbar spondylosis: Code(s): M47.816 - Spondylosis without myelopathy or radiculopathy, lumbar region Category: Medical (2) Intractable low back pain: Code(s): M54.59 - Other low back pain Category: Medical Plan I discussed peripheral nerve stimulation of lumbar medial branches as a potential therapeutic option in the setting of lumbar facet hypertrophy, multifidus atrophy, and chronic intractable low back pain that was not responsive to a facet block. She is not a candidate for lumbar radiofrequency ablation, but may benefit from a trial of temporary nerve stimulation. We will schedule her for a left L3 medial branch temporary peripheral nerve stimulator. Discussed the risks and benefits of the procedure with the patient in detail. All questions were answered. The patient is on board with the plan. Justification for interventional therapy: ? Patient with average pain > 6/10 ? Patient has exhausted conservative therapy oral medications, physical therapy, and injections including epidural steroid injection and facet block. ? Patient unable to tolerate physical therapy due to pain. . Patient has a good understanding of their pain condition and has appropriate mental and social support Scribed for Dr. Marmolejo by Erlin Bowling, medical assistant internal medicine, on 11/06/2023. I, Dr. Marmolejo, have personally reviewed and agree with the information entered by the scribe. Coding Level of Care Code Tele Est Pt Level 3 (72212) Diagnoses Lumbar spondylosis M47.816 Intractable low back pain M54.59
== END 2023-11-06 08:20 | disposition home or self-care (01) ==
LOC: HO.PMC 08:20
PROVIDERS: PCP Internal Medicine; Visit Provider Internal Medicine
DX: M47.816 Spondylosis without myelopathy or radiculopathy, lumbar region (principal); M54.59 Other low back pain
CPT/HCPCS: 99213

== ENCOUNTER → 2023-11-06 08:19 | Outpatient (BNVA) | payer BC, SELFPAY | PROVIDERS: PCP Internal Medicine; Visit Provider Internal Medicine ==

== ENCOUNTER 2023-11-15 14:27 | Outpatient (AMB) | payer BC, SELFPAY ==
--- NOTE | 2023-11-15 14:47 | HO.SPINEOV ---
Intake Visit Reasons: Discuss surgery Intake Note: Ms. 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 She is scheduled to undergo an anterior diskectomy fusion C5-6 tomorrow. All questions were answered. Ang Cueva MD, PhD Spine Fellowship Trained Neurosurgeon Director, [facility] Coding Level of Care Code Est Pt Level 2 (99842) Diagnoses Cervical disc disorder M50.90
== END 2023-11-15 15:15 | disposition home or self-care (01) ==
PROVIDERS: PCP Internal Medicine; Referring Provider Internal Medicine; Visit Provider Neurological Surgery
DX: M50.90 Cervical disc disorder, unspecified, unspecified cervical region (principal)
CPT/HCPCS: 99212

== ENCOUNTER → 2023-11-15 14:27 | Outpatient (BNVA) | payer BC, SELFPAY | PROVIDERS: PCP Internal Medicine; Visit Provider Neurological Surgery ==

== ENCOUNTER 2023-11-16 11:00 | Day surgery (SDC) | payer BC, SELFPAY ==
--- NOTE | 2023-11-03 | ECG_ITS ---
Test Reason : PRE OP Blood Pressure : / mmHG Vent. Rate : 076 BPM Atrial Rate : 076 BPM P-R Int : 154 ms QRS Dur : 080 ms QT Int : 392 ms P-R-T Axes : 079 028 036 degrees QTc Int : 441 ms Normal sinus rhythm Normal ECG When compared with ECG of 06-MAR-2023 11:05, No significant change was found Referred By: Hortencia Workman Electronically Signed By:PAULINO GONSALEZ MD
[2023-11-03 12:32] VITALS: BP 139/93; PULSE 78; RESP 16; O2SAT 98; BMI 25.9
[2023-11-03 14:08] LABS: Hematocrit 38.9 % (37.0-47.0); Hemoglobin 13.3 g/dl (12.0-16.0); Mean Corpuscular HGB Conc 34.2 g/dl (31.0-35.0); Mean Corpuscular Hemoglobin 32.7 pg (27.0-33.0); Mean Corpuscular Volume 95.6 fL (80.0-98.0); Mean Platelet Volume 9.1 fL (9.4-12.3); Platelet Count 368 X10*3/uL (160-400); Red Blood Count 4.07 X10*6/uL (4.20-5.50); Red Cell Distribution Width 13.2 % (11.0-16.0)
[2023-11-03 14:46] LABS: Anion Gap 10 (12-20); Blood Urea Nitrogen 16 mg/dL (9-16); Calcium 9.3 mg/dL (8.4-10.2); Carbon Dioxide 27 mmol/L (22-29); Chloride 106 mmol/L (96-108); Creatinine Clr Calc Pharmacy 84.1; Estimated Glomerular Filt Rate > 60; Glucose Random 93 mg/dL (60-115); Potassium 3.9 mmol/L (3.3-5.1); Sodium 139 mmol/L (135-145)
[2023-11-16] VITALS (13 sets, daily range): BP systolic 114–130; BP diastolic 72–82; PULSE 82–112; RESP 12–20; TEMP 36.1–36.7; O2SAT 96–100; BMI 24.4
--- NOTE | 2023-11-16 08:50 | MHC.SHP ---
Pre-Procedural Eval Section A - 24 Hr Update-Section A only Date of Service: 11/16/23 The patient is an INPATIENT: No Section B - Complete if H&P > 30 days Chief Complaint: Cervical disc disorder, unspecified, Details of Present Illness: Neck pain Allergies: Allergies Allergy/AdvReac Type Severity Reaction Status Date / Time No Known Allergies Allergy Verified 11/15/23 14:48 [No Known Allergies*] Review of Systems Sugical H&P ROS: Negative: Constitution, Cardiovascular, Respiratory, Neurological, Psychiatric, Hem-Onc, Allergic/Immunologic, Gastrointestinal, Genitourinary, Musculoskeletal, Integumentary, Endocrine and Eyes/Ears/Nose/Throat Exam Surgical H&P Exam: Normal: HEENT, Normal: Heart, Normal: Lungs, Normal: Extremities, Normal: Abdomen, Normal: Skin and Normal: Neurological (Awake, alert) Plan Diagnosis/Plan: Unchanged I have reviewed the history and physical and performed a pertinent physical examination on my patient. No changes have occurred unless specified. Anterior diskectomy and fusion C5-6 Time Spent With Patient Time: Total time managing care of this patient today __5__ minutes.
--- NOTE | 2023-11-16 11:37 | PC.NURSE ---
report given to aranza landis RN at this time.
[2023-11-16] MEDS: Gabapentin 300 MG CAPSULE PO (11:43)
[2023-11-16] MEDS: methocarbamoL 750 MG TABLET PO (11:44)
--- NOTE | 2023-11-16 11:45 | P.CONAN_ITS ---
Documented by User: Hortencia Workman NP 11/03/23 13:16 HPI - Anesthesia Eval Consult details Narrative: 48yo F for C5-6 Ant Cerv Discectomy w/ fusion, 11/16/23 No recent illness No CP/SOB with activity GERD: ppi controls Trigeminal neuralgia: Dx'd 2019, gabapentin, last flare ~ 6 months ago s/p tubal Hx scarlet fever age 1, no cardiac issues PMFSH Active Problems Active Problems: All Active Problems Lumbar spondylosis (Acute) Cervical radiculopathy (Acute) Lumbar radiculopathy (Acute) Back pain (Acute) Cervical disc disorder (Acute) COVID-19 (Acute) Odynophagia (Acute) Neck complaint (Acute) Early satiety (Acute) Abdominal pain (Acute) Abnormal CT of the abdomen (Acute) Chronic constipation (Acute) Past Medical History Medical History Arthritis GERD (gastroesophageal reflux disease) Weakness History of trigeminal neuralgia Complicated migraine Pneumonia Bronchitis Scarlet fever Blood pressure elevated without history of HTN Osteoarthritis ADHD Abnormal CT of the abdomen Chronic constipation Neuralgia Family History Family history of problems with anesthesia: No Surgical History Surgical History Hx of laparoscopy History of fine needle aspiration with imaging guidance Hx of tubal ligation History of esophagogastroduodenoscopy (EGD) Hx of colonoscopy History of Problems with Anesthesia: No Social History Social History Household Members Other:: 2 sons Are you a primary hearing healthcare practitioner to a significant other at home: No Do you presently have visiting nurse or other home services: No Alcohol intake: current Alcohol intake frequency: holidays/special occasions only Patient Tobacco Use Status: Never used Tobacco Use of substances other than those prescribed or required for medical reasons: No Have you been hit, kicked, punched, or otherwise hurt by someone within the past year? 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 Allergy/AdvReac Type Severity Reaction Status Date / Time No Known Allergies Allergy Verified 11/15/23 14:48 [No Known Allergies*] Home Medications ?Medication ?Instructions ?Recorded ?Confirmed ?Last Taken ?Type gabapentin 300 mg capsule 300 mg PO TID 10/20/23 11/03/23 Unknown History pramipexole 0.25 mg tablet 0.25 mg PO QPM 10/20/23 11/03/23 Unknown History wqyjqaz-yyjelcpnrtepk-eaxqqyvu 250 2 tab PO Q6H PRN Headache 11/03/23 11/03/23 Unknown History mg-250 mg-65 mg tablet (Excedrin Migraine) ibuprofen 200 mg tablet 800 mg PO DAILY PRN Pain 11/03/23 11/03/23 Unknown History lactobacillus combination no.4 3 3,000 mmu cells PO DAILY 11/03/23 Unknown History billion cell capsule (Probiotic) omeprazole 20 mg capsule,delayed 20 mg PO DAILY 11/03/23 11/03/23 11/16/23 History release polyethylene glycol 3350 17 17 g PO 3XW 11/03/23 11/03/23 Unknown History gram/dose oral powder (Miralax) Exam Height,Weight and Vital Signs: Height 5 ft 3 in Weight 66.224 kg Last Vital Signs Pulse 78 11/03/23 12:32 Resp 16 11/03/23 12:32 BP 139/93 H 11/03/23 12:32 Pulse Ox 98 11/03/23 12:32 O2 Del Method Room Air 11/03/23 12:32 Airway TM Dist: >3cm Neck ROM: Limited Loose/Missing/Broken Teeth: Yes (lower extractions, ) Heart: RRR Lungs: CTAB Assessment and Plan Assessment Anesthesia Assessment: Anesthesia Plan Discussed and PAT Visit Final Anesthetic Review Family History of Problems with Anesthesia: No History of Problems with Anesthesia: No Documented by User: Millicent Lebron DO 11/16/23 11:45 PMFSH Past Medical History Medical History Arthritis GERD (gastroesophageal reflux disease) Weakness History of trigeminal neuralgia Complicated migraine Pneumonia Bronchitis Scarlet fever Blood pressure elevated without history of HTN Osteoarthritis ADHD Abnormal CT of the abdomen Chronic constipation Neuralgia Family History Family history of problems with anesthesia: No Surgical History Surgical History Hx of laparoscopy History of fine needle aspiration with imaging guidance Hx of tubal ligation History of esophagogastroduodenoscopy (EGD) Hx of colonoscopy History of Problems with Anesthesia: No Social History Social History Household Members Other:: 2 sons Are you a primary hearing healthcare practitioner to a significant other at home: No Do you presently have visiting nurse or other home services: No Alcohol intake: current Alcohol intake frequency: holidays/special occasions only Patient Tobacco Use Status: Never used Tobacco Use of substances other than those prescribed or required for medical reasons: No Have you been hit, kicked, punched, or otherwise hurt by someone within the past year? 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 Allergy/AdvReac Type Severity Reaction Status Date / Time No Known Allergies Allergy Verified 11/15/23 14:48 [No Known Allergies*] Home Medications ?Medication ?Instructions ?Recorded ?Confirmed ?Last Taken ?Type gabapentin 300 mg capsule 300 mg PO TID 10/20/23 11/03/23 Unknown History pramipexole 0.25 mg tablet 0.25 mg PO QPM 10/20/23 11/03/23 Unknown History xqeedom-ablutfrvkgrch-ilisovxt 250 2 tab PO Q6H PRN Headache 11/03/23 11/03/23 Unknown History mg-250 mg-65 mg tablet (Excedrin Migraine) ibuprofen 200 mg tablet 800 mg PO DAILY PRN Pain 11/03/23 11/03/23 Unknown History lactobacillus combination no.4 3 3,000 mmu cells PO DAILY 11/03/23 Unknown History billion cell capsule (Probiotic) omeprazole 20 mg capsule,delayed 20 mg PO DAILY 11/03/23 11/03/23 11/16/23 History release polyethylene glycol 3350 17 17 g PO 3XW 11/03/23 11/03/23 Unknown History gram/dose oral powder (Miralax) Exam Exam Date and Time: November 16, 2023 1141 Height,Weight and Vital Signs: Height 5 ft 3 in Weight 66.224 kg Last Vital Signs Pulse 78 11/03/23 12:32 Resp 16 11/03/23 12:32 BP 139/93 H 11/03/23 12:32 Pulse Ox 98 11/03/23 12:32 O2 Del Method Room Air 11/03/23 12:32 Vital Signs Pulse Rate 78 11/03/23 12:32 Respiratory Rate 16 11/03/23 12:32 Blood Pressure 139/93 H 11/03/23 12:32 Pulse Oximetry 98 11/03/23 12:32 Oxygen Delivery Method Room Air 11/03/23 12:32 Temperature 98.0 F 11/16/23 11:35 Pulse Rate 82 11/16/23 11:35 Respiratory Rate 18 11/16/23 11:35 Blood Pressure 127/81 11/16/23 11:35 Pulse Oximetry 98 11/16/23 11:35 Oxygen Delivery Method Room Air 11/16/23 11:35 Airway Mallampati Class: I TM Dist: >3cm Neck ROM: Limited Loose/Missing/Broken Teeth: Yes (some missing teeth but no loose or broken teeth) Heart: S1S2 Assessment and Plan Assessment Anesthesia Assessment: Anesthesia Plan Discussed and Chart Reviewed Final Anesthetic Review Family History of Problems with Anesthesia: No History of Problems with Anesthesia: No NPO: Yes ASA Class: II Final Preanesthetic Review: No Changes in Pt Med Stat, Meds/Allgs Chart Reviewed, Consent Obtained/Reviewed and Anes Risks/Benef Reviewed Patient Risk: Low Procedure Risk: Intermediate Anesthetic Plan Anesthetic Plan: GA and Agree w/ Assess. and Plan Disposition: Standard PACU
[2023-11-16] MEDS: Lactated Ringers 1,000 ML 100 ML IVCONT (11:58)
--- NOTE | 2023-11-16 13:34 | P.OP_ITS ---
Operative Note Operative Note Date of Service: 11/16/23 Narrative: Preoperative Diagnosis: Neck pain Procedure: C5-C6 Anterior discectomy, arthrodesis and implantation cage ; C5-6 anterior instrumentation ; local autograft; microscope Informed Consent was obtained for this operation. I have explained the nature, purpose and benefits of the operation. I have discussed the risks and benefit of the operation including possible complications or adverse events with patient/family. Alternative(s) were discussed with the patient with their relative benefits and risks as well as the consequences of not accepting the operation were included in obtaining consent. Surgeon: OBED CROWE MD, PHD Procedure Assisted By: susan Mccormack Description of Procedure: This patient is suffering from chronic intractable neck pain. An MRI shows severe degenerative disc disease C5-C6. Conservative treatments failed. She was offered an anterior diskectomy fusion. The procedure complications were explained. The patient was consented. The patient was brought to the operating room and endotracheally intubated. The patient was put in supine position with slight extension of the neck. Prep and drape was done followed by timeout. A mid cervical incision was made followed by opening of the platysma. The prevertebral fascia was reached following the natural planes while the physician human resource assistant provided manual retraction. The prevertebral fascia was opened to expose the disc space. A spinal needle was placed in the disk space to confirm the correct level with xray. The longus colli muscles were released bilaterally and a self retaining retractor was inserted. Two [place] pins were placed in the C5-C6 vertebral bodies and distraction was give over the interspace. The discectomy was completed toward the posterior annulus of the disc. The microscope was brought in. The remainder of the discectomy was completed. The posterior ligament was opened and resected to expose the underlying dura. Osteophytes were resected from the body of C5-C6 and saved for autograft. Bilateral foraminotomies were done. The endplates were prepared after which a 6 mm cage filled with autograft was inserted into the disc space. A separate attached plate was locked down with 2 x 14 mm screws as anterior instrumentation. Final x-rays in AP and lateral projection showed a satisfactory position of the implant. The physician human resource assistant took over. The [place] pin was removed. Hemostasis was done. He closed the incision in 2 layers with a 3-0 Vicryl. Steri-Strips used to approximate incision. An OpSite with Tegaderm was used to cover the incision. All sponge and needle counts were correct. Patient was extubated and transported in stable is to recovery room. Anesthesia: General Estimated Blood Loss (ml): 20 mL Duration of Surgery: 45 minutes Postoperative Plan: Discharge home Complications: None
--- NOTE | 2023-11-16 13:37 | P.DS_ITS ---
DS: Providers Provider Date of Service: 11/16/23 Primary care physician: Matthew Ely MD DS: Summary Time Attestation Discharge Coordination Time (in mins): 15 Quality: Safe Use of Opioids Does Pt have an Active Cancer Diagnosis on the Problem List?: No Quality: Stroke Does the patient have a stroke diagnosis?: No Physical Exam Vital Signs: Vital Signs: Last Vital Signs Temp 98.0 F 11/16/23 11:35 Pulse 82 11/16/23 11:35 Resp 18 11/16/23 11:35 BP 127/81 11/16/23 11:35 Pulse Ox 98 11/16/23 11:35 O2 Del Method Room Air 11/16/23 11:35 BMI result Body Mass Index 24.4 Discharge Plan Discharge Patient Disposition: Home, Self-Care Referrals: Matthew Ely MD [Primary Care Provider] - 1 Week Discharge Medications: New oxycodone 5 mg tablet 5 mg PO Q6H PRN (Reason: severe pain (scale score 7-10)) Qty: 30 0RF Rx Instructions: Partial Fill upon patient request. Continued omeprazole 20 mg Capsule,Delayed Release(Dr/Ec) 20 mg PO DAILY Probiotic 3 billion cell Capsule 3,000 mmu cells PO DAILY Rx Instructions: administer with a meal polyethylene glycol 3350 [Miralax] 17 gram/dose Powder 17 g PO 3XW ibuprofen 200 mg Tablet 800 mg PO DAILY PRN (Reason: Pain) Excedrin Migraine 250-250-65 mg Tablet 2 tab PO Q6H PRN (Reason: Headache) pramipexole 0.25 mg tablet 0.25 mg PO QPM gabapentin 300 mg capsule 300 mg PO TID Discharge Orders: Discharge Order (Routine); Ordered 11/16/23 Ordered By: Tristan Mendenhall Diet: Advance to usual diet Activity on Discharge: As tolerated Activity Restrictions/Additional Instructions: After your spinal surgery we ask you to observe the following restric tions/guidelines: Activity: It is normal to feel some discomfort as you increase your activity, but that will improve with time. We ask you avoid heavy lifting or acitivities that cause pain. As a general rule, 8lbs is a safe limit for lifting right after surgery. Walk as much as you feel comfortable but not to exhaustion. You will feel extra tired the first few days after surgery. Stay well hydrated. It is OK to walk up and down stairs You may return to driving when you are off narcotics (such as vicodin, oxycodone, dilaudid, etc), and you are back to normal functional capacity. If you have any concerns please check with office before driving. Return to work is specific to each patient and each surgery, so please speak with your doctor/PA at first follow up. Please bring paperwork such as FMLA at that time if you need it filled out. Medications: We recommend you take 1,000mg Tylenol every 8 hours for the first few weeks afte r surgery, if you do not have any liver issues and can tolerate this medication. Do not exceed 4,000mg daily. We will give you a short supply of narcotics after surgery (usually one weeks worth). If you need more please call the office but do not use more than prescribed. You will need to give our office 48 hours notice if you need narcotics refilled and we do not fill narcotics on weekends or evenings. If you are on a narcotic, it is a good idea to take a stool softener such as colace or senna to avoid constipation If you take blood thinner such as aspirin, Plavix, Coumadin, Effient, Eliquis etc for conditions such as Afib, DVT, Pulmonary embolus, coronary disease, stents etc please speak with your surgeon about specific details as to when you can resume these medications. You can resume NSAIDs on post op day 1 (eg: Motrin, Naproxen, etc). Follow up: Please call the office, , after surgery to arrange a 3 week follow up for wound check. Wound Care: You may remove your dressing on the first day after surgery. ?You may ?leave open to air. Please do not remove the steri strips underneath. they will fall off on their own in one week. IT IS NORMAL FOR THE WOUND TO OOZE OR BE BLOODY FOR A FEW DAYS AFTER SURGERY. ?IF THIS HAPPENS JUST PLACE NEW DRESSING OVER IT TO AVOID STAINING CLOTHES. You may shower on post op day # 1 We ask that you do not let the water soak the wound. If it does get wet, just towel dry lightly. Please do not scrub your incision or place any type of chemical/ointment on the wound. No tub baths, pools or jacuzzis for one month. If you have any leaking or redness from your wound, or fevers, please call the office. Print Language: Mongolian
[2023-11-16] MEDS: fentaNYL citrate/PF 100 MCG/2 ML VIAL 50 MCG IVPUSH ×2 (14:10→14:30)
[2023-11-16] MEDS: Haloperidol Lactate 5 MG/ML VIAL 1 MG IVPUSH (15:13)
== END 2023-11-16 15:50 | disposition home or self-care (01) ==
PROVIDERS: Nurse Practitioner; PCP Internal Medicine; Visit Provider Neurological Surgery
PROC: (CPT 22551; principal; 2023-11-16 13:20)
DX: M50.322 Other cervical disc degeneration at C5-C6 level (principal); G89.29 Other chronic pain; M43.12 Spondylolisthesis, cervical region; Z79.1 Long term (current) use of non-steroidal anti-inflammatories (NSAID)
CPT/HCPCS: 22551; 22853; 20936; 22845; 36415; 80048; 85027; 93005; C1713; C1889; J0131; J0690; J1100; J1630; J2250; J2405; J2704; J3010

== ENCOUNTER → 2023-11-16 11:00 | Outpatient (BNV) | payer MEDICAID, SELFPAY | PROVIDERS: PCP Internal Medicine; Visit Provider Neurological Surgery | DX: M50.022 Cervical disc disorder at C5-C6 level with myelopathy (principal) | CPT/HCPCS: 20936; 22551; 22845; 22853; 99499 ==

== ENCOUNTER 2023-12-07 08:51 | Outpatient (AMB) | payer BC, SELFPAY ==
--- NOTE | 2023-12-07 09:02 | HO.SPINEOV ---
Intake Visit Reasons: 1st post op Intake Note: Ms. Light is here for her 1st post-op. 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 She reports she is satisfied with the surgery and feels better than she did pre-operatively. The patient reports she is up walking around and completing the majority of her ADLs. She reports that she no longer suffers from severe neck pain but does have quite a bit of tenderness in her bilateral shoulders. She still reports mild pain, with good relief with pain medication. She asked several questions regarding the postoperative healing course and we discussed return to activity restrictions. In addition to this she reports she was attempting to lift a Tote out of her attic a few days ago and felt a sharp pain in her low back which has been persistent since onset. She maintaina full lower extremity strength and denies any numbness/tingling/weakness. (-) Bilateral straight leg raise. Patient maintains a non-antalgic gait and rises from a seated position without difficulty. No new neurological deficits. Patient is able to ambulate well, rises from a seated position without difficulty. Incision sites are closed, well healing, with no signs of drainage. We will follow-up with the patient in 6 weeks for their 2nd postoperative visit. At that time we will get x-rays to review with the patient. Tristan Cueva MD,PhD [facility] Coding Level of Care Code Global (11350) Diagnoses Cervical radiculopathy M54.12
== END 2023-12-07 09:32 | disposition home or self-care (01) ==
PROVIDERS: PCP Internal Medicine; Visit Provider Physician Assistant
DX: M54.12 Radiculopathy, cervical region (principal)
CPT/HCPCS: 99024

== ENCOUNTER → 2023-12-07 08:51 | Outpatient (BNVA) | payer BC, SELFPAY | PROVIDERS: PCP Internal Medicine; Visit Provider Physician Assistant ==

== ENCOUNTER 2023-12-14 06:10 | Outpatient (REF) | payer MEDICAID, SELFPAY | END 2023-12-14 06:11 | disposition home or self-care (01) | LOC: CF 06:10 | PROVIDERS: Visit Provider Internal Medicine | DX: M47.816 Spondylosis without myelopathy or radiculopathy, lumbar region (principal); M54.59 Other low back pain | CPT/HCPCS: 64555; C1778 ==

== ENCOUNTER 2023-12-14 09:11 | Outpatient (AMB) | payer MEDICAID, SELFPAY ==
[2023-12-14 09:23] VITALS: BP 122/90; PULSE 102; O2SAT 96
--- NOTE | 2023-12-14 09:23 | A.OFFVIS_ITS ---
Vital Signs 12/14/23 09:23 12/14/23 10:29 Height 5 ft 3 in 5 ft 3 in BP 122/90 H 134/98 H Blood Pressure Location Lt brachial Lt brachial Position Sitting Sitting Pulse 102 H 72 Pulse Source Pulse Oximeter Pulse Oximeter Pulse Oximetry (%) 96 99 Oxygen Delivery Method Room Air Room Air Comment pre-op post-op Intake Visit Reasons: Left L4 Sprint Allergies No Known Allergies [No Known Allergies*] Allergy (Verified 11/15/23 14:48) HPI HPI Left L4 Sprint: Details: Patient presents for scheduled procedure. Denies any recent cough, cold, infection, fever or other significant changes in medical history since last office visit. [facility] Medical History Arthritis GERD (gastroesophageal reflux disease) Weakness History of trigeminal neuralgia Complicated migraine Pneumonia Bronchitis Scarlet fever Blood pressure elevated without history of HTN Osteoarthritis ADHD Abnormal CT of the abdomen Chronic constipation Neuralgia Surgical History Hx of laparoscopy History of fine needle aspiration with imaging guidance Hx of tubal ligation History of esophagogastroduodenoscopy (EGD) Hx of colonoscopy Social History Household Members Other:: 2 sons Are you a primary manager medicare to a significant other at home: No Do you presently have visiting nurse or other home services: No Alcohol intake: current Alcohol intake frequency: holidays/special occasions only Patient Tobacco Use Status: Never used Tobacco Current occupational status: employed 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 After the risks, benefits and alternatives were discussed with the patient and informed consent was obtained, patient was placed in the prone position and padded to foster comfort. The skin overlying the lumbosacral spine was prepped and draped in sterile fashion. Fluoroscopy was used to identify the spinous process and lamina in the center of the patient?s region of pain. After identifying and marking the intended target along the course of the medial branch nerve, the skin around the planned entry point and the subcutaneous tissues were injected with lidocaine 1%. An introducer needle and stimulating probe were assembled, inserted and advanced along the intended course of the medial branch nerve as it traverses the lamina medial and inferior to the zygapophyseal joint, taking care to maintain the proper depth of insertion as the introducer is advanced under fluoroscopic guidance. The introducer needle was delivered to a location in proximity to the nerve. Multiple stimulation parameters were used to deliver stimulation to the target medial branch nerve in concert with stimulating at multiple positions around the nerve. Nerve target acquisition was confirmed noting generation of paresthesias in the paravertebral regions corresponding to the level being stimulated. Various electrical parameter combinations were tested, and the lead location was adjusted (physically relocated) until the patient indicated paresthesia/muscle tension overlapping the distribution of the patient?s typical region of pain. The stimulating probe was removed from the introducer and a percutaneous lead was guided through the needle and delivered to a location in similar proximity to the nerve. Final location was verified with electrical stimulation and documented with fluoroscopy. The introducer needle was removed, and the exposed end of the percutaneous lead was attached to an external stimulator unit. Various electrical parameter combinations were again tested until the patient indicated paresthesia or muscle tension overlapping the distribution of the patient?s typical region of pain. After confirming that lead impedance was in the normal range, the external unit was detached, the needle was removed, and the lead was anchored at the skin. The lead was threaded into the connector block and electrical continuity and desired patient response was confirmed. The connector block was attached to the external stimulator unit. The site was covered with a sterile occlusive dressing. The patient was observed for stability of vital signs and comfort. Sprint PNS Device: Sprint PNS Device [id number] Percutaneous Peripheral Neuroelectrode Procedure: 89642 - Percutaneous Peripheral Neuroelectrode Procedure code (CPT) selection complete Office Meds lidocaine HCl 10 mg/mL (1 %) injection solution Performing Provider: Mindy Amin APRN, CNP Performing Location: [facility] [place] [facility] Administered by: Thiago Marmolejo MD on 12/14/23 10:09 Dose Route Admin Location Dispensed Lot Number Expiration Date NDC Weapons Electrical Engineering Officer 5 mL subcut 5 mL Assessment & Plan Assessment & Plan (1) Intractable low back pain: Code(s): M54.59 - Other low back pain Category: Medical (2) Lumbar spondylosis: Code(s): M47.816 - Spondylosis without myelopathy or radiculopathy, lumbar region Category: Medical Plan Patient is status post procedure. Patient tolerated procedure well and was discharged home in stable condition with discharge instructions. All questions were answered. We will follow-up via telephone or in clinic to assess response to therapy. A follow-up appointment was made during today's visit. Orders: Orders [place] guidance in treatment room Today M47.816 - Spondylosis without myelopathy or radiculopathy, lumbar region AMB Sprint PNS Today M47.816 - Spondylosis without myelopathy or radiculopathy, lumbar region Coding Level of Care Code Procedure Only Diagnoses Intractable low back pain M54.59 Lumbar spondylosis M47.816 CPT Codes Sprint PNS - Sprint PNS Device: Sprint PNS Device ([id number]) Sprint PNS - SPRINT: 35312 - Percutaneous Peripheral Neuroelectrode ([id number]) Implantable Device Implantable Device Implantable Devices Qty Weapons Electrical Engineering Officer Implant Date Expiration Date Analgesic PENS system 1 [employer] 12/14/23 06/18/25 Bone-screw internal spinal fixation system, non-sterile 2 [employer] 11/16/23 Metallic spinal interbody fusion cage 1 [employer] 11/16/23 Spinal fixation plate, non-bioabsorbable 1 [employer] 11/16/23
[2023-12-14 10:29] VITALS: BP 134/98; PULSE 72; O2SAT 99
== END 2023-12-14 10:41 | disposition home or self-care (01) ==
LOC: HO.PMCPRC 09:11
PROVIDERS: PCP Internal Medicine; Visit Provider Internal Medicine
DX: M47.816 Spondylosis without myelopathy or radiculopathy, lumbar region (principal); M54.59 Other low back pain
CPT/HCPCS: 64555

== ENCOUNTER 2023-12-20 10:30 | Outpatient (AMB) | payer MEDICAID, SELFPAY ==
--- NOTE | 2023-12-20 10:34 | MHC.OFFVIS ---
Vital Signs 12/20/23 10:35 Height 5 ft 3 in Weight 132 lb BMI 23.4 BP 133/91 H Blood Pressure Location Lt brachial Position Sitting Respiration 14 Pulse 90 Pulse Source Pulse Oximeter Pulse Oximetry (%) 99 Oxygen Delivery Method Room Air Intake Visit Reasons: s/p Left L4 Sprint Allergies No Known Allergies [No Known Allergies*] Allergy (Verified 12/20/23 10:37) Medication List - Last Reconciled 12/20/23 by Monie Dutta LPN wpcvszm-exzszbmqsrijc-lypaojot 250-250-65 mg (Excedrin Migraine) 2 tabs PO Q6H PRN gabapentin 300 mg PO TID ibuprofen 800 mg PO DAILY PRN lactobacillus combination no.4 (Probiotic) 3,000 mmu cells PO DAILY omeprazole 20 mg PO DAILY oxycodone 5 mg PO Q6H PRN polyethylene glycol 3350 (Miralax) 17 grams PO 3XW pramipexole 0.25 mg PO QPM HPI HPI s/p Left L4 Sprint: Details: 48-year-old female who presents today to the office for status post left L4 Sprint The patient reports moderate relief following the procedure. Patient reports soreness for the first couple days, which had significantly improved now. She feels mild sensation in the back upon waking up in the morning, but not bothersome. [facility] Medical History Arthritis GERD (gastroesophageal reflux disease) Weakness History of trigeminal neuralgia Complicated migraine Pneumonia Bronchitis Scarlet fever Blood pressure elevated without history of HTN Osteoarthritis ADHD Abnormal CT of the abdomen Chronic constipation Neuralgia Surgical History Hx of laparoscopy History of fine needle aspiration with imaging guidance Hx of tubal ligation History of esophagogastroduodenoscopy (EGD) Hx of colonoscopy Social History Household Members Other:: 2 sons Are you a primary customer care team coach to a significant other at home: No Do you presently have visiting nurse or other home services: No Alcohol intake: current Alcohol intake frequency: holidays/special occasions only Patient Tobacco Use Status: Never used Tobacco Current occupational status: employed 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 Alert and oriented. Mood and affect appropriate. Follows and participates in conversation appropriately. Respiratory effort is unlabored. Able to transition from sit to stand unassisted. Ambulates with bilaterally normal heel strike and toe off. Able to stand and walk on toes and heels. Lead insertion site is clean, dry and intact. Assessment & Plan Assessment & Plan (1) Intractable low back pain: Code(s): M54.59 - Other low back pain Category: Medical (2) Lumbar spondylosis: Code(s): M47.816 - Spondylosis without myelopathy or radiculopathy, lumbar region Category: Medical Plan Good initial response. Patient had some concerns about lead migration. I counseled her to let us know if she loses efficacy with the PNS device in terms of pain in her lower back. We can plan on replacing the lead in case of migration. Assuming uneventful remainder of the therapeutic course, we will plan for lead removal in 7 weeks. Coding Level of Care Code Est Pt Level 3 (95544) Diagnoses Intractable low back pain M54.59 Lumbar spondylosis M47.816
[2023-12-20 10:35] VITALS: BP 133/91; PULSE 90; RESP 14; O2SAT 99; BMI 23.4
== END 2023-12-20 10:44 | disposition home or self-care (01) ==
PROVIDERS: PCP Internal Medicine; Visit Provider Internal Medicine
DX: M54.59 Other low back pain (principal); M47.816 Spondylosis without myelopathy or radiculopathy, lumbar region
CPT/HCPCS: 99024

== ENCOUNTER → 2023-12-20 10:30 | Outpatient (BNVA) | payer MEDICAID, SELFPAY | PROVIDERS: PCP Internal Medicine; Visit Provider Internal Medicine | DX: M54.59 Other low back pain (principal); M47.816 Spondylosis without myelopathy or radiculopathy, lumbar region | CPT/HCPCS: 99212 ==

== ENCOUNTER 2024-01-05 14:40 | Outpatient (REF) | payer MEDICAID, SELFPAY | END 2024-01-05 14:41 | disposition home or self-care (01) | LOC: HO.HOSX 14:40 | PROVIDERS: PCP Internal Medicine; Visit Provider Physician Assistant | DX: M54.12 Radiculopathy, cervical region (principal) | CPT/HCPCS: 99212 ==

== ENCOUNTER 2024-01-05 14:40 | Outpatient (AMB) | payer MEDICAID, SELFPAY ==
--- NOTE | 2024-01-05 14:43 | A.SPINEOV_ITS ---
Intake Visit Reasons: left side neck pain Intake Note: Ms. Light is here today c/o left sided neck pain. Reel Man Required: No Allergies No Known Allergies [No Known Allergies*] Allergy (Verified 12/20/23 10:37) Assessment & Plan Assessment & Plan (1) Cervical radiculopathy: Code(s): M54.12 - Radiculopathy, cervical region Category: Medical Plan Mrs Light came in for quick follow-up today. A few days ago she started to notice as pain along the back of her head, radiating down along her trapezius on the left side only. She was concerned, she saw her PCP. They put her through some clpzj-wp-pghaxv exercises that seem to make it a little bit worse. On my exam today, she is pointing right to the area of the nuchal ligament that attaches to the trapezius as well as tenderness down along the trapezius muscle so I think this is muscular in origin. We talked about doing some gentle conservative treatment including heat, ice, topical pain relievers, ibuprofen etc.. She was taking Flexeril but it made her feel hung over. I told her she did not have to take that. Her wound is healed up beautifully. We will see her back for another visit in a few weeks with a set of x-rays. Matthew Cueva MD, PhD [facility] Orders: Orders XR cervical spine 4V Today M54.12 - Radiculopathy, cervical region Coding Level of Care Code Global (79199) Diagnoses Cervical radiculopathy M54.12
== END 2024-01-05 15:11 | disposition home or self-care (01) ==
PROVIDERS: PCP Internal Medicine; Visit Provider Physician Assistant
DX: M54.12 Radiculopathy, cervical region (principal)
CPT/HCPCS: 99024

== ENCOUNTER 2024-01-18 08:51 | Outpatient (REF) | payer BC, SELFPAY ==
--- NOTE | ~2024-01-18 | XR_ITS ---
EXAMINATION: XR CERVICAL SPINE 4 VIEWS CLINICAL INFORMATION: Radiculopathy, cervical region M54.12. COMPARISON: September 11, 2023. TECHNIQUE: Frontal view of the cervical spine as well as lateral views in flexion, neutral, and extension (4 views total). FINDINGS: Fixation hardware/disc spacing device is present at C5-C6, new compared with September 11, 2023. No fracture or subluxation is seen, including in flexion, neutral, and extension. Disc spaces otherwise appear maintained. Endplates and posterior elements appear unremarkable. Straightening of the normal cervical lordosis. Prevertebral soft tissues appear unremarkable. XR/XR cervical spine 4V IMPRESSION: No acute finding. Electronically signed by: Dat Tidwell MD 03/06/2024 12:42 PM SHY[facility]
== END 2024-01-18 08:52 | disposition home or self-care (01) ==
LOC: HO.HOSX 08:51
PROVIDERS: PCP Internal Medicine; Visit Provider Physician Assistant
DX: M54.12 Radiculopathy, cervical region (principal); Z98.1 Arthrodesis status
CPT/HCPCS: 72050; 99212

== ENCOUNTER 2024-01-18 08:51 | Outpatient (AMB) | payer MEDICAID, SELFPAY ==
--- NOTE | 2024-01-18 08:53 | HO.SPINEOV ---
Intake Visit Reasons: 2nd post op with xrays Intake Note: Ms. Light is here for her 2nd post-op appointment with x-rays. Inside Barrel Lathe Operator Required: No Allergies No Known Allergies [No Known Allergies*] Allergy (Verified 12/20/23 10:37) Assessment & Plan Assessment & Plan (1) Cervical radiculopathy: Code(s): M54.12 - Radiculopathy, cervical region Category: Medical Plan: Hortencia is a pleasant 48-year-old female who comes in today for a subsequent follow-up visit after having a C5-6 ACDF completed by our service roughly 2 months ago. Thankfully, Hortencia has had complete resolution of her aching shoulder and neck pain at the base of her C-spine, but continues to have pain near the base of her occiput, and has a radiculopathy that has persisted down the posterior aspect of her left arm, terminating about skilled nursing down her forearm. She has tried the conservative measures previously suggested by GEE Navarro during their last visit. Unfortunately the symptoms persist. On examination today she has full strength in her bilateral upper extremities, and no evidence of myelopathic reflexes. She ambulates well without a spastic gait and rises from a seated position without difficulty. Her anterior incision site appears closed and well healed. Typically when patients have a persistent radiculopathy and are this far out from surgery Dr. Cueva we will suggest they have an EMG completed to rule out a persistent nerve impingement in the cervical spine and identify the source of radiculopathy. I will order this for the patient and follow up with her thereafter. Tristan Cueva MD,PhD [facility] Orders: Orders [place] electromyogram (EMG) Today M54.12 - Radiculopathy, cervical region Coding Level of Care Code Global (30200) Diagnoses Cervical radiculopathy M54.12
== END 2024-01-18 09:19 | disposition home or self-care (01) ==
PROVIDERS: PCP Internal Medicine; Visit Provider Physician Assistant
DX: M54.12 Radiculopathy, cervical region (principal)
CPT/HCPCS: 99024

== ENCOUNTER 2024-01-25 14:09 | Outpatient (REF) | payer MEDICAID, SELFPAY ==
--- NOTE | 2024-01-25 14:12 | EMG_ITS ---
Chief complaint: Posterior head ache and left lateral neck pain Status post C5-6 ACDF 11/16/2023 Reason for referral: Evaluate for radiculopathy versus focal entrapment Referred by: Tristan FLYNN Procedure done: Left upper extremity NCS/EMG Precautions and/or limitations: Recent cervical surgery- for this reason paraspinal EMG examination deferred, not reliable to show accurate diagnostic evidence evidence The limb temperature was monitored continuously and remained between 32-36 degrees C during the performance of the NCS. Nerve Conduction Studies Anti Sensory Summary Table ?Stim Site NR Onset (ms) Norm Onset (ms) Peak (ms) Norm Peak (ms) O-P Amp (?V) Norm O-P Amp Site1 Site2 Delta-0 (ms) Dist (cm) Max (m/s) Norm Max (m/s) Left Lat Ante Brach Cutan Anti Sensory (Lat Forearm) Lat Biceps ? 0.9 1.1 1.5 Lat Biceps Lat Forearm 0.9 0.0 Left Med Ante Brach Cutan Anti Sensory (Med Forearm) Elbow ? 0.9 1.3 12.6 Elbow Med Forearm 0.9 0.0 Left Median Anti Sensory (2nd Digit) Wrist ? 2.2 2.8 <3.6 31.8 >10 Wrist 2nd Digit 2.2 14.0 64 Left Ulnar Anti Sensory (5th Digit) Wrist ? 2.1 2.8 <3.7 58.2 >15.0 Wrist 5th Digit 2.1 14.0 67 Motor Summary Table ?Stim Site NR Onset (ms) Norm Onset (ms) O-P Amp (mV) Norm O-P Amp iAmp (mV) Amp (1st) (%) Site1 Site2 Delta-0 (ms) Dist (cm) Max (m/s) Norm Max (m/s) Left Median Motor (Abd Poll Brev) Wrist ? 3.0 <3.9 7.9 >4.5 9.5 100.0 Elbow Wrist 3.0 18.5 62 >45 Elbow ? 6.0 8.0 9.6 101.3 Left Ulnar Motor (Abd Dig Minimi) Wrist ? 2.6 <3.0 7.7 >5 8.4 100.0 B Elbow Wrist 2.6 16.5 63 >45 B Elbow ? 5.2 8.4 9.7 109.1 A Elbow B Elbow 1.3 10.0 77 >45 A Elbow ? 6.5 8.6 9.9 111.7 Comparison Summary Table ?Stim Site NR Peak (ms) Norm Peak (ms) P-T Amp (?V) Site1 Site2 Delta-P (ms) Norm Delta (ms) Left Median/Radial Dig I Comparison (Digit 1 - 10cm) Median ? 2.2 <2.9 91.9 Median Radial 0.1 Radial ? 2.3 <2.8 85.7 EMG ?Side Muscle Nerve Root Ins Act Fibs Psw Amp Dur Poly Recrt Int Pat Comment Left 1stDorInt Ulnar C8-T1 Nml Nml Nml Nml Nml 0 Nml Complete Left FlexCarRad Median C6-7 Nml Nml Nml Nml Nml 0 Nml Complete Left Biceps Musculocut C5-6 Nml Nml Nml Nml Nml 0 Nml Complete Left Triceps Radial C6-7-8 Nml Nml Nml Nml Nml 0 Nml Complete Left Deltoid Axillary C5-6 Nml Nml Nml Nml Nml 0 Nml Complete Left Trapezius SpinalAcc CN XI, C3-4 Nml Nml Nml Nml Nml 0 Nml Complete Left Supraspinatus SupraScap C5-6 Nml Nml Nml Nml Nml 0 Nml Complete FINDINGS: All motor and sensory nerves tested showed normal latencies, amplitudes and conduction velocities. Concentric needle EMG was performed in selected muscles of the left upper extremity. Study did not reveal signs of electric abnormalities as shown in the table above. IMPRESSION: 1. This is a normal study. 2. There is no electrodiagnostic evidence for median neuropathy, ulnar neuropathy, brachial plexopathy, or cervical radiculopathy. Thank you for your kind referral. Essence Medeiros MD, MARINE Board Certified, [place] Board [employer] and Rehabilitation (ABPMR) Board Certified, [place] Board of Electrodiagnostic Medicine (ABEM) CODIN [address] [facility]
== END 2024-01-25 14:10 | disposition home or self-care (01) ==
LOC: HO.NEURO 14:09
PROVIDERS: PCP Internal Medicine; Visit Provider Physician Assistant
DX: M54.12 Radiculopathy, cervical region (principal)
CPT/HCPCS: 95886; 95910

== ENCOUNTER → 2024-01-25 14:12 | Outpatient (BNV) | payer MEDICAID, SELFPAY | PROVIDERS: PCP Internal Medicine; Visit Provider Physical Medicine & Rehabilitation | DX: M54.12 Radiculopathy, cervical region (principal) | CPT/HCPCS: 95886; 95910 ==

== ENCOUNTER 2024-01-29 08:58 | Outpatient (AMB) | payer MEDICAID, SELFPAY ==
--- NOTE | 2024-01-29 08:58 | HO.SPINEOV ---
Intake Visit Reasons: EMG f/up Intake Note: Ms. Light is here today to F/u on her EMG Results. Instrument Technician Required: No Allergies No Known Allergies [No Known Allergies*] Allergy (Verified 12/20/23 10:37) Assessment & Plan Assessment & Plan (1) S/P spinal surgery: Code(s): Z98.890 - Other specified postprocedural states Category: Surgical Plan Hortencia is a pleasant 48 year old female who comes in today for a follow up visit after having her EMG completed. 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 After this she developed weakness on the left side of her body including her arm and her leg. She has intermittent numbness on the left side of her body, accompanied by intermittent neck pain. She ultimately found a new job and went back to work but was troubled by a persistent feeling that something was not right with the left side of her body. She underwent an MRI at the emergency room including a brain MRI and a cervical spine CTA. This did not show any significant pathology in the brain explaining her symptoms but did show degenerative disc disease on a CTA of her neck with possible concern for spinal cord compression. She has been to physical therapy multiple times with some success, and has has had MRI imaging of her C-spine and Lumbar spine. During her last visit I ordered an EMG for persistent left sided radiculopathy despite C5-6 ACDF. The EMG results show no evidence of cervical radiculopathy, brachial plexus impingement, or carpal / cubital tunnel syndrome. We reviewed her EMG together and I provided her with a copy of it. I do not believe further diagnostic testing at / around her C-spine would be of much utility at this point. I encouraged her to complete her at home PT exercises and give herself time to fully heal from her surgery, which was at the end of October. She likely will continue to see improvement. Tristan Cueva MD,PhD [facility] Coding Level of Care Code Global (34229) Diagnoses S/P spinal surgery Z98.890
== END 2024-01-29 09:17 | disposition home or self-care (01) ==
LOC: HO.HNS 08:58
PROVIDERS: PCP Internal Medicine; Visit Provider Physician Assistant
DX: Z98.890 Other specified postprocedural states (principal)
CPT/HCPCS: 99024

== ENCOUNTER → 2024-01-29 08:58 | Outpatient (BNVA) | payer MEDICAID, SELFPAY | PROVIDERS: PCP Internal Medicine; Visit Provider Physician Assistant | DX: Z98.890 Other specified postprocedural states (principal) | CPT/HCPCS: 99212 ==

== ENCOUNTER 2024-02-07 09:06 | Outpatient (AMB) | payer MEDICAID, SELFPAY ==
--- NOTE | 2024-02-07 09:23 | A.OFFVIS_ITS ---
Vital Signs 02/07/24 09:24 Height 5 ft 3 in Weight 136 lb BMI 24.1 BP 138/95 H Blood Pressure Location Lt brachial Position Sitting Respiration 15 Pulse 108 H Pulse Source Pulse Oximeter Pulse Oximetry (%) 98 Oxygen Delivery Method Room Air Intake Visit Reasons: Sprint removal, Left Allergies No Known Allergies [No Known Allergies*] Allergy (Verified 02/07/24 09:26) Medication List - Last Reconciled 02/07/24 by Monie Dutta LPN kwwcrdf-ntzofetcbnpjl-yyctnqjz 250-250-65 mg (Excedrin Migraine) 2 tabs PO Q6H PRN cyclobenzaprine 10 mg PO BEDTIME PRN gabapentin 300 mg PO TID ibuprofen 800 mg PO DAILY PRN lactobacillus combination no.4 (Probiotic) 3,000 mmu cells PO DAILY omeprazole 20 mg PO DAILY polyethylene glycol 3350 (Miralax) 17 grams PO 3XW pramipexole 0.25 mg PO QPM HPI HPI Sprint removal, Left: Details: 48-year-old female who presents today to the office for Sprint removal. The patient is doing well. She reports the lower back pain has significantly improved; however, she still has some pain in the left leg and left arm. She reports back pain while lying on her back. She used to have low back pain with prolonged standing which has improved since the procedure. She had received injection for the neck pain which did not help. She had surgery on 11/13/23. She recalls she had worsening left arm pain following the surgery for which she was referred to neurology for an EMG. She had an EMG done which was negative. She reports she still continues to have constant, throbbing pain and she rates her pain at 3/10 which sometimes exacerbates to 5/10. She has been taking Flexeril for over a month which helps with pain while sleeping and reports grogginess in the morning. She reports left arm pain upon waking up in the morning, but improves as the day goes on. She suspects it is due to her sleeping position. She usually sleeping side ways with her knees up. She also takes medication at night that was prescribed by her neurologist. Past procedures 12/14/23: Lumbar Medial Branch Nerve Stimulation Lead Placement, SPR (Sprint) System, LEFT L3: moderate relief. COUNT INCLUDES THE [facility] Medical History Arthritis GERD (gastroesophageal reflux disease) Weakness History of trigeminal neuralgia Complicated migraine Pneumonia Bronchitis Scarlet fever Blood pressure elevated without history of HTN Osteoarthritis ADHD Abnormal CT of the abdomen Chronic constipation Neuralgia Surgical History (Updated 01/29/24 @ 09:13 by GEE Mccormack) Hx of laparoscopy History of fine needle aspiration with imaging guidance Hx of tubal ligation History of esophagogastroduodenoscopy (EGD) Hx of colonoscopy Social History Household Members Other:: 2 sons Are you a primary career representative to a significant other at home: No Do you presently have visiting nurse or other home services: No Alcohol intake: current Alcohol intake frequency: holidays/special occasions only Patient Tobacco Use Status: Never used Tobacco Current occupational status: employed 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 Alert and oriented. Mood and affect appropriate. Follows and participates in conversation appropriately. Respiratory effort is unlabored. Able to transition from sit to stand unassisted. Ambulates with bilaterally normal heel strike and toe off. Results Reviewed Results Reviewed: No imaging is available for review. Assessment & Plan Assessment & Plan (1) Lumbar spondylosis: Code(s): M47.816 - Spondylosis without myelopathy or radiculopathy, lumbar region Category: Medical (2) Cervical radiculopathy: Code(s): M54.12 - Radiculopathy, cervical region Category: Medical Plan Patient presented for PNS lead removal today. Lead site is intact, no redness, no pathological discharge, no signs of infection noted. Lead was removed with tip intact. Recommended PT, good sleeping position, acupuncture, and massage therapy. Advised to use adequate pillow and mattress support. Follow-up as needed. Scribed for Dr. Marmolejo by dario Santizo scribe, on 02/07/2024. I, Dr. Marmolejo, have personally reviewed and agree with the information entered by the scribe. Coding Level of Care Code Est Pt Level 3 (43349) Diagnoses Lumbar spondylosis M47.816 Cervical radiculopathy M54.12
[2024-02-07 09:24] VITALS: BP 138/95; PULSE 108; RESP 15; O2SAT 98; BMI 24.1
== END 2024-02-07 09:51 | disposition home or self-care (01) ==
PROVIDERS: PCP Internal Medicine; Visit Provider Internal Medicine
DX: M47.816 Spondylosis without myelopathy or radiculopathy, lumbar region (principal); M54.12 Radiculopathy, cervical region
CPT/HCPCS: 99213

== ENCOUNTER → 2024-02-07 09:06 | Outpatient (BNVA) | payer MEDICAID, SELFPAY | PROVIDERS: PCP Internal Medicine; Visit Provider Internal Medicine | DX: M47.816 Spondylosis without myelopathy or radiculopathy, lumbar region (principal); M54.12 Radiculopathy, cervical region | CPT/HCPCS: 99212 ==

== ENCOUNTER 2024-10-11 05:50 | Emergency (ER) | payer MEDICAID, SELFPAY ==
[2024-10-11 05:53] VITALS: BP 147/97; PULSE 80; RESP 20; TEMP 36.7; O2SAT 98; BMI 24.6
--- NOTE | 2024-10-11 06:20 | ED.GENADULT ---
HPI - General Adult General Chief complaint: General Medical Stated complaint: trigeminal neuralgia Time Seen by Provider: 10/11/24 06:26 Source: patient Mode of arrival: ambulatory Limitations: no limitations History of Present Illness ED Provider: Dr. Linda Sales HPI narrative: Patient comes to the emergency room complaining of left-sided facial pain. Patient states that she has history of trigeminal neuralgia. Patient states that she usually can manage his symptoms at home since they last less than 24 hours, but now it is almost 48 hours and now she has blurred vision. Patient states that she sees Dr. Nichole from Neurology. They are not sure if this is trigeminal neuralgia by itself, patient states that she has an MRI pending to rule out trigeminal neuralgia versus MS. Patient states the pain is now almost constant. Over last few months, she has been having multiple exacerbations, her symptoms are becoming more frequent. Related Data Home Medications ?Medication ?Instructions ?Recorded ?Confirmed gabapentin 300 mg capsule 300 mg PO TID 10/20/23 02/07/24 pramipexole 0.25 mg tablet 0.25 mg PO QPM 10/20/23 02/07/24 pxzdzpd-dflhqnxcfyzjh-wedujgzr 250 2 tab PO Q6H PRN Headache 11/03/23 02/07/24 mg-250 mg-65 mg tablet (Excedrin Migraine) ibuprofen 200 mg tablet 800 mg PO DAILY PRN Pain 11/03/23 02/07/24 Held on 11/16/23. Instructions: Resume on 11/17/23. lactobacillus combination no.4 3 3,000 mmu cells PO DAILY 11/03/23 02/07/24 billion cell capsule (Probiotic) omeprazole 20 mg capsule,delayed 20 mg PO DAILY 11/03/23 02/07/24 release polyethylene glycol 3350 17 17 g PO 3XW 11/03/23 02/07/24 gram/dose oral powder (Miralax) cyclobenzaprine 10 mg tablet 10 mg PO BEDTIME PRN 02/07/24 02/07/24 Previous Rx's ?Medication ?Instructions ?Recorded carbamazepine 200 mg tablet 100 mg (1/2 x 200 mg) PO DAILY 8 10/11/24 (Tegretol) days #6 tabs ondansetron 4 mg disintegrating 4 mg PO Q8H PRN nausea and 10/11/24 tablet vomiting #4 tabs oxycodone 5 mg tablet 5 mg PO Q6H PRN pain #10 tabs 10/11/24 Allergies Allergy/AdvReac Type Severity Reaction Status Date / Time No Known Allergies (No Known Allergy Verified 10/11/24 05:56 Allergies*) Review of Systems Review of Systems: Constitutional : No Weight loss, No Fever, No Chills, No Night Sweats, No Fatigue, No Malaise ENT/Mouth : No Hearing loss, No Ear Pain, No Nasal Congestion, No Sinus Pain, No Hoarseness, No sore throat, No Rhinorrhea, No Swallowing Difficulty Eyes: No Eye Pain, No Swelling, No Redness, No Foreign Body, No Discharge, complaining of blurred vision out of the left eye Cardiovascular : No Chest Pain, No SOB, No Dyspnea on Exertion, No Orthopnea, No Edema, No Palpitations Respiratory : No Cough, No Sputum, No Wheezing, No Smoke Exposure, No Dyspnea Gastrointestinal : No Nausea, No Vomiting, No Diarrhea, No Constipation, No abdominal Pain, No Hematochezia, No Melena Genitourinary : no irregular bleeding, No Dysuria, No Urinary Frequency, No Hematuria, No Urinary Incontinence, No Urgency, No Flank Pain, No Urinary Flow Changes, No Hesitancy Musculoskeletal : No joint pain, No Myalgias, No Joint Swelling Skin : No Skin Lesions, No rash Neuro : Complaining of severe sharp like sensations on the left side of the face, No Weakness, No Numbness, No Paresthesias, No Loss of Consciousness, No Dizziness, No Headache Psych : No Anxiety/Panic, No Depression, No SI/HI/AH/VH, No Social Issues, Heme/Lymph: No Bruising, No Bleeding,No Lymphadenopathy Endocrine : No Polyuria, No Polydipsia, No Temperature Intolerance PMFSH Past Medical History Medical History Arthritis GERD (gastroesophageal reflux disease) Weakness History of trigeminal neuralgia Complicated migraine Pneumonia Bronchitis Scarlet fever Blood pressure elevated without history of HTN Osteoarthritis ADHD Abnormal CT of the abdomen Chronic constipation Neuralgia Surgical History (Updated 01/29/24 @ 09:13 by GEE Mccormack) Hx of laparoscopy History of fine needle aspiration with imaging guidance Hx of tubal ligation History of esophagogastroduodenoscopy (EGD) Hx of colonoscopy Social History Social History Household Members Other:: 2 sons Are you a primary palliative care nurse to a significant other at home: No Do you presently have visiting nurse or other home services: No Alcohol intake: current Alcohol intake frequency: holidays/special occasions only Patient Tobacco Use Status: Never used Tobacco Smoked in Last 30 Days: No Use of substances other than those prescribed or required for medical reasons: No Advance Directives: No Advance Directives Information Provided: Yes Do you have a plan to hurt others: No Plan Patient : No 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 Oriented X3. Patient looks miserable, in severe pain, jolting with the pain/shocks Eyes: Pupils equal, round and reactive to light. ENT: Pharynx normal. Neck: Normal inspection. Neck supple. No lymph nodes noted. No crepitus CVS: Normal heart rate and rhythm. Pulses normal. Normal S1 and S2 Respiratory: No respiratory distress. Breath sounds normal. No Wheezing. No rales Abdomen: Soft and nontender. No rigidity. No distention. Skin: Skin warm and dry. Normal skin color. Normal skin turgor. Extremities: No lower extremity edema. No Lacerations. No Rash Neuro: Oriented X 3. No motor deficit. No sensory deficit. Moving all extremities. No slurred speech. CN 2 through 12 grossly intact Psych: calm, cooperative, normal affect Vital Signs: Vital Signs - 24 hr 10/11/24 05:53 10/11/24 07:55 10/11/24 08:22 Temperature 98.1 F 97.9 F Pulse Rate 80 78 66 Respiratory Rate 20 16 14 Blood Pressure 147/97 H 119/76 100/52 L Pulse Oximetry 98 97 95 Oxygen Delivery Method Room Air Room Air Room Air BMI result Body Mass Index 24.6 Course Course Course Narrative: Patient receiving IV ketorolac, Dilaudid, p.o. carbamazepine Patient is being worked up by Dr. Nichole from Neurology to determine if patient has trigeminal neuralgia bite itself versus beginning of multiple sclerosis. MRI is pending At home, patient takes gabapentin but it is not working today. If patient has no improvement with her symptoms, patient may need to be admitted for pain control and MRI Sign out given to my colleague Dr. Escobedo Reevaluation(s) Reevaluation #1: Evaluated, there was no facial asymmetry, no visual changes at bedside, she is speaking full sentences, had slight nausea possibly do a Dilaudid we will order Zofran otherwise pain is improving, anticipating discharge we will continue carbamazepine and opiates and she will follow up with her neurologist, physical examination is consistent with trigeminal neuralgia she has positive Tinel sign right over her trigeminal nerve and painful to light touch but other considerations with sclerosis, throughout it tumors etc. but she has had CTs in the past. Time: 08:28 Reevaluation #2: Re-evaluated, feels better see my discharge instructions Time: 09:43 Medications Administered Discontinued Medications Generic Name Dose Route Start Last Admin Trade Name Crowq PRN Reason Stop Dose Admin Carbamazepine 200 mg 10/11/24 06:17 10/11/24 06:24 Carbamazepine 200 Mg Tablet PO 10/11/24 06:18 200 mg ONCE ONE Administration Hydromorphone HCl 1 mg 10/11/24 06:17 10/11/24 06:31 Hydromorphone Hcl 1 Mg/Ml Syringe IVPUSH 10/11/24 06:18 1 mg ONCE ONE Administration Protocol Ketorolac Tromethamine 30 mg 10/11/24 06:17 10/11/24 06:25 Ketorolac Tromethamine 30 Mg/Ml Vial IVPUSH 10/11/24 06:18 30 mg ONCE ONE Administration Ondansetron HCl 4 mg 10/11/24 08:22 10/11/24 08:30 Ondansetron Hcl 4 Mg/2 Ml Vial IVPUSH 10/11/24 08:23 4 mg ONCE ONE Administration Medical Decision Making Differential Diagnosis Differential Diagnoses: The differential diagnosis associated with the presentation includes (Trigeminal neuralgia, multiple sclerosis) Admission/Observation Consideration of admission/observation: Escalation of care including admission/observation considered (Given patient's amount of pain, observation/admission has been considered) Critical Care Time Critical Care Time Critical Care Time: Yes Total Critical Care Time: 35 Attestation: I have personally provided critical care time. Time includes review of lab data, radiology results, discussion with consultants, and monitoring for potential decompensation. Intervention performed as documented. Discharge Plan Discharge Clinical Impression: Trigeminal neuralgia pain Patient Disposition: Home, Self-Care Instructions: Trigeminal Neuralgia (ED) Additional Instructions: You can take gabapentin and Tegretol together, you will have to use Tegretol if his symptoms are better, but start with half a pill twice a day and then every 3 days you can I am only giving her a few pills because you do not want to mix the 2 with a medications for too long but Tegretol is a good breakthrough medication, in the meantime you can also take Tylenol 975 mg and oxycodone, follow up with the neurologist, any other issues concerns come back to the ER and Zofran as needed for nausea and vomiting. Prescriptions: New carbamazepine [Tegretol] 200 mg tablet 100 mg PO DAILY 8 Days Qty: 6 0RF Rx Instructions: Day 1-3 : take 100mg bid Day 2-5: take 200mg bid Day 5-8: Take 300mg bid oxycodone 5 mg tablet 5 mg PO Q6H PRN (Reason: pain) Qty: 10 0RF Rx Instructions: Partial Fill upon patient request. ondansetron 4 mg tablet,disintegrating 4 mg PO Q8H PRN (Reason: nausea and vomiting) Qty: 4 0RF No Action omeprazole 20 mg Capsule,Delayed Release(Dr/Ec) 20 mg PO DAILY Probiotic 3 billion cell Capsule 3,000 mmu cells PO DAILY Rx Instructions: administer with a meal polyethylene glycol 3350 [Miralax] 17 gram/dose Powder 17 g PO 3XW ibuprofen 200 mg Tablet 800 mg PO DAILY PRN (Reason: Pain) Excedrin Migraine 250-250-65 mg Tablet 2 tab PO Q6H PRN (Reason: Headache) pramipexole 0.25 mg tablet 0.25 mg PO QPM gabapentin 300 mg capsule 300 mg PO TID cyclobenzaprine 10 mg tablet 10 mg PO BEDTIME PRN Print Language: Tamazight
--- OUTSIDE RECORDS SUMMARY | 2024-10-11 07:17 | XMS_ITS | Data Portability ---
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 Plan of Treatment Reminders Order Date Submit Date Provider Last Modified By Organization Details Last Modified Time Details Appointments None recorded. Lab None recorded. Referral orthopedic surgeon referral 2022 023 [email or web address] Not available 3 08:59:10 physical therapist referral 2022 023 [email or web address] Not available 3 15:09:00 Procedures None recorded. Surgeries None recorded. Imaging None recorded. Medication Orders cyclobenzap rine 10 mg tablet 2022 023 [facility] #[id number], [address] [place], [address], 3 12:45:49 Medrol (Abelardo) 4 mg tablets in a dose pack 2022 023 [facility] #[id number], [address] [place], [address], 3 13:17:10 Medrol (Abelardo) 4 mg tablets in a dose pack 2022 023 [id number] [address] [place], [address], 3 13:17:54 Patient TargetsNo targets recorded. Patient Instructions Encounter Date Encounter Id Patient Instructions Last Modified By Organization Details Last Modified Time 08/17/2022 [id number] getting back to normal after low back pain: care instructions [email or web address] Not available 08/17/2022 17:53:29 low back pain education Not available 08/17/2022 17:53:29 Continue the ibuprofen as recommended by the [facility] ER for your pain. Use the valium as prescribed by the [facility] ER for muscle spasm. Use caution since it may cause some sedation. See printed instructions and work duty note. Return to [facility] 08/23/2022 for re-evaluation. Over the counter topical preparations such as Icy Hot may help with your pain. Seek Emergency Medical evaluation for any worsening symptoms, particularly for bowel or bladder dysfunction or motor weakness of your extremities. [email or web address] Not available 08/17/2022 17:56:07 08/23/2022 [id number] sciatica: care instructions [email or web address] Not available 08/23/2022 13:17:52 sciatica: exercises [email or web address] Not available 08/23/2022 13:18:29 Take the medrol as prescribed. Do not take ibuprofen while taking the medrol. Over the counter tylenol may be taken per package instructions if needed for pain. A referral to physical therapy has been made for you - you will be contacted by our care coordination team with details of the referral. See printed instructions. Return to [facility] for re-evaluation 08/30/2022. Seek Emergency Medical evaluation for any worsening symptoms, particularly for any numbness or weakness of the extremities, bowel or bladder dysfunction. [email or web address] Not available 08/23/2022 13:21:07 08/30/2022 [id number] sciatica: care instructions Not available 08/30/2022 13:08:50 sciatica: exercises [email or web address] Not available 08/30/2022 13:08:50 sciatica education [email or web address] Not availa ble 08/30/2022 13:08:50 Continue over th e counter ibuprofen as needed. See printed instructions and work duty note. Keep your physical therapy appointment as scheduled for 09/02/2022. Return to [facility] for [facility]uation 09/06/2022. Seek Emergency Medical evaluation for any worsening symptoms, particularly for weakness of the extremities, persistent numbness or bowel or bladder dysfunction. [email or web address] Not available 08/30/2022 13:11:19 09/07/2022 [id number] sciatica: care instructions [email or web address] Not available 09/07/2022 13:16:04 sciatica: exercises [email or web address] Not available 09/07/2022 13:16:04 sciatica education [email or web address] Not availa ble 09/07/2022 13:16:04 cervical radiculopathy education [email or web address] Not available 09/07/2022 13:17:08 pinched nerve in the neck: care instructions [email or web address] Not available 09/07/2022 13:17:08 Take the medrol as prescribed. Continue with physical therapy for your back - you are making good progress as far as your back injury is concerned. Since your new injury occurred while undergoing physical therapy for a work related back injury you will need to discuss with your case preparer and liner if this injury is also covered under workmen's compensation. See printed instructions. If your cervical radiculopathy symptoms persist after taking the medrol a referral to a specialist will need to be discussed on your next visit. Return to [facility] 09/13/2022 for re-evaluation. Seek Emergency Medical evaluation for any worsening symptoms, particularly for worsening arm numbness or weakness of the extremities or bowel or bladder dysfunction. [email or web address] Not available 09/07/2022 13:21:23 09/14/2022 [id number] pinched nerve in the neck: care instructions [email or web address] Not available 09/14/2022 12:45:45 Reason for Referral Physical Therapist Referral for Acute back pain with sciatica Referring Physician: Cathy Frias, Urgent Care, Encounter Date: 08/23/2022 Orthopedic Surgeon Referral for Cervical radiculopathy Referring Physician: Nancy Sanders [facility], Encounter Date: 09/14/2022 Problems No Known Problems Procedures Surgical History Date Name Laterality Status Provider Name and Address Organization Details Recorded Time destruction of lesion of uterus completed Claudette FLYNN - [facility] 08/17/2022 17:01:37 Imaging Results None recorded. Procedure Notes None recorded. Medical Equipment None Reported. Allergies No known drug allergies Medications Name Sig Start Date Stop Date Status Note LastModified by Organization Details LastModified Time cyclobenzap rine 10 mg tablet Take 1 tablet every day by oral route at bedtime for 10 days. 2022 active Not Available Not Available Not Avai lable dextroamphe tamine-amph etamine 10 mg tablet TAKE 2 TABLETS (20MG) BY MOUTH EVERY MORNING NEEDED & 1 TAB (10MG) EVERY AFTERNOON active Not Available Not Available No t Available hydroxyzine HCl 50 mg tablet TAKE 1 TABLET BY MOUTH EVERYDAY AT BEDTIME active Not Available Not Available No t Available pantoprazol e 20 mg tablet,cuco yed release TAKE 1 TABLET BY MOUTH EVERY DAY active Not Available Not Available No t Available diazepam 2 mg tablet TAKE 1 TABLET BY MOUTH THREE TIMES A DAY NEEDED FOR SPASM active Not Available Not Available No t Available ropinirole 0.5 mg tablet TAKE 1 TABLET BY MOUTH EVERYDAY AT BEDTIME active Not Available Not Available No t Available gabapentin 100 mg capsule TAKE 2 CAPSULES BY MOUTH 3 TIMES A DAY FOR 7 DAYS active Not Available Not Available No t Available methylpredn isolone 4 mg tablets in a dose pack TAKE 6 TABLETS ON DAY 1 DIRECTED ON PACKAGE AND DECREASE BY 1 TAB EACH DAY FOR A TOTAL OF 6 DAYS active Not Available Not Available No t Available fluoxetine 20 mg capsule TAKE 1 CAPSULE BY MOUTH EVERY DAY active Not Available Not Available No t Available bupropion HCl XL 150 mg 24 hr tablet, extended release TAKE 1 TABLET BY MOUTH EVERY DAY active Not Available Not Available No t Available carbamazepi ne ER 100 mg capsule,ext ended release [id number] TAKE 1 CAPSULE BY MOUTH TWICE A DAY FOR 7 DAYS active Not Available Not Available No t Available Valium 08/23 completed Not Available Not Available Not Available Vitals Date Recorded Body height Body mass index (BMI) Body weight Oxygen saturation Oxygen saturation in Arterial blood by Pulse oximetry Heart rate Respiratory rate Body temperature Systolic And Diastolic Provider Name and Address Organization Details Last Updated DateTime 3 160.02 cm 22.5 kg/m2 32768.2 3 g 99 % 99 % 82 /min 18 /min 98.2 [degF] 150/97 mm[Hg] Claudette FLYNN - [facility] 3 17:03:32 Date Recorded Body height Body mass index (BMI) Body weight Heart rate Respiratory rate Oxygen saturation Oxygen saturation in Arterial blood by Pulse oximetry Body temperature Systolic And Diastolic Provider Name and Address Organization Details Last Updated DateTime 3 160.02 cm 22.5 kg/m2 46279.2 3 g 82 /min 18 /min 98 % 98 % 98.3 [degF] 155/94 mm[Hg] Claudette Mercedes PA - [facility] 3 11:24:00 Date Recorded Body height Body mass index (BMI) Body weight Oxygen saturation Oxygen saturation in Arterial blood by Pulse oximetry Heart rate Respiratory rate Body temperature Systolic And Diastolic Provider Name and Address Organization Details Last Updated DateTime 3 160.02 cm 22.5 kg/m2 25692.2 3 g 99 % 99 % 91 /min 18 /min 98.1 [degF] 150/88 mm[Hg] FERNANDO CLEVELAND PA - [facility] 3 12:54:32 Date Recorded Body height Body mass index (BMI) Body weight Oxygen saturation Oxygen saturation in Arterial blood by Pulse oximetry Heart rate Respiratory rate Body temperature Systolic And Diastolic Provider Name and Address Organization Details Last Updated DateTime 3 160.02 cm 23.2 kg/m2 62150.6 g 100 % 100 % 84 /min 19 /min 98.1 [degF] 142/86 mm[Hg] Petrona Olsen [place] - [facility] 3 12:12:56 Date Recorded Body height Respiratory rate Body temperature Heart rate Oxygen saturation Oxygen saturation in Arterial blood by Pulse oximetry Body mass index (BMI) Body weight Systolic And Diastolic Provider Name and Address Organization Details Last Updated DateTime 3 160.02 cm 17 /min 97.8 [degF] 94 /min 100 % 100 % 23.9 kg/m2 72167.9 7 g 144/82 mm[Hg] DEBORAH COVARRUBIAS [place] - [facility] 3 12:21:29 Social History Question Answer Notes LastModified by Organizat ion Details LastModified Time Tobacco Smoking Status Never Smoker Claudette cadena [place] - [facility] 08/17/2022 17:01:08 Have You Recently Traveled Abroad? No [email or web address] Information not available 09/14/2022 Sex: Unknown Functional Status Question Answer Note LastModified by Organizat ion Details LastModified Time Do you use any illicit or recreational drugs? No [email or web address] Information not available 08/17/2022 Do you or have you ever used any other forms of tobacco or nicotine? No Information not available 08/17/2022 What is your level of alcohol consumption? Occasional [email or web address] Information not available 08/17/2022 Mental Status None recorded. Family History Relationship Description Onset Age of this Age Resolved Age Notes LastModified by Organization Details LastModified Time Father No current problems or disability [email or web address] Not available 09/14 12:18:43 Mother No current problems or disability [email or web address] Not available 09/14 12:18:43 Medical History No medical history recorded. Gynecological History Statement/Question Response Date of LMP 09/13/2022 Is there any chance of ? No LMP Definite Obstetrics History GPAL:G 0 P 0 0 0 0 Past Encounters Encounter ID Performer Location Encounter Start Date Encounter Closed Date Diagnosis/Indication Diagnosis SNOMED-CT Code Diagnosis ICD10 Code Diagnosis Note [id number] [facility] [address] [place] [address] 04/27/2015 09:33:42 04/27/2015 10:23:56 [id number] [address] [address] [place] [address] 05/08/2015 11:11:02 05/08/2015 11:59:32 [id number] [address] [place] [address] 07/02/2015 11:03:57 07/02/2015 11:47:39 [id number] [facility] [address] [place] [address] 08/17/2022 16:48:57 08/17/2022 18:05:52 Low back strain 185871444 S39.012A [id number] Cathy Frias MD [address] [place] [address] 08/23/2022 10:26:22 08/23/2022 13:24:50 Low back strain [id number] S39.012A Acute back pain with sciatica 317876380 M54.42 [id number] Cathy Frias [facility] [address] [facility] [place] [address] 08/30/2022 12:09:14 08/30/2022 13:16:23 Acute back pain with sciatica 335688103 M54.42 [id number] Cathy Frias MD [address] [facility] [place] [address] 09/07/2022 11:27:16 09/07/2022 13:23:15 Acute back pain with sciatica 653732991 M54.42 Cervical radiculopathy 52664511 M54.12 [id number] Nancy Sanders MD [address] [place] [address] 09/14/2022 12:01:17 09/14/2022 12:51:06 Cervical radiculopathy 14614750 M54.12 Continue current PTNeeds Specialist evaluation Neck pain since PT and lifting exercises were started. At this time no lifting until seen by Ortho Low back pain 128179169 M54.50 Pain is improved but still incapable of current job requiremen ts Health Concerns Section Related Observation LastModified by Organization Detai ls LastModified Time None Recorded Concern Status LastModified by Organization Details LastModified Time None Recorded Advance Directives Directive None Recorded Payers Insurance Date Sequence Insurance Name Policy Number Policy De Jesus Covered Member ID De Jesus Member ID Guarantor Name 09/14/2022 1 [facility] [id number] Hortencia Light [id number] Hortencia Light 08/30/2022 [employer] Generic Employer Hortencia Light Notes Date Note Type Note Provider Name and Address Organization Details Recorded Time 3 text/html Back Pain / InjuryReported bypatient.source of patient informationInformation obtained from patient; Patient arrived at Urgent Care ambulatory Location:lower back; Radiates to hips. Quality:sharp;muscle spasms Severity:Moderate. Duration:2 days Context:work injury; lifting Alleviating Factors:NSAIDS; rest Aggravating Factors:Movement. Associated Symptoms:No numbness or weakness of the extremities. No bowel or bladder dysfunction. No saddle aneshtesia. Previous InjuryNo prior injury to affected body part Prior Imaging:noneNotes:46 year old female presenting for evaluation of a work related lower back injury sustained 2 days ago. 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 The patient was falling and she had to lift to try to get the patient back into a chair. Her pain is in the lower back and radiates to her hip. It is worse with movement. No numbness or weakness of the extremities. No bowel or bladder dysfunction. No saddle anesthesia. The patient was seen on the day of injury at the [facility] and was prescribed ibuprofen 800mg and valium 2mg. She has been hesitant to take the valium and has been taking over the counter ibuprofen with only minor improvement in her pain. Cathy Frias MD [address] [place], [address], [place] - [facility] 08/19/2022 10:41:12 3 text/html Back Pain / InjuryReported bypatient.source of patient informationInformation obtained from patient; Patient arrived at Urgent Care ambulatory Location:Radiates to left buttock and left lateral thigh. Quality:sharp; Aching. Duration:days; Injured 08/15/2022 Context:work injury Alleviating Factors:nothing helps Aggravating Factors:movement/positioni ng Associated Symptoms:No fever, chills, numbness or weakness of the extremities, bowel or bladder dysfunction or saddle anesthesia. Prior Imaging:noneNotes:46 year old female presenting for re-evaluation of a work related lower back injury sustained 08/15/2022. She was first seen in the ER in the day of injury then again here on 08/17/2022. She has been unable to work. Her pain initially did not radiate but today her pain is in the left lower back and radiates to her left buttock and left lateral thigh. It is worse with movement. No numbness or weakness of the extremities. No bowel or bladder dysfunction. No saddle anesthesia. She was unable to tolerate the valium that was prescribed in the ER. Cathy Frias MD [address] [place], [address], [place] - [facility] 08/23/2022 13:39:56 3 text/html Back Pain / InjuryReported bypatient.source of patient informationInformation obtained from patient; Patient arrived at Urgent Care ambulatory Location:lower back; Left lower back pain radiating to left buttock and lateral thigh. Quality:Aching. Occasional muscle spasm. Severity:interference with work Duration:Work injury o08/15/2022. Context:work injury Alleviating Factors:NSAIDS Aggravating Factors:bending over/standing up;movement/positioning;tw istingNotes:46 year old female presenting for re-evaluation of a work related lower back injury with left lower back pain and left sided sciatica sustained 08/15/2022. She was initially seen in the ER and treated with NSAID's and valium. Seen here subsequently and was treated with medrol and referred for PT. Her first PT appointment is 09/02/2022. She has been unable to work due to her pain. The pain is in her left lower back radiating to her buttock and left lateral thigh. It is slightly better than on her last visit though she has noted occasional numbness of her thigh. No weakness of the extremities. No bowel or bladder dysfunction. No saddle anesthesia. Her pain is worse with certain movements. Cathy Frias MD [address] [facility] [place], [address], [place] - [facility] 08/30/2022 13:23:28 3 text/html Back Pain / InjuryReported bypatient.source of patient informationInformation obtained from patient Location:radiates to left buttock and left lateral thigh. Quality:dull Severity:pain level 4/10;interference with work Duration:started 08/15/22 Context:work injury Alleviating Factors:PT Aggravating Factors:bending over/standing up;movement/positioning;tw isting Associated Symptoms:No fever. Occasional tingling LLE. No weakness of legs. No bowel or bladder dysfunction. No saddle anesthesia. Prior Imaging:noneNeckReported bypatient.source of patient informationInformation obtained from patient Location:left; lateral Quality:aching; constant Severity:moderate Duration:date of onset:; 2022 at physical therapy. Timing:acute Context:Lifting dumbell at physical therapy. Alleviating Factors:nothing helps Aggravating Factors:ROM Associated Symptoms:no weakness; no swelling; no redness; no warmth; no ecchymosis; no catching/locking; no popping/clicking; no buckling; no grinding; no instability; no fever; no chills;radiation down arm; Numbness and tingling LUE. Previous Surgery:none Prior Imaging:none Previous Injections:none Previous PT:noneNotes:47 year old female presenting for re-evaluation of a work related lower back injury with left lower back pain and left sided sciatica sustained on 08/15/2022. She was treated initially with valium and NSAID's followed by medrol and PT. PT began 09/02/2022 and generally she is doing better. Still with 4/10 pain left lower back with some radiation to her left buttock and left lateral thigh. No current numbness or tingling of the legs. No bowel or bladder dysfunction. No saddle anesthesia. Unfortunately on 2022 when bending over to lift a weight at PT she developed the sudden onset of left lateral neck pain with radiation to her left trapezius and LUE. She report LUE numbness and tingling but no weakness. Her pain is worse with neck and trapezius movement. No chest pain or shortness of breath. Cathy Frias MD [address] [place] [address] [facility] [place], [address], [place] - [facility] 09/07/2022 14:36:45 3 text/html Back Pain / InjuryReported bypatient.source of patient informationInformation obtained from patient Location:radiates to left buttock and left lateral thigh. Quality:dull Severity:pain level 4/10;interference with work Duration:started 08/15/22 Context:work injury Alleviating Factors:PT Aggravating Factors:bending over/standing up;movement/positioning;tw isting Associated Symptoms:No fever. Occasional tingling LLE. No weakness of legs. No bowel or bladder dysfunction. No saddle anesthesia. Prior Imaging:noneNeckReported bypatient.source of patient informationInformation obtained from patient Location:left; lateral Quality:aching; constant Severity:moderate Duration:date of onset:; 2022 at physical therapy. Timing:acute Context:Lifting dumbell at physical therapy. Alleviating Factors:nothing helps Aggravating Factors:ROM Associated Symptoms:no weakness; no swelling; no redness; no warmth; no ecchymosis; no catching/locking; no popping/clicking; no buckling; no grinding; no instability; no fever; no chills;radiation down arm; Numbness and tingling LUE. Previous Surgery:none Prior Imaging:none Previous Injections:none Previous PT:noneNotes:47 year old female presenting for re-evaluation of a work related lower back injury with left lower back pain and left sided sciatica sustained on 08/15/2022. She was treated initially with valium and NSAID's followed by medrol and PT. PT began 09/02/2022 and generally she is doing better. Still with 4/10 pain left lower back with some radiation to her left buttock and left lateral thigh. No current numbness or tingling of the legs. No bowel or bladder dysfunction. No saddle anesthesia. Unfortunately on 2022 when bending over to lift a weight at PT she developed the sudden onset of left lateral neck pain with radiation to her left trapezius and LUE. She report LUE numbness and tingling but no weakness. Her pain is worse with neck and trapezius movement. No chest pain or shortness of breath. Nancy Sanders MD [address] [facility] [place], [address], [place] - [facility] 09/14/2022 14:13:28 OBGyn Episode No OBEpisode recorded.
[2024-10-11 07:55] VITALS: BP 119/76; PULSE 78; RESP 16; O2SAT 97
[2024-10-11 08:22] VITALS: BP 100/52; PULSE 66; RESP 14; TEMP 36.6; O2SAT 95
[2024-10-11 09:47] VITALS: BP 110/54; PULSE 73; RESP 12; TEMP 36.6; O2SAT 98
[2024-10-11 09:54] VITALS: BP 110/54; PULSE 73; RESP 12; TEMP 36.6; O2SAT 98
== END 2024-10-11 09:57 | disposition home or self-care (01) ==
PROVIDERS: Emergency Provider Emergency Medicine; PCP Internal Medicine
DX: G50.0 Trigeminal neuralgia (principal)
CPT/HCPCS: 96374; 96375; 99284; J1171; J1885; J2405

== ENCOUNTER 2024-10-12 09:30 | Emergency (ER) | payer MEDICAID, SELFPAY ==
--- NOTE | ~2024-10-12 | CT_ITS ---
CLINICAL HISTORY: trigeminal neuralgia pain, left eye vision changes CT head without contrast. CT angiography head and neck with contrast. 3D Postprocessing. COMPARISON: CT angiogram head and neck dated 03/06/23 at 10:15 EST FINDINGS: HEAD CT: No intra-axial mass, midline shift, hydrocephalus, or acute hemorrhage. No significant atrophy-like change or white matter disease. The visualized paranasal sinuses and mastoid air cells are normal. The orbits are within normal limits. No calvarial fracture. HEAD AND NECK CTA: Aortic arch and cervical great vessels are patent. Intracranial arteries are patent. No aneurysm, dissection, or occlusion. No abnormal intracranial enhancement. Heterogeneous thyroid gland. No cervical mass or fluid collection. Visualized lung apices are clear. Anterior cervical fusion hardware present along the lower cervical spine. Moderate lower cervical spondylosis. No acute fracture. Mild spondylosis at C6-C7. IMPRESSION: 1. No acute intracranial findings. 2. Patent head and neck CTA. This document has been electronically signed by: Diego Del Valle MD on 10/12/2024 13:19:51
[2024-10-12 09:36] VITALS: BP 156/103; PULSE 73; RESP 18; TEMP 36.6; O2SAT 99; BMI 25.2
--- OUTSIDE RECORDS SUMMARY | 2024-10-12 09:47 | XMS_ITS | Data Portability ---
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 Plan of Treatment [...] cyclobenzap rine 10 mg tablet 2022 023 [facility]armacy #[id number], [address] [place], [address], 3 12:45:49 Medrol (Abelardo) 4 mg tablets in a dose pack 2022 023 [facility]arm[facility] #[id number], [address] [place], [address], 3 13:17:10 Medrol (Abelardo) 4 mg tablets in a dose pack 2022 023 [id number] [address] [place], [address], 3 13:17:54 Patient TargetsNo targets recorded. Patient Instructions Encounter Date Encounter Id Patient Instructions Last Modified By Organization Details Last Modified Time 08/17/2022 [id number] getting back to normal after low back pain: care instructions [email or web address] Not available 08/17/2022 17:53:29 low back pain education [email or web address] Not available 08/17/2022 17:53:29 Continue the ibuprofen as recommended by the [facility] ER for your pain. Use the valium as prescribed by the [facility] ER for muscle spasm. Use caution since it may cause some sedation. See printed instructions and work duty note. Return to [facility] 08/23/2022 for re-evaluation. Over the counter topical preparations such as Icy Hot may help with your pain. Seek Emergency Medical evaluation for any worsening symptoms, particularly for bowel or bladder dysfunction or motor weakness of your extremities. [email or web address] Not available 08/17/2022 17:56:07 08/23/2022 [id number] sciatica: care instructions Not available 08/23/2022 13:17:52 sciatica: exercises [email or web address] Not available 08/23/2022 13:18:29 Take the medrol [...] of the extremities, bowel or bladder dysfunction. [email or web address] Not available 08/23/2022 13:21:07 08/30/2022 [id number] sciatica: care instructions Not available 08/30/2022 13:08:50 sciatica: exercises [email or web address] Not available 08/30/2022 13:08:50 sciatica education [email or web address] Not availa ble 08/30/2022 13:08:50 Continue over th e counter ibuprofen as needed. See printed instructions and work duty note. Keep your physical therapy appointment as scheduled for 09/02/2022. [facility]. Seek Emergency Medical evaluation for any worsening symptoms, particularly for weakness of the extremities, persistent numbness or bowel or bladder dysfunction. [email or web address] Not available 08/30/2022 13:11:19 09/07/2022 [id number] sciatica: care instructions [email or web address] Not available 09/07/2022 13:16:04 sciatica: exercises [email or web address] Not available 09/07/2022 13:16:04 sciatica education [email or web address] Not availa ble 09/07/2022 13:16:04 cervical radiculopathy education [email or web address] Not available 09/07/2022 13:17:08 pinched nerve in the neck: care instructions [email or web address] Not available 09/07/2022 13:17:08 Take the medrol as prescribed. Continue with physical therapy for your back - you are making good progress as far as your back injury is concerned. 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 See printed instructions. If your cervical radiculopathy symptoms persist after taking the medrol a referral to a specialist will need to be discussed on your next visit. Return to [facility] 09/13/2022 for re-evaluation. Seek Emergency Medical evaluation for any worsening symptoms, particularly for worsening arm numbness or weakness of the extremities or bowel or bladder dysfunction. [email or web address] Not available 09/07/2022 13:21:23 09/14/2022 [id number] pinched nerve in the neck: care instructions [...] ne ER 100 mg capsule,ext ended release [id number] TAKE 1 CAPSULE BY MOUTH TWICE A [...] Updated DateTime 3 160.02 cm 22.5 kg/m2 40045.2 3 g 99 % 99 % 82 [...] Updated DateTime 3 160.02 cm 22.5 kg/m2 53599.2 3 g 82 /min 18 /min 98 [...] Updated DateTime 3 160.02 cm 22.5 kg/m2 19237.2 3 g 99 % 99 % 91 [...] Updated DateTime 3 160.02 cm 23.2 kg/m2 90854.6 g 100 % 100 % 84 /min 19 /min 98.1 [degF] 142/86 mm[Hg] Petrona Olsen [place] - [facility] 3 12:12:56 Date Recorded Body height Respiratory rate Body temperature Heart rate Oxygen saturation Oxygen saturation in Arterial blood by Pulse oximetry Body mass index (BMI) Body weight Systolic And Diastolic Provider Name and Address Organization Details Last Updated DateTime 3 160.02 cm 17 /min 97.8 [degF] 94 /min 100 % 100 % 23.9 kg/m2 10339.9 7 g 144/82 mm[Hg] DEBORAH CVOARRUBIAS [place] - [facility] 3 12:21:29 Social History [...] use any illicit or recreational drugs? No [email or web address] Information not available 08/17/2022 Do you or have you ever used any other forms of tobacco or nicotine? No [email or web address] Information not available 08/17/2022 What is your level of alcohol consumption? Occasional [email or web address] Information not available 08/17/2022 Mental Status None [...] SNOMED-CT Code Diagnosis ICD10 Code Diagnosis Note [id number] [facility] [address] [facility] [address] [place] [address] 04/27/2015 09:33:42 04/27/2015 10:23:56 [id number] [address] [place] [address] 05/08/2015 11:11:02 05/08/2015 11:59:32 [id number] [address] [place] [address] 07/02/2015 11:03:57 07/02/2015 11:47:39 [id number] Cathy Frias MD [facility] [address] [place] [address] 08/17/2022 16:48:57 08/17/2022 18:05:52 Low back strain 742042220 S39.012A [id number] Cathy Frias MD [address] [place] [address] 08/23/2022 10:26:22 08/23/2022 13:24:50 Low back strain [id number] S39.012A Acute back pain with sciatica 164126061 M54.42 [id number] Cathy Frias MD [address] [facility] [address] [place] [address] 08/30/2022 12:09:14 08/30/2022 13:16:23 Acute back pain with sciatica [id number] M54.42 [id number] Cathy Frias MD [address] [facility] [address] [place] [address] 09/07/2022 11:27:16 09/07/2022 13:23:15 Acute back pain with sciatica [id number] M54.42 Cervical radiculopathy 19111275 M54.12 [id number] Nancy Sanders MD [address] [facility] [place] [address] 09/14/2022 12:01:17 09/14/2022 12:51:06 Cervical radiculopathy 14268464 M54.12 Continue current PTNeeds Specialist evaluation Neck pain since PT and lifting exercises were started. At this time no lifting until seen by Ortho Low back pain 214242178 M54.50 Pain is improved but still incapable of current job requiremen ts Health Concerns Section Related Observation LastModified by Organization Detai ls LastModified Time None Recorded Concern Status LastModified by Organization Details LastModified Time None Recorded Advance Directives Directive None Recorded Payers Insurance Date Sequence Insurance Name Policy Number Policy De Jesus Covered Member ID De Jesus Member ID Guarantor Name 09/14/2022 1 [facility] [id number] Hortencia Light [id number] Hortencia Light 08/30/2022 [employer] Generic Employer Hortencia Light Notes Date [...] on the day of injury at the [facility] ER and was prescribed ibuprofen 800mg and valium 2mg. She has been hesitant to take the valium and has been taking over the counter ibuprofen with only minor improvement in her pain. Cathy Frias MD [address] [place], [address], [place] - [facility] 08/19/2022 10:41:12 3 [...] ER. Cathy Frias MD [address] [place], [address], [place] - [facility] 08/23/2022 13:39:56 3 text/html Back Pain [...] with certain movements. Cathy Frias MD [address] [facility] [place], [address], [place] - [facility] 08/30/2022 13:23:28 [...] or shortness of breath. Cathy Frias MD [address] [place] [address] [place] [place], [address], [place] - [facility] 09/07/2022 14:36:45 3 [...] shortness of breath. Nancy Sanders MD [address] [facility] [place], [address], [place] - [facility] 09/14/2022 14:13:28 OBGyn Episode No OBEpisode recorded.
--- NOTE | 2024-10-12 10:00 | ED.GENADULT ---
HPI - General Adult General Chief complaint: General Medical Stated complaint: l side facial pain Time Seen by Provider: 10/12/24 09:42 Source: patient and RN notes reviewed Mode of arrival: ambulatory Limitations: no limitations History of Present Illness ED Provider: Noa Mondragon PA-C HPI narrative: This is a 49-year-old female, with a past medical history of trigeminal neuralgia and migraines, who presents emergency department for evaluation of trigeminal neuralgia flare. Patient was seen here yesterday and was medicated with Tegretol, Dilaudid, Toradol, Zofran, and was discharged home with Tegretol. She went to the pharmacy and was told that she could not fill it given the way that it was written. She states that she would like to be re-evaluated as she is feeling worse. She states that her trigeminal neuralgia flares typically resolved however states that several hours after leaving the emergency room yesterday her pain had worsened. She also states that she has had constant blurred vision in her left eye. She states that she has never had vision changes when heard trigeminal neuralgia has flared up. She denies any headache, fevers, chills, chest pain, shortness of breath, abdominal pain, nausea, vomiting or diarrhea. MD complaint: Trigeminal neuralgia pain Onset (ago): day(s) Relieving factors: none Exacerbating factors: none Associated symptoms: denies other symptoms Treatments prior to arrival: none Related Data Home Medications ?Medication ?Instructions ?Recorded ?Confirmed gabapentin 300 mg capsule 300 mg PO TID 10/20/23 02/07/24 pramipexole 0.25 mg tablet 0.25 mg PO QPM 10/20/23 02/07/24 [id number] 250 2 tab PO Q6H PRN Headache 11/03/23 02/07/24 mg-250 mg-65 mg tablet (Excedrin Migraine) ibuprofen 200 mg tablet 800 mg PO DAILY PRN Pain 11/03/23 02/07/24 Held on 11/16/23. Instructions: Resume on 11/17/23. lactobacillus combination no.4 3 3,000 mmu cells PO DAILY 11/03/23 02/07/24 billion cell capsule (Probiotic) omeprazole 20 mg capsule,delayed 20 mg PO DAILY 11/03/23 02/07/24 release polyethylene glycol 3350 17 17 g PO 3XW 11/03/23 02/07/24 gram/dose oral powder (Miralax) cyclobenzaprine 10 mg tablet 10 mg PO BEDTIME PRN 02/07/24 02/07/24 Previous Rx's ?Medication ?Instructions ?Recorded carbamazepine 200 mg tablet 100 mg (1/2 x 200 mg) PO DAILY 8 10/11/24 (Tegretol) days #6 tabs ondansetron 4 mg disintegrating 4 mg PO Q8H PRN nausea and 10/11/24 tablet vomiting #4 tabs oxycodone 5 mg tablet 5 mg PO Q6H PRN pain #10 tabs 10/11/24 carbamazepine 200 mg tablet See Rx Instructions .Route 10/12/24 (Tegretol) .COMPLEX #9 tabs Allergies Allergy/AdvReac Type Severity Reaction Status Date / Time No Known Allergies (No Known Allergy Verified 10/12/24 09:38 Allergies*) Review of Systems Review of Systems: Yes all other systems are reviewed and are negative Constitutional: Constitutional: Reports as per [facility] Past Medical History Attestation statement: The following information was validated with the patient. Medical History Arthritis GERD (gastroesophageal reflux disease) Weakness History of trigeminal neuralgia Complicated migraine Pneumonia Bronchitis Scarlet fever Blood pressure elevated without history of HTN Osteoarthritis ADHD Abnormal CT of the abdomen Chronic constipation Neuralgia Surgical History Hx of laparoscopy History of fine needle aspiration with imaging guidance Hx of tubal ligation History of esophagogastroduodenoscopy (EGD) Hx of colonoscopy Social History Social History Household Members Other:: 2 sons Are you a primary care transition manager to a significant other at home: No Do you presently have visiting nurse or other home services: No Alcohol intake: current Alcohol intake frequency: holidays/special occasions only Patient Tobacco Use Status: Never used Tobacco Use of substances other than those prescribed or required for medical reasons: No Advance Directives: No Advance Directives Information Provided: No Do you have a plan to hurt others: No Plan Patient : No Current occupational status: employed 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 Physical Exam ED Vital Signs: Vital Signs - 24 hr 10/12/24 09:36 10/12/24 10:55 10/12/24 11:00 Temperature 98 F 98.6 F Pulse Rate 73 73 Respiratory Rate 18 16 16 Blood Pressure 156/103 H 118/73 Pulse Oximetry 99 97 Oxygen Delivery Method Room Air Room Air 10/12/24 13:54 10/12/24 14:16 Temperature 97.6 F 97.6 F Pulse Rate 67 67 Respiratory Rate 16 16 Blood Pressure 124/66 124/66 Pulse Oximetry 99 99 Oxygen Delivery Method Room Air Room Air BMI result Body Mass Index 25.2 Const General: cooperative, comfortable and no acute distress Orientation/consciousness: patient oriented x3 Limitations: no limitations HENMT Other: Severe pain when examining left TM. TM unremarkable, canal unremarkable Head: Yes normal to inspection, Yes normocephalic and Yes atraumatic Ears: hearing grossly normal bilaterally and TM's normal bilaterally General nose exam: Normal external nose present Face and sinus: Yes normal facial exam Mouth: Normal oral and palatal mucosa present, oropharynx normal and moist mucous membranes Throat: Yes posterior oropharynx normal Eyes General: appearance normal, both eyes and all related structures Eyelids: Yes eyelids normal Conjunctivae: conjunctivae normal Sclerae: sclerae normal Pupils: Equal, round and reactive pupils present EOM: EOMs intact bilaterally Neck Neck: Yes normal visual inspection, Yes full ROM and Yes no lymphadenopathy Lymphatic: no lymphadenopathy noted Chest Chest palpation & inspection: normal inspection of the chest Resp Effort & Inspection: normal respiratory effort and able to speak in complete sentences Auscultation: clear to auscultation bilaterally, no crackles, no rales, no rhonchi and no wheezes Cardio Rate: regular rate Rhythm: regular rhythm Heart sounds: S1 normal heart sound present and S2 normal heart sound present GI Inspection: Yes normal to inspection Skin General skin exam: no rashes or lesions noted Trauma: no lacerations or abrasions Wounds: no wounds Neuro General: patient oriented x3 and moves all extremities Cranial nerves: Yes Equal, round and reactive pupils present Extrem General: Yes normal to inspection Right upper extremity: normal to inspection Left upper extremity: normal to inspection Right lower extremity: normal to inspection Left lower extremity: normal to inspection Medications Administered Discontinued Medications Generic Name Dose Route Start Last Admin Trade Name Freq PRN Reason Stop Dose Admin Sodium Chloride 1,000 mls @ 999 mls/hr 10/12/24 10:04 10/12/24 12:13 Ns IV 10/12/24 11:04 Infused .Q1H1M ONE Infusion Acetaminophen 1,000 mg in 100 mls @ 400 mls/hr 10/12/24 10:07 10/12/24 12:12 Ofirmev IV 10/12/24 10:21 Infused ONCE ONE Infusion Sodium Chloride 1,000 mls @ 999 mls/hr 10/12/24 12:35 10/12/24 13:08 Ns IV 10/12/24 13:35 999 mls/hr .Q1H1M ONE Administration Iohexol 100 ml 10/12/24 11:37 10/12/24 11:48 Iohexol 350 Mg/Ml 100 Ml Infus..Btl IV 10/12/24 11:38 70 ml ONCE ONE Administration Morphine Sulfate 4 mg 10/12/24 10:03 10/12/24 10:55 Morphine Sulfate 4 Mg/Ml Cartridge IVPUSH 10/12/24 10:04 4 mg ONCE ONE Administration Protocol Morphine Sulfate 2 mg 10/12/24 12:35 10/12/24 13:09 Morphine Sulfate 2 Mg/Ml Cartridge IVPUSH 10/12/24 12:36 Not Given ONCE ONE Protocol Ondansetron HCl 4 mg 10/12/24 10:18 10/12/24 10:55 Ondansetron Hcl 4 Mg/2 Ml Vial IVPUSH 10/12/24 10:19 4 mg ONCE ONE Administration Medical Decision Making Medical Decision Making MDM Narrative: This is a 49-year-old female, with a past medical history of trigeminal neuralgia, who presents emergency department for evaluation of worsening trigeminal neuralgia pain. Patient states that her pain that she is currently experiencing in his atypical of her trigeminal neuralgia given that her symptoms usually resolve after medications. She states that this pain has been ongoing since . She also reports associated left eye vision blurriness. She states that she has never had her vision impacted with flare-ups in the past. On arrival, blood pressure elevated at 156/103, all other vital signs within normal limits. She was seen here yesterday where she was given Dilaudid, Toradol, and was discharged home with Tegretol. She is neurologically intact, no focal deficits. Will medicate with IV fluids, Tylenol, morphine and Zofran. Will also obtain basic labs, and obtain a CT a given that she did not have any imaging and had blurry vision ongoing since . Plan: Labs, CTA, IV pain meds Course: 1235 - patient re-evaluated, symptoms have improved after receiving IV medications. Labs returned, she has no leukocytosis, chemistry revealing no acute findings. CRP slightly elevated at 1.15, ESR is 7. Will medicate with morphine 2 mg IV push, 2 L of IV fluids. Awaiting CTA. 1355 - patient re-evaluated, feeling better, reporting a 5/10 pain. She refused the morphine that I ordered as she felt as though her pain is much more manageable. Will medicate with Tegretol 100 mg by mouth. We will call over to the pharmacy to see why they will not fill the Tegretol that was already prescribed yesterday. Called over to the pharmacy, they had questions in regards to this, as the quantity was not sufficient, and they were to directions listed. I discussed with attending physician who also sent over this medication yesterday, and adjusted this medication. She will also be given a dose of Tegretol in the department, and IV Toradol. Given strict return precautions, they understand and agree with plan, stable for discharge. Differential Diagnosis Differential Diagnoses: The differential diagnosis associated with the presentation includes Trigeminal neuralgia, migraine, OM, OE Lab Data [facility] Lab Attestation statement: I reviewed the patient's lab results. See [facility] 10/12/24 10:25 10/12/24 10:26 Labs: Lab Results 10/12/24 10/12/24 Range/Units 10:25 10:26 WBC 9.3 (4.8-10.8) X10*3/uL RBC 4.40 (4.20-5.50) X10*6/uL Hgb 12.5 (12.0-16.0) g/dl Hct 38.0 (37.0-47.0) % MCV 86.4 (80.0-98.0) fL MCH 28.4 (27.0-33.0) pg MCHC 32.9 (31.0-35.0) g/dl RDW 14.2 (11.0-16.0) % Plt Count 335 (160-400) X10*3/uL MPV 9.3 L (9.4-12.3) fL Immature Gran % (Auto) 0.3 (0.0-0.4) % Neut % (Auto) 63.3 (45-73) % Lymph % (Auto) 27.0 (20-40) % [place] % (Auto) 7.1 (2-11) % Eos % (Auto) 1.6 (0-4) % Baso % (Auto) 0.7 (0-2) % Lymph # (Auto) 2.5 (1.2-4.9) X10*3/uL [place] # (Auto) 0.7 (0.1-1.2) X10*3/uL Eos # (Auto) 0.2 (0.0-0.4) X10*3/uL Baso # (Auto) 0.1 (0.0-0.2) X10*3/uL Abs Immat Gran (auto) 0.03 (0.00-0.03) X10*3/uL Absolute Neuts (auto) 5.9 (2.0-8.3) x10*3/uL Absolute Nucleated RBC 0.000 (0.0-0.012) X10*3/uL Nucleated RBC % (auto) 0.0 (0.0-0.2) /100WBC ESR 7 (0-20) MM/HR PT 10.6 L (10.9-12.4) SEC INR 0.9 (0.9-1.1) Sodium 137 (135-145) mmol/L Potassium 4.2 (3.3-5.1) mmol/L Chloride 105 (96-108) mmol/L Carbon Dioxide 25 (22-29) mmol/L Anion Gap 11 L (12-20) BUN 15 (9-16) mg/dL Creatinine 0.67 (0.5-1.4) mg/dL Estim Creat Clear Calc 90.7 Estimated GFR > 60 Random Glucose 82 (60-115) mg/dL Calcium 8.6 D (8.4-10.2) mg/dL Total Bilirubin 0.2 (0.0-1.0) mg/dL Direct Bilirubin < 0.2 (0.0-0.5) mg/dL AST 31 (5-31) U/L ALT 34 H (0-31) U/L Alkaline Phosphatase 108 (39-117) U/L C-Reactive Protein 1.15 H (< or = 0.50) mg/dL Total Protein 7.6 (6.5-8.0) g/dL Albumin 4.3 (3.5-5.0) g/dL Radiology Impression Discussion of test interpretation with radiology: I have reviewed the radiologist's reading. Radiologist Impression: FINDINGS: HEAD CT: No intra-axial mass, midline shift, hydrocephalus, or acute hemorrhage. No significant atrophy-like change or white matter disease. The visualized paranasal sinuses and mastoid air cells are normal. The orbits are within normal limits. No calvarial fracture. HEAD AND NECK CTA: Aortic arch and cervical great vessels are patent. Intracranial arteries are patent. No aneurysm, dissection, or occlusion. No abnormal intracranial enhancement. Heterogeneous thyroid gland. No cervical mass or fluid collection. Visualized lung apices are clear. Anterior cervical fusion hardware present along the lower cervical spine. Moderate lower cervical spondylosis. No acute fracture. Mild spondylosis at C6-C7. IMPRESSION: 1. No acute intracranial findings. 2. Patent head and neck CTA. This document has been electronically signed by: Diego Del Valle MD on 10/12/2024 13:19:51 Dictated By: Diego Del Valle MD External Record Review External record reviewed: Inpatient record, Office record, Outpatient record, Prior outpatient labs, Prior outpatient radiology, Primary care record and Outside ED record Discharge Plan Discharge Clinical Impression: Trigeminal neuralgia Patient Disposition: Home, Self-Care Instructions: Trigeminal Neuralgia (ED) Additional Instructions: You were seen in the emergency department due to ongoing trigeminal neuralgia pain. Your workup today was reassuring. You need to follow-up with your neurologist. I recent over the Tegretol to your pharmacy. Take this as prescribed. If any new or worsening symptoms occur including but not limited to worsening pain, chest pain, shortness of breath, please seek emergent care. Prescriptions: New carbamazepine [Tegretol] 200 mg tablet See Rx Instructions .ROUTE .COMPLEX Qty: 9 0RF Rx Instructions: Days 1-3: 1/2 tab (100mg) BID Days 4-6: 1 tab (200mg) BID Days 7-9: 1.5 tabs (300mg) BID No Action carbamazepine [Tegretol] 200 mg tablet 100 mg PO DAILY 8 Days Qty: 6 0RF Rx Instructions: Day 1-3 : take 100mg bid Day 2-5: take 200mg bid Day 5-8: Take 300mg bid oxycodone 5 mg tablet 5 mg PO Q6H PRN (Reason: pain) Qty: 10 0RF Rx Instructions: Partial Fill upon patient request. ondansetron 4 mg tablet,disintegrating 4 mg PO Q8H PRN (Reason: nausea and vomiting) Qty: 4 0RF omeprazole 20 mg Capsule,Delayed Release(Dr/Ec) 20 mg PO DAILY Probiotic 3 billion cell Capsule 3,000 mmu cells PO DAILY Rx Instructions: administer with a meal polyethylene glycol 3350 [Miralax] 17 gram/dose Powder 17 g PO 3XW ibuprofen 200 mg Tablet 800 mg PO DAILY PRN (Reason: Pain) Excedrin Migraine 250-250-65 mg Tablet 2 tab PO Q6H PRN (Reason: Headache) pramipexole 0.25 mg tablet 0.25 mg PO QPM gabapentin 300 mg capsule 300 mg PO TID cyclobenzaprine 10 mg tablet 10 mg PO BEDTIME PRN Print Language: [place]
[2024-10-12 10:33] LABS: MANUAL DIFF FLAG NO
[2024-10-12 10:39] LABS: Hematocrit 38.0 % (37.0-47.0); Hemoglobin 12.5 g/dl (12.0-16.0); Imm Gran Abs Auto 0.03 X10*3/uL (0.00-0.03); Imm Gran Pct Auto 0.3 % (0.0-0.4); Lymphocytes Absolute Auto 2.5 X10*3/uL (1.2-4.9); Mean Corpuscular HGB Conc 32.9 g/dl (31.0-35.0); Mean Corpuscular Hemoglobin 28.4 pg (27.0-33.0); Mean Corpuscular Volume 86.4 fL (80.0-98.0); NRBC Abs Auto 0.000 X10*3/uL (0.0-0.012); NRBC Pct Auto 0.0 /100WBC (0.0-0.2); Platelet Count 335 X10*3/uL (160-400); Red Blood Count 4.40 X10*6/uL (4.20-5.50); White Blood Count 9.3 X10*3/uL (4.8-10.8)
[2024-10-12 10:43] LABS: INTERNATIONAL NORM RATIO 0.9 (0.9-1.1); Prothrombin Time 10.6 SEC (10.9-12.4)
[2024-10-12 10:51] LABS: Alanine Aminotransferase 34 U/L (0-31); Albumin Level 4.3 g/dL (3.5-5.0); Alkaline Phosphatase 108 U/L (39-117); Anion Gap 11 (12-20); Aspartate Amino Transferase 31 U/L (5-31); Blood Urea Nitrogen 15 mg/dL (9-16); Calcium 8.6 mg/dL (8.4-10.2); Carbon Dioxide 25 mmol/L (22-29); Chloride 105 mmol/L (96-108); Creatinine Clr Calc Pharmacy 90.7; Estimated Glomerular Filt Rate > 60; Potassium 4.2 mmol/L (3.3-5.1); Sodium 137 mmol/L (135-145); Total Protein 7.6 g/dL (6.5-8.0)
[2024-10-12 10:55] VITALS: RESP 16
[2024-10-12 11:00] VITALS: BP 118/73; PULSE 73; RESP 16; TEMP 37; O2SAT 97
--- NOTE | 2024-10-12 11:02 | PC.NURSE ---
Patient presents to ED after being seen yesterday for trigeminal neuralgia on left side of face. Pain rated 10/10 non radiating. Patient c/o vision changes in left eye blurriness. Patient went to [facility] and was unable to pickle solution maker prescription as they couldnt fill it. Blood collected/ sent. 20G LAC. Patient awaiting CT scan. VSS and up to date. Plan of care on going
[2024-10-12] MEDS: iohexoL 350 MG/ML 100 ML INFUS..BTL IV (11:48)
--- NOTE | 2024-10-12 13:11 | PC.NURSE ---
patient states she does not want the additional 2mg of morphine
[2024-10-12 13:54] VITALS: BP 124/66; PULSE 67; RESP 16; TEMP 36.4; O2SAT 99
[2024-10-12 14:16] VITALS: BP 124/66; PULSE 67; RESP 16; TEMP 36.4; O2SAT 99
[2024-10-12 15:04] VITALS: BP 124/66; PULSE 67; RESP 16; TEMP 36.4; O2SAT 99
== END 2024-10-12 15:05 | disposition home or self-care (01) ==
PROVIDERS: Physician Assistant Medical; Emergency Provider Emergency Medicine; PCP Internal Medicine
DX: G50.0 Trigeminal neuralgia (principal); H53.8 Other visual disturbances; Z79.899 Other long term (current) drug therapy
CPT/HCPCS: 36415; 70496; 70498; 80048; 80076; 85025; 85610; 85652; 86140; 96361; 96365; 96375; 99284; J0131; J1885; J2270; J2405; Q9967

== ENCOUNTER → 2024-10-12 10:03 | Outpatient (BNV) | payer MEDICAID, SELFPAY | PROVIDERS: Emergency Provider Emergency Medicine; PCP Internal Medicine; Visit Provider Radiology Diagnostic Radiology | DX: G50.0 Trigeminal neuralgia (principal); H53.8 Other visual disturbances | CPT/HCPCS: 70496; 70498 ==

== ENCOUNTER 2024-10-17 10:40 | Outpatient (AMB) | payer MEDICAID, SELFPAY ==
--- OUTSIDE RECORDS SUMMARY | 2024-10-14 09:40 | XMS_ITS ---
Author Organization [facility]annadaphnie Castañeda Address [address] [place] [address] Care Team Providers Care Campaign Worker Name Role Phone Matthew Ely Primary Care Provider REASON FOR VISIT Med on backorder MEDICATIONS Medication SIG (Take, Route, Frequency, Duration) Notes Start Date End Date Status oxyCODONE-Acetaminophen 10-325 MG 1 tablet as needed Orally every 6 hrs partial fill upon request for 5 days 10/14/2024 Active Encounters Encounter Location Date Provider Diagnosis [facility] [address] [place] [address] 10/15/19 Matthew Ely PLAN OF TREATMENT Medication Medication Name Sig Start Date Stop Date Notes oxyCODONE-Acetaminophen 10-3 25 MG 1 tablet as needed Orally every 6 hrs partial fill upon request for 5 days 10/14/2024 Next Appt Details Provider Name:Matthew eller, 10/24/2024 10:15:00 AM, [address] [place] [address], [phone],
--- NOTE | 2024-10-17 10:56 | A.OFFVIS_ITS ---
Intake Visit Reasons: Recent ER visit. Meds Allergies No Known Allergies (No Known Allergies*) Allergy (Verified 10/17/24 11:12) Medication List - Last Reconciled 10/17/24 by Marybel Colon CNP orarily-sqtlbyjohxwou-ddpqwkku 250-250-65 mg (Excedrin Migraine) 2 tabs PO Q6H PRN carbamazepine (Tegretol) 200 mg PO DAILY cyclobenzaprine 10 mg PO BEDTIME PRN ibuprofen 800 mg PO DAILY PRN Held on 11/16/23. Instructions: Resume on 11/17/23. lactobacillus combination no.4 (Probiotic) 3,000 mmu cells PO DAILY omeprazole 20 mg PO DAILY ondansetron 4 mg PO Q8H PRN oxycodone 5 mg PO Q6H PRN polyethylene glycol 3350 (Miralax) 17 grams PO 3XW pramipexole 0.25 mg PO QPM HPI Comments Details: She was seen at [facility] on 10/11/2024 and again on 10/12/2024 for TN flare, which started on 10/10/2024. She was discharged home with carbamazepine and oxycodone, which did not help. She was taking carbamazepine 200mg twice a day since 10/12/2024. No medication side effects. She felt carbamazepine worked better than the gabapentin, but was still having some ongoing pain. TN flares have not lasted this long in the past. She was having some low level, constant lingering pain along left lower jaw with intermittent brief sharp, shooting pains. Sharp, shooting pains to left lower jaw area could be triggered by wind or breeze touching left side of face, brushing teeth, eating/chewing, or washing/touching left side of face. Had TN flare on 06/25/24. No triggers. She first developed left V3 distribution trigeminal neuralgia in 2018 that lasted for hours with repetitive electrical shock-like shooting sensation along the lower jaw lasting 1-2 seconds, multiple episodes of excruciating pain 10/10. She was seen in the ER, had a normal CT scan, and was given Toradol. After that, it went into remission for about 6 months and then occurred again while brushing her teeth in the same distribution, and again lasted a few hours and was treated again with IV Toradol. She was not on any prophylactic medication. For the next 3 years, she would get flares about 1-2x/year. Between 5014-9325, she had 5 episodes, lasting a few hours each time. After episode in 06/2023, she was started on gabapentin 100 mg 3 times a day. She also gets menstrual migraines which she manages well with Excedrin Migraine. If left untreated they're associated with nausea, vomiting, photophobia, and sonophobia. She also reports blurry vision to left eye and some dull pressure behind it. She has trouble sleeping at night because she of constant to sensation of wanting to move her legs and is very restless. She tried naltrexone 1.5 mg at night to help her sleep for about 6 months, but was not sure it helped. RLS symptoms controlled with pramopexole. [facility] Medical History (Updated 10/17/24 @ 11:29 by Marybel Colon CNP) Trigeminal neuralgia Arthritis GERD (gastroesophageal reflux disease) Weakness History of trigeminal neuralgia Complicated migraine Pneumonia Bronchitis Scarlet fever Blood pressure elevated without history of HTN Osteoarthritis ADHD Abnormal CT of the abdomen Chronic constipation Neuralgia Surgical History Hx of laparoscopy History of fine needle aspiration with imaging guidance Hx of tubal ligation History of esophagogastroduodenoscopy (EGD) Hx of colonoscopy Social History Household Members Other:: 2 sons Are you a primary multi care technician to a significant other at home: No Do you presently have visiting nurse or other home services: No Alcohol intake: current Alcohol intake frequency: holidays/special occasions only Patient Tobacco Use Status: Never used Tobacco Current occupational status: employed 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 [employer] Const Denies chills, Denies daytime sleepiness, Reports difficulty sleeping, Denies fatigue, Denies fever(s), Denies frequent falls, Reports headache(s), Denies increased appetite, Denies poor appetite, Denies snoring, Denies weakness, Denies weight gain and Denies weight loss Eyes Denies loss of vision ENT Denies vertigo, Reports dizziness, Reports headache(s) and Reports neck pain Card Denies chest pain at rest, Denies chest pain with activity, Denies syncope, Denies leg edema, Denies palpitations, Denies dyspnea and Denies dyspnea on exertion Resp Denies cough, Denies dyspnea, Denies dyspnea on exertion and Denies snoring GI Denies abdominal pain, Denies constipation, Denies heartburn, Denies diarrhea and Denies nausea Denies urinary frequency, Denies urinary incontinence and Denies urinary urgency Musc Denies abnormal gait, Reports back pain, Reports myalgias, Reports arthralgias, Reports neck pain, Reports numbness and Reports tingling Neuro Denies abnormal gait, Denies vertigo, Reports dizziness, Denies syncope, Denies frequent falls, Reports headache(s), Denies lack of coordination, Denies loss of vision, Denies memory loss, Reports numbness, Denies Other visual disturbances, Denies restless legs, Denies seizure-like activity, Reports tingling, Denies paresthesias, Denies tremor(s) and Denies weakness Psych Denies anxiety, Denies depression, Denies auditory hallucinations, Denies memory loss and Denies visual hallucinations Endo Denies fatigue and Denies palpitations Physical Exam Const Other: General Appearance:? normal, in no acute distress. Heart:? S1, S2 normal, no murmurs. Lungs:? clear anteriorly and posteriorly. Musculoskeletal:? normal. Extremities:? no edema. Psych:? alert, oriented, cognitive function intact, cooperative with exam. Neuro Other: Abnormal Neurological Findings:?none.? Mental Status: alert and oriented X 3. Normal attention, orientation, memory, and affect. Cranial Nerves: Pupils are equal, round, and reactive to light. External ocular muscles are intact. Visual barrow are full, no ptosis. Face is symmetrical, no facial weakness or droop. Facial sensations are normal. Tongue protrudes in midline. Palate elevates symmetrically. Shoulder shrugging is normal Motor Examination: Normal muscle tone, bulk and strength. No atrophy or fasci culations. No drift of the extended upper extremities. DTR 2+. Plantars are flexor. Straight Leg Raisin degrees. Sensory Exam: Normal light touch, temperature, pinprick, vibration, and joint- position sensations. Rhomberg sign is absent. Coordination: No ataxia. No titubation. Ocaodz-br-vlmm, annm-kwng-xnit test, and rapid alternating movements were normal. Gait Exam: Within normal limits. Cerebellar Signs: Trfruq-do-xxji and nidi-iv-vync is normal. No dysdiadocho kinesia. Extrapyramidal System: No tremor, rigidity with normal facial expressions. No bradykinesia. No bradyphrenia. Normal arm swing and posture. No propulsion or retropulsion. Speech: Normal. No dysphasia or dysarthria. Results Reviewed Results Reviewed: Laboratory Tests 10/12/24 10/12/24 10:25 10:26 WBC 9.3 RBC 4.40 Hgb 12.5 Hct 38.0 MCV 86.4 MCH 28.4 MCHC 32.9 RDW 14.2 Plt Count 335 MPV 9.3 L ESR 7 Sodium 137 Potassium 4.2 Chloride 105 Carbon Dioxide 25 Anion Gap 11 L BUN 15 Creatinine 0.67 Estimated GFR > 60 Random Glucose 82 Calcium 8.6 D Total Bilirubin 0.2 Direct Bilirubin < 0.2 AST 31 ALT 34 H Alkaline Phosphatase 108 C-Reactive Protein 1.15 H Total Protein 7.6 Albumin 4.[address] [place] [address] [address] Scan Report Signed Patient: Hortencia Light MR#: [id number] : 1975 Acct:[id number] Age/Sex: 49 / F ADM Date: 10/12/24 Loc: HO.ED Attending Dr: Ordering Physician: Noa Crocker Date of Service: 10/12/24 Procedure(s): CT angio head neck Accession Number(s): [id number] cc: Matthew Ely MD; Noa Crocker~ Report Number: [id number]: Total DLP = 1317.00 mGy-cm CLINICAL HISTORY: trigeminal neuralgia pain, left eye vision changes CT head without contrast. CT angiography head and neck with contrast. 3D Postprocessing. COMPARISON: CT angiogram head and neck dated 03/06/23 at 10:15 EST FINDINGS: HEAD CT: No intra-axial mass, midline shift, hydrocephalus, or acute hemorrhage. No significant atrophy-like change or white matter disease. The visualized paranasal sinuses and mastoid air cells are normal. The orbits are within normal limits. No calvarial fracture. HEAD AND NECK CTA: Aortic arch and cervical great vessels are patent. Intracranial arteries are patent. No aneurysm, dissection, or occlusion. No abnormal intracranial enhancement. Heterogeneous thyroid gland. No cervical mass or fluid collection. Visualized lung apices are clear. Anterior cervical fusion hardware present along the lower cervical spine. Moderate lower cervical spondylosis. No acute fracture. Mild spondylosis at C6-C7. IMPRESSION: 1. No acute intracranial findings. 2. Patent head and neck CTA. This document has been electronically signed by: Diego Del Valle MD on 10/12/2024 13:19:51 ---- Cervical disc disease with mild to moderate cervical stenosis at C5-6 06/12/23 MRI C spine : Mild to moderate C5-C6 spinal stenosis is seen secondary to moderate posterior disc protrusion. 2. Mild bilateral C3-C4, bilateral C4-C5, bilateral C5-C6 neural foraminal stenosis is seen.3. Mild asymmetric right posterior disc protrusion at C3-C4 and C6-C7 causing mild effacement of right lateral recess MRI LS spine : mild degen disc disease. Assessment & Plan Assessment & Plan (1) Trigeminal neuralgia: Code(s): G50.0 - Trigeminal neuralgia Category: Medical Plan: ER records reviewed. Increase carbamazepine 200mg 1 tablet three times a day. MRI brain with and without contrast ordered. (2) Restless leg syndrome: Code(s): G25.81 - Restless legs syndrome Category: Medical Plan: Continue pramipexole 0.5mg 1 tablet at 6pm. (3) Migraine: Code(s): G43.909 - Migraine, unspecified, not intractable, without status migrainosus Category: Medical Qualifiers: Intractability: not intractable Migraine type: unspecified Status migrainosus presence: without status migrainosus Qualified Code(s): G43.909 - Migraine, unspecified, not intractable, without status migrainosus Plan: May continue Excedrin as needed. Orders: Orders MR head/brain wo/w con Today G50.0 - Trigeminal neuralgia Medications: New carbamazepine (Tegretol) 200 mg PO TID 90 tabs 1RF 30 days Coding Level of Care Code Est Pt Level 4 (88299) Diagnoses Trigeminal neuralgia G50.0 Restless leg syndrome G25.81 Migraine without status migrainosus, not intractable, unspecified migraine type G43.909 Intractability: not intractable Migraine type: unspecified Status migrainosus presence: without status migrainosus
--- OUTSIDE RECORDS SUMMARY | 2024-10-17 11:32 | XMS_ITS | Data Portability ---
Author Organization [facility], [address] Address [address] [place] [address] Care Team Providers Care Workforce Consultant Name Role Phone JESE FRANKS Web Software Engineer [phone] Assessment No assessment recorded. Plan of Treatment [...] cyclobenzap rine 10 mg tablet 2022 023 [facility]/Pharmacy #[id number], [address] [place], [address], 3 12:45:49 Medrol (Abelardo) 4 mg tablets in a dose pack 2022 023 [facility]/Pharmacy #[id number], [address] [place], [address], 3 13:17:10 Medrol (Abelardo) 4 mg tablets in a dose pack 2022 023 [id number] [address] [place], [address], 3 13:17:54 Patient TargetsNo targets recorded. Patient Instructions Encounter Date Encounter Id Patient Instructions Last Modified By Organization Details Last Modified Time 08/17/2022 [id number] getting back to normal after low back pain: care instructions [email or web address] Not available 08/17/2022 17:53:29 low back pain education [email or web address] Not available 08/17/2022 17:53:29 Continue the ibuprofen as recommended by the [facility] ER for your pain. Use the valium as prescribed by the [facility] for muscle spasm. Use caution since it may cause some sedation. See printed instructions and work duty note. Return to [facility] 08/23/2022 for re-evaluation. Over the counter topical preparations such as Icy Hot may help with your pain. Seek Emergency Medical evaluation for any worsening symptoms, particularly for bowel or bladder dysfunction or motor weakness of your extremities. [email or web address] Not available 08/17/2022 17:56:07 08/23/2022 [id number] sciatica: care instructions [email or web address] Not available 08/23/2022 13:17:52 sciatica: exercises Not available 08/23/2022 13:18:29 Take the medrol [...] of the extremities, bowel or bladder dysfunction. [email or web address] Not available 08/23/2022 13:21:07 08/30/2022 [id number] sciatica: care instructions [email or web address] Not available 08/30/2022 13:08:50 sciatica: exercises [email or web address] Not available 08/30/2022 13:08:50 sciatica education Not availa ble 08/30/2022 13:08:50 Continue over th e counter ibuprofen as needed. See printed instructions and work duty note. Keep your physical therapy appointment as scheduled for 09/02/2022. [facility]. Seek Emergency Medical evaluation for any worsening symptoms, particularly for weakness of the extremities, persistent numbness or bowel or bladder dysfunction. Not available 08/30/2022 13:11:19 09/07/2022 [id number] sciatica: care instructions [email or web address] Not available 09/07/2022 13:16:04 sciatica: exercises [email or web address] Not available 09/07/2022 13:16:04 sciatica education [email or web address] Not availa ble 09/07/2022 13:16:04 cervical radiculopathy education [email or web address] Not available 09/07/2022 13:17:08 pinched nerve in the neck: care instructions [email or web address] Not available 09/07/2022 13:17:08 Take the medrol as prescribed. Continue with physical therapy for your back - you are making good progress as far as your back injury is concerned. 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 See printed instructions. If your cervical radiculopathy symptoms persist after taking the medrol a referral to a specialist will need to be discussed on your next visit. Return to [facility] 09/13/2022 for re-evaluation. Seek Emergency Medical evaluation for any worsening symptoms, particularly for worsening arm numbness or weakness of the extremities or bowel or bladder dysfunction. [email or web address] Not available 09/07/2022 13:21:23 09/14/2022 [id number] pinched nerve in the neck: care instructions [...] ne ER 100 mg capsule,ext ended release [id number] TAKE 1 CAPSULE BY MOUTH TWICE A DAY FOR 7 DAYS active Not Available Not Available No t Available Valium 08/23 completed Not Available Not Available Not Available Vitals Date Recorded Body height Body mass index (BMI) Body weight Pain severity - 0-10 verbal numeric rating [Score] - Reported Oxygen saturation Oxygen saturation in Arterial blood by Pulse oximetry Heart rate Respiratory rate Body temperature Systolic And Diastolic Provider Name and Address Organization Details Last Updated DateTime 3 160.02 cm 22.5 kg/m2 22003.2 3 g 4 99 % 99 % 82 /min 18 /min 98.2 [degF] 150/97 mm[Hg] Claudette FLYNN - [facility] 3 17:03:32 Date Recorded Body height Body mass index (BMI) Body weight Pain severity - 0-10 verbal numeric rating [Score] - Reported Heart rate Respiratory rate Oxygen saturation Oxygen saturation in Arterial blood by Pulse oximetry Body temperature Systolic And Diastolic Provider Name and Address Organization Details Last Updated DateTime 3 160.02 cm 22.5 kg/m2 27345.2 3 g 4 82 /min 18 /min 98 % 98 % 98.3 [degF] 155/94 mm[Hg] Claudette Mercedes PA - [facility] 3 11:24:00 Date Recorded Body height Body mass index (BMI) Body weight Oxygen saturation Oxygen saturation in Arterial blood by Pulse oximetry Heart rate Respiratory rate Body temperature Systolic And Diastolic Provider Name and Address Organization Details Last Updated DateTime 3 160.02 cm 22.5 kg/m2 04240.2 3 g 99 % 99 % 91 [...] Updated DateTime 3 160.02 cm 23.2 kg/m2 30280.6 g 100 % 100 % 84 /min 19 /min 98.1 [degF] 142/86 mm[Hg] Petrona Olsen [place] - [facility] 3 12:12:56 Date Recorded Body height Pain severity - 0-10 verbal numeric rating [Score] - Reported Respiratory rate Body temperature Heart rate Oxygen saturation Oxygen saturation in Arterial blood by Pulse oximetry Body mass index (BMI) Body weight Systolic And Diastolic Provider Name and Address Organization Details Last Updated DateTime 3 160.02 cm 2 17 /min 97.8 [degF] 94 /min 100 % 100 % 23.9 kg/m2 10211.9 7 g 144/82 mm[Hg] EDBORAH COVARRUBIAS [place] - [facility] 3 12:21:29 Social History [...] use any illicit or recreational drugs? No [email or web address] Information not available 08/17/2022 Do you or have you ever used any other forms of tobacco or nicotine? No Information not available 08/17/2022 What is your level of alcohol consumption? Occasional [email or web address] Information not available 08/17/2022 Mental Status None [...] SNOMED-CT Code Diagnosis ICD10 Code Diagnosis Note [id number] [address] [address] [place] [address] 04/27/2015 09:33:42 04/27/2015 10:23:56 [id number] [address] [place] [address] 05/08/2015 11:11:02 05/08/2015 11:59:32 [id number] [address] [place] [address] 07/02/2015 11:03:57 07/02/2015 11:47:39 [id number] Cathy Frais MD _[address] [facility] [address] [place] [address] 08/17/2022 16:48:57 08/17/2022 18:05:52 Low back strain 870256639 S39.012A [id number] [facility]as [facility] [address] [place] [address] 08/23/2022 10:26:22 08/23/2022 13:24:50 Low back strain 499466244 S39.012A Acute back pain with sciatica 414997758 M54.42 [id number] Cathy [facility] [address] [place] [address] 08/30/2022 12:09:14 08/30/2022 13:16:23 Acute back pain with sciatica 604223587 M54.42 [id number] Cathy Frias MD [facility] [address] [place] [address] 09/07/2022 11:27:16 09/07/2022 13:23:15 Acute back pain with sciatica 377695282 M54.42 Cervical radiculopathy 01302801 M54.12 [id number] Nancy Sanders MD [facility] [address] [place] [address] 09/14/2022 12:01:17 09/14/2022 12:51:06 Cervical radiculopathy 14002395 M54.12 Continue current PTNeeds Specialist evaluation Neck pain since PT and lifting exercises were started. At this time no lifting until seen by Ortho Low back pain 529641655 M54.50 Pain is improved but still incapable of current job requiremen ts Health Concerns Section Related Observation LastModified by Organization Detai ls LastModified Time None Recorded Concern Status LastModified by Organization Details LastModified Time None Recorded Advance Directives Directive None Recorded Payers Insurance Date Sequence Insurance Name Policy Number Policy De Jesus Covered Member ID De Jesus Member ID Guarantor Name 09/14/2022 1 [facility] [id number] Hortencia [employer] [id number] Hortencia [employer] 08/30/2022 [facility] Generic Employer H[employer]encia [employer] Notes Date Note Type Note Provider Name and Address Organization Details Recorded Time 3 text/html Back Pain / InjuryReported by PatientHPIFor quality, patient reportssharpandmuscle spasms. For source of patient information, patient reportsinformation obtained from patientandpatient arrived at urgent care ambulatory. For location, patient reportslower back(radiates to hips.). For duration, patient reports2 days. For context, patient reportswork injuryandlifting. For alleviating factors, patient reportsnsaidsandrest. For previous injury, patient reportsno prior injury to affected body part. For prior imaging, patient reportsnone. For severity, (moderate.). For aggravating factors, (movement.). For associated symptoms, (no numbness or weakness of the extremities. no bowel or bladder dysfunction. no saddle aneshtesia.).46 year old female presenting for evaluation of [...] on the day of injury at the [facility] ER and was prescribed ibuprofen 800mg and valium 2mg. She has been hesitant to take the valium and has been taking over the counter ibuprofen with only minor improvement in her pain. Cathy Frias MD [address] [place] [address], [address], [place] - [facility] 08/19/2022 10:41:12 3 text/html Back Pain / InjuryReported by PatientHPIFor quality, patient reportssharp(aching.). For aggravating factors, patient reportsmovement/positionin g. For source of patient information, patient reportsinformation obtained from patientandpatient arrived at urgent care ambulatory. For duration, patient reports__ days(injured 08/15/2022). For context, patient reportswork injury. For alleviating factors, patient reportsnothing helps. For prior imaging, patient reportsnone. For location, (radiates to left buttock and left lateral thigh.). For associated symptoms, (no fever, chills, numbness or weakness of the extremities, bowel or bladder dysfunction or saddle anesthesia.).46 year old female presenting for re-evaluation of [...] ER. Cathy Frias MD [address] [place], [address], [place] - [facility] 08/23/2022 13:39:56 3 text/html Back Pain / InjuryReported by PatientHPIFor severity, patient reportsinterference with work. For aggravating factors, patient reportsbending over/standing up,movement/positioning, andtwisting. For source of patient information, patient reportsinformation obtained from patientandpatient arrived at urgent care ambulatory. For location, patient reportslower back(left lower back pain radiating to left buttock and lateral thigh.). For context, patient reportswork injury. For alleviating factors, patient reportsnsaids. For quality, (aching. occasional muscle spasm.). For duration, (work injury o08/15/2022.).46 year old female presenting for re-evaluation of [...] with certain movements. Cathy Frias MD [address] [place], [address], [place] - [facility] 08/30/2022 13:23:28 3 text/html NeckReported by PatientHPIFor associated symptoms, patient reportsradiation down armbut reportsno weakness,no swelling,no redness,no warmth,no ecchymosis,no catching/locking,no popping/clicking,no buckling,no grinding,no instability,no fever, andno chills(numbness and tingling lue.). For source of patient information, patient reportsinformation obtained from patient. For location, patient reportsleftandlateral. For quality, patient reportsachingandconstant. For severity, patient reportsmoderate. For duration, patient reportsdate of onset:(2022 at physical therapy.). For timing, patient reportsacute. For alleviating factors, patient reportsnothing helps. For aggravating factors, patient reportsrom. For previous surgery, patient reportsnone. For prior imaging, patient reportsnone. For previous injections, patient reportsnone. For previous pt, patient reportsnone. For context, (lifting dumbell at physical therapy.).47 year old female presenting for re-evaluation of [...] No chest pain or shortness of breath. Back Pain / InjuryReported by PatientHPIFor quality, patient reportsdull. For severity, patient reportspain level 4/10andinterference with work. For aggravating factors, patient reportsbending over/standing up,movement/positioning, andtwisting. For source of patient information, patient reportsinformation obtained from patient. For duration, patient reportsstarted 08/15/22. For context, patient reportswork injury. For alleviating factors, patient reportspt. For prior imaging, patient reportsnone. For location, (radiates to left buttock and left lateral thigh.). For associated symptoms, (no fever. occasional tingling lle. no weakness of legs. no bowel or bladder dysfunction. no saddle anesthesia.). Cathy Frias MD [address] [place] [address] [place], [address], [place] - [facility] 09/07/2022 14:36:45 3 text/html NeckReported by PatientHPIFor associated symptoms, patient reportsradiation down armbut reportsno weakness,no swelling,no redness,no warmth,no ecchymosis,no catching/locking,no popping/clicking,no buckling,no grinding,no instability,no fever, andno chills(numbness and tingling lue.). For source of patient information, patient reportsinformation obtained from patient. For location, patient reportsleftandlateral. For quality, patient reportsachingandconstant. For severity, patient reportsmoderate. For duration, patient reportsdate of onset:(2022 at physical therapy.). For timing, patient reportsacute. For alleviating factors, patient reportsnothing helps. For aggravating factors, patient reportsrom. For previous surgery, patient reportsnone. For prior imaging, patient reportsnone. For previous injections, patient reportsnone. For previous pt, patient reportsnone. For context, (lifting dumbell at physical therapy.).47 year old female presenting for re-evaluation of [...] No chest pain or shortness of breath. Back Pain / InjuryReported by PatientHPIFor quality, patient reportsdull. For severity, patient reportspain level 4/10andinterference with work. For aggravating factors, patient reportsbending over/standing up,movement/positioning, andtwisting. For source of patient information, patient reportsinformation obtained from patient. For duration, patient reportsstarted 08/15/22. For context, patient reportswork injury. For alleviating factors, patient reportspt. For prior imaging, patient reportsnone. For location, (radiates to left buttock and left lateral thigh.). For associated symptoms, (no fever. occasional tingling lle. no weakness of legs. no bowel or bladder dysfunction. no saddle anesthesia.). Nancy Sanders MD [address] [place], [address], [place] - [facility] 09/14/2022 14:13:28 OBGyn Episode No OBEpisode recorded.
--- OUTSIDE RECORDS SUMMARY | 2024-10-17 11:32 | XMS_ITS | Patient Health Record ---
[facility] Organization [facility] Address [address] [place] [id number] Care Team Providers Care Tree Deadener Name Role Phone Matthew Ely Primary Care Provider ALLERGIES No Known Allergies RESULTS Component Value Reference Range Notes Iron and TIBC-267529 Reviewed date:06/03/2024 07:29:28 AM Interpretation: Performing Lab:[facility], [employer] [facility], Phone - [phone], Director - [place] Notes/Report: and Drug Administration. by [employer]. It has not been cleared or approved by the Food was developed and its performance characteristics determined 137623-Lsnethhec Pattern; 000285-Mtsq-iaOVM Ab by Teresa(RDL) Midbody Pattern; 609426-Aisinot Dot Pattern; 485457-BMGK Pattern; Spindle Apparatus Pattern; 191354-Sszzhmw Membrane Pattern; 182324- Speckled Pattern; 641463-Fwjllykfkl Pattern; 216297- Homogeneous Pattern; 021836-Semqhmjxn Pattern; 351371- Test(s) 061440-Uhcs-Uvpnugi Ab by IFA (RDL); 592884- Iron Bind.Cap.(TIBC) 360 250-450 ug/dL UIBC 253 131-425 ug/dL Iron 107 27-159 ug/dL Iron Saturation 30 15-55 % Urinalysis, Complete-811495 Reviewed date:06/03/2024 07:29:28 AM Interpretation: Performing Lab:[facility], [place] [place], [place], Phone - [phone], Director - [place] Notes/Report: and Drug Administration. by [employer]. It has not been cleared or approved by the Advisity was Ornicept and its performance characteristics determined 388680-Mtxanboew Pattern; 425016-Qegn-msYGA Ab by Teresa(RDL) Midbody Pattern; 691206-Rynmhxi Dot Pattern; 568306-KZKL Pattern; Spindle Apparatus Pattern; 397999-Wixvkpm Membrane Pattern; 809317- Speckled Pattern; 481244-Tdjfqgtaiv Pattern; 958531- Homogeneous Pattern; 626532-Jllumwjmc Pattern; 200386- Test(s) 047518-Zyfn-Sopjrkd Ab by IFA (RDL); 854872- Specific [place] TNP Test not performed. Patient was unable to provide a self-collected specimen for the requested testing. The following test(s) were not performed: pH TNP Test not perfor med Urine-Color Appearance WBC Esterase Protein TNP Test not perfor med Glucose TNP Test not perfor med Ketones TNP Test not perfor med Occult Blood Bilirubin Urobilinogen,Semi-Qn Nitrite, Urine Microscopic Examination Microscopic Examination Ferritin-530711 Reviewed date:06/03/2024 07:29:28 AM Interpretation: Performing Lab:[facility], [address] [place] [address], Phone - [phone], Director - [facility] Notes/Report: and Drug Administration. by [employer]. It has not been cleared or approved by the Jinn and its performance characteristics determined 897039-Xalgdyeqb Pattern; 142325-Brph-wkTMU Ab by Teresa(RDL) Midbody Pattern; 305413-Dblkqff Dot Pattern; 905527-VNBJ Pattern; Spindle Apparatus Pattern; 835716-Smobffa Membrane Pattern; 648405- Speckled Pattern; 316683-Wxctrwhbmw Pattern; 366584- Homogeneous Pattern; 486006-Gpfxzwamd Pattern; 853933- Test(s) 553606-Yjug-Bjgctwc Ab by IFA (RDL); 964111- Ferritin 28 15-150 ng/mL Sedimentation Rate-[facility] n-961725 Reviewed date:06/03/2024 07:29:28 AM Interpretation: Performing Lab:[facility], [address] [place] [address], [place], Phone - [phone], Director - [employer] Notes/Report: Test(s) 725283-Mpvn-Yjohfov Ab by IFA (RDL); 294987- Homogeneous Pattern; 884137-Cinzebjbl Pattern; 096971- Speckled Pattern; 810168-Yfodsfqloh Pattern; 301361- Spindle Apparatus Pattern; 900239-Stwxojb Membrane Pattern; 368085- Midbody Pattern; 459706-Ueilitz Dot Pattern; 488942-HEFO Pattern; 003581-Hivuyoteu Pattern; 026646-Ffni-qaEAK Ab by Teresa(RDL) was developed and its performance characteristics determined by [facility]. It has not been cleared or approved by the Food and Drug Administration. Sedimentation Rate-Westergren 7 0-32 mm/hr C-Reactive Protein, Quant-00 6627 Reviewed date:06/03/2024 07:29:28 AM Interpretation: Performing Lab:[facility] [place], [address] [place] [address], [place], Phone - [phone], Director - [facility] Notes/Report: and Drug Administration. by [facility]. It has not been cleared or approved by the Food was developed and its performance characteristics determined 316001-Payiopjtp Pattern; 005273-Fifx-qnQBR Ab by Teresa(RDL) Midbody Pattern; 804643-Zyhpdku Dot Pattern; 125503-HRBN Pattern; Spindle Apparatus Pattern; 209929-Deaqbtt Membrane Pattern; 042510- Speckled Pattern; 870574-Jjvdsvvtkx Pattern; 757624- Homogeneous Pattern; 968572-Idescksrc Pattern; 608802- Test(s) 615829-Wvgj-Njywzme Ab by IFA (RDL); 898122- C-Reactive Protein, Quant 9 0-10 mg/L Request Problem TNP Test not performed. Patient was unable to provide a self-collected specimen for the requested testing. The following test(s) were not performed: TEST: 445400 Urinalysis, Complete Vitamin D, 72-Radocho-296270 Reviewed date:06/03/2024 07:29:28 AM Interpretation: Performing Lab:[facility] [place], [address] [facility], [place], Phone - [phone], Director - [place] Notes/Report: Test(s) 902304-Htzg-Ocdkuos Ab by IFA (RDL); 263847- Homogeneous Pattern; 056241-Bqrhkujtf Pattern; 485540- Speckled Pattern; 678870-Ubzcxdrgyy Pattern; 519789- Spindle Apparatus Pattern; 285223-Bxiuani Membrane Pattern; 023930- Midbody Pattern; 058428-Kfweofw Dot Pattern; 722096-QMAL Pattern; 998302-Nfgjefkxs Pattern; 162179-Gxjn-sfFDE Ab by Teresa(RDL) was developed and its performance characteristics determined by [employer]. It has not been cleared or approved by the Food and Drug Administration. Vitamin D, 25-Hydroxy 30.6 30.0-100.0 ng/mL Vitamin D deficiency has been defined by the [place] [employer] and an Endocrine Society practice guideline as a level of serum 25-OH vitamin D less than 20 ng/mL (1,2). The Endocrine Society went on to further define vitamin D insufficiency as a level between 21 and 29 ng/mL (2). 1. IOM ([place] [employer]). 2010. Dietary reference intakes for calcium and D. [place]: The National Academies Press. 2. Margareth MF, [place], Parth SEGUNDO, et al. Evaluation, treatment, and prevention of vitamin D deficiency: an Endocrine Society clinical practice guideline. JCEM. 2010; 96(7):1911-30. Lyme Disease Serology w/Refl ex-581987 Reviewed date:06/03/2024 07:29:28 AM Interpretation: Performing Lab:[facility], [place], Phone - [phone], Director - [place] Notes/Report: Test(s) 044290-Drrw-Clfieby Ab by IFA (RDL); 346002- Homogeneous Pattern; 505644-Pkhsuobab Pattern; 702887- Speckled Pattern; 302704-Ahjmdncdji Pattern; 970135- Spindle Apparatus Pattern; 343411-Mgawrsg Membrane Pattern; 553193- Midbody Pattern; 926642-Oddjcgb Dot Pattern; 315726-HAYH Pattern; 651405-Ycbvjkgky Pattern; 576556-Ywlj-auZWQ Ab by Teresa(RDL) was developed and its performance characteristics determined by [employer]. It has not been cleared or approved by the Food and Drug Administration. Lyme Total Antibody JASPREET Negative Negative Lyme antibodies not detected. Reflex testing is not indicated. No laboratory evidence of infection with B. burgdorferi (Lyme disease). Negative results may occur in patients recently infected (less than or equal to 14 days) with B. burgdorferi. If recent infection is suspected, repeat testing on a new sample collected in 7 to 14 days is recommended. TSH+Free T4-645100 Reviewed date:06/03/2024 07:29:28 AM Interpretation: Performing Lab:[facility], [address] [place] [address], Phone - [phone], Director - [facility] Notes/Report: Test(s) 154676-Zcsp-Kvwdeet Ab by IFA (RDL); 811656- Homogeneous Pattern; 951305-Eixhwgwyp Pattern; 953285- Speckled Pattern; 249642-Bqxeyutcxa Pattern; 699979- Spindle Apparatus Pattern; 896610-Jbqpdbi Membrane Pattern; 354469- Midbody Pattern; 603562-Qbznfqf Dot Pattern; 554052-XDOF Pattern; 486379-Bmazkquvf Pattern; 364790-Mzxq-opLSH Ab by Teresa(RDL) was developed and its performance characteristics determined by [employer]. It has not been cleared or approved by the Food and Drug Administration. TSH 0.787 0.450-4.500 uIU/mL T4,Free(Direct) 0.93 0.82-1.77 ng/dL ROBERT Profile 12 (RDL)-210328 Reviewed date:06/03/2024 07:29:28 AM Interpretation: Performing Lab:[facility] [place], [address] [place] [address], Phone - [phone], Director - [facility] Notes/Report: Test(s) 020297-Uelv-Gqbmmfk Ab by IFA (RDL); 983715- Homogeneous Pattern; 041267-Mzgeukuky Pattern; 802243- Speckled Pattern; 186154-Vddfaqqcll Pattern; 879856- Spindle Apparatus Pattern; 298584-Agiqufq Membrane Pattern; 095739- Midbody Pattern; 725099-Pkmpndw Dot Pattern; 120527-YJPE Pattern; 973213-Lcmnyxprt Pattern; 659983-Ehrl-qzIKI Ab by Teresa(RDL) was developed and its performance characteristics determined by [employer]. It has not been cleared or approved by the Food and Drug Administration. Test(s) 629618-Kkla-Iebufep Ab by IFA (RDL); 155577- Homogeneous Pattern; 736990-Hlmhpochp Pattern; 284359- Speckled Pattern; 847214-Jorvuictnw Pattern; 842437- Spindle Apparatus Pattern; 834925-Mndceze Membrane Pattern; 325100- Midbody Pattern; 228163-Nmpisxz Dot Pattern; 730744-YNIT Pattern; 559432-Rvqafqufh Pattern; 872645-Egrh-jfBPD Ab by Teresa(RDL) was developed and its performance characteristics determined by [employer]. It has not been cleared or approved by the Food and Drug Administration. Anti-Nuclear Ab by IFA (RDL) Positive Negative Homogeneous Pattern Nucleolar Pattern Speckled Pattern 1:40 <1:40 Centromere Pattern Spindle Apparatus Pattern Nuclear Membrane Pattern Midbody Pattern Nuclear Dot Pattern PCNA Pattern Centriole Pattern Note: ROBERT performed b y Indirect Fluorescent Antibody (IFA) Anti-Centromere Ab by IFA(RDL) <1:40 <1:40 Anti-dsDNA Ab by Teresa(RDL) <8.0 <8.0 IU/mL Anti-Sm Ab (RDL) <20 <20 Units Anti-U1 BANK SECRECY ACT OFFICER Ab (RDL) <20 <20 Units Anti-Ro (SS-A) Ab (RDL) <20 <20 Units Anti-La (SS-B) Ab (RDL) <20 <20 Units Anti-Scl-70 Ab (RDL) <20 <20 Units Anti-Cardiolipin Ab, IgG (RDL) <15 <15 GPL U/mL Anti-Cardiolipin Ab, IgA (RDL) <12 <12 APL U/mL Anti-Cardiolipin Ab, IgM (RDL) <13 <13 MPL U/mL C3 Complement (RDL) 162 90-180 mg/dL Effective April 01, 2024, C3 Complement (RDL) reference interval will be changing to: 90 - 180 mg/dL C4 Complement (RDL) 29 14-44 mg/dL Effective June 10, 2024, 748149 C4 Complement (RDL) reference interval will be changing to: 10 - 40 mg/dL Anti-TPO Ab (RDL) <9.0 <9.0 IU/mL ROBERT 12 Profile Interpretation Interpretation for Anti-Sm, Anti-U1 BANK SECRECY ACT OFFICER, Anti-Ro, Anti-La: Negative: <20 Weak Positive: 20 - 39 Moderate Positive: 40 - 80 Strong Positive: >80 . Interpretation for Anti-Cardiolipin Ab: Negative: GPL <15, APL <12, MPL <13 Indeterminate: GPL 15-20, APL 12-20, MPL 13-20 Low Positive: GPL, APL, MPL >20 - 40 Med Positive: GPL, APL, MPL >40 - 80 High Positive: GPL, APL, MPL >80 . SLE classification criteria are based on Med to High titer (>40) Anti-Cardiolipin Ab (aCL). aCL may be elevated transiently with certain infections and may increase spuriously in the presence of rheumatoid factor. Lipid Panel-508785 Reviewed date:06/03/2024 07:29:28 AM Interpretation: Performing Lab:[facility], [facility], [place], Phone - [phone], Director - [facility] Notes/Report: Test(s) 140151-Bacs-Cyetkib Ab by IFA (RDL); 539361- Homogeneous Pattern; 076105-Zttpopzbm Pattern; 554015- Speckled Pattern; 467783-Uoumfdkser Pattern; 451335- Spindle Apparatus Pattern; 489417-Zrrpvry Membrane Pattern; 280260- Midbody Pattern; 871335-Cmwhctl Dot Pattern; 660875-NJOX Pattern; 337885-Blsnprfkz Pattern; 934965-Gjso-mxBRN Ab by Teresa(RDL) was developed and its performance characteristics determined by [employer]. It has not been cleared or approved by the Food and Drug Administration. Cholesterol, Total 200 100-199 mg/dL Triglycerides 103 0-149 mg/dL HDL Cholesterol 59 >39 mg/dL VLDL Cholesterol Ganesh 18 5-40 mg/dL LDL Chol Calc ([facility]) 123 0-99 mg/dL LDL Calc Comment: Comp. Metabolic Panel (13)-3 19014 Reviewed date:06/03/2024 07:29:28 AM Interpretation: Performing Lab:Jethro [facility]ne[facility], [facility], [place], Phone - [phone], Director - [facility] Notes/Report: Test(s) 619229-Tflp-Zmqpidv Ab by IFA (RDL); 358712- Homogeneous Pattern; 020324-Ylnflkxxk Pattern; 073491- Speckled Pattern; 111697-Snerdxygba Pattern; 080148- Spindle Apparatus Pattern; 611126-Smqfpzg Membrane Pattern; 663284- Midbody Pattern; 048304-Chvxzoz Dot Pattern; 230386-EMQJ Pattern; 572839-Yupcnyqyl Pattern; 254023-Dicn-waKXI Ab by Teresa(RDL) was developed and its performance characteristics determined by [employer]. It has not been cleared or approved by the Food and Drug Administration. Glucose 92 70-99 mg/dL BUN 11 6-24 mg/dL Creatinine 0.85 0.57-1.00 mg/dL eGFR 84 >59 mL/min/1.73 BUN/Creatinine Ratio 13 9-23 Sodium 137 134-144 mmol/L Potassium 4.4 3.5-5.2 mmol/L Chloride 102 96-106 mmol/L Carbon Dioxide, Total 21 20-29 mmol/L Calcium 9.1 8.7-10.2 mg/dL Protein, Total 6.8 6.0-8.5 g/dL Albumin 4.2 3.9-4.9 g/dL Globulin, Total 2.6 1.5-4.5 g/dL Bilirubin, Total 0.3 0.0-1.2 mg/dL Alkaline Phosphatase 113 44-121 IU/L AST (SGOT) 22 0-40 IU/L Vitamin B12 and Folate-66518 0 Reviewed date:06/03/2024 07:29:28 AM Interpretation: Performing Lab:[facility], [address] [place] [address], [place], Phone - [phone], Director - [facility] Notes/Report: Test(s) 609076-Rpul-Cnjphiv Ab by IFA (RDL); 310229- Homogeneous Pattern; 308908-Sxupgjtan Pattern; 698620- Speckled Pattern; 020164-Ddsqefwaji Pattern; 500954- Spindle Apparatus Pattern; 522311-Aaohxuw Membrane Pattern; 255659- Midbody Pattern; 545488-Mlwwafp Dot Pattern; 048202-WDHX Pattern; 992135-Bfsodpvzj Pattern; 384572-Qgvp-tnDKR Ab by Teresa(RDL) was developed and its performance characteristics determined by [employer]. It has not been cleared or approved by the Food and Drug Administration. Vitamin B12 271 762-4000 pg/mL Folate (Folic Acid), Serum 16.8 >3.0 ng/mL A serum folate concentration of less than 3.1 ng/mL is considered to represent clinical deficiency. CBC with Diff, Platelet, NLR -257104 Reviewed date:06/03/2024 07:29:28 AM Interpretation: Performing Lab:[facility], [facility], [place], Phone - [phone], Director - [employer] Notes/Report: Test(s) 895881-Fvtz-Bqkfcta Ab by IFA (RDL); 765036- Homogeneous Pattern; 155328-Zwtoemzve Pattern; 464248- Speckled Pattern; 727204-Okefajuxwl Pattern; 782447- Spindle Apparatus Pattern; 898108-Flonkak Membrane Pattern; 850766- Midbody Pattern; 271665-Huiwubn Dot Pattern; 163215-ESRA Pattern; 494015-Qryxhmyer Pattern; 076758-Kzxf-xlKSD Ab by Teresa(RDRachel) was developed and its performance characteristics determined by [facility]. It has not been cleared or approved by the Food and Drug Administration. WBC 6.7 3.4-10.8 x10E3/uL RBC 4.17 3.77-5.28 x10E6/uL Hemoglobin 13.1 11.1-15.9 g/dL Hematocrit 38.3 34.0-46.6 % MCV 92 79-97 fL MCH 31.4 26.6-33.0 pg MCHC 34.2 31.5-35.7 g/dL RDW 11.9 11.7-15.4 % Platelets 337 150-450 x10E3/uL Neutrophils 67 Not Estab. % Lymphs 23 Not Estab. % Monocytes 7 Not Estab. % Eos 2 Not Estab. % Basos 1 Not Estab. % Immature Cells Neutrophils (Absolute) 4.5 1.4-7.0 x10E3/uL Lymphs (Absolute) 1.5 0.7-3.1 x10E3/uL Neut/Lymph Ratio 3.0 0.0-2.9 ratio Published COVID-19 studies suggest: Low likelihood of severe COVID-19 disease progression 0.0-2.9 High likelihood of severe COVID-19 disease progression >4.9 Monocytes(Absolute) 0.5 0.1-0.9 x10E3/uL Eos (Absolute) 0.1 0.0-0.4 x10E3/uL Baso (Absolute) 0.1 0.0-0.2 x10E3/uL Immature Granulocytes 0 Not Estab. % Immature Grans (Abs) 0.0 0.0-0.1 x10E3/uL NRBC Hematology Comments: MM Digital Mammo Screening Reviewed date:10/18/2023 07:07:51 PM Interpretation: Performing Lab: Notes/Report: PROCEDURE: MM Digital Mammo Screening INDICATION: Screening for breast cancer. No known palpable abnormalities. COMPARISON: None. TECHNIQUE: Full-field digital CC and MLO 3D tomosynthesis images of both breasts were acquired. Computer-aided detection (CAD) was utilized in the interpretation of this study. DENSITY: The breast tissue is extremely dense, which lowers the sensitivity of mammography. FINDINGS: There are 2 adjacent circumscribed masses in the superolateral quadrant of the left breast posteriorly best seen in CC images 27 and 30 and MLO image 22. The more anterior is located at the 2:00 position approximately 9.3 cm from the nipple. It measures approximately 1.4 cm in diameter. The second mass is located slightly more laterally, superiorly, and posteriorly. No other suspicious masses, suspicious microcalcifications, or areas of architectural distortion are seen in either breast to suggest malignancy. IMPRESSION: 2 circumscribed masses in the superolateral quadrant of the left breast posteriorly. Ultrasound examination of the left breast is recommended for further evaluation. We will contact the patient to schedule the additional imaging. No evidence of malignancy in the right breast. RECOMMENDATION: Left breast ultrasound BI-RADS: 0 (Incomplete - Need Additional Imaging Evaluation. Lay letter mailed to patient WSN: [id number] Ordering Physician: Matthew Ely Dictated By: Matthew Andrea MD US Breast Left Limited Reviewed date:10/24/2023 09:26:25 AM Interpretation: Performing Lab: Notes/Report: Left breast ultrasound Patient returns for further evaluation of 2 circumscribed masses in the upper outer breast as seen on screening mammogram 10/18/2023. FINDINGS: Targeted ultrasound to the area of interest is performed initially by the technologist and then repeated again in my presence. At the 1:30 position of the breast, 9 cm from the nipple, is an ovoid well-circumscribed avascular mass with good through transmission of sound and containing numerous low level internal echoes, no nodule or septation within it. This is most likely a cyst with debris. At the 2:00 position of the breast, 7 cm, is a simple cyst measuring 0.5 x 0.5 x 0.5 cm. Also at this same position is a larger ovoid well-circumscribed nearly anechoic, avascular mass with good through transmission, measuring 1.6 x 0.9 x 1.6 cm. These all correspond with the expected size and location on the mammogram. IMPRESSION: The mammographic masses are shown to represent simple and mildly complex cysts with debris on ultrasound. As a precaution, 6 month follow-up ultrasound is recommended. BI-RADS 3 (Probably benign) Lay letter mailed to patient WSN: [id number] Ordering Physician: Matthew Ely Dictated By: Ray Ramos MD US Breast Left Limited Reviewed date:04/23/2024 07:13:56 PM Interpretation: Performing Lab: Notes/Report: PROCEDURE: US Breast Left Limited INDICATION: Six-month follow-up left breast finding. COMPARISON: 10/24/2023, 10/18/2023 TECHNIQUE: Targeted high-resolution ultrasound of the left breast FINDINGS: At 1:30 o'clock 9 cm from the nipple there is a well-circumscribed oval hypoechoic avascular nodule 1 x 0.8 x 0.9 cm. There is internal echo. Through transmission was present. Overall it is unchanged from previous. This is probably benign. At 2:00 7 cm from the nipple there is a stable 4 mm cystic nodule. This is probably benign. Also at 12:00 7 cm from the nipple there is a well-circumscribed 1.7 x 1.6 x 1.3 cm cyst. This is believed benign. IMPRESSION: There are stable cystic nodules at 1:30 o'clock 9 cm from the nipple and 2:00 7 cm from the nipple which are probably benign. Would recommend continued 6 month follow-up ultrasound. I had a discussion with the patient. RECOMMENDATION: Follow-up left breast ultrasound in 6 months BI-RADS: 3 (Probably Benign) Lay letter mailed to the patient (mammogram and ultrasound) WSN: [id number] Ordering Physician: Matthew Ely Dictated By: Ana Cristina Santana MD hCG, Beta Subunit, Qn (Seria l)-[id number] Reviewed date:01/18/2024 07:59:58 AM Interpretation: Performing Lab:[facility], [address] [place] [address], [place], Phone - [phone], Director - [place] Notes/Report: HCG, Beta Chain, Quant, S <1 Female (Non-) 0 - 5 (Postmenopausal) 0 - 8 . Female () Weeks of Gestation 3 6 - 71 4 10 - 750 5 044 - 4724 6 296 - 83553 7 0356 -984420 8 93020 -531825 9 69339 -943826 10 37481 -518184 12 20177 -110932 14 43302 - 77563 15 75238 - 59814 16 8578 - 63500 17 3848 - 13169 18 1060 - 25147 Lucina ECLIA methodology PDF . Urinalysis, Complete-357924 Reviewed date:10/11/2024 07:02:25 AM Interpretation: Performing Lab:[facility], [facility], [place], Phone - [phone], Director - [place] Notes/Report: and Drug Administration. by [facility]. It has not been cleared or approved by the Food was developed and its performance characteristics determined Test(s) 046262-Dwexhea albicans, FREIDA; 248177-Dpmxpny glabrata, FREIDA and Drug Administration. by [facility]. It has not been cleared or approved by the Food was developed and its performance characteristics determined Megasphaera 1 Clinical Information:SRC:UR SRC:CE and Drug Administration. by [facility]. It has not been cleared or approved by the Food was developed and its performance characteristics determined Test(s) 600859-Gmcmmjj albicans, FREIDA; 865714-Slpfehd glabrata, FREIDA and Drug Administration. by [facility]. It has not been cleared or approved by the Food was Ornicept and its performance characteristics determined Megasphaera 1 Clinical Information:SRC:UR SRC:CE Specific [place] 1.012 1.005-1.030 pH 7.0 5.0-7.5 Urine-Color Yellow [...] None seen/Few Yeast Trichomonas Comment Urine Culture, Routine-95516 7 Reviewed date:10/11/2024 07:02:25 AM Interpretation: Performing Lab:[facility] Bent[facility], [facility] [address] [place], [place], Phone - [phone], Director - [facility] Notes/Report: Clinical Information:SRC:UR SRC:CE Megasphaera 1 was developed and its performance characteristics determined by [facility]. It has not been cleared or approved by the Food and Drug Administration. Test(s) 375130-Lrcjdbc albicans, FREIDA; 950870-Qctniej glabrata, FREIDA was developed and its performance characteristics determined by [facility]. It has not been cleared or approved by the Food and Drug Administration. Clinical Information:SRC:UR SRC:CE Megasphaera 1 was developed and its performance characteristics determined by [facility]. It has not been cleared or approved by the Food and Drug Administration. Test(s) 599736-Rzzzkhz albicans, FREIDA; 623584-Ijphiid glabrata, FREIDA was developed and its performance characteristics determined by [facility]. It has not been cleared or approved by the Food and Drug Administration. Urine Culture, Routine Final report Result 1 No [facility] ([facility]G+[facility] 385574 Reviewed date:10/11/2024 07:02:25 AM Interpretation: Performing Lab:Jeth[facility], [address] [place] [address], [place], Phone - [phone], Director - [facility] Notes/Report: Clinical Information:SRC:UR SRC:CE Megasphaera 1 was developed and its performance characteristics determined by [facility]. It has not been cleared or approved by the Food and Drug Administration. Test(s) 921514-Kxykkpe albicans, FREIDA; 564017-Jkwxbrm glabrata, FREIDA was developed and its performance characteristics determined by [facility]. It has not been cleared or approved [...] Neisseria gonorrhoeae, FREIDA Negative Negative REASON FOR REFERRAL No Information MEDICATIONS Medication SIG (Take, Route, Frequency, Duration) Notes Start Date End Date Status Fluconazole 150 MG 1 tablet Orally once a day for 2 days 10/08/2024 Active Sertraline HCl 50 MG TAKE 1 TABLET BY MOUTH EVERY DAY FOR 90 DAYS for 90 Active carBAMazepine 200 MG 1 tablet Orally Twi ce a day for 30 day(s) 10/14/2024 Active Cipro 500 MG 1 tablet Orally ever y 12 hrs for 10 days 10/08/2024 Active HYDROmorphone HCl 4 MG 1-2 tablet as nee ded Orally every 6 hrs partial fill upon request for 5 days 10/14/2024 Active metroNIDAZOLE 500 MG 1 tablet Orally Thr ee times a day for 10 day(s) 10/08/2024 Active Pantoprazole Sodium 40 MG TAKE 1 TABLET BY MOUTH EVERY DAY 1/2 TO 1 HOUR BEFORE MORNING MEAL for 90 Active Pramipexole Dihydrochloride 0.25 MG TAKE 1 TABLET BY MOUTH EVERY DAY AT 6PM Oral Active Naltrexone HCl - as directed Orally Once a day Active Gabapentin 300 MG 1 capsule Orally 3 times a day Not-Taking oxyCODONE-Acetaminophen 10-325 MG 1 tablet as needed Orally every 6 hrs partial fill upon request for 5 days 10/14/2024 Active IMMUNIZATIONS Vaccine Route Administration Date Status Comme nts *Influenza (Fluarix Quad) IM Intramuscular 01/02/2024 Admi nistered SOCIAL HISTORY Tobacco Use: Social History Observation [...] W/U Status Risk SNOMED Code Notes Problem RLS (restless legs syndrome) (G25.81) Active confirmed 03260732 Problem Amenorrhea (N91.2) Active confirmed 143 44547 Problem Cervical radiculopathy (M54.12) Active confirmed Cervical radiculopathy (74804480) Problem Acute diverticulitis (K57.92) Active confirmed 420657228 Problem Generalized anxiety disorder (F41.1) Active confirmed 41747275 Problem Trigeminal neuralgia (G50.0) Active confirmed 61144010 Problem Chronic fatigue (R53.82) Active confirmed 55684779 Problem Current moderate episode of major depressive disorder without prior episode (F32.1) Active confirmed 97199193 Problem Primary osteoarthritis involving multiple joints (M15.9) Active confirmed 574014561 Problem Adult ADHD (F90.9) Active confirmed 444 530634 VITAL SIGNS Heart Rate 80 /min 10/14/2024 Blood pressure diastolic 80 mm Hg 10/14/2024 Height 64 in 10/14/2024 Blood pressure systolic 120 mm Hg 10/14/2024 Weight 147 lbs 10/14/2024 BMI 25.23 kg/m2 10/14/2024 Encounters Encounter Location Date Provider Diagnosis [address] [id number] 11/16/2023 Matthew Ely [address] [address] 12/04/2023 Matthew Ely Adult ADHD F90.9 ; Primary osteoarthritis involving multiple joints M15.9 ; Cervical radiculopathy M54.12 ; Generalized anxiety disorder F41.1 ; Current moderate episode of major depressive disorder without prior episode F32.1 and RLS (restless legs syndrome) G25.81 Matthew Ely Md [address] [place] [id number] 12/06/2023 Matthew Ely [address] [address] 12/26/2023 Matthew Ely Current moderate episode of major depressive disorder without prior episode F32.[address] [address] 01/02/2024 Matthew Ely Generalized anxiety disorder F41.1 ; Current moderate episode of major depressive disorder without prior episode F32.1 ; Adult ADHD F90.9 ; Primary osteoarthritis involving multiple joints M15.9 ; Cervical radiculopathy M54.12 ; RLS (restless legs syndrome) G25.81 ; Encounter for immunization Z23 and Muscle spasm M62.[address] [address] 01/16/2024 Matthew Ely Generalized anxiety disorder F41.1 ; Current moderate episode of major depressive disorder without prior episode F32.1 and Cervical radiculopathy M54.[address] [address] 01/18/2024 Matthew Ely Generalized anxiety disorder F41.1 ; Current moderate episode of major depressive disorder without prior episode F32.1 ; Adult ADHD F90.9 ; Primary osteoarthritis involving multiple joints M15.9 ; Cervical radiculopathy M54.12 ; RLS (restless legs syndrome) G25.81 and Muscle spasm M62.[address] [address] 01/23/2024 Matthew Ely [address] [address] 02/01/2024 Matthew Ely Generalized anxiety disorder F41.1 ; Current moderate episode of major depressive disorder without prior episode F32.1 ; Adult ADHD F90.9 ; Primary osteoarthritis involving multiple joints M15.9 ; Cervical radiculopathy M54.12 ; RLS (restless legs syndrome) G25.81 and Muscle spasm M62.[address] [address] 02/04/2024 Matthew Ely [address] [address] 02/16/2024 Matthew Ely Generalized anxiety disorder F41.1 ; Current moderate episode of major depressive disorder without prior episode F32.1 ; Adult ADHD F90.9 ; Primary osteoarthritis involving multiple joints M15.9 ; Cervical radiculopathy M54.12 ; RLS (restless legs syndrome) G25.81 and Muscle spasm M62.[address] [address] 03/05/2024 Matthew Ely Generalized anxiety disorder F41.1 ; Current moderate episode of major depressive disorder without prior episode F32.1 ; Adult ADHD F90.9 ; Primary osteoarthritis involving multiple joints M15.9 ; Cervical radiculopathy M54.12 ; RLS (restless legs syndrome) G25.81 and Muscle spasm M62.[address] [address] 04/16/2024 Matthew Ely Generalized anxiety disorder F41.1 ; Current moderate episode of major depressive disorder without prior episode F32.1 ; Adult ADHD F90.9 ; Primary osteoarthritis involving multiple joints M15.9 ; Cervical radiculopathy M54.12 and RLS (restless legs syndrome) G25.[address] [address] 05/17/2024 Matthew Ely Generalized anxiety disorder F41.1 ; Current moderate episode of major depressive disorder without prior episode F32.1 ; Adult ADHD F90.9 ; Primary osteoarthritis involving multiple joints M15.9 ; Cervical radiculopathy M54.12 ; RLS (restless legs syndrome) G25.81 and Chronic fatigue R53.[address] [address] 05/20/2024 Matthew henriettadaphnie [address] [address] 06/10/2024 Matthew Ely Current moderate episode of major depressive disorder without prior episode F32.[address] [address] 06/14/2024 Matthew Ely Generalized anxiety disorder F41.1 ; Current moderate episode of major depressive disorder without prior episode F32.1 and RLS (restless legs syndrome) G25.[address] [address] 10/08/2024 Matthew Ely Vaginal discharge N8 9.8 ; Pelvic pain R10.2 and Pelvic inflammatory disease (PID) N73.[address] [address] 10/14/2024 Matthew Joannadaphnie [address] [address] 10/14/2024 Matthew Ely Trigeminal neuralgia G50.[address] [address] 10/14/2024 Matthew Ely ASSESSMENTS Encounter Date Diagnosis Assessment Notes Treatment [...] prescription in lesser amount. [place] PAT verified. 10/08/2024 Pelvic pain (ICD-10 - R10.2) 10/08/2024 Vaginal discharge (ICD-10 - N89.8) 06/10/2024 Current moderate episode of major depressive disorder without prior episode (ICD-10 - F32.1) 06/14/2024 Generalized anxiety disorder (ICD-10 - F41.1) 12/04/2023 Primary osteoarthritis involving multiple joints (ICD-10 - M15.9) 12/04/2023 Adult ADHD (ICD-10 - F90.9) 05/17/2024 Generalized anxiety disorder (ICD-10 - F41.1) 01/02/2024 Generalized anxiety disorder (ICD-10 - F41.1) 01/02/2024 Current moderate episode of major depressive disorder without prior episode (ICD-10 - F32.1) 04/16/2024 Generalized anxiety disorder (ICD-10 - F41.1) 12/26/2023 Current moderate episode of major depressive disorder without prior episode (ICD-10 - F32.1) 03/05/2024 Generalized anxiety disorder (ICD-10 - F41.1) 02/01/2024 Generalized anxiety disorder (ICD-10 - F41.1) 02/16/2024 Generalized anxiety disorder (ICD-10 - F41.1) 01/18/2024 Generalized anxiety disorder (ICD-10 - F41.1) 01/16/2024 Generalized anxiety disorder (ICD-10 - F41.1) 01/16/2024 Current moderate episode of major depressive disorder without prior episode (ICD-10 - F32.1) 10/08/2024 Pelvic inflammatory disease (PID) (ICD-10 - N73.9) 06/14/2024 Current moderate episode of major depressive disorder without prior episode (ICD-10 - F32.1) 06/14/2024 RLS (restless legs syndrome) (ICD-10 - G25.81) 05/17/2024 Adult ADHD (ICD-10 - F90.9) 05/17/2024 Current moderate episode of major depressive disorder without prior episode (ICD-10 - F32.1) 04/16/2024 Adult ADHD (ICD-10 - F90.9) 04/16/2024 Current moderate episode of major depressive disorder without prior episode (ICD-10 - F32.1) 03/05/2024 Adult ADHD (ICD-10 - F90.9) 03/05/2024 Current moderate episode of major depressive disorder without prior episode (ICD-10 - F32.1) 02/16/2024 Current moderate episode of major depressive disorder without prior episode (ICD-10 - F32.1) 01/18/2024 Adult ADHD (ICD-10 - F90.9) 01/18/2024 Current moderate episode of major depressive disorder without prior episode (ICD-10 - F32.1) 01/16/2024 Cervical radiculopathy (ICD-10 - M54.12) 02/01/2024 Adult ADHD (ICD-10 - F90.9) 02/01/2024 Current moderate episode of major depressive disorder without prior episode (ICD-10 - F32.1) 12/04/2023 Cervical radiculopathy (ICD-10 - M54.12) 01/02/2024 Adult ADHD (ICD-10 - F90.9) 01/18/2024 Primary osteoarthritis involving multiple joints (ICD-10 - M15.9) 02/01/2024 Primary osteoarthritis involving multiple joints (ICD-10 - M15.9) 12/04/2023 Generalized anxiety disorder (ICD-10 - F41.1) 02/16/2024 Adult ADHD (ICD-10 - F90.9) 03/05/2024 Primary osteoarthritis involving multiple joints (ICD-10 - M15.9) 05/17/2024 Primary osteoarthritis involving multiple joints (ICD-10 - M15.9) 01/02/2024 Primary osteoarthritis involving multiple joints (ICD-10 - M15.9) 04/16/2024 Primary osteoarthritis involving multiple joints (ICD-10 - M15.9) 01/18/2024 Cervical radiculopathy (ICD-10 - M54.12) 02/16/2024 Primary osteoarthritis involving multiple joints (ICD-10 - M15.9) 12/04/2023 Current moderate episode of major depressive disorder without prior episode (ICD-10 - F32.1) 03/05/2024 Cervical radiculopathy (ICD-10 - M54.12) 02/01/2024 Cervical radiculopathy (ICD-10 - M54.12) 04/16/2024 Cervical radiculopathy (ICD-10 - M54.12) 01/02/2024 Cervical radiculopathy (ICD-10 - M54.12) 05/17/2024 Cervical radiculopathy (ICD-10 - M54.12) 12/04/2023 RLS (restless legs syndrome) (ICD-10 - G25.81) 01/02/2024 RLS (restless legs syndrome) (ICD-10 - G25.81) 05/17/2024 RLS (restless legs syndrome) (ICD-10 - G25.81) 04/16/2024 RLS (restless legs syndrome) (ICD-10 - G25.81) 02/01/2024 RLS (restless legs syndrome) (ICD-10 - G25.81) 03/05/2024 RLS (restless legs syndrome) (ICD-10 - G25.81) 02/16/2024 Cervical radiculopathy (ICD-10 - M54.12) 01/18/2024 RLS (restless legs syndrome) (ICD-10 - G25.81) 01/02/2024 Encounter for immunization (ICD-10 - Z23) 05/17/2024 Chronic fatigue (ICD-10 - R53.82) 03/05/2024 Muscle spasm (ICD-10 - M62.838) 02/01/2024 Muscle spasm (ICD-10 - M62.838) 02/16/2024 RLS (restless legs syndrome) (ICD-10 - G25.81) 01/18/2024 Muscle spasm (ICD-10 - M62.838) 01/02/2024 Muscle spasm (ICD-10 - M62.838) 02/16/2024 Muscle spasm (ICD-10 - M62.838) 12/04/2023 Other This chart has been transcribed by a computerized dictation system. There are likely to be multiple finance attorney inaccuracies despite chart review. 01/02/2024 Other This chart has been transcribed by a computerized dictation system. There are likely to be multiple finance attorney inaccuracies despite chart review. 02/01/2024 Other This chart has been transcribed by a computerized dictation system. There are likely to be multiple finance attorney inaccuracies despite chart review. 02/16/2024 Other This chart has been transcribed by a computerized dictation system. There are likely to be multiple finance attorney inaccuracies despite chart review. 03/05/2024 Other This chart has been transcribed by a computerized dictation system. There are likely to be multiple finance attorney inaccuracies despite chart review. 04/16/2024 Other This chart has been transcribed by a computerized dictation system. There are likely to be multiple finance attorney inaccuracies despite chart review. 05/17/2024 Other This chart has been transcribed by a computerized dictation system. There are likely to be multiple finance attorney inaccuracies despite chart review. 06/14/2024 Other This chart has been transcribed by a computerized dictation system. There are likely to be multiple finance attorney inaccuracies despite chart review. 01/16/2024 Other This chart has been transcribed by a computerized dictation system. There are likely to be multiple finance attorney inaccuracies despite chart review. 10/08/2024 Other This chart has been transcribed by a computerized dictation system. There are likely to be multiple finance attorney inaccuracies despite chart review. 10/14/2024 Other This chart has been transcribed by a computerized dictation system. There are likely to be multiple finance attorney inaccuracies despite chart review. 01/18/2024 Other This chart has been transcribed by a computerized dictation system. There are likely to be multiple finance attorney inaccuracies despite chart review. PLAN OF TREATMENT Pending Test Test Name Order Date MAMMOGRAM, SCREENING 10/09/2023 GUAIAC, SINGLE SPECIMEN 10/09/2023 LIPID PANEL 05/22/2023 Vaginitis/Vaginosis, DNA [id number] Next Appt Details Provider Name:Matthew eller, 10/24/2024 10:15:00 AM, [address] [place], [address], Insurance Providers Payer Name Payer Address Payer Phone Subscriber Number Group Number Insured Name Patient Relationship to Insured Coverage Start Date Coverage End Date [facility] [address] [place] [phone] [id number] Hortencia Light Self - patient is the insured MEDICAL (GENERAL) HISTORY Surgical History Surgery Date(Month/Year) Tubal Ligation 2004 Fibroid Removal 2010 ACDF C5-C6 10/2023 Hospitalization History Reason Date(Month/Year) For Above Procedures
== END 2024-10-17 11:38 | disposition home or self-care (01) ==
LOC: HO.HSM 10:40
PROVIDERS: PCP Internal Medicine; Visit Provider Registered Nurse
DX: G50.0 Trigeminal neuralgia (principal); G25.81 Restless legs syndrome; G43.909 Migraine, unspecified, not intractable, without status migrainosus
CPT/HCPCS: 99214

== ENCOUNTER → 2024-10-17 10:40 | Outpatient (BNVA) | payer MEDICAID, SELFPAY | PROVIDERS: PCP Internal Medicine; Visit Provider Registered Nurse | DX: G50.0 Trigeminal neuralgia (principal); G43.829 Menstrual migraine, not intractable, without status migrainosus; G25.81 Restless legs syndrome | CPT/HCPCS: 99212 ==

== ENCOUNTER 2024-10-29 11:17 | Outpatient (REF) | payer MEDICAID, SELFPAY ==
--- NOTE | ~2024-10-29 | MR_ITS ---
EXAMINATION: MR BRAIN WITHOUT AND WITH CONTRAST CLINICAL INFORMATION: Left Trigeminal neuralgia, migraines. COMPARISON: MR brain 03/06/2023. TECHNIQUE: Multiplanar, multisequence MRI of the brain was obtained before and after the intravenous administration of 6.5 mL Gadavist. Trigeminal protocol was utilized. FINDINGS: There is no diffusion restriction. There is no intracranial hemorrhage, acute infarction, mass effect, or edema. Ventricles, sulci, and cisterns are normal in size and configuration for patient age. No shift of midline. No abnormal hemosiderin deposition is identified. There are a few scattered punctate and minimally confluent foci of white matter T2 hyperintensity in the periventricular, subcortical, and hemispheric deep white matter. They have a frontal lobe predilection. These foci are nonspecific, but statistically most likely relate to small vessel ischemic changes versus migraine associated vasculopathy. The 5th cranial nerves are normal in caliber and signal. No abnormal enhancement. Branches of the bilateral superior cerebellar arteries abut both cisternal segments of both 5th nerves. Meckel's caves have normal CSF signal. Midline structures appear normally formed. The pituitary gland appears normal. Posterior fossa structures appear normal. No posterior fossa white matter signal abnormalities. Cerebellar tonsils are appropriately located. Major flow voids are preserved within the skull base. The globes and orbital contents demonstrate no abnormalities. Paranasal sinuses are clear bilaterally. The mastoids and tympanic cavities are normally aerated. Extracranial soft tissues demonstrate no abnormalities. No suspicious bone marrow changes are evident. Atlantoaxial joint is normal. MR/MR head/brain wo/w con IMPRESSION: 1. No evidence of intracranial hemorrhage, acute infarction, mass effect, edema, or abnormal contrast enhancement. 2. The 5th cranial nerves bilaterally demonstrate normal course and caliber without abnormal enhancement. Meckel's caves are normal in signal. Branches of the superior cerebellar arteries bilaterally do abut the cisternal segments of both 5th nerves. 3. There are mild changes of small vessel ischemia versus migraine associated vasculopathy. Electronically signed by: Shady Reyes MD 10/29/2024 01:20 PM EDT
== END 2024-10-29 11:18 | disposition home or self-care (01) ==
LOC: HO.MRI 11:17
PROVIDERS: Visit Provider Registered Nurse
DX: G50.0 Trigeminal neuralgia (principal)
CPT/HCPCS: 70553; A9585

== ENCOUNTER → 2024-10-29 11:24 | Outpatient (BNV) | payer MEDICAID, SELFPAY | PROVIDERS: Visit Provider Radiology Diagnostic Radiology | DX: G50.0 Trigeminal neuralgia (principal) | CPT/HCPCS: 70553 ==

== ENCOUNTER 2024-11-22 09:45 | Outpatient (AMB) | payer MEDICAID, SELFPAY ==
--- OUTSIDE RECORDS SUMMARY | 2024-10-08 07:30 | XMS_ITS ---
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 It has not been cleared or approved by the Food and Drug Administration. Test(s) 226929-Lkzqmoz albicans, FREIDA; 183279-Bezgjtr glabrata, FREIDA was developed and its performance characteristics determined by [facility]. It has not been cleared or approved by the Food and Drug Administration. Clinical Information:SRC:UR SRC:CE Megasphaera 1 was developed and its performance characteristics determined by [facility]. It has not been cleared or approved by the Food and Drug Administration. Test(s) 914357-Jpjtpfx albicans, FREIDA; 491223-Auhtjpm glabrata, FREIDA was developed and its performance characteristics determined by [facility] [employer]. It has not been cleared or approved by the Food and Drug Administration. Specific [place] 1.012 1.005-1.030 pH 7.0 5.0-7.5 Urine-Color Yellow Yellow Appearance Clear Clear WBC Esterase Negative Negative Protein Negative Negative/Trace Glucose Negative Negative Ketones Negative Negative Occult Blood Negative Negative Bilirubin Negative Negative Urobilinogen,Semi-Qn 0.2 0.2-1.0 mg/dL Nitrite, Urine Negative Negative Microscopic Examination Micr oscopic follows if indicated. Microscopic Examination See below: Micr oscopic was indicated and was performed. WBC None seen 0 - 5 /hpf RBC 0-2 0 - 2 /hpf Epithelial Cells (non renal) 0-10 0 - 10 /hpf Epithelial Cells (renal) Casts None seen None seen /lpf Cast Type Crystals Crystal Type Mucus Threads Bacteria None seen None seen/Few Yeast Trichomonas Comment Urine Culture, Routine-[id number] Reviewed date:10/11/2024 07:02:25 AM Interpretation: Performing Lab:[facility] [place], [address] [place] [address], [place], Phone - [phone], Director - [place] Notes/Report: Clinical Information:SRC:UR SRC:CE Megasphaera 1 was developed and its performance characteristics determined by [facility]. It has not been cleared or approved by the Food and Drug Administration. Test(s) 240959-Fjwobti albicans, FREIDA; 471030-Jjirdic glabrata, FREIDA was developed and its performance characteristics determined by [facility]. It has not been cleared or approved by the Food and Drug Administration. Clinical Information:SRC:UR SRC:CE Megasphaera 1 was developed and its performance characteristics determined by [facility]. It has not been cleared or approved by the Food and Drug Administration. Test(s) 730408-Kwfeyyt albicans, FREIDA; 243512-Mcdadlx glabrata, FREIDA was developed and its performance characteristics determined by [facility]. It has not been cleared or approved by the Food and Drug Administration. Urine Culture, Routine Final report Result 1 No growth NuSwab Vaginitis Plus (VG+)- [id number] Reviewed date:10/11/2024 07:02:25 AM Interpretation: Performing Lab:[facility] [place], [address] [place] [address], [place], Phone - [phone], Director - [place] Notes/Report: Clinical Information:SRC:UR SRC:CE Megasphaera 1 was developed and its performance characteristics determined by [facility]. It has not been cleared or approved by the Food and Drug Administration. Test(s) 642936-Mrvzhmb albicans, FREIDA; 048960-Ggikmhl glabrata, FREIDA was developed and its performance characteristics determined by [facility]. It has not been cleared or approved by the Food and Drug Administration. Atopobium vaginae Low - 0 BVAB 2 Moderate - 1 Megasphaera 1 Low - 0 Calculate total score by adding the 3 individual bacterial vaginosis (BV) marker scores together. Total score is interpreted as follows: Total score 0-1: Indicates the absence of BV. Total score 2: Indeterminate for BV. Additional clinical data should be evaluated to establish a diagnosis. Total score 3-6: Indicates the presence of BV. Tamara albicans, FREIDA Negative Negative Tamara glabrata, FREIDA Negative Negative Trich vag by FREIDA Negative Negative Chlamydia trachomatis, FREIDA Negative Negative Neisseria gonorrhoeae, FREIDA Negative Negative REASON FOR VISIT (IN OFFICE), Sick Visit MEDICATIONS Medication SIG (Take, Route, Frequency, Duration) Notes Start Date End Date Status metroNIDAZOLE 500 MG 1 tablet Orally Thr ee times a day for 10 day(s) 10/08/2024 Active Cipro 500 MG 1 tablet Orally ever y 12 hrs for 10 days 10/08/2024 Active Pantoprazole Sodium 40 MG TAKE 1 TABLET BY MOUTH EVERY DAY 1/2 TO 1 HOUR BEFORE MORNING MEAL for 90 Active Sertraline HCl 50 MG 1 tablet Orally Onc e a day for 90 Days Active Naltrexone HCl - as directed Orally O nce a day Active Pramipexole Dihydrochloride 0.25 MG TAKE 1 TABLET BY MOUTH EVERY DAY AT 6PM Oral Active Fluconazole 150 MG 1 tablet Orally once a day for 2 days 10/08/2024 Active SOCIAL HISTORY Tobacco Use: Social History Observation Description Date Details (start date - stop date) Never Smoker NA - NA Sex Assigned At : Social History Observation Description Sex Assigned At Unknown Tobacco Use/Smoking Question Answer Notes Are you a nonsmoker Alcohol Screen Question Answer Notes Did you have a drink contain ing alcohol in the past year? Yes How often did you have a dri nk containing alcohol in the past year? 2 to 4 times a month (2 points) Points 2 Interpretation Negative VITAL SIGNS Height 64 in 10/08/2024 Weight 143.4 lbs 10/08/2024 BMI 24.61 kg/m2 10/08/2024 Blood pressure systolic 120 mm Hg 10/09/19 25 Blood pressure diastolic 80 mm Hg 025 Heart Rate 76 /min 10/08/2024 Encounters Encounter Location Date Provider Diagnosis [facility], [address] [place] [address] 10/08/2024 Matthew Ely Vaginal discharge N8 9.8 ; Pelvic pain R10.2 and Pelvic inflammatory disease (PID) N73.9 ASSESSMENTS Encounter Date Diagnosis Assessment Notes Treatment Notes Treatment Clinical Notes Section Notes 10/08/2024 Vaginal discharge (ICD-10 - N89.8) 10/08/2024 Pelvic pain (ICD-10 - R10.2) 10/08/2024 Pelvic inflammatory disease (PID) (ICD-10 - N73.9) 10/08/2024 Other This chart has been transcribed by a computerized dictation system. There are likely to be multiple keg inspector inaccuracies despite chart review. PLAN OF TREATMENT Medication Medication Name Sig Start Date Stop Date Notes metroNIDAZOLE 500 MG 1 tablet Orally Thr ee times a day for 10 day(s) 10/08/2024 Cipro 500 MG 1 tablet Orally ever y 12 hrs for 10 days 10/08/2024 Fluconazole 150 MG 1 tablet Orally once a day for 2 days 0 10/08/2024 Treatment Notes Assessment Notes Other This chart has been transcribed by a computerized dictation system. There are likely to be multiple keg inspector inaccuracies despite chart review. Next Appt Details Follow Up: 2 Weeks, Reason: Follow-up [facility] Dr. Ely Provider Name:Matthew eller, 11/26/2024 08:45:00 AM, [address] [place] [address], [phone], Progress Notes * Examination Category Sub-Category Detail Notes Category Not es General Examination GENERAL APPEARANCE: in no ac [place] distress, well developed, well nourished HEAD: normocephalic, atrau matic EYES: pupils equal, round, reactive to light and accommodation THROAT: clear, no erythema, uvula midline, no exudate NECK/THYROID: neck supple, no thyr omegaly, trachea midline, no carotid bruit HEART: no murmurs, regular rate and rhythm, S1, S2 normal LUNGS: clear to auscultatio n bilaterally ABDOMEN: soft, nontender, non distended, no organomegaly , bowel sounds present NEUROLOGIC: alert and oriented x 3, nonfocal SKIN: no suspicious lesion s, warm and dry EXTREMITIES: no clubbing, cyanosi s, or edema PERIPHERAL PULSES: normal, 2+ throughou t MUSCULOSKELETAL: normal, full range o f motion LYMPH NODES: no cervical, axillar y, supraclavicular or inguinal adenopathy PSYCH: cognitive function i ntact, mood/affect full range FEMALE GENITOURINARY: Cervix appears nor mal without erosions, clear discharge from external os, cervical excitation test positive nuclear tubo-ovarian mass ORAL CAVITY: mucosa moist, no les ions, palate normal, tongue in midline, well papillated History and Physical Notes * HPI (History of Present Illness) Category Sub-Category Detail Notes Category Not es Symptom(s) 49-year-old fem linsey patient with history of generalized anxiety disorder, depression, ADHD, cervical radiculopathy, RLS, and chronic osteoarthritis, is here complaining of malodorous vaginal discharge which is grayish in color. Also complains of lower abdominal pain and deep pelvic pain for the past 2 weeks. She tells me that she's not been sexually active for a few months. She denies fever, chills, or other constitutional symptoms. She denies dysuria or frequency of urination. I performed a chaperoned pelvic exam and send vaginal cultures for her. I ordered urinalysis and culture sensitivity. Patient has clinical signs of acute PID. I started the patient on Cipro, metronidazole, and fluconazole. I advised her to increase her fluid intake. Her other chronic conditions are under reasonable control medications.
--- OUTSIDE RECORDS SUMMARY | 2024-10-14 04:29 | XMS_ITS ---
Author Organization [facility] Cast[facility] Address [address] [place] [address] Care Team Providers Care Manager Scientific Name Role Phone Matthew Ely Primary Care Provider REASON FOR VISIT Question Encounters Encounter Location Date Provider Diagnosis [facility] [address] [place] [address] 10/15/19 Matthew Ely PLAN OF TREATMENT Next Appt Details Provider Name:Matthew eller, 11/26/2024 08:45:00 AM, [address] [place], [phone],
--- OUTSIDE RECORDS SUMMARY | 2024-10-14 06:30 | XMS_ITS ---
Author Organization Jhoana Castañeda Address [address] [place] [phone] Care Team Providers Care Tank Setter Name Role Phone Matthew Ely Primary Care Provider ALLERGIES No Known Allergies REASON FOR VISIT (IN OFFICE), Sick Visit MEDICATIONS Medication SIG (Take, Route, Frequency, Duration) Notes Start Date End Date Status Fluconazole 150 MG 1 tablet Orally once a day for 2 days 10/08/2024 Active carBAMazepine 200 MG 1 tablet Orally Twi ce a day for 30 day(s) 10/14/2024 Active HYDROmorphone HCl 4 MG 1-2 tablet as nee ded Orally every 6 hrs partial fill upon request for 5 days 10/14/2024 Active Pramipexole Dihydrochloride 0.25 MG TAKE 1 TABLET BY MOUTH EVERY DAY AT 6PM Oral Active Gabapentin 300 MG 1 capsule Orally 3 times a day Not-Taking Cipro 500 MG 1 tablet Orally ever y 12 hrs for 10 days 10/08/2024 Active metroNIDAZOLE 500 MG 1 tablet Orally Thr ee times a day for 10 day(s) 10/08/2024 Active Sertraline HCl 50 MG 1 tablet Orally Onc e a day for 90 Days Not-Taking Pantoprazole Sodium 40 MG TAKE 1 TABLET BY MOUTH EVERY DAY 1/2 TO 1 HOUR BEFORE MORNING MEAL for 90 Active Naltrexone HCl - as directed Orally Once a day Active SOCIAL HISTORY Tobacco Use: Social History [...] month (2 points) Points 2 Interpretation Negative PROBLEMS Problem Type ICD Code Onset Dates Problem Status W/U Status Risk SNOMED Code Notes Problem Trigeminal neuralgia (G50.0) Active confirmed 99194907 VITAL SIGNS Height 64 in 10/14/2024 Weight 147 lbs 10/14/2024 BMI 25.23 kg/m2 10/14/2024 Blood pressure systolic 120 mm Hg 10/15/19 25 Blood pressure diastolic 80 mm Hg 025 Heart Rate 80 /min 10/14/2024 Encounters Encounter Location Date Provider Diagnosis [facility], [address] [place] [address] 10/14/2024 Matthew Ely Trigeminal neuralgia G50.0 ASSESSMENTS Encounter Date Diagnosis Assessment Notes Treatment Notes Treatment Clinical Notes Section Notes 10/14/2024 Trigeminal neuralgia (ICD-10 - G50.0) In accordance with Chapter 52 - Acts of 2016, '' An Act Relative to Substance Use Treatment, Education and Prevention, the risks associated with opioid and opioid-like substances has been discussed with the patient. The patient clearly understands that the medication is to control chronic pain and to improve quality of life and functionality. Patient uses the medication judiciously as prescribed and displays no aberrant behavior. The patient has been made aware of other non-opioid treatment options including medications and interventional procedures. The patient was given the option to fill the prescription in lesser amount. [place] PAT verified. 10/14/2024 Other This chart has been transcribed by a computerized dictation system. There are likely to be multiple policeman inaccuracies despite chart review. PLAN OF TREATMENT Medication Medication Name Sig Start Date Stop Date Notes carBAMazepine 200 MG 1 tablet Orally Twi ce a day for 30 day(s) 10/14/2024 HYDROmorphone HCl 4 MG 1-2 tablet as nee ded Orally every 6 hrs partial fill upon request for 5 days 10/14/2024 Treatment Notes Assessment Notes Trigeminal neuralgia In accordance with Chapter 52 - Acts of 2016, '' An Act Relative to Substance Use Treatment, Education and Prevention, the risks associated with opioid and opioid-like substances has been discussed with the patient. The patient clearly understands that the medication is to control chronic pain and to improve quality of life and functionality. Patient uses the medication judiciously as prescribed and displays no aberrant behavior. The patient has been made aware of other non-opioid treatment options including medications and interventional procedures. The patient was given the option to fill the prescription in lesser amount. [place] PAT verified. Other This chart has been transcribed by a computerized dictation system. There are likely to be multiple policeman inaccuracies despite chart review. Next Appt Details Follow Up: as scheduled, Marai Alejandra son: Provider Name:Matthew eller, 11/26/2024 08:45:00 AM, [address] [place] [address], [phone], Progress Notes * Examination Category Sub-Category Detail Notes Category Not es General Examination GENERAL APPEARANCE: in no ac [place] distress, well developed, well nourished HEAD: normocephalic, [...] cognitive function i ntact, mood/affect full range ORAL CAVITY: mucosa moist, no les ions, palate normal, tongue in midline, well papillated History and Physical Notes * HPI (History of Present Illness) Category Sub-Category Detail Notes Category Not es Symptom(s) 49-year-old fem linsey patient with history of generalized anxiety disorder, depression, ADHD, cervical radiculopathy, RLS, and chronic osteoarthritis, is here complaining of severe stabbing headache which centers around her left ear. She went to the emergency room and was treated with pain medication and sent home. Today for the first time she tells me that she has been suffering from trigeminal neuralgia for a long time and has been under the care of a neurologist who is on vacation now. She tells me that she was prescribed gabapentin for treatment of trigeminal neuralgia but has not been taking the medication with the past few days. I talked to the patient about various treatment options available. So the patient will Last being 200 mg by mouth twice a day. I extended the patient that she can gradually increase the dose if she remains symptomatic. As for her pain control I sent a prescription for hydromorphone 4 mg 1-2 tablets by mouth 4 times a day when necessary #30. I advised the patient to use narcotic pain medication judiciously and stop as soon as her symptoms improve. Today she tells that she stopped taking sertraline a few days ago because it was causing weight gain. I spent to the patient that once her acute condition is resolved but we'll talk about putting her on a different medication for anxiety and depression.
--- OUTSIDE RECORDS SUMMARY | 2024-10-14 09:40 | XMS_ITS ---
Author Organization [facility]annadaphnie Castañeda Address [address] [place] [address] Care Team Providers Care Product Examiner Name Role Phone Matthew Ely Primary Care Provider [phone] REASON FOR VISIT Med on backorder MEDICATIONS Medication SIG (Take, Route, Frequency, Duration) Notes Start Date End Date Status oxyCODONE-Acetaminophen 10-325 MG 1 tablet as needed Orally every 6 hrs partial fill upon request for 5 days 10/14/2024 Active Encounters Encounter Location Date Provider Diagnosis [facility] Cast[facility] [address] [place] [address] 10/15/19 Matthew Ely PLAN OF TREATMENT Medication Medication Name Sig Start Date Stop Date Notes oxyCODONE-Acetaminophen 10-3 25 MG 1 tablet as needed Orally every 6 hrs partial fill upon request for 5 days 10/14/2024 Next Appt Details Provider Name:Matthew eller, 11/26/2024 08:45:00 AM, [address] [place] [address], [phone],
--- OUTSIDE RECORDS SUMMARY | 2024-10-24 06:15 | XMS_ITS ---
Author Organization [facility] Address [address] [place] [id number] Care Team Providers Care Assisted Living Executive Director Name Role Phone Matthew Ely Primary Care Provider [phone] ALLERGIES No Known Allergies REASON FOR VISIT (IN OFFICE), Follow Up, Sick visit worsening anxiety and depression, Sick visit upper abdominal pain MEDICATIONS Medication SIG (Take, Route, Frequency, Duration) Notes Start Date End Date Status buPROPion HCl ER (SR) 100 MG 1 tablet in the morning Orally Once a day for 30 day(s) 10/24/2024 Active Pantoprazole Sodium 40 MG TAKE 1 TABLET BY MOUTH EVERY DAY 1/2 TO 1 HOUR BEFORE MORNING MEAL for 90 Active Pramipexole Dihydrochloride 0.25 MG TAKE 1 TABLET BY MOUTH EVERY DAY AT 6PM Oral Active carBAMazepine 200 MG [address] ee times a day for 30 day(s) Active SOCIAL HISTORY Tobacco Use: Social History [...] W/U Status Risk SNOMED Code Notes Problem Gastroesophageal reflux disease without esophagitis (K21.9) Active confirmed 278121652 VITAL SIGNS Height 64 in 10/24/2024 Weight 145.2 lbs 10/24/2024 BMI 24.92 kg/m2 10/24/2024 Blood pressure systolic 120 mm Hg 10/25/19 25 Blood pressure diastolic 80 mm Hg 025 Heart Rate 76 /min 10/24/2024 Encounters Encounter Location Date Provider Diagnosis [facility], [address] [place] [address] 10/24/2024 Matthew Ely Trigeminal neuralgia G50.0 ; Epigastric pain R10.13 ; Generalized anxiety disorder F41.1 ; RLS (restless legs syndrome) G25.81 and Gastroesophageal reflux disease without esophagitis K21.9 ASSESSMENTS Encounter Date Diagnosis Assessment Notes Treatment Notes Treatment Clinical Notes Section Notes 10/24/2024 Trigeminal neuralgia (ICD-10 - G50.0) In accordance [...] prescription in lesser amount. [place] PAT verified. 10/24/2024 Epigastric pain (ICD-10 - R10.13) 10/24/2024 Generalized anxiety disorder (ICD-10 - F41.1) 10/24/2024 RLS (restless legs syndrome) (ICD-10 - G25.81) 10/24/2024 Gastroesophageal reflux disease without esophagitis (ICD-10 - K21.9) 10/24/2024 Other This chart has been transcribed by a computerized dictation system. There are likely to be multiple meter reading clerk inaccuracies despite chart review. PLAN OF TREATMENT Medication Medication Name Sig Start Date Stop Date Notes buPROPion HCl ER (SR) 100 MG 1 tablet in the morning Orally Once a day for 30 day(s) 10/24/2024 carBAMazepine 200 MG [address] ee times a day for 30 day(s) Treatment Notes Assessment Notes Trigeminal neuralgia In [...] prescription in lesser amount. [place] PAT verified. Other This chart has been transcribed by a computerized dictation system. There are likely to be multiple meter reading clerk inaccuracies despite chart review. Pending Test Test Name Order Date Ultrasound : Abdomen, upper 10/24/2024 Next Appt Details Follow Up: 4 Weeks, Reason: Follow-up [facility] Dr. Ely Provider Name:Matthew eller, 11/26/2024 08:45:00 AM, [address] [place] [address], [id number], Progress Notes * Examination Category Sub-Category Detail Notes Category Not es General Examination GENERAL APPEARANCE: in no ac washoe distress, well developed, well nourished HEAD: normocephalic, atrau matic EYES: pupils equal, round, reactive to light and accommodation THROAT: clear, no erythema, uvula midline, no exudate NECK/THYROID: neck supple, no thyr omegaly, trachea midline, no carotid bruit HEART: no murmurs, regular rate and rhythm, S1, S2 normal LUNGS: clear to auscultatio n bilaterally ABDOMEN: soft, My tenderness epigastric region without rebound tenderness or rigidity, nondistended, no organomegaly , bowel sounds present NEUROLOGIC: [...] 49-year-old fem linsey patient with history of trigeminal neuralgia, generalized anxiety disorder, depression, ADHD, cervical radiculopathy, RLS, and chronic osteoarthritis, is here for follow-up. Since last visit she has been on carbamazepine 200 MG by mouth twice a day with significant improvement in her trigeminal neuralgia pain. She finally managed to see a physician assistant brand manager working with her neurologist and advised her to increase her dose to 3 times a day. Today she complains of worsening of her anxiety. She stopped taking sertraline which she was taking for a long time because of weight gain. Patient is interested in trying Wellbutrin. She also complains of epigastric pain on and off despite being on pantoprazole. I ordered ultrasound upper abdomen to rule out cholelithiasis.
--- NOTE | 2024-11-22 09:59 | A.OFFVIS_ITS ---
Intake Visit Reasons: after MRI Allergies No Known Allergies (No Known Allergies*) Allergy (Verified 11/22/24 10:08) Medication List - Last Reconciled 11/22/24 by Marybel Colon CNP nohveho-xfkroocqxdlng-uzurqmci 250-250-65 mg (Excedrin Migraine) 2 tabs PO Q6H PRN carbamazepine (Tegretol) 200 mg PO TID 30 days cyclobenzaprine 10 mg PO BEDTIME PRN ibuprofen 800 mg PO DAILY PRN Held on 11/16/23. Instructions: Resume on 11/17/23. lactobacillus combination no.4 (Probiotic) 3,000 mmu cells PO DAILY omeprazole 20 mg PO DAILY ondansetron 4 mg PO Q8H PRN oxycodone 5 mg PO Q6H PRN polyethylene glycol 3350 (Miralax) 17 grams PO 3XW pramipexole 0.5 mg PO QPM HPI Comments Details: Trigeminal neuralgia pain resolved with increased dose of carbamazepine. Taking carbamazepine 200mg three times a day. No TN flares. She had gained some weight since starting medication, about 8 pounds. RLS symptoms were controlled with pramipexole. TN flare started on 10/10/2024, seen at [facility] on 10/11/2024 and 10/12/2024. She was prescribed carbamazepine, which worked better than gabapentin she tried in the past, and oxycodone which did not help. Had low level, constant lingering pain along left lower jaw with intermittent brief sharp, shooting pains that could be triggered by wind or breeze touching side of face, brushing teeth, washing or touching left side of face a week later. TN flares had not lasted as long in the past. Had TN flare on 06/25/24. No triggers. She first developed left V3 distribution trigeminal neuralgia in 2018 that lasted for hours with repetitive electrical shock-like shooting sensation along the lower jaw lasting 1-2 seconds, multiple episodes of excruciating pain 01/03. She was seen in the ER, had a normal CT scan, and was given Toradol. After that, it went into remission for about 6 months and then occurred again while brushing her teeth in the same distribution, and again lasted a few hours and was treated again with IV Toradol. She was not on any prophylactic medication. For the next 3 years, she would get flares about 1-2x/year. Between 5868-2357, she had 5 episodes, lasting a few hours each time. After episode in 06/2023, she was started on gabapentin 100 mg 3 times a day. She also gets menstrual migraines which she manages well with Excedrin Migraine. If left untreated they're associated with nausea, vomiting, photophobia, and sonophobia. She also reports blurry vision to left eye and some dull pressure behind it. She has trouble sleeping at night because she of constant to sensation of wanting to move her legs and is very restless. She tried naltrexone 1.5 mg at night to help her sleep for about 6 months, but was not sure it helped. RLS symptoms controlled with pramopexole. [facility] Medical History (Updated 10/17/24 @ 11:29 by Marybel Colon CNP) Trigeminal neuralgia Arthritis GERD (gastroesophageal reflux disease) Weakness History of trigeminal neuralgia Complicated migraine Pneumonia Bronchitis Scarlet fever Blood pressure elevated without history of HTN Osteoarthritis ADHD Abnormal CT of the abdomen Chronic constipation Neuralgia Surgical History Hx of laparoscopy History of fine needle aspiration with imaging guidance Hx of tubal ligation History of esophagogastroduodenoscopy (EGD) Hx of colonoscopy Social History Household Members Other:: 2 sons Are you a primary customer care specialist to a significant other at home: No Do you presently have visiting nurse or other home services: No Alcohol intake: current Alcohol intake frequency: holidays/special occasions only Patient Tobacco Use Status: Never used Tobacco Current occupational status: employed 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 [employer] Denies chills, Denies daytime sleepiness, Reports difficulty sleeping, Denies fatigue, Denies fever(s), Denies frequent falls, Reports headache(s), Denies increased appetite, Denies poor appetite, Denies snoring, Denies weakness, Denies weight gain and Denies weight loss Eyes Denies loss of vision ENT Denies vertigo, Reports dizziness, Reports headache(s) and Reports neck pain Card Denies chest pain at rest, Denies chest pain with activity, Denies syncope, Denies leg edema, Denies palpitations, Denies dyspnea and Denies dyspnea on exertion Resp Denies cough, Denies dyspnea, Denies dyspnea on exertion and Denies snoring GI Denies abdominal pain, Denies constipation, Denies heartburn, Denies diarrhea and Denies nausea Denies urinary frequency, Denies urinary incontinence and Denies urinary urgency Musc Denies abnormal gait, Reports back pain, Reports myalgias, Reports arthralgias, Reports neck pain, Reports numbness and Reports tingling Neuro Denies abnormal gait, Denies vertigo, Reports dizziness, Denies syncope, Denies frequent falls, Reports headache(s), Denies lack of coordination, Denies loss of vision, Denies memory loss, Reports numbness, Denies Other visual disturbances, Denies restless legs, Denies seizure-like activity, Reports tingling, Denies paresthesias, Denies tremor(s) and Denies weakness Psych Denies anxiety, Denies depression, Denies auditory hallucinations, Denies memory loss and Denies visual hallucinations Endo Denies fatigue and Denies palpitations Physical Exam Const Other: General Appearance:? normal, in no acute distress. Heart:? S1, S2 normal, no murmurs. Lungs:? clear anteriorly and posteriorly. Musculoskeletal:? normal. Extremities:? no edema. Psych:? alert, oriented, cognitive function intact, cooperative with exam. Neuro Other: Abnormal Neurological Findings:?none.? Mental Status: alert and oriented X 3. Normal attention, orientation, memory, and affect. Cranial Nerves: Pupils are equal, round, and reactive to light. External ocular muscles are intact. Visual barrow are full, no ptosis. Face is symmetrical, no facial weakness or droop. Facial sensations are normal. Tongue protrudes in midline. Palate elevates symmetrically. Shoulder shrugging is normal Motor Examination: Normal muscle tone, bulk and strength. No atrophy or fasciculations. No drift of the extended upper extremities. DTR 2+. Plantars are flexor. Straight Leg Raisin degrees. Sensory Exam: Normal light touch, temperature, pinprick, vibration, and joint- position sensations. Rhomberg sign is absent. Coordination: No ataxia. No titubation. Wildfh-ns-izjz, lrtu-fxeh-omig test, and rapid alternating movements were normal. Gait Exam: Within normal limits. Cerebellar Signs: Solijp-ez-pcic and dgbv-js-zlxo is normal. No dysd iadochokinesia. Extrapyramidal System: No tremor, rigidity with normal facial expressions. No bradykinesia. No bradyphrenia. Normal arm swing and posture. No propulsion or retropulsion. Speech: Normal. No dysphasia or dysarthria. Results Reviewed Results Reviewed: [address] [address] Magnetic Resonance Report Signed Patient: Hortencia Light MR#: [id number] : 1975 Acct:[id number] Age/Sex: 49 / F ADM Date: 10/29/24 Loc: HO.MRI Attending Dr: Marybel Colon CNP Ordering Physician: Marybel Colon CNP Date of Service: 10/29/24 Procedure(s): MR head/brain wo/w con Accession Number(s): [id number] cc: Marybel Colon CNP~ EXAMINATION: MR BRAIN WITHOUT AND WITH CONTRAST CLINICAL INFORMATION: Left Trigeminal neuralgia, migraines. COMPARISON: MR brain 03/06/2023. TECHNIQUE: Multiplanar, multisequence MRI of the brain was obtained before and after the intravenous administration of 6.5 mL Gadavist. Trigeminal protocol was utilized. FINDINGS: There is no diffusion restriction. There is no intracranial hemorrhage, acute infarction, mass effect, or edema. Ventricles, sulci, and cisterns are normal in size and configuration for patient age. No shift of midline. No abnormal hemosiderin deposition is identified. There are a few scattered punctate and minimally confluent foci of white matter T2 hyperintensity in the periventricular, subcortical, and hemispheric deep white matter. They have a frontal lobe predilection. These foci are nonspecific, but statistically most likely relate to small vessel ischemic changes versus migraine associated vasculopathy. The 5th cranial nerves are normal in caliber and signal. No abnormal enhancement. Branches of the bilateral superior cerebellar arteries abut both cisternal segments of both 5th nerves. Meckel's caves have normal CSF signal. Midline structures appear normally formed. The pituitary gland appears normal. Posterior fossa structures appear normal. No posterior fossa white matter signal abnormalities. Cerebellar tonsils are appropriately located. Major flow voids are preserved within the skull base. The globes and orbital contents demonstrate no abnormalities. Paranasal sinuses are clear bilaterally. The mastoids and tympanic cavities are normally aerated. Extracranial soft tissues demonstrate no abnormalities. No suspicious bone marrow changes are evident. Atlantoaxial joint is normal. MR/MR head/brain wo/w con IMPRESSION: 1. No evidence of intracranial hemorrhage, acute infarction, mass effect, edema, or abnormal contrast enhancement. 2. The 5th cranial nerves bilaterally demonstrate normal course and caliber without abnormal enhancement. Meckel's caves are normal in signal. Branches of the superior cerebellar arteries bilaterally do abut the cisternal segments of both 5th nerves. 3. There are mild changes of small vessel ischemia versus migraine associated vasculopathy. Electronically signed by: Shady Reyes MD 10/29/2024 01:20 PM EDT RP Assessment & Plan Assessment & Plan (1) Trigeminal neuralgia: Code(s): G50.0 - Trigeminal neuralgia Category: Medical Plan: MRI results reviewed, branches of the bilateral superior cerebellar arteries abut both cisternal segments of both 5th nerves. TN pain controlled with carbamazepine, no recent flares. May decrease carbamazepine 200mg twice a day and 100mg midday x1 week, then carb amazepine 200mg twice a day as tolerated. (2) Restless leg syndrome: Code(s): G25.81 - Restless legs syndrome Category: Medical Plan: Continue pramipexole 0.5mg 1 tablet at 6pm. (3) Migraine: Code(s): G43.909 - Migraine, unspecified, not intractable, without status migrainosus Category: Medical Qualifiers: Intractability: not intractable Migraine type: unspecified Status migrainosus presence: without status migrainosus Qualified Code(s): G43.909 - Migraine, unspecified, not intractable, without status migrainosus Plan: May continue Excedrin as needed. Plan Meds tried: gabapentin Coding Level of Care Code Est Pt Level 4 (72344) Diagnoses Trigeminal neuralgia G50.0 Restless leg syndrome G25.81 Migraine without status migrainosus, not intractable, unspecified migraine type G43.909 Intractability: not intractable Migraine type: unspecified Status migrainosus presence: without status migrainosus
--- OUTSIDE RECORDS SUMMARY | 2024-11-22 10:30 | XMS_ITS | Patient Health Record ---
Author Organization [id number] [facility] Address [address] [facility] [address] [place], [place] [id number] Support Name Relationship Address Phone Hortencia Light Guarantor Unknown Reason For Referral No Information Plan Of Treatment No Information Insurance Providers Payer Name Payer Address Payer Phone Subscriber Number Group Number Insured Name Patient Relationship to Insured Coverage Start Date Coverage End Date [facility] [address] [place] [id number] Hortencia Light Self - patient is the insured 2 2 [facility] [employer] [employer] [address] [employer] [id number] Hortencia Light Self - patient is the insured 2 2 [facility] [address] [place] [id number] [phone] [id number] Hortencia Light Self - patient is the insured 2 2
--- OUTSIDE RECORDS SUMMARY | 2024-11-22 10:30 | XMS_ITS | Patient Health Record ---
[facility] Address [address] [place] [id number] Care Team Providers Care Photographer Assistant Name Role Phone Matthew Ely Primary Care Provider ALLERGIES No Known Allergies RESULTS Component Value Reference Range Notes Iron and TIBC-150580 Reviewed date:06/03/2024 07:29:28 AM Interpretation: Performing Lab:[facility] [facility], [employer] [facility], Phone - [phone], Director - MDJodry Notes/Report: and Drug Administration. by [employer]. It has not been cleared or approved by the Food was developed and its performance characteristics determined 952151-Zxueqttqs Pattern; 506126-Nrtm-mmGJJ Ab by Teresa(RDL) Midbody Pattern; 077434-Tkgpgny Dot Pattern; 356234-NVEZ Pattern; Spindle Apparatus Pattern; 505309-Jnvjmlm Membrane Pattern; 890044- Speckled Pattern; 438048-Vkaiqaqteh Pattern; 672017- Homogeneous Pattern; 944879-Fzejpzdnz Pattern; 895493- Test(s) 802284-Qhpx-Zwgvypp Ab by IFA (RDL); 643087- Iron Bind.Cap.(TIBC) 360 250-450 ug/dL UIBC 253 131-425 ug/dL Iron 107 27-159 ug/dL Iron Saturation 30 15-55 % Urinalysis, Complete-056321 Reviewed date:06/03/2024 07:29:28 AM Interpretation: Performing Lab:[facility], [employer] [place], [place], Phone - [phone], Director - MDJodry Notes/Report: Test(s) 141274-Iuth-Bibcfgu Ab by IFA (RDL); 492666- Homogeneous Pattern; 793460-Ntzyturxv Pattern; 215601- Speckled Pattern; 748576-Fuxtstagiv Pattern; 786302- Spindle Apparatus Pattern; 909185-Iwrcabd Membrane Pattern; 065064- Midbody Pattern; 110117-Eftphqg Dot Pattern; 858851-XHFD Pattern; 593854-Uvbsdkaeq Pattern; 062322-Rkjw-slJSB Ab by Teresa(RDL) was developed and its performance characteristics determined by [facility]. It has not been cleared or approved by the Food and Drug Administration. Specific [place] TNP Test not performed. Patient was unable to provide a self-collected specimen for the requested testing. The following test(s) were not performed: pH TNP Test not perfor med Urine-Color Appearance WBC Esterase Protein TNP Test not perfor med Glucose TNP Test not perfor med Ketones TNP Test not perfor med Occult Blood Bilirubin Urobilinogen,Semi-Qn Nitrite, Urine Microscopic Examination Microscopic Examination Ferritin-200052 Reviewed date:06/03/2024 07:29:28 AM Interpretation: Performing Lab:[facility] [facility], [address] [place] [address], Phone - [phone], Director - [facility] Notes/Report: and Drug Administration. by [employer]. It has not been cleared or approved by the Food was developed and its performance characteristics determined 374571-Xfbdszoyb Pattern; 298238-Rwqd-hkUFY Ab by Teresa(RDL) Midbody Pattern; 907724-Hogynny Dot Pattern; 048761-JXPN Pattern; Spindle Apparatus Pattern; 698906-Lhqhoki Membrane Pattern; 608876- Speckled Pattern; 028674-Trlgdoxink Pattern; 939565- Homogeneous Pattern; 150504-Abmjfgonp Pattern; 517773- Test(s) 931881-Aqvp-Njnnkej Ab by IFA (RDL); 728885- Ferritin 28 15-150 ng/mL Sedimentation Rate-[facility] n-946529 Reviewed date:06/03/2024 07:29:28 AM Interpretation: Performing Lab:[facility] [facility], [address] [place] [address], [place], Phone - [phone], Director - OHJoy Notes/Report: Test(s) 830851-Hnnv-Rcaihdl Ab by IFA (RDL); 439828- Homogeneous Pattern; 711035-Qnmzomlhm Pattern; 651772- Speckled Pattern; 496874-Ifngafnwft Pattern; 104501- Spindle Apparatus Pattern; 809084-Nzibhzt Membrane Pattern; 484347- Midbody Pattern; 474632-Amdbnkd Dot Pattern; 597384-XFEK Pattern; 556597-Iriwikiri Pattern; 976301-Wgft-jzAAG Ab by Teresa(RDL) was developed and its performance characteristics determined by [facility]. It has not been cleared or approved by the Food and Drug Administration. Sedimentation Rate-Westergren 7 0-32 mm/hr C-Reactive Protein, Quant-00 6627 Reviewed date:06/03/2024 07:29:28 AM Interpretation: Performing Lab:[facility] [place], [address] [place] [address], [place], Phone - [phone], Director - [facility] Notes/Report: and Drug Administration. by [facility]. It has not been cleared or approved by the Food was developed and its performance characteristics determined 796807-Lckgbjuil Pattern; 980467-Xtbg-iaAVH Ab by Teresa(RDL) Midbody Pattern; 801378-Ndqgcxv Dot Pattern; 601966-FERX Pattern; Spindle Apparatus Pattern; 084678-Ibwnzce Membrane Pattern; 508083- Speckled Pattern; 080368-Vrkyjbinbw Pattern; 158817- Homogeneous Pattern; 160181-Kkbqeezme Pattern; 004653- Test(s) 525821-Yckk-Bsahtzg Ab by IFA (RDL); 043431- C-Reactive Protein, Quant 9 0-10 mg/L Request Problem TNP Test not performed. Patient was unable to provide a self-collected specimen for the requested testing. The following test(s) were not performed: TEST: 329267 Urinalysis, Complete Vitamin D, 95-Seprynk-438197 Reviewed date:06/03/2024 07:29:28 AM Interpretation: Performing Lab:[facility] [place], [address] [facility], [place], Phone - [phone], Director - OHWhit Notes/Report: Test(s) 117209-Uurs-Weimbnx Ab by IFA (RDL); 159315- Homogeneous Pattern; 052242-Aragsomtj Pattern; 231105- Speckled Pattern; 078313-Wohobepjza Pattern; 378848- Spindle Apparatus Pattern; 474749-Yvylbce Membrane Pattern; 404673- Midbody Pattern; 405007-Sqqptgw Dot Pattern; 461282-KKKY Pattern; 747025-Piwpwjqoq Pattern; 286366-Xilo-bfVNZ Ab by Teresa(RDL) was developed and its performance characteristics determined by [employer]. It has not been cleared or approved by the Food and Drug Administration. Vitamin D, 25-Hydroxy 30.6 30.0-100.0 ng/mL Vitamin D deficiency has been defined by the [place] of [employer] and an Endocrine Society practice guideline as a level of serum 25-OH vitamin D less than 20 ng/mL (1,2). The Endocrine Society went on to further define vitamin D insufficiency as a level between 21 and 29 ng/mL (2). 1. IOM ([place] of [employer]). 2010. Dietary reference intakes for calcium and D. [place]: The National Academies Press. 2. Margareth MF, Hayden [place], Parth SEGUNDO, et al. Evaluation, treatment, and prevention of vitamin D deficiency: an Endocrine Society clinical practice guideline. JCEM. 2010; 96(7):1911-30. Lyme Disease Serology w/Refl ex-793657 Reviewed date:06/03/2024 07:29:28 AM Interpretation: Performing Lab:[facility], [place], Phone - [phone], Director - [employer] Notes/Report: Test(s) 753468-Nezy-Kqxkqwo Ab by IFA (RDL); 807408- Homogeneous Pattern; 103596-Rffhqkjgy Pattern; 806595- Speckled Pattern; 581555-Lcamopufgv Pattern; 882762- Spindle Apparatus Pattern; 928911-Sytxiaj Membrane Pattern; 298513- Midbody Pattern; 674783-Rqnciqa Dot Pattern; 947204-QYLP Pattern; 511002-Cuhvhldml Pattern; 938241-Ezpq-ueLHT Ab by Teresa(RDL) was developed and its performance characteristics determined by [employer]. It has not been cleared or approved [...] 7 to 14 days is recommended. TSH+Free T4-604193 Reviewed date:06/03/2024 07:29:28 AM Interpretation: Performing Lab:[facility], [address] [place] [address], Phone - [phone], Director - [facility] Notes/Report: Test(s) 514705-Tsjr-Dffgaqm Ab by IFA (RDL); 448315- Homogeneous Pattern; 735676-Jznrkqurm Pattern; 703082- Speckled Pattern; 414866-Tskqmptgce Pattern; 615762- Spindle Apparatus Pattern; 023942-Cvounrf Membrane Pattern; 322579- Midbody Pattern; 760500-Empxdzb Dot Pattern; 231404-ECEC Pattern; 999658-Njcxaytnk Pattern; 306027-Eeta-fbJHE Ab by Teresa(RDL) was developed and its performance characteristics determined by [employer]. It has not been cleared or approved by the Food and Drug Administration. TSH 0.787 0.450-4.500 uIU/mL T4,Free(Direct) 0.93 0.82-1.77 ng/dL ROBERT Profile 12 (RDL)-849278 Reviewed date:06/03/2024 07:29:28 AM Interpretation: Performing Lab:[facility] [place], [address] [place] [address], Phone - [phone], Director - [facility] Notes/Report: Test(s) 071384-Hwrx-Equxxhv Ab by IFA (RDL); 491739- Homogeneous Pattern; 496018-Qqhcrpfhb Pattern; 294643- Speckled Pattern; 478606-Xjhmksmtnb Pattern; 033268- Spindle Apparatus Pattern; 150957-Pahblmp Membrane Pattern; 774786- Midbody Pattern; 468484-Sleycbe Dot Pattern; 122008-WOOT Pattern; 616102-Opaserdvw Pattern; 896712-Npxo-wjKYX Ab by Teresa(RDL) was developed and its performance characteristics determined by [employer]. It has not been cleared or approved by the Food and Drug Administration. Test(s) 824544-Ghwq-Clxcdbg Ab by IFA (RDL); 001127- Homogeneous Pattern; 009243-Gqiyuyvnw Pattern; 735741- Speckled Pattern; 860677-Nnucjjwuyx Pattern; 827371- Spindle Apparatus Pattern; 428118-Jmktahx Membrane Pattern; 746738- Midbody Pattern; 206056-Ansxdzq Dot Pattern; 161920-LMQZ Pattern; 765809-Qhszmoyzc Pattern; 005369-Kvux-iaIPD Ab by Teresa(RDL) was developed and its performance characteristics determined by [employer]. It has not been cleared or approved [...] Anti-Sm Ab (RDL) <20 <20 Units Anti-U1 GARLAND MAKER Ab (RDL) <20 <20 Units Anti-Ro (SS-A) [...] 29 14-44 mg/dL Effective June 10, 2024, 253097 C4 Complement (RDL) reference interval will be changing to: 10 - 40 mg/dL Anti-TPO Ab (RDL) <9.0 <9.0 IU/mL ROBERT 12 Profile Interpretation Interpretation for Anti-Sm, Anti-U1 GARLAND MAKER, Anti-Ro, Anti-La: Negative: <20 Weak Positive: 20 [...] in the presence of rheumatoid factor. Lipid Panel-782267 Reviewed date:06/03/2024 07:29:28 AM Interpretation: Performing Lab:[facility], [facility], [place], Phone - [phone], Director - [facility] Notes/Report: Test(s) 998465-Bnin-Edwmwpg Ab by IFA (RDL); 121280- Homogeneous Pattern; 619677-Ktzpqngwg Pattern; 600700- Speckled Pattern; 536309-Iwmppfgkvl Pattern; 576260- Spindle Apparatus Pattern; 289329-Wkgxppe Membrane Pattern; 951152- Midbody Pattern; 918421-Yuctoiy Dot Pattern; 969099-MSJY Pattern; 343974-Idaufwyhl Pattern; 992683-Yqyg-ilLFX Ab by Teresa(RDL) was developed and its performance characteristics determined by [employer]. It has not been cleared or approved by the Food and Drug Administration. Cholesterol, Total 200 100-199 mg/dL Triglycerides 103 0-149 mg/dL HDL Cholesterol 59 >39 mg/dL VLDL Cholesterol Ganehs 18 5-40 mg/dL LDL Chol Calc ([facility]) 123 0-99 mg/dL LDL Calc Comment: Comp. Metabolic Panel (13)-3 37929 Reviewed date:06/03/2024 07:29:28 AM Interpretation: Performing Lab:[facility], [facility], [place], Phone - [phone], Director - [facility] Notes/Report: Test(s) 226635-Uemh-Gzxhrfg Ab by IFA (RDL); 905974- Homogeneous Pattern; 130861-Cudvomkzc Pattern; 645390- Speckled Pattern; 350742-Fxfhzyjlva Pattern; 335268- Spindle Apparatus Pattern; 671027-Rweheyl Membrane Pattern; 164205- Midbody Pattern; 759421-Ktaslgy Dot Pattern; 956051-BKMT Pattern; 485648-Zeqthlapp Pattern; 519088-Umpf-oiAJN Ab by Teresa(RDL) was developed and its performance characteristics determined by [employer]. It has not been cleared or approved [...] (SGOT) 22 0-40 IU/L Vitamin B12 and Folate-88769 0 Reviewed date:06/03/2024 07:29:28 AM Interpretation: Performing Lab:[facility], [address] [place] [address], [place], Phone - [phone], [facility] Notes/Report: Test(s) 221555-Owpw-Odtueqp Ab by IFA (RDL); 717180- Homogeneous Pattern; 903609-Sxyyelkxn Pattern; 832141- Speckled Pattern; 661237-Gtmszrmlxy Pattern; 214336- Spindle Apparatus Pattern; 029601-Yfblcju Membrane Pattern; 877746- Midbody Pattern; 285910-Iuzkcnv Dot Pattern; 888229-PJWP Pattern; 113996-Oznnjynvq Pattern; 584065-Rwje-cgLQW Ab by Teresa(RDL) was developed and its performance characteristics determined by [employer]. It has not been cleared or approved by the Food and Drug Administration. Vitamin B12 605 519-2722 pg/mL Folate (Folic Acid), Serum 16.8 >3.0 ng/mL A serum folate concentration of less than 3.1 ng/mL is considered to represent clinical deficiency. CBC with Diff, Platelet, NLR -516188 Reviewed date:06/03/2024 07:29:28 AM Interpretation: Performing Lab:[facility], [employer] [facility], [place], Phone - [phone], Director - [employer] Notes/Report: Test(s) 373640-Xzxv-Ixdibeq Ab by IFA (RDL); 148681- Homogeneous Pattern; 576738-Pxhbbovlz Pattern; 451206- Speckled Pattern; 109709-Huiuybvvkl Pattern; 726058- Spindle Apparatus Pattern; 442204-Fuejrmf Membrane Pattern; 394000- Midbody Pattern; 522903-Qvckepd Dot Pattern; 833347-LUKP Pattern; 450860-Hucpgitoa Pattern; 879206-Pdnt-zaLHA Ab by Teresa(ELIANA) was developed and its performance characteristics determined [...] (Abs) 0.0 0.0-0.1 x10E3/uL NRBC Hematology Comments: US Breast Left Limited Reviewed date:04/23/2024 07:13:56 [...] to the patient (mammogram and ultrasound) WSN: [id number] Ordering Physician: Matthew Ely Dictated By: Ana Cristina Santana MD US Breast Left Limited Reviewed date:11/12/2024 09:22:58 AM Interpretation: Performing Lab: Notes/Report: Left breast ultrasound Comparison made with previous examinations 04/23/2024 and 10/24/2023. FINDINGS: At the 1:30 position of the breast, 9 cm from the nipple, is again seen an ovoid well-circumscribed, wider than taller avascular mass with scattered internal low level echoes, and mild posterior enhancement of sound. It measures 1.0 x 0.7 x 0.9 cm, similar measurements on the two preceding studies and therefore has proven benign, representing a cyst with debris. At the 2:00 position of the breast, 7 cm from the nipple, is a 0.3 x 0.2 x 0.3 cm hypoechoic, avascular mass, previously having measured 0.5 x 0.5 x 0.5 cm year ago and therefore has also proven benign compatible with a cyst with some debris. At the 2:00 position of the breast, 7 cm nipple, is an ovoid well-circumscribed nearly anechoic, avascular mass with enhancement measuring 1.7 x 1.0 x 1.17, similar measurements on the study a year ago, representing a benign cyst. IMPRESSION: Benign cysts, 2 containing some debris. No further ultrasound follow-up is necessary. Recommend bilateral annual screening mammography. BI-RADS 2 (Benign) Lay letter mailed to patient WSN: [id number] Ordering Physician: Matthew Ely Dictated By: Ray Ramos MD US RUQ Reviewed date:11/18/2024 04:23:41 PM Interpretation: Performing Lab: Notes/Report: US RUQ Reason: R10.13 EPIGASTRIC PAIN; Clinical Question(s): Other: COMPARISON: CT the abdomen and pelvis dated October 27, 2017. FINDINGS: Liver: Diffusely echogenic parenchyma with focal sparing around the gallbladder. No suspicious lesion. Smooth hepatic contour. Main portal vein patent with normal hepatopetal direction of flow. Gallbladder: No gallstones. Normal wall thickness. No pericholecystic fluid. Negative Moore sign. Biliary Tree: No intrahepatic or extrahepatic bile duct dilation is identified. Common duct measures: 0.4 cm. Pancreas: No abnormality in the visualized portions of the pancreas. Right kidney: 9.8 cm in length. Normal parenchymal echotexture and thickness. No hydronephrosis, stone or mass. IMPRESSION: Echogenic liver likely representing hepatic steatosis. WSN: [id number] Ordering Physician: Matthew Ely Dictated By: Santino Christian MD hCG, Beta Subunit, Qn (Seria l)-148343 Reviewed date:01/18/2024 07:59:58 AM Interpretation: Performing Lab:[facility], [employer] [facility], [place], Phone - [phone], Director - [employer] Notes/Report: HCG, Beta Chain, Quant, S <1 Female (Non-) 0 - 5 (Postmenopausal) 0 - 8 . Female () Weeks of Gestation 3 6 - 71 4 10 - 750 5 862 - 5275 6 524 - 67444 7 4424 -598793 8 38251 -518125 9 97390 -554559 10 69024 -540637 12 22779 -668451 14 85002 - 60925 15 19415 - 47002 16 4010 - 30621 17 8621 - 63375 18 4634 - 90103 Lucina ECLIA methodology PDF . Urinalysis, Complete-060764 Reviewed date:10/11/2024 07:02:25 AM Interpretation: Performing Lab:[facility], [address] [place], [place], Phone - [phone], Director - [employer] Notes/Report: and Drug Administration. by [facility]. It has not been cleared or approved by the Food was developed and its performance characteristics determined Test(s) 400380-Badcsxs albicans, FREIDA; 532570-Uftdsyp glabrata, FREIDA and Drug Administration. by [facility]. It has not been cleared or approved by the Food was developed and its performance characteristics determined Megasphaera 1 Clinical Information:SRC:UR SRC:CE and Drug Administration. by [facility]. It has not been cleared or approved by the Food was developed and its performance characteristics determined Test(s) 710058-Eoyklxy albicans, FREIDA; 179507-Brczvzf glabrata, FREIDA and Drug Administration. by [facility]. It has not been cleared or approved by the Food was developed and its performance characteristics determined Megasphaera 1 Clinical Information:SRC:UR SRC:CE Specific [place] 1.012 1.005-1.030 pH 7.0 5.0-7.5 Urine-Color Yellow [...] None seen/Few Yeast Trichomonas Comment Urine Culture, Routine-46431 7 Reviewed date:10/11/2024 07:02:25 AM Interpretation: Performing Lab:[facility], [address] [place] [address], [place], Phone - [phone], Director - [employer] Notes/Report: Clinical Information:SRC:UR SRC:CE Megasphaera 1 was developed and its performance characteristics determined by [facility]. It has not been cleared or approved by the Food and Drug Administration. Test(s) 061591-Eenhgyz albicans, FREIDA; 864959-Ldxgxba glabrata, FREIDA was developed and its performance characteristics determined by [facility]. It has not been cleared or approved by the Food and Drug Administration. Clinical Information:SRC:UR SRC:CE Megasphaera 1 was developed and its performance characteristics determined by [facility]. It has not been cleared or approved by the Food and Drug Administration. Test(s) 123551-Buzuiun albicans, FREIDA; 219918-Wdvrtfj glabrata, FREIDA was developed and its performance characteristics determined by [employer]. It has not been cleared or approved by the Food and Drug Administration. Urine Culture, Routine Final report Result 1 No growth [facility] Vaginitis Plus (VG+)- 638275 Reviewed date:10/11/2024 07:02:25 AM Interpretation: Performing Lab:[facility], [address], [place], Phone - [phone], Director - [employer] Notes/Report: Clinical Information:SRC:UR SRC:CE Megasphaera 1 was developed and its performance characteristics determined by [facility]. It has not been cleared or approved by the Food and Drug Administration. Test(s) 757270-Fjneffk albicans, FREIDA; 878868-Lgtkxhz glabrata, FREIDA was developed and its performance characteristics determined by [facility]. It has not been cleared or approved [...] AT 6PM Oral Active carBAMazepine 200 MG TAKE 1 TABLET BY [facility] TWICE A DAY FOR 30 DAYS for 30 Active IMMUNIZATIONS Vaccine Route Administration Date Status [...] RLS (restless legs syndrome) (G25.81) Active confirmed 74546535 Problem Amenorrhea (N91.2) Active confirmed 143 63631 Problem Cervical radiculopathy (M54.12) Active confirmed Problem Acute diverticulitis (K57.92) Active confirmed 815100097 Problem Generalized anxiety disorder (F41.1) Active confirmed 70937457 Problem Trigeminal neuralgia (G50.0) Active confirmed 92869057 Problem Chronic fatigue (R53.82) Active confirmed 82688910 Problem Gastroesophageal reflux disease without esophagitis (K21.9) Active confirmed 760412720 Problem Current moderate episode of major depressive disorder without prior episode (F32.1) Active confirmed 45742843 Problem Primary osteoarthritis involving multiple joints (M15.9) Active confirmed 018481251 Problem Adult ADHD (F90.9) Active confirmed 444 968763 VITAL SIGNS Heart Rate 76 /min 10/24/2024 Blood pressure diastolic 80 mm Hg 10/24/2024 Height 64 in 10/24/2024 Blood pressure systolic 120 mm Hg 10/24/2024 Weight 145.2 lbs 10/24/2024 BMI 24.92 kg/m2 10/24/2024 Encounters Encounter Location Date Provider Diagnosis Jhoana Castañeda [address] [place] [address] 12/04/2023 Matthew Ely Adult ADHD F90.9 ; Primary osteoarthritis involving multiple joints M15.9 ; Cervical radiculopathy M54.12 ; Generalized anxiety disorder F41.1 ; Current moderate episode of major depressive disorder without prior episode F32.1 and RLS (restless legs syndrome) G25.81 Matthew Ely Md [address] [place], [place] [id number] 12/06/2023 Matthew Castañeda [address] [place] [address] 12/26/2023 Matthew Ely Current moderate epi sode of major depressive disorder without prior episode F32.[address] [address] 01/02/2024 Matthew Ely Generalized anxiety disorder F41.1 ; Current moderate episode of major depressive disorder without prior episode F32.1 ; Adult ADHD F90.9 ; Primary osteoarthritis involving multiple joints M15.9 ; Cervical radiculopathy M54.12 ; RLS (restless legs syndrome) G25.81 ; Encounter for immunization Z23 and Muscle spasm M62.[address] [address] 01/16/2024 Matthew Ely Generalized anxiety disorder F41.1 ; Current moderate episode of major depressive disorder without prior episode F32.1 and Cervical radiculopathy M54.[address] [address] 01/18/2024 Matthew Ely Generalized anxiety disorder F41.1 ; Current moderate episode of major depressive disorder without prior episode F32.1 ; Adult ADHD F90.9 ; Primary osteoarthritis involving multiple joints M15.9 ; Cervical radiculopathy M54.12 ; RLS (restless legs syndrome) G25.81 and Muscle spasm M62.[address] [address] 01/23/2024 Matthew Ely [address] [address] 02/01/2024 Matthew Ely Generalized anxiety disorder F41.1 ; Current moderate episode of major depressive disorder without prior episode F32.1 ; Adult ADHD F90.9 ; Primary osteoarthritis involving multiple joints M15.9 ; Cervical radiculopathy M54.12 ; RLS (restless legs syndrome) G25.81 and Muscle spasm M62.[address] [address] 02/04/2024 Matthew Ely [address] [address] 02/16/2024 Matthew Ely Generalized anxiety disorder F41.1 ; Current moderate episode of major depressive disorder without prior episode F32.1 ; Adult ADHD F90.9 ; Primary osteoarthritis involving multiple joints M15.9 ; Cervical radiculopathy M54.12 ; RLS (restless legs syndrome) G25.81 and Muscle spasm M62.[address] [address] 03/05/2024 Matthew Ely Generalized anxiety disorder F41.1 ; Current moderate episode of major depressive disorder without prior episode F32.1 ; Adult ADHD F90.9 ; Primary osteoarthritis involving multiple joints M15.9 ; Cervical radiculopathy M54.12 ; RLS (restless legs syndrome) G25.81 and Muscle spasm M62.[address] [address] 04/16/2024 Matthew Ely Generalized anxiety disorder F41.1 ; Current moderate episode of major depressive disorder without prior episode F32.1 ; Adult ADHD F90.9 ; Primary osteoarthritis involving multiple joints M15.9 ; Cervical radiculopathy M54.12 and RLS (restless legs syndrome) G25.[address] [address] 05/17/2024 Matthew Ely Generalized anxiety disorder F41.1 ; Current moderate episode of major depressive disorder without prior episode F32.1 ; Adult ADHD F90.9 ; Primary osteoarthritis involving multiple joints M15.9 ; Cervical radiculopathy M54.12 ; RLS (restless legs syndrome) G25.81 and Chronic fatigue R53.[address] [address] 05/20/2024 Matthew Ely [address] [address] 06/10/2024 Matthew Ely Current moderate epi sode of major depressive disorder without prior episode F32.[address] [address] 06/14/2024 Matthew Ely Generalized anxiety disorder F41.1 ; Current moderate episode of major depressive disorder without prior episode F32.1 and RLS (restless legs syndrome) G25.[address] [address] 10/08/2024 Matthew Ely Vaginal discharge N8 9.8 ; Pelvic pain R10.2 and Pelvic inflammatory disease (PID) N73.9 [facility] [place] [address] [place] [address] 10/14/2024 Matthew [facility] [place] [address] [place] [address] 10/14/2024 Matthew Jhoana Trigeminal neuralgia G50.[address] [address] 10/14/2024 Matthew [facility], [address] [place] [address] 10/24/2024 Matthew [facility] Trigeminal neuralgia G50.0 ; Epigastric pain R10.13 ; Generalized anxiety disorder F41.1 ; RLS (restless legs syndrome) G25.81 and Gastroesophageal reflux disease without esophagitis K21.9 ASSESSMENTS Encounter Date Diagnosis Assessment Notes Treatment Notes Treatment Clinical Notes Section Notes 06/10/2024 Current moderate episode of major depressive disorder without prior episode (ICD-10 - F32.1) 12/04/2023 Primary osteoarthritis involving multiple joints (ICD-10 - M15.9) 12/04/2023 Adult ADHD (ICD-10 - F90.9) 12/26/2023 Current moderate episode of major depressive disorder without prior episode (ICD-10 - F32.1) 02/16/2024 Generalized anxiety disorder (ICD-10 - F41.1) 01/02/2024 Current moderate episode of major depressive disorder without prior episode (ICD-10 - F32.1) 01/02/2024 Generalized anxiety disorder (ICD-10 - F41.1) 01/16/2024 Current moderate episode of major depressive disorder without prior episode (ICD-10 - F32.1) 01/16/2024 Generalized anxiety disorder (ICD-10 - F41.1) 03/05/2024 Generalized anxiety disorder (ICD-10 - F41.1) 01/18/2024 Generalized anxiety disorder (ICD-10 - F41.1) 02/01/2024 Generalized anxiety disorder (ICD-10 - F41.1) 04/16/2024 Generalized anxiety disorder (ICD-10 - F41.1) 06/14/2024 Generalized anxiety disorder (ICD-10 - F41.1) 10/14/2024 Trigeminal neuralgia (ICD-10 - G50.0) In [...] to fill the prescription in lesser amount. [place] PAT verified. 10/24/2024 Trigeminal neuralgia (ICD-10 - G50.0) In [...] to fill the prescription in lesser amount. [place] PAT verified. 05/17/2024 Generalized anxiety disorder (ICD-10 - F41.1) 10/24/2024 Epigastric pain (ICD-10 - R10.13) 10/08/2024 Pelvic pain (ICD-10 - R10.2) 10/08/2024 Vaginal discharge (ICD-10 - N89.8) 01/02/2024 Adult ADHD (ICD-10 - F90.9) 01/16/2024 Cervical radiculopathy (ICD-10 - M54.12) 01/18/2024 Adult ADHD (ICD-10 - F90.9) 01/18/2024 Current moderate episode of major depressive disorder without prior episode (ICD-10 - F32.1) 02/01/2024 Adult ADHD (ICD-10 - F90.9) 02/01/2024 Current moderate episode of major depressive disorder without prior episode (ICD-10 - F32.1) 06/14/2024 Current moderate episode of major depressive disorder without prior episode (ICD-10 - F32.1) 06/14/2024 RLS (restless legs syndrome) (ICD-10 - G25.81) 10/24/2024 Generalized anxiety disorder (ICD-10 - F41.1) 10/08/2024 Pelvic inflammatory disease (PID) (ICD-10 - N73.9) 12/04/2023 Cervical radiculopathy (ICD-10 - M54.12) 02/16/2024 Current moderate episode of major depressive disorder without prior episode (ICD-10 - F32.1) 03/05/2024 Current moderate episode of major depressive disorder without prior episode (ICD-10 - F32.1) 03/05/2024 Adult ADHD (ICD-10 - F90.9) 04/16/2024 Current moderate episode of major depressive disorder without prior episode (ICD-10 - F32.1) 04/16/2024 Adult ADHD (ICD-10 - F90.9) 05/17/2024 Current moderate episode of major depressive disorder without prior episode (ICD-10 - F32.1) 05/17/2024 Adult ADHD (ICD-10 - F90.9) 04/16/2024 Primary osteoarthritis involving multiple joints (ICD-10 - M15.9) 02/01/2024 Primary osteoarthritis involving multiple joints (ICD-10 - M15.9) 03/05/2024 Primary osteoarthritis involving multiple joints (ICD-10 - M15.9) 01/18/2024 Primary osteoarthritis involving multiple joints (ICD-10 - M15.9) 02/16/2024 Adult ADHD (ICD-10 - F90.9) 10/24/2024 RLS (restless legs syndrome) (ICD-10 - G25.81) 01/02/2024 Primary osteoarthritis involving multiple joints (ICD-10 - M15.9) 12/04/2023 Generalized anxiety disorder (ICD-10 - F41.1) 05/17/2024 Primary osteoarthritis involving multiple joints (ICD-10 - M15.9) 10/24/2024 Gastroesophageal reflux disease without esophagitis (ICD-10 - K21.9) 05/17/2024 Cervical radiculopathy (ICD-10 - M54.12) 02/01/2024 Cervical radiculopathy (ICD-10 - M54.12) 04/16/2024 Cervical radiculopathy (ICD-10 - M54.12) 01/18/2024 Cervical radiculopathy (ICD-10 - M54.12) 03/05/2024 Cervical radiculopathy (ICD-10 - M54.12) 01/02/2024 Cervical radiculopathy (ICD-10 - M54.12) 02/16/2024 Primary osteoarthritis involving multiple joints (ICD-10 - M15.9) 12/04/2023 Current moderate episode of major depressive disorder without prior episode (ICD-10 - F32.1) 05/17/2024 RLS (restless legs syndrome) (ICD-10 - G25.81) 02/01/2024 RLS (restless legs syndrome) (ICD-10 - G25.81) 04/16/2024 RLS (restless legs syndrome) (ICD-10 - G25.81) 01/18/2024 RLS (restless legs syndrome) (ICD-10 - G25.81) 03/05/2024 RLS (restless legs syndrome) (ICD-10 - G25.81) 01/02/2024 RLS (restless legs syndrome) (ICD-10 - G25.81) 02/16/2024 Cervical radiculopathy (ICD-10 - M54.12) 12/04/2023 RLS (restless legs syndrome) (ICD-10 - G25.81) 02/01/2024 Muscle spasm (ICD-10 - M62.838) 05/17/2024 Chronic fatigue (ICD-10 - R53.82) 01/18/2024 Muscle spasm (ICD-10 - M62.838) 03/05/2024 Muscle spasm (ICD-10 - M62.838) 01/02/2024 Encounter for immunization (ICD-10 - Z23) 02/16/2024 RLS (restless legs syndrome) (ICD-10 - G25.81) 01/02/2024 Muscle spasm (ICD-10 - M62.838) 02/16/2024 Muscle spasm (ICD-10 - M62.838) 12/04/2023 Other This chart has been transcribed by a computerized dictation system. There are likely to be multiple sales ambassador inaccuracies despite chart review. 01/02/2024 Other This chart has been transcribed by a computerized dictation system. There are likely to be multiple sales ambassador inaccuracies despite chart review. 02/01/2024 Other This chart has been transcribed by a computerized dictation system. There are likely to be multiple sales ambassador inaccuracies despite chart review. 02/16/2024 Other This chart has been transcribed by a computerized dictation system. There are likely to be multiple sales ambassador inaccuracies despite chart review. 03/05/2024 Other This chart has been transcribed by a computerized dictation system. There are likely to be multiple sales ambassador inaccuracies despite chart review. 04/16/2024 Other This chart has been transcribed by a computerized dictation system. There are likely to be multiple sales ambassador inaccuracies despite chart review. 05/17/2024 Other This chart has been transcribed by a computerized dictation system. There are likely to be multiple sales ambassador inaccuracies despite chart review. 06/14/2024 Other This chart has been transcribed by a computerized dictation system. There are likely to be multiple sales ambassador inaccuracies despite chart review. 10/24/2024 Other This chart has been transcribed by a computerized dictation system. There are likely to be multiple sales ambassador inaccuracies despite chart review. 01/16/2024 Other This chart has been transcribed by a computerized dictation system. There are likely to be multiple sales ambassador inaccuracies despite chart review. 10/08/2024 Other This chart has been transcribed by a computerized dictation system. There are likely to be multiple sales ambassador inaccuracies despite chart review. 10/14/2024 Other This chart has been transcribed by a computerized dictation system. There are likely to be multiple sales ambassador inaccuracies despite chart review. 01/18/2024 Other This chart has been transcribed by a computerized dictation system. There are likely to be multiple sales ambassador inaccuracies despite chart review. PLAN OF TREATMENT Pending Test Test Name Order Date MAMMOGRAM, SCREENING 10/09/2023 Ultrasound : Abdomen, upper 10/24/2024 GUAIAC, SINGLE SPECIMEN 10/09/2023 LIPID PANEL 05/22/2023 Vaginitis/Vaginosis, DNA [id number] Next Appt Details Provider Name:Matthew eller, 11/26/2024 08:45:00 AM, [address] [place] [address], [id number], Insurance Providers Payer Name Payer Address Payer Phone Subscriber Number Group Number Insured Name Patient Relationship to Insured Coverage Start Date Coverage End Date [facility] [address] [place] [phone] [id number] Hortencia Light Self - patient is the insured MEDICAL (GENERAL) HISTORY Surgical History Surgery Date(Month/Year) Tubal Ligation 2003 Fibroid Removal 2010 ACDF C5-C6 10/2023 Hospitalization History Reason Date(Month/Year) For Above Procedures
== END 2024-11-22 10:19 | disposition home or self-care (01) ==
LOC: HO.HSM 09:46
PROVIDERS: PCP Internal Medicine; Visit Provider Registered Nurse
DX: G50.0 Trigeminal neuralgia (principal); G25.81 Restless legs syndrome; G43.909 Migraine, unspecified, not intractable, without status migrainosus
CPT/HCPCS: 99214

== ENCOUNTER → 2024-11-22 09:45 | Outpatient (BNVA) | payer MEDICAID, SELFPAY | PROVIDERS: PCP Internal Medicine; Visit Provider Registered Nurse | DX: G50.0 Trigeminal neuralgia (principal); G25.81 Restless legs syndrome; G43.109 Migraine with aura, not intractable, without status migrainosus | CPT/HCPCS: 99212 ==